=== PATIENT | male | born 1955 | race Caucasian/White ===

== ENCOUNTER 2017-08-19 08:25 | Outpatient (RCR) | payer BC, SELFPAY ==
[2017-08-19 10:29] LABS: Prothrombin Time (Protime)PT. 22.5 SECONDS (11.7-14.9)
== END 2017-08-19 09:00 | disposition home or self-care (01) ==
LOC: MTLAB 08:25
PROVIDERS: Family Provider Family Medicine; PCP Family Medicine; Visit Provider Internal Medicine Cardiovascular Disease
DX: Z79.01 Long term (current) use of 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s (principal)
CPT/HCPCS: 36415; 85610

== ENCOUNTER 2017-09-23 08:59 | Outpatient (RCR) | payer BC, SELFPAY ==
[2017-09-23 11:10] LABS: International Normalized Ratio 1.9; Prothrombin Time (Protime)PT. 21.9 SECONDS (11.7-14.9)
[2017-09-23 11:17] LABS: AST(SGOT) 21 U/L (15-37); Alanine Aminotransfer ALT/SGPT 21 U/L (16-61); Albumin, Serum 3.6 g/dL (3.2-5.0); Alkaline Phosphatase 126 U/L (45-117); Bilirubin, Direct 0.19 mg/dL (0.00-0.30); Cholesterol 100 mg/dL (200); Globulin 3.6 g/dL (2.2-4.2); High Density Lipoprotein 40 mg/dL; Protein, Total 7.2 g/dL (6.4-8.2); Triglycerides 68 mg/dL; Very Low Density Lipoprotein 14 mg/dL (5-40)
== END 2017-09-23 09:00 | disposition home or self-care (01) ==
LOC: MTLAB 08:59
PROVIDERS: Physician Assistant Medical; Family Provider Family Medicine; PCP Family Medicine; Visit Provider Internal Medicine Cardiovascular Disease
DX: Z79.01 Long term (current) use of 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s (principal); E78.5 Hyperlipidemia, unspecified; Z79.899 Other long term (current) drug therapy
CPT/HCPCS: 36415; 80061; 80076; 85610

== ENCOUNTER 2017-10-21 08:45 | Outpatient (RCR) | payer BC, SELFPAY ==
[2017-10-21 12:25] LABS: International Normalized Ratio 2.7; Prothrombin Time (Protime)PT. 28.9 SECONDS (11.7-14.9)
== END 2017-10-21 09:00 | disposition home or self-care (01) ==
LOC: MTLAB 08:45
PROVIDERS: Family Provider Family Medicine; PCP Family Medicine; Visit Provider Internal Medicine Cardiovascular Disease
DX: I51.3 Intracardiac thrombosis, not elsewhere classified (principal); I25.5 Ischemic cardiomyopathy; Z79.01 Long term (current) use of 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s
CPT/HCPCS: 36415; 85610

== ENCOUNTER 2017-11-25 09:24 | Outpatient (RCR) | payer BC, SELFPAY ==
--- NOTE | 2017-11-25 09:24 | DT_ITS ---
This patient was seen during an EMR downtime November 21, 2017 - November 28, 2017. This patient may have a combination of paper and electronic documentation or all paper documentation. All documentation is viewable within the e-chart portion of [email or web address] for each patient visit.
[2017-11-25 10:17] LABS: International Normalized Ratio 2.9; Prothrombin Time (Protime)PT. 30.1 SECONDS (11.7-14.9)
== END 2017-11-25 10:00 | disposition home or self-care (01) ==
LOC: MTLAB 09:24
PROVIDERS: Family Provider Family Medicine; PCP Family Medicine; Visit Provider Internal Medicine Cardiovascular Disease
DX: I51.3 Intracardiac thrombosis, not elsewhere classified (principal); I25.5 Ischemic cardiomyopathy; Z79.01 Long term (current) use of 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s
CPT/HCPCS: 36415; 85610

== ENCOUNTER 2017-12-30 09:10 | Outpatient (RCR) | payer BC, SELFPAY ==
[2017-12-30 10:52] LABS: International Normalized Ratio 2.3; Prothrombin Time (Protime)PT. 25.6 SECONDS (11.7-14.9)
== END 2017-12-30 11:00 ==
LOC: MTLAB 09:10
PROVIDERS: Family Provider Family Medicine; PCP Family Medicine; Visit Provider Internal Medicine Cardiovascular Disease
DX: I51.3 Intracardiac thrombosis, not elsewhere classified (principal); I25.5 Ischemic cardiomyopathy; Z79.01 Long term (current) use of 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s
CPT/HCPCS: 36415; 85610

== ENCOUNTER 2018-01-08 17:18 | Inpatient (IN) | payer BC, SELFPAY ==
[2018-01-08] VITALS (15 sets, daily range): BP systolic 110–167; BP diastolic 69–106; PULSE 48–87; RESP 14–19; TEMP 36.4–36.8; O2SAT 92–99; BMI 23.1; BMI 22.2; BMI 22.3
--- NOTE | 2018-01-08 17:36 | EKG12_ITS ---
Test Reason : Blood Pressure : / mmHG Vent. Rate : 073 BPM Atrial Rate : 073 BPM P-R Int : 166 ms QRS Dur : 094 ms QT Int : 384 ms P-R-T Axes : 066 015 117 degrees QTc Int : 423 ms Normal sinus rhythm Voltage criteria for left ventricular hypertrophy T wave abnormality, consider anterolateral ischemia Abnormal ECG Confirmed by KESHIA GRAY, ZENY ([id number]), desk editor ROCKY KIDD ([id number]) on 01/10/2018 1:13:35 PM Referred By: MANJEET Confirmed By:ZENY SCHMITT MD
--- NOTE | 2018-01-08 17:36 | RAD_ITS ---
STUDY: X-RAY CHEST REASON FOR EXAM: Male, 62 years old. Chest pain. History of coronary artery disease and prior bypass. TECHNIQUE: Single AP portable view of the chest. COMPARISON: Prior chest radiograph of March 02, 2013 FINDINGS: The lung floyd are well-expanded to mildly hyperexpanded. Prominent interstitial and linear opacities of the lung bases somewhat increased at the right lung base and more extensively increased at the left lung base. Negative for substantial pleural effusion. Stable cardiac size status post prior midline sternotomy with a right ventricular defibrillator remaining in good position. Normal mediastinum and fiona. Normal visualized pulmonary arteries. Normal visualized aortic arch and descending thoracic aorta. Normal visualized thoracic spine. Normal visualized ribs, clavicles, and shoulders. There is no demonstrated abnormality of the visualized soft tissue structures of the upper abdomen. RAD/Chest 1 View (Portable) IMPRESSION: Increased bibasilar interstitial and linear opacities, left greater than right without other major consolidation or pleural effusion. Stable cardiac size status post prior midline sternotomy with right ventricular pacemaker remaining in good position. Electronically Signed: Patria Nunez MD at 18:40 EDT , Service support ,
--- NOTE | 2018-01-08 17:37 | NURSING ---
NO LW OR POA
[2018-01-08 17:49] LABS: International Normalized Ratio 2.6; Prothrombin Time (Protime)PT. 28.1 SECONDS (11.7-14.9)
[2018-01-08 17:50] LABS: Absolute Lymphocyte Count 1.32 X10^3/ul (0.83-4.51); Absolute Neutrophil Count 4.4 X10^3/uL (2.0-7.7); Basophil# 0.01 X10^3/uL; Basophil% 0.2 % (0-1); Eosinophil# 0.17 X10^3/uL; Eosinophils% 2.6 % (0-5); Hematocrit 39.3 % (40-54); Hemoglobin 13.6 g/dl (13.0-16.5); Lymphocyte # 1.32 X10^3/ul (4.0); Lymphocyte % 20.2 % (19-41); Mean Corp Hgb Conc 34.6 g/gl (32-36); Mean Corpuscular Hgb 31.8 pg (27.0-32.0); Mean Corpuscular Volume 91.8 fL (80-94); Mean Platelet Vol. 9.8 fl (6.2-12.0); Monocyte# 0.64 X10^3/uL; Monocyte% 9.8 % (0-10); Neutrophil # 4.38 X10^3/uL (2.7-7.7); Platelet Count 155 K/mm3 (150-450); RBC Distribution Width CV 13.6 % (11.6-14.6); RBC Distribution Width SD 45.1 fl (35.1-43.9); Red Blood Count 4.28 M/mm3 (4.6-6.2); White Blood Count 6.5 K/mm3 (4.4-11.0)
[2018-01-08 17:53] LABS: POSITIVE COUNT NO; POSITIVE DIFFERENTIAL NO; POSITIVE MORPHOLOGY NO
[2018-01-08 17:57] LABS: Anion Gap 7 (5-15); BUN 13 mg/dL (7-18); BUN/Creat Ratio 9.8 RATIO (10-20); Calcium,Total 8.9 mg/dL (8.5-10.1); Chloride 108 mmol/L (98-107); Creatinine, Serum 1.32 mg/dL (0.70-1.30); EST Glomerular Filtration Rate 58 mL/min (>60); Est Glom Filt Rate - Afr Amer 70 mL/min (>60); Estimated Creatinine Clearance 60.76 ml/min; Glucose 92 mg/dL (74-106); Potassium 4.2 mmol/L (3.5-5.1); Sodium Level 144 mmol/L (136-145)
[2018-01-08] MEDS: Aspirin 81 MG TAB.CHEW 324 MG PO (17:58)
--- NOTE | 2018-01-08 17:59 | ED.VISSUMM ---
- ER Visit Summary Date of Service: 01/08/18 Chief Complaint: Near syncope History of Present Illness: The patient is a 62 M who presents with near syncope. He was outside cooking and it is about 80? out today. He was standing next to a hot grill. He states began to feel dizzy and lightheaded. He went to sit down at a picnic table. He states the next thing he knew several people were surrounding him. He denies having lost consciousness. He did not become unresponsive. EMS was called. He had a second episode of near syncope while in the ambulance. However currently he feels well and is without complaint. He denies any associated chest pain or shortness of breath with this. He denies recent illness such as fevers vomiting or diarrhea. Physical Examination: Afebrile vitals stable blood pressure 143/56 with a heart rate of 70 Moist mucous membranes Heart regular rate and rhythm Lungs are clear no rales rhonchi wheezes Abdomen soft 2+ radial pulses Extremities nontender without edema Test Results: EKG shows sinus rhythm at a rate of 71 with a single PVC. CBC BMP normal. Troponin negative. Orthostatic vital signs negative. Chest x-ray showed a 5 cm right upper lobe spiculated mass. CTA of the chest was obtained. No pulmonary embolism. There is a 5.1 cm malignant mass in the right upper right hilar lymphadenopathy concerning for bronchogenic carcinoma. Emergency Department Course and Treatment: I do believe the patient's near syncope was likely related to heat exhaustion. He states that this began while standing next to a very hot grill. He states currently he is completely asymptomatic. This orthostatic vital signs and labs were all normal. I explained to the patient the findings on CT chest that are most consistent with malignancy. I spoke to Dr. Jolly, pulmonology and patient will follow-up as an outpatient. He understands to return for new or worsening symptoms and was instructed on specific signs and symptoms to monitor for. Patient discharged home in good condition. Treatment Plan: [] Disposition: Discharge Impression: Near syncope Heat exhaustion Lung mass This note was generated with [employer] dictation software. It may contain incorrect words, spelling, and punctuation that were not noted in review of the chart prior to signing ED Disposition - Plan for ED Patient: Chief Complaint: Chest Pain Referrals: Ranjith Marks MD [Primary Care Provider] -
--- NOTE | 2018-01-08 18:02 | ED.DEP ---
ED Disposition - Plan for ED Patient: Chief Complaint: Chest Pain Instructions: ED Nodule Solitary Pulmonary, ED Exhaustion Heat, ED Near Syncope Unkn Referrals: Ranjith Marks MD [Primary Care Provider] - Artemio Jolly DO [STAFF PHYSICIAN] -
--- NOTE | 2018-01-08 18:55 | ED.VISSUMM ---
- ER Visit Summary Date of Service: 01/08/18 Chief Complaint: Chest pain History of Present Illness: The patient is a 62 M who presents for chest pain. It began about 1 hour prior to presentation. He had just walked up a flight of 13 steps. He developed substernal chest tightness. He denies any associated symptoms such as nausea vomiting diaphoresis or shortness of breath. No lightheadedness or dizziness. He did have some blurred vision although this has improved. He took nitroglycerin at home with improvement of symptoms. Currently he rates his pain a 7 out of 10. No recent illness. He denies fevers vomiting diarrhea. Physical Examination: Initial blood pressure 150/103 pulse ox 93% on room air vitals otherwise stable and within normal limits Moist mucous members Heart regular rate and rhythm Lungs clear Abdomen soft nontender Extremities nontender without edema 2+ radial pulses Alert Test Results: EKG shows normal sinus rhythm at a rate of 73. CBC BMP notable for creatinine 1.32. INR therapeutic at 2.6. Troponin is negative. Chest x-ray shows increased interstitial opacities left greater than right no consolidation or effusion. The patient did have a 6 run beat of nonsustained VT on telemetry here. Emergency Department Course and Treatment: Patient was given aspirin and sublingual nitroglycerin here. With a sublingual nitroglycerin series his pain improved from 7 out of 10 to 2 out of 10. Therefore IV nitroglycerin infusion has been ordered. Chest x-ray is suggestive of mild CHF. He was given IV Lasix. I spoke to Dr. Taylor who is on-call for cardiology. The patient is already on aspirin Plavix and full anticoagulation with warfarin. He recommended admission to the hospitalist service and they will see the patient tomorrow. Treatment Plan: [] Disposition: Admit Impression: Acute coronary syndrome Nonsustained ventricular tachycardia CHF This note was generated with [employer] dictation software. It may contain incorrect words, spelling, and punctuation that were not noted in review of the chart prior to signing ED Disposition - Plan for ED Patient: Chief Complaint: Chest Pain Instructions: ED Exhaustion Heat, ED Nodule Solitary Pulmonary, ED Near Syncope Unkn Referrals: Ranjith Marks MD [Primary Care Provider] - Artemio Jolly DO [STAFF PHYSICIAN] -
--- NOTE | 2018-01-08 18:58 | ED.DCSUM_ITS ---
- ER Visit Summary Date of Service: 01/08/18 Chief Complaint: Chest pain History of Present Illness: The patient is a 62 M who presents for chest pain. It began about 1 hour prior to presentation. He had just walked up a flight of 13 steps. He developed substernal chest tightness. He denies any associated symptoms such as nausea vomiting diaphoresis or shortness of breath. No lightheadedness or dizziness. He did have some blurred vision although this has improved. He took nitroglycerin at home with improvement of symptoms. Currently he rates his pain a 7 out of 10. No recent illness. He denies fevers vomiting diarrhea. Physical Examination: Initial blood pressure 150/103 pulse ox 93% on room air vitals otherwise stable and within normal limits Moist mucous members Heart regular rate and rhythm Lungs clear Abdomen soft nontender Extremities nontender without edema 2+ radial pulses Alert Test Results: EKG shows normal sinus rhythm at a rate of 73. CBC BMP notable for creatinine 1.32. INR therapeutic at 2.6. Troponin is negative. Chest x- ray shows increased interstitial opacities left greater than right no consolidation or effusion. The patient did have a 6 run beat of nonsustained VT on telemetry here. Emergency Department Course and Treatment: Patient was given aspirin and sublingual nitroglycerin here. With a sublingual nitroglycerin series his pain improved from 7 out of 10 to 2 out of 10. Therefore IV nitroglycerin infusion has been ordered. Chest x-ray is suggestive of mild CHF. He was given IV Lasix. I spoke to Dr. Taylor who is on-call for cardiology. The patient is already on aspirin Plavix and full anticoagulation with warfarin. He recommended admission to the hospitalist service and they will see the patient tomorrow. Treatment Plan: [] Disposition: Admit Impression: Acute coronary syndrome Nonsustained ventricular tachycardia CHF This note was generated with [employer] dictation software. It may contain incorrect words, spelling, and punctuation that were not noted in review of the chart prior to signing ED Disposition - Plan for ED Patient: Chief Complaint: Chest Pain Instructions: ED Exhaustion Heat, ED Nodule Solitary Pulmonary, ED Near Syncope Unkn Referrals: Ranjith Marks MD [Primary Care Provider] - Artemio Jolly DO [STAFF PHYSICIAN] -
[2018-01-08] MEDS: Furosemide 20 MG/2 ML VIAL IV (19:07)
[2018-01-08 20:18] LABS: BNP,B-Type NATRIURETIC PEPTIDE 502.8 pg/mL (0-100)
--- NOTE | 2018-01-08 20:21 | NURSING ---
Called Tyrone in ED, patient's 2nd trop due now, asked him to draw trop level, then ok to send to floor.
--- NOTE | 2018-01-08 21:22 | HP.PCM_ITS ---
Problem List (1) Chest pain Status: Acute (2) Hyperlipidemia Status: Chronic Qualifiers: Hyperlipidemia type: pure hypercholesterolemia Qualified Code(s): E78.00 - Pure hypercholesterolemia, unspecified; E78.0 - Pure hypercholesterolemia (3) Saphenous vein injury Status: Chronic (4) Presence of aortocoronary bypass graft Status: Chronic Comment: 08/12/03, CABG X 4, MENCHACA to LAD, SVG to DCA, SVG to CX , SVG to PDA (5) History of percutaneous transluminal coronary angioplasty Status: Chronic (6) Peripheral vascular disease, unspecified Status: Chronic (7) Atherosclerosis of coronary artery bypass graft without angina pectoris Status: Chronic Qualifiers: [place] vs. transplanted heart: [place] heart Qualified Code(s): I25.810 - Atherosclerosis of coronary artery bypass graft(s) without angina pectoris (8) Ventricular tachycardia Status: Chronic (9) Ischemic cardiomyopathy Status: Chronic (10) Presence of automatic implantable cardioverter-defibrillator Status: Chronic Comment: ICD 2005 [employer] (11) senior care current use of 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 Status: Chronic (12) Apical mural thrombus Status: Chronic History of Present Illness Date of Admission: 01/08/18 Chief Complaint: Chest pain The patient is a 62 year old male w/ h/o CAD s/p CABG and stent in 2008, LV thrombus, ICD placement and lipidemia admitted for chest pain. He developed sudden onset of chest pain while during up a flight of stairs. Chest pain was crushing and pressure-like. Pain was substernal. Nothing appeared to make it worse. Pain was constant and was alleviated with nitro taken at home and in the ED. He had blurry vision associated with the pain. Blurry vision improved over time. Past Medical History Past Medical History (Chronic Problems): Chronic Problems (Last Updated 08/26/17 @ 15:37 by MICHELLE Maddox) Hyperlipidemia (Chronic) Saphenous vein injury (Chronic) Presence of aortocoronary bypass graft (Chronic) 08/12/03, CABG X 4, MENCHACA to LAD, SVG to DCA, SVG to CX, SVG to PDA History of percutaneous transluminal coronary angioplasty (Chronic) Peripheral vascular disease, unspecified (Chronic) Atherosclerosis of coronary artery bypass graft without angina pectoris (Chronic ) Ventricular tachycardia (Chronic) Ischemic cardiomyopathy (Chronic) Presence of automatic implantable cardioverter-defibrillator (Chronic) ICD 2005 [employer] current use of 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 (Chronic) Apical mural thrombus (Chronic) Medical History: Medical History (Last Reviewed 01/09/18 @ 03:46 by Joel Lin MD) Hyperlipidemia (Chronic) E78.5 Saphenous vein injury (Chronic) S85.309A Peripheral vascular disease, unspecified (Chronic) I73.9 Atherosclerosis of coronary artery bypass graft without angina pectoris (Chronic ) I25.810 Ventricular tachycardia (Chronic) I47.2 Ischemic cardiomyopathy (Chronic) I25.5 senior care current use of 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 (Chronic) Z79.01 Apical mural thrombus (Chronic) I51.3 DVT (deep venous thrombosis) I82.409 Allergies Penicillins Adverse Reaction (Severe, Verified 01/08/18 17:22) Unknown Home Medications: Ambulatory Orders Medication Instructions Recorded aspirin 81 mg tablet,delayed 81 mg PO QDAY tab 08/24/17 release nitroglycerin 0.4 mg sublingual 0.4 mg SUBLINGUAL Q5-15M PRN #25 11/04/17 tablet tab clopidogrel 75 mg tablet 75 mg PO QDAY #90 tab 11/29/17 atorvastatin 10 mg tablet 10 mg PO QHS #90 tab 11/30/17 carvedilol 25 mg tablet 25 mg PO BID #180 tab 11/30/17 quinapril 10 mg tablet 10 mg PO QDAY #90 tab 11/30/17 niacin ER 1,000 mg tablet,extended 1,000 mg PO QDAY #90 tab 12/15/17 release Warfarin Sodium [Coumadin] 3 mg PO MOTUWETHFR 01/08/18 Warfarin Sodium [Coumadin] 4 mg PO SUSA 01/08/18 Surgical History: Surgical History (Last Reviewed 01/09/18 @ 03:46 by Joel iLn MD) Presence of aortocoronary bypass graft (Chronic) Z95.1 08/12/03, CABG X 4, MENCHACA to LAD, SVG to DCA, SVG to CX, SVG to PDA History of percutaneous transluminal coronary angioplasty (Chronic) Z98.61 Presence of automatic implantable cardioverter-defibrillator (Chronic) Z95.810 ICD 2005 [employer] Smoking Status: Never smoker Review of Systems Constitutional: Denies: Chills, Fever, Weight Change HEENT: Denies: Head Aches, Sinus Congestion, Sinus Drainage Cardiovascular: Reports: Chest Pain, Chest Tightness. Denies: Palpitations Respiratory: Denies: Cough, Shortness of breath at rest, Sputum production Gastrointestinal: Denies: Abdominal Pain, Nausea, Vomiting Genitourinary: Denies: Dysuria Musculoskeletal: Denies: Joint Pain, Joint Tenderness Skin: Denies: Rash, Wounds Neurological: Reports: Blurred vision. Denies: Focal weakness, Numbness, Tingling Psychiatric: Denies: Anxiety, Depression, Homicidal Ideations, Suicidal Ideations Hematologic/ Lymphatic: Denies: Easy Bruising, Easy Bleeding VTE Information - Inpt Only VTE Present on Admission: No VTE Mechan Device Prophylaxis: SCD's VTE Pharm Prophylaxis ordered?: Yes Patient Problems: Active and Suspected Problems (Last Updated 08/26/17 @ 15:37 by MICHELLE Maddox) Chest pain (Acute) - Physical Exam General: Alert, Oriented x3, Cooperative HEENT: Atraumatic, PERRLA, EOMI, Normocephalic Neck: Supple, No JVD, Negative Carotid Bruits Lungs: Clear to auscultation, Normal air movement Cardiovascular: Regular rate, No murmurs Abdomen: Bowel Sounds Present, Soft, Non Tender Extremities: No edema, Capillary Refill Less than 3 Seconds Skin: No rashes, No breakdown Musculoskeletal: No Tenderness to Palpation of Joints or Extremities Neurological: Cranial nerves II-XII grossly intact Psych/Mental Status: Normal Affect, Appropriate Vital Signs Temp Pulse Resp BP Pulse Ox 98.2 F 73 14 120/82 H 95 01/08/18 17:20 01/08/18 20:02 01/08/18 20:02 01/08/18 20:02 01/08/18 20:02 Assessment/Plan All Active Problems (Last Updated 08/26/17 @ 15:37 by MICHELLE Maddox) Chest pain (Acute) 62 year old male w/ h/o CAD s/p CABG and stent in 2008, LV thrombus, ICD placement and lipidemia admitted for chest pain. 1) Chest pain: Heart score 6 High suspicion for ACS. Nonsustained ventricular tachycardia in ED noted. Chest xray disclosed congestion. EKG disclosed normal sinus without any dynamic changes. Initial trop negative. C/w home meds. Serial trops. C/w nitro gtt. ECHO in AM. Cards consulted. 2) Hypervolemia: Will start lasix IV. ECHO in AM concerning for heart failure. Monitor. 3) LV thrombus: C/w coumadin. Monitor. 4) Prophylaxis: Coumadin.
[2018-01-08] MEDS: Atorvastatin Calcium 10 MG Tablet PO (22:46)
[2018-01-08] MEDS: Carvedilol 25 MG Tablet PO (22:46)
[2018-01-09] VITALS (20 sets, daily range): BP systolic 103–127; BP diastolic 72–79; PULSE 51–79; RESP 13–18; TEMP 36.4–37; O2SAT 93–98
[2018-01-09 05:55] LABS: Absolute Lymphocyte Count 0.96 X10^3/ul (0.83-4.51); Absolute Neutrophil Count 3.7 X10^3/uL (2.0-7.7); Basophil# 0.02 X10^3/uL; Basophil% 0.4 % (0-1); Eosinophil# 0.15 X10^3/uL; Eosinophils% 2.8 % (0-5); Hematocrit 36.5 % (40-54); Hemoglobin 12.8 g/dl (13.0-16.5); Lymphocyte # 0.96 X10^3/ul (4.0); Lymphocyte % 17.8 % (19-41); Mean Corp Hgb Conc 35.1 g/gl (32-36); Mean Corpuscular Hgb 32.1 pg (27.0-32.0); Mean Corpuscular Volume 91.5 fL (80-94); Mean Platelet Vol. 9.6 fl (6.2-12.0); Monocyte% 9.3 % (0-10); Neutrophil # 3.74 X10^3/uL (2.7-7.7); Neutrophil % 69.5 % (47-70); Platelet Count 129 K/mm3 (150-450); RBC Distribution Width CV 13.5 % (11.6-14.6); RBC Distribution Width SD 44.3 fl (35.1-43.9); Red Blood Count 3.99 M/mm3 (4.6-6.2); White Blood Count 5.4 K/mm3 (4.4-11.0)
--- NOTE | 2018-01-09 05:55 | ECHOCS_ITS ---
Reason For Study: Chest Pain Procedure This was a 2D Doppler, Color Flow transthoracic echocardiogram. Exam performed portable in patient room. Left Ventricle Moderately dilated left ventricle. The estimated ejection fraction is 20-25 %. Stage 1 diastolic dysfunction. Septal motion consistent with IVCD. No regional wall motion abnormalities noted. Right Ventricle Normal size and thickness. ICD or pacer leads identified within the right ventricle. Normal systolic function. Atria The left atrium is moderately enlarged. Normal right atrium. Normal atrial septum. Mitral Valve The mitral valve is structurally normal. No prolapse or stenosis seen. Mild (1+) mitral valve insufficiency. Tricuspid Valve Normal tricuspid valve. Trivial tricuspid valve insufficiency. Right ventricular systolic pressure estimated to be 33 mmHg. Aortic Valve Trisinus/trileaflet aortic valve. Mild diffuse aortic valve thickening. Pulmonic Valve Normal pulmonic valve. Great Vessels Normal aortic root. Normal arch. Normal inferior vena cava. Inferior vena cava collapse with sniff. Pericardium/Pleural No pericardial effusion. Medication Diluted definity 2.5ml given slow IV push to enhance endocardial definition. MMode/2D Measurements & Calculations Ao root diam: 3.3 cm LAV(MOD-bp): 63.9 ml LA A4 area: 22.8 cm2 LAV(MOD-bp) Indexed: 33.4 ml/m2 LAV(MOD-sp2): 51.1 ml LAV(MOD-sp4): 74.5 ml RA A4 area: 14.0 cm2 Time Measurements MV dec time: 0.27 sec Doppler Measurements & Calculations MV E max travis: 52.3 cm/sec Lat Peak E' Travis: 7.9 cm/sec Med Peak E' Travis: 8.5 cm/sec MV A max travis: 73.3 cm/sec E/E' lat: 6.6 E/E' med: 6.1 MV E/A: 0.71 MV V2 max: 92.9 cm/sec MV P1/2t max travis: 77.0 cm/sec Ao V2 max: 119.3 cm/sec MV max P.4 mmHg MV P1/2t: 76.3 msec Ao max P.7 mmHg MV V2 mean: 50.7 cm/sec MV dec slope: 295.7 cm/sec2 Ao V2 mean: 71.5 cm/sec MV mean P.2 mmHg MVA(P1/2t): 2.9 cm2 Ao mean P.5 mmHg MV V2 VTI: 26.3 cm Ao V2 VTI: 19.6 cm LV V1 max: 101.5 cm/sec PA V2 max: 117.5 cm/sec TR max travis: 267.6 cm/sec LV V1 max P.1 mmHg TR max P.6 mmHg LV V1 mean P.7 mmHg LV V1 mean: 58.0 cm/sec LV V1 VTI: 15.9 cm Interpretation Summary The estimated ejection fraction is 20-25 %. Stage 1 diastolic dysfunction. The left atrium is moderately enlarged. Mild (1+) mitral valve insufficiency. Trivial tricuspid valve insufficiency. Right ventricular systolic pressure estimated to be 33 mmHg. Moderately dilated left ventricle. Compared to echo report dated 03/04/2016, LV function appears slightly worse and RVSP has increased from 26 to 33 mm Hg. The study was technically difficult. Contrast injection was performed. Ordering Physician: Joel Lin Referring Physician: Heather Purvis Performed By: Sean Lainez RCS
[2018-01-09] MEDS: Aspirin E.C. 81 MG Tablet PO (06:14)
[2018-01-09] MEDS: Lisinopril 10 MG Tablet PO (06:14)
[2018-01-09] MEDS: Clopidogrel Bisulfate 75 MG Tablet PO (06:14)
[2018-01-09 06:25] LABS: Anion Gap 10 (5-15); BUN 14 mg/dL (7-18); BUN/Creat Ratio 11.6 RATIO (10-20); Calcium,Total 8.6 mg/dL (8.5-10.1); Chloride 106 mmol/L (98-107); Cholesterol 95 mg/dL (200); Creatinine, Serum 1.21 mg/dL (0.70-1.30); EST Glomerular Filtration Rate 64 mL/min (>60); Est Glom Filt Rate - Afr Amer 78 mL/min (>60); Estimated Creatinine Clearance 63.99 ml/min; Glucose 82 mg/dL (74-106); High Density Lipoprotein 35 mg/dL; Potassium 3.9 mmol/L (3.5-5.1); Sodium Level 143 mmol/L (136-145); Thyroid Stim Hormone (TSH) 7.46 uIU/mL (0.358-3.74); Triglycerides 104 mg/dL; Very Low Density Lipoprotein 21 mg/dL (5-40)
[2018-01-09 06:35] LABS: POSITIVE COUNT NO; POSITIVE DIFFERENTIAL NO; POSITIVE MORPHOLOGY NO
[2018-01-09 08:18] LABS: BNP,B-Type NATRIURETIC PEPTIDE 404.5 pg/mL (0-100)
[2018-01-09] MEDS: Carvedilol 25 MG Tablet PO ×2 (08:59→22:35)
[2018-01-09] MEDS: Niacin SA 500 MG Tablet 1000 MG PO (08:59)
[2018-01-09] MEDS: Furosemide 40 MG/4 ML Vial IV ×2 (09:00→17:25)
--- NOTE | 2018-01-09 11:15 | PCM.CONS.C ---
Problem List (1) Chest pain Status: Acute (2) Hyperlipidemia Status: Chronic Qualifiers: Hyperlipidemia type: pure hypercholesterolemia Qualified Code(s): E78.00 - Pure hypercholesterolemia, unspecified; E78.0 - Pure hypercholesterolemia (3) Presence of aortocoronary bypass graft Status: Chronic Comment: 08/12/03, CABG X 4, MENCHACA to LAD, SVG to DCA, SVG to CX, SVG to PDA (4) History of percutaneous transluminal coronary angioplasty Status: Chronic (5) Atherosclerosis of coronary artery bypass graft without angina pectoris Status: Chronic Qualifiers: [place] vs. transplanted heart: [place] heart Qualified Code(s): I25.810 - Atherosclerosis of coronary artery bypass graft(s) without angina pectoris (6) Ventricular tachycardia Status: Chronic (7) Ischemic cardiomyopathy Status: Chronic (8) Presence of automatic implantable cardioverter-defibrillator Status: Chronic Comment: ICD 2005 [employer] (9) Apical mural thrombus Status: Chronic Reason for Consult Date of Consultation: 01/09/18 Reason for Consultation: Chest pain, nonsustained V. tach, ischemic cardiomyopathy, hypertension, coronary artery disease, status post AICD History of Present Illness: The patient is a 62 year old M, patient of Dr. Anguiano with a history of hypertension, hypercholesterolemia, coronary artery disease status post coronary bypass surgery ?4 on 08/12/03. At that time he received a MENCHACA to the LAD, saphenous vein graft to the diagonal, saphenous vein graft to the left circumflex and saphenous vein graft to the PDA. In 2005 he underwent AICD placement. Patient presented [facility] on 01/21/09 with non-ST elevation myocardial infarction and underwent repeat coronary angiography. At that time he had a patent saphenous vein graft to the PDA, patent saphenous vein graft to the diagonal branch, patent saphenous vein graft to the ramus, and a small atretic MENCHACA to the LAD. At that time he was treated with medical therapy. His LAD was described as a large occluded vessel and filling retrograde from a patent saphenous vein graft to the diagonal. In addition the patient has ischemic cardiomyopathy with an EF around 35% by echocardiogram in 2016. His last pacemaker interrogation was 08/18/16 which showed 2 episodes of ventricular tachycardia which resolved on its own, another one with ATP correction. The patient was in normal health up until yesterday when he presented with substernal chest pain after walking of about 13 stairs. His EKG was unremarkable in the emergency room. While he was in the emergency room he had a 5 beat run of nonsustained ventricular tachycardia. In addition his chest pain was unresolved with 3 sublingual nitroglycerin and a nitroglycerin drip was started. His troponins have been negative thus far. In addition he has a history of left ventricular mural thrombus and is on chronic Coumadin therapy and is therapeutic on his Coumadin. His most recent stress test was in 01/19/2010 which demonstrated extensive anterior infarct with no evidence of ischemia. On telemetry the patient has been in normal sinus rhythm/sinus bradycardia. He did have a 5 beat run of nonsustained ventricular tachycardia. This was self terminating. The patient's anginal equivalent is bilateral throat pain, which he did not have any of last evening., Past Medical History Allergies/Adverse Reactions: Allergies Penicillins Adverse Reaction (Severe, Verified 01/08/18 17:22) Unknown Home Medications: Ambulatory Orders Medication Instructions Recorded aspirin 81 mg tablet,delayed 81 mg PO QDAY tab 08/24/17 release nitroglycerin 0.4 mg sublingual 0.4 mg SUBLINGUAL Q5-15M PRN #25 11/04/17 tablet tab clopidogrel 75 mg tablet 75 mg PO QDAY #90 tab 11/29/17 atorvastatin 10 mg tablet 10 mg PO QHS #90 tab 11/30/17 carvedilol 25 mg tablet 25 mg PO BID #180 tab 11/30/17 quinapril 10 mg tablet 10 mg PO QDAY #90 tab 11/30/17 niacin ER 1,000 mg tablet,extended 1,000 mg PO QDAY #90 tab 12/15/17 release Warfarin Sodium [Coumadin] 3 mg PO MOTUWETHFR 01/08/18 Warfarin Sodium [Coumadin] 4 mg PO SUSA 01/08/18 Past Medical History (Chronic Problems): Chronic Problems (Last Reviewed 01/09/18 @ 03:46 by Joel Lin MD) Hyperlipidemia (Chronic) Saphenous vein injury (Chronic) Presence of aortocoronary bypass graft (Chronic) 08/12/03, CABG X 4, MENCHACA to LAD, SVG to DCA, SVG to CX, SVG to PDA History of percutaneous transluminal coronary angioplasty (Chronic) Peripheral vascular disease, unspecified (Chronic) Atherosclerosis of coronary artery bypass graft without angina pectoris (Chronic) Ventricular tachycardia (Chronic) Ischemic cardiomyopathy (Chronic) Presence of automatic implantable cardioverter-defibrillator (Chronic) ICD 2005 [employer] alf current use of 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 (Chronic) Apical mural thrombus (Chronic) Smoking Status: Never smoker Review of Systems - Review of Systems General: Denies: Fever, Night Sweats, Fatigue Cardiovascular: Reports: Chest Discomfort, Chest Discomfort with Exertion. Denies: Shortness of Breath, Orthopnea, PND, Peripheral Edema, Palpitations, Lightheadedness, Dizziness, Near Syncope, Syncope Respiratory: Denies: Cough, Sputum Production, Hemoptysis Gastrointestinal: Denies: Hematemesis, Hematochezia, Melena Genitourinary: Denies: Dysuria, Hematuria Skin: Denies: Rash Subjectve: Patient laying in bed, no acute distress. Currently on nitro drip. Objective: Vital Signs Temp Pulse Resp BP Pulse Ox 98.3 F 67 14 115/79 97 01/09/18 09:00 01/09/18 09:00 01/09/18 09:00 01/09/18 09:00 01/09/18 09:00 Oxygen Flow Rate (L/min) 2 Oxygen Delivery Method Nasal Cannula Weight: 159 lb 9.835 oz Body Mass Index (BMI) 22.2 Intake and Output for Last 24 Hours 01/07/18 01/08/18 01/09/18 23:59 23:59 23:59 Intake Total 83 / 83 Balance 83 / 83 General: Awake, Alert, Oriented x 3 HEENT: PERRL, EOMI, Sclera Non Icteric Neck: Supple, Good ROM, No Lymph Node Enlargement Lungs: Rales - Mike Bases Cardiovascular: Regular Rhythm, Normal S1, Normal S2, No Murmurs, No Rubs, No Gallops Vascular: No Carotid Bruits, Normal Femoral Pulses, Normal Radial Pulses, Normal Dorsalis Pedal Pulse, Normal Posterior Tibial Pulses Abdomen: Bowel Sounds Present, Soft, Non Tender, No HSM, No Organomegaly Extremities: No Cyanosis, No Clubbing, No edema Neurological: No Focal Motor or Sensory Deficit 01/08/18 23:48: Troponin I < 0.015 01/09/18 05:25: WBC 5.4, RBC 3.99 L, Hgb 12.8 L, Hct 36.5 L, MCV 91.5, MCH 32.1 H, MCHC 35.1, RDW 13.5, RDW Differential 44.3 H, Plt Count 129 L, MPV 9.6, Immature Gran % (Auto) 0.200, Neut % (Auto) 69.5, Lymph % (Auto) 17.8 L, [place] % (Auto) 9.3, Eos % (Auto) 2.8, Baso % (Auto) 0.4, Absolute Neuts (auto) 3.7, Total Counted Not Reportable 01/09/18 05:25: Sodium 143, Potassium 3.9, Chloride 106, Carbon Dioxide 27.0, Anion Gap 10, BUN 14, Creatinine 1.21, Est GFR (MDRD) Af Amer 78, Est GFR (MDRD) Non-Af 64, BUN/Creatinine Ratio 11.6, Glucose 82, Calcium 8.6, Triglycerides 104, Cholesterol 95, LDL Cholesterol 39, VLDL Cholesterol 21, HDL Cholesterol 35 L 01/09/18 05:25: PT 25.5 H, INR 2.3 01/09/18 05:25: B-Natriuretic Peptide 404.5 H Rhythm: EKG: Sinus bradycardia with LVH with anterior T-wave inversion, no acute changes. ECHO: Stress Test: Pending Cardiac Cath: PCI: CT Surgery: Holter monitor: EPS: PPM: CXR: Chest CT Scan: Assessment/Plan 1. Coronary artery disease: Patient presents with exertional chest pain dissimilar from his previous angina which was bilateral throat pain. Nonetheless he has a history of ischemic cardiomyopathy, status post bypass surgery, with a distant history of a stress test. He had no dynamic EKG changes on his admitting EKG and his troponins have been negative ?2. I recommended discontinuation of his intracoronary nitro drip. If the patient's chest pain returns, we will consider repeat left heart catheterization and graft angiography once his INR is below 1.8. In the meantime I recommend he undergo a repeat treadmill echocardiogram after his IV nitro is been discontinued and presumably if he has no further chest pain. If his stress echocardiogram is negative for ischemia, we will treat him with medical therapy. If however he has evidence of ischemia or exertional angina again we will have a low threshold for repeat catheterization. In the meantime recommend continuing baby aspirin and Plavix for now. We will hold his Coumadin in anticipation of possible catheterization. 2. Ischemic cardiomyopathy: The patient has evidence on his chest x-ray and physical exam of congestive heart failure symptoms, and has received IV Lasix and is feeling much better. I see that he is on no p.o. Lasix at home despite his ischemic cardiomyopathy. Recommend starting Lasix 40 mg p.o. daily going forward. In the meantime he will continue his Coreg, quinapril, baby aspirin and Plavix. Recommend holding his Coreg for his stress test tomorrow. 3. LV mural thrombus: Given his LV dysfunction and history of mural thrombus he will require lifelong any coagulation therapy once his cardiac workup is been completed. 4. Ventricular tachycardia: The patient has had several episodes of ventricular tachycardia both detected by his AICD and on telemetry on this admission. This may be a result of congestive heart failure exacerbation. He has an AICD placed. He is required no AICD discharges and so would recommend holding amiodarone at this time. 5. Thank you very much for the opportunity to participate in the cardiac care of your patient. Consultation time took place between 1030 and 11 AM. Code Visit Inpatient E&M: 19531 Init Hosp L2
--- NOTE | 2018-01-09 11:26 | CON.PCM_ITS ---
Problem List (1) Chest pain Status: Acute (2) Hyperlipidemia Status: Chronic Qualifiers: Hyperlipidemia type: pure hypercholesterolemia Qualified Code(s): E78.00 - Pure hypercholesterolemia, unspecified; E78.0 - Pure hypercholesterolemia (3) Presence of aortocoronary bypass graft Status: Chronic Comment: 08/12/03, CABG X 4, MENCHACA to LAD, SVG to DCA, SVG to CX , SVG to PDA (4) History of percutaneous transluminal coronary angioplasty Status: Chronic (5) Atherosclerosis of coronary artery bypass graft without angina pectoris Status: Chronic Qualifiers: [place] vs. transplanted heart: [place] heart Qualified Code(s): I25.810 - Atherosclerosis of coronary artery bypass graft(s) without angina pectoris (6) Ventricular tachycardia Status: Chronic (7) Ischemic cardiomyopathy Status: Chronic (8) Presence of automatic implantable cardioverter-defibrillator Status: Chronic Comment: ICD 2005 [employer] (9) Apical mural thrombus Status: Chronic Reason for Consult Date of Consultation: 01/09/18 Reason for Consultation: Chest pain, nonsustained V. tach, ischemic cardiomyopathy, hypertension, coronary artery disease, status post AICD History of Present Illness: The patient is a 62 year old M, patient of Dr. Anguiano with a history of hypertension, hypercholesterolemia, coronary artery disease status post coronary bypass surgery ?4 on 08/12/03. At that time he received a MENCHACA to the LAD, saphenous vein graft to the diagonal, saphenous vein graft to the left circumflex and saphenous vein graft to the PDA. In 2005 he underwent AICD placement. Patient presented [facility] on 01/21/09 with non- ST elevation myocardial infarction and underwent repeat coronary angiography. At that time he had a patent saphenous vein graft to the PDA, patent saphenous vein graft to the diagonal branch, patent saphenous vein graft to the ramus, and a small atretic MENCHACA to the LAD. At that time he was treated with medical therapy. His LAD was described as a large occluded vessel and filling retrograde from a patent saphenous vein graft to the diagonal. In addition the patient has ischemic cardiomyopathy with an EF around 35% by echocardiogram in 2016. His last pacemaker interrogation was 08/18/16 which showed 2 episodes of ventricular tachycardia which resolved on its own, another one with ATP correction. The patient was in normal health up until yesterday when he presented with substernal chest pain after walking of about 13 stairs. His EKG was unremarkable in the emergency room. While he was in the emergency room he had a 5 beat run of nonsustained ventricular tachycardia. In addition his chest pain was unresolved with 3 sublingual nitroglycerin and a nitroglycerin drip was started. His troponins have been negative thus far. In addition he has a history of left ventricular mural thrombus and is on chronic Coumadin therapy and is therapeutic on his Coumadin. His most recent stress test was in 01/19/2010 which demonstrated extensive anterior infarct with no evidence of ischemia. On telemetry the patient has been in normal sinus rhythm/sinus bradycardia. He did have a 5 beat run of nonsustained ventricular tachycardia. This was self terminating. The patient's anginal equivalent is bilateral throat pain, which he did not have any of last evening., Past Medical History Allergies/Adverse Reactions: Allergies Penicillins Adverse Reaction (Severe, Verified 01/08/18 17:22) Unknown Home Medications: Ambulatory Orders Medication Instructions Recorded aspirin 81 mg tablet,delayed 81 mg PO QDAY tab 08/24/17 release nitroglycerin 0.4 mg sublingual 0.4 mg SUBLINGUAL Q5-15M PRN #25 11/04/17 tablet tab clopidogrel 75 mg tablet 75 mg PO QDAY #90 tab 11/29/17 atorvastatin 10 mg tablet 10 mg PO QHS #90 tab 11/30/17 carvedilol 25 mg tablet 25 mg PO BID #180 tab 11/30/17 quinapril 10 mg tablet 10 mg PO QDAY #90 tab 11/30/17 niacin ER 1,000 mg tablet,extended 1,000 mg PO QDAY #90 tab 12/15/17 release Warfarin Sodium [Coumadin] 3 mg PO MOTUWETHFR 01/08/18 Warfarin Sodium [Coumadin] 4 mg PO SUSA 01/08/18 Past Medical History (Chronic Problems): Chronic Problems (Last Reviewed 01/09/18 @ 03:46 by Joel Lin MD) Hyperlipidemia (Chronic) Saphenous vein injury (Chronic) Presence of aortocoronary bypass graft (Chronic) 08/12/03, CABG X 4, MENCHACA to LAD, SVG to DCA, SVG to CX, SVG to PDA History of percutaneous transluminal coronary angioplasty (Chronic) Peripheral vascular disease, unspecified (Chronic) Atherosclerosis of coronary artery bypass graft without angina pectoris (Chronic ) Ventricular tachycardia (Chronic) Ischemic cardiomyopathy (Chronic) Presence of automatic implantable cardioverter-defibrillator (Chronic) 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 Denies: Shortness of Breath, Orthopnea, PND, Peripheral Edema, Palpitations, Lightheadedness, Dizziness, Near Syncope, Syncope Respiratory: Denies: Cough, Sputum Production, Hemoptysis Gastrointestinal: Denies: Hematemesis, Hematochezia, Melena Genitourinary: Denies: Dysuria, Hematuria Skin: Denies: Rash Subjectve: Patient laying in bed, no acute distress. Currently on nitro drip. Objective: Vital Signs Temp Pulse Resp BP Pulse Ox 98.3 F 67 14 115/79 97 01/09/18 09:00 01/09/18 09:00 01/09/18 09:00 01/09/18 09:00 01/09/18 09:00 Oxygen Flow Rate (L/min) 2 Oxygen Delivery Method Nasal Cannula Weight: 159 lb 9.835 oz Body Mass Index (BMI) 22.2 Intake and Output for Last 24 Hours 01/07/18 01/08/18 01/09/18 23:59 23:59 23:59 Intake Total 83 / 83 Balance 83 / 83 General: Awake, Alert, Oriented x 3 HEENT: PERRL, EOMI, Sclera Non Icteric Neck: Supple, Good ROM, No Lymph Node Enlargement Lungs: Rales - Mike Bases Cardiovascular: Regular Rhythm, Normal S1, Normal S2, No Murmurs, No Rubs, No Gallops Vascular: No Carotid Bruits, Normal Femoral Pulses, Normal Radial Pulses, Normal Dorsalis Pedal Pulse, Normal Posterior Tibial Pulses Abdomen: Bowel Sounds Present, Soft, Non Tender, No HSM, No Organomegaly Extremities: No Cyanosis, No Clubbing, No edema Neurological: No Focal Motor or Sensory Deficit 01/08/18 23:48: Troponin I < 0.015 01/09/18 05:25: WBC 5.4, RBC 3.99 L, Hgb 12.8 L, Hct 36.5 L, MCV 91.5, MCH 32.1 H, MCHC 35.1, RDW 13.5, RDW Differential 44.3 H, Plt Count 129 L, MPV 9.6, Immature Gran % (Auto) 0.200, Neut % (Auto) 69.5, Lymph % (Auto) 17.8 L, [place] % (Auto) 9.3, Eos % (Auto) 2.8, Baso % (Auto) 0.4, Absolute Neuts (auto) 3.7, Total Counted Not Reportable 01/09/18 05:25: Sodium 143, Potassium 3.9, Chloride 106, Carbon Dioxide 27.0, Anion Gap 10, BUN 14, Creatinine 1.21, Est GFR (MDRD) Af Amer 78, Est GFR (MDRD ) Non-Af 64, BUN/Creatinine Ratio 11.6, Glucose 82, Calcium 8.6, Triglycerides 104, Cholesterol 95, LDL Cholesterol 39, VLDL Cholesterol 21, HDL Cholesterol 35 L 01/09/18 05:25: PT 25.5 H, INR 2.3 01/09/18 05:25: B-Natriuretic Peptide 404.5 H Rhythm: EKG: Sinus bradycardia with LVH with anterior T-wave inversion, no acute changes. ECHO: Stress Test: Pending Cardiac Cath: PCI: CT Surgery: Holter monitor: EPS: PPM: CXR: Chest CT Scan: Assessment/Plan 1. Coronary artery disease: Patient presents with exertional chest pain dissimilar from his previous angina which was bilateral throat pain. Nonetheless he has a history of ischemic cardiomyopathy, status post bypass surgery, with a distant history of a stress test. He had no dynamic EKG changes on his admitting EKG and his troponins have been negative ?2. I recommended discontinuation of his intracoronary nitro drip. If the patient' s chest pain returns, we will consider repeat left heart catheterization and graft angiography once his INR is below 1.8. In the meantime I recommend he undergo a repeat treadmill echocardiogram after his IV nitro is been discontinued and presumably if he has no further chest pain. If his stress echocardiogram is negative for ischemia, we will treat him with medical therapy. If however he has evidence of ischemia or exertional angina again we will have a low threshold for repeat catheterization. In the meantime recommend continuing baby aspirin and Plavix for now. We will hold his Coumadin in anticipation of possible catheterization. 2. Ischemic cardiomyopathy: The patient has evidence on his chest x-ray and physical exam of congestive heart failure symptoms, and has received IV Lasix and is feeling much better. I see that he is on no p.o. Lasix at home despite his ischemic cardiomyopathy. Recommend starting Lasix 40 mg p.o. daily going forward. In the meantime he will continue his Coreg, quinapril, baby aspirin and Plavix. Recommend holding his Coreg for his stress test tomorrow. 3. LV mural thrombus: Given his LV dysfunction and history of mural thrombus he will require lifelong any coagulation therapy once his cardiac workup is been completed. 4. Ventricular tachycardia: The patient has had several episodes of ventricular tachycardia both detected by his AICD and on telemetry on this admission. This may be a result of congestive heart failure exacerbation. He has an AICD placed. He is required no AICD discharges and so would recommend holding amiodarone at this time. 5. Thank you very much for the opportunity to participate in the cardiac care of your patient. Consultation time took place between 1030 and 11 AM. Code Visit Inpatient E&M: 33385 Init Hosp L2
--- NOTE | 2018-01-09 11:46 | PCM.PROGNOTE ---
<Sridevi Birch - Last Filed: 01/09/18 12:09> Patient Problems: Active and Suspected Problems (Last Reviewed 01/09/18 @ 03:46 by Joel Lin MD) Chest pain (Acute) Subjective: Patient seen and examined. Denies chest pain overnight. Denies shortness of breath. No other current complaints. - Physical Exam General: Alert, Oriented x3, Cooperative, No apparent distress HEENT: Atraumatic, PERRLA, EOMI, Normocephalic Neck: Supple, No JVD, Negative Carotid Bruits Lungs: Diminished, - - Crackles bilateral bases Cardiovascular: Regular rate, Regular Rhythm, Normal S1, Normal S2, No murmurs Abdomen: Bowel Sounds Present, Soft, Non Tender, Non-Distended Extremities: No clubbing, No cyanosis, No edema, Capillary Refill Less than 3 Seconds Skin: No rashes, No breakdown Musculoskeletal: No Tenderness to Palpation of Joints or Extremities Neurological: Cranial nerves II-XII grossly intact, Neuro grossly intact Psych/Mental Status: Normal Affect, Appropriate Vital Signs Temp Pulse Resp BP Pulse Ox 98.3 F 67 14 115/79 97 01/09/18 09:00 01/09/18 09:00 01/09/18 09:00 01/09/18 09:00 01/09/18 09:00 Oxygen Flow Rate (L/min) 2 Oxygen Delivery Method Nasal Cannula Weight: 159 lb 9.835 oz Body Mass Index (BMI) 22.2 Intake and Output for Last 24 Hours 01/07/18 01/08/18 01/09/18 23:59 23:59 23:59 Intake Total 83 / 83 Balance 83 / 83 Laboratory Tests Past 24 Hrs 01/08/18 01/09/18 01/09/18 23:48 05:25 05:25 WBC 5.4 RBC 3.99 L Hgb 12.8 L Hct 36.5 L MCV 91.5 MCH 32.1 H MCHC 35.1 RDW 13.5 RDW Differential 44.3 H Plt Count 129 L MPV 9.6 Immature Gran % (Auto) 0.200 Neut % (Auto) 69.5 Lymph % (Auto) 17.8 L Lares % (Auto) 9.3 Eos % (Auto) 2.8 Baso % (Auto) 0.4 Absolute Neuts (auto) 3.7 Absolute Lymphs (auto) 0.96 Total Counted Not Reportable PT INR Sodium 143 Potassium 3.9 Chloride 106 Carbon Dioxide 27.0 Anion Gap 10 BUN 14 Creatinine 1.21 Estim Creat Clear Calc 63.99 Est GFR (MDRD) Af Amer 78 Est GFR (MDRD) Non-Af 64 BUN/Creatinine Ratio 11.6 Glucose 82 Calcium 8.6 Troponin I < 0.015 B-Natriuretic Peptide Triglycerides 104 Cholesterol 95 LDL Cholesterol 39 VLDL Cholesterol 21 HDL Cholesterol 35 L TSH 7.46 H 01/09/18 01/09/18 05:25 05:25 WBC RBC Hgb Hct MCV MCH MCHC RDW RDW Differential Plt Count MPV Immature Gran % (Auto) Neut % (Auto) Lymph % (Auto) Lares % (Auto) Eos % (Auto) Baso % (Auto) Absolute Neuts (auto) Absolute Lymphs (auto) Total Counted PT 25.5 H INR 2.3 Sodium Potassium Chloride Carbon Dioxide Anion Gap BUN Creatinine Estim Creat Clear Calc Est GFR (MDRD) Af Amer Est GFR (MDRD) Non-Af BUN/Creatinine Ratio Glucose Calcium Troponin I B-Natriuretic Peptide 404.5 H Triglycerides Cholesterol LDL Cholesterol VLDL Cholesterol HDL Cholesterol TSH Medical Necessity - Tobacco Use Smoking Status: Never smoker Assessment/Plan All Active Problems (Last Reviewed 01/09/18 @ 03:46 by Joel Lin MD) Chest pain (Acute) 1. Chest pain-underlying history of CAD status post CABG/PCI-continue aspirin, statin, Plavix, beta-rossi. Cardiology consulted. Troponin negative. Initially on nitro drip on admission which has since been discontinued. The patient will undergo stress echo tomorrow. Possible repeat catheterization is stress echo was abnormal. Hold Coumadin. 2. Acute on chronic systolic CHF, history of ischemic cardiomyopathy with previous ejection fraction of 35% reported on echocardiogram in 2016-BNP 502 on admission. Chest x-ray on admission consistent with CHF. Continue Lasix 40 mg IV twice daily. Lasix 40 mg daily at discharge. Echocardiogram pending. Strict I&O. Daily weight. 3. Ventricular tachycardia status post AICD-monitor telemetry. Check mag. 4. LV thrombus, chronic-on chronic anticoagulation with Coumadin. 5. PVD-continue aspirin, statin, Plavix. 6. Hyperlipidemia-continue statin. 7. Hypertension-stable, continue home quinapril and carvedilol regimen. 8. Elevated TSH-check free T4. DVT prophylaxis-Coumadin on hold pending further plans for cardiac evaluation. This patient was seen by JOHN Gentile under the supervision of Dr. Medina. <Aliya Medina E - Last Filed: 01/09/18 13:03> - Physical Exam Vital Signs Temp Pulse Resp BP Pulse Ox 98.3 F 67 14 115/79 97 01/09/18 09:00 01/09/18 09:00 01/09/18 09:00 01/09/18 09:00 01/09/18 09:00 Oxygen Flow Rate (L/min) 2 Oxygen Delivery Method Nasal Cannula Weight: 159 lb 9.835 oz Body Mass Index (BMI) 22.2 Intake and Output for Last 24 Hours 01/07/18 01/08/18 01/09/18 23:59 23:59 23:59 Intake Total 83 / 83 Balance 83 / 83 Laboratory Tests Past 24 Hrs 01/08/18 01/09/18 01/09/18 23:48 05:25 05:25 WBC 5.4 RBC 3.99 L Hgb 12.8 L Hct 36.5 L MCV 91.5 MCH 32.1 H MCHC 35.1 RDW 13.5 RDW Differential 44.3 H Plt Count 129 L MPV 9.6 Immature Gran % (Auto) 0.200 Neut % (Auto) 69.5 Lymph % (Auto) 17.8 L Lares % (Auto) 9.3 Eos % (Auto) 2.8 Baso % (Auto) 0.4 Absolute Neuts (auto) 3.7 Absolute Lymphs (auto) 0.96 Total Counted Not Reportable PT INR Sodium 143 Potassium 3.9 Chloride 106 Carbon Dioxide 27.0 Anion Gap 10 BUN 14 Creatinine 1.21 Estim Creat Clear Calc 63.99 Est GFR (MDRD) Af Amer 78 Est GFR (MDRD) Non-Af 64 BUN/Creatinine Ratio 11.6 Glucose 82 Calcium 8.6 Magnesium Troponin I < 0.015 B-Natriuretic Peptide Triglycerides 104 Cholesterol 95 LDL Cholesterol 39 VLDL Cholesterol 21 HDL Cholesterol 35 L TSH 7.46 H Free T4 01/09/18 01/09/18 01/09/18 05:25 05:25 05:45 WBC RBC Hgb Hct MCV MCH MCHC RDW RDW Differential Plt Count MPV Immature Gran % (Auto) Neut % (Auto) Lymph % (Auto) Lares % (Auto) Eos % (Auto) Baso % (Auto) Absolute Neuts (auto) Absolute Lymphs (auto) Total Counted PT Cancelled INR Cancelled Sodium Potassium Chloride Carbon Dioxide Anion Gap BUN Creatinine Estim Creat Clear Calc Est GFR (MDRD) Af Amer Est GFR (MDRD) Non-Af BUN/Creatinine Ratio Glucose Calcium Magnesium 1.9 Troponin I B-Natriuretic Peptide 404.5 H Triglycerides Cholesterol LDL Cholesterol VLDL Cholesterol HDL Cholesterol TSH Free T4 0.94 Assessment/Plan Hospitalist note: I am seeing this patient in conjunction with Sridevi Birch. I independently seen and examined the patient. Progress note above, laboratory data and imaging studies reviewed. I concur with the above treatment plan. Patient was admitted for chest pain. This morning, he denies any more chest pain. He denies shortness of breath, dizziness, lightheadedness, palpitations, syncope or presyncope. His vital signs are stable. - Physical Exam General: Alert, Oriented x3, Cooperative, No apparent distress. HEENT: Atraumatic, PERRLA, EOMI. Neck: Supple, No JVD, Negative Carotid Bruits, Trachea Midline, Thyroid Normal. Lungs: Decreased breath sounds at the bases, faint bilateral basilar crackles, no rhonchi or wheezes.. Cardiovascular: Regular rate, Regular Rhythm, Normal S1, Normal S2, PMI Normal. Abdomen: Bowel Sounds Present, Soft, Non Tender, Non-Distended, No Hepato-splenomegaly. Extremities: No clubbing, No cyanosis, No edema Skin: No rashes, No breakdown Neurological: Neuro grossly intact Vital Signs are stable. Assessment and plan: #1 chest pain/CAD: His EKG revealed no acute ischemic changes. Troponin is negative ?2. Chest x-ray reviewed, showed probable bilateral pulmonary vascular congestion. IV nitroglycerin drip discontinued. Stress echocardiogram was ordered by cardiology. He is on aspirin, statins, Coreg, Plavix and lisinopril. #2 acute on chronic systolic CHF: In context of history of ischemic cardiomyopathy. His BNP is elevated. Chest x-ray reviewed. Patient was started on IV Lasix, felt better. He is on Coreg, lisinopril and statins. Plan to continue IV Lasix for diuresis, stress echocardiogram as above. #3 nonsustained V. tach: He has ICD in place. Serum potassium and magnesium were normal. #4 left mural thrombus: On Coumadin, INR is therapeutic. He will be on Coumadin for life. #5 other chronic medical problems: Stable, continue current medications as above. This note was generated with [employer] software. It may contain incorrect words, spelling, and punctuation that were not noted in checking the note before signing. Code Visit OBSV E&M: 44823 Subsequent observation care L2
[2018-01-09 12:31] LABS: Magnesium 1.9 mg/dL (1.6-2.6); T4 Free Direct 0.94 ng/dL (0.76-1.46)
[2018-01-09 13:48] LABS: Free T3 2.6 pg/mL (2.18-3.98); T4 Total, Thyroxin 7.8 ug/dL (4.5-12.1)
--- NOTE | 2018-01-09 14:49 | CASEMGMT ---
Face to Face with patient for initial transition planning/care coordination assessment. YARIEL GALLEGOS introduced self and role at [facility], pt voices understanding and consents to assessment at this time. Pt is sitting up in bed in no distress at this time. Pt is A/O x4 at this time and answers all questions appropriately at this time. Care providers, pharmacy, and demographics verified. See attached link. Pt voices no further concerns/needs at this time. Advised pt to ask for CM if any further questions/concerns/needs arise, voices understanding. PLAN: [place] YARIEL GALLEGOS
[2018-01-09] MEDS: 0.9% NaCl Peripheral Flush Adult/Peds IV (17:25)
[2018-01-09] MEDS: Atorvastatin Calcium 10 MG Tablet PO (22:35)
[2018-01-10 03:00] VITALS: BP 94/68; PULSE 78; PULSE 80; RESP 18; TEMP 36.8; O2SAT 94
[2018-01-10 05:43] LABS: Absolute Lymphocyte Count 1.27 X10^3/ul (0.83-4.51); Absolute Neutrophil Count 5.1 X10^3/uL (2.0-7.7); Basophil# 0.02 X10^3/uL; Basophil% 0.3 % (0-1); Eosinophil# 0.13 X10^3/uL; Eosinophils% 1.8 % (0-5); Hematocrit 41.5 % (40-54); Hemoglobin 14.7 g/dl (13.0-16.5); Lymphocyte # 1.27 X10^3/ul (4.0); Lymphocyte % 17.3 % (19-41); Mean Corp Hgb Conc 35.4 g/gl (32-36); Mean Corpuscular Hgb 31.8 pg (27.0-32.0); Mean Corpuscular Volume 89.8 fL (80-94); Mean Platelet Vol. 9.8 fl (6.2-12.0); Monocyte% 10.9 % (0-10); Neutrophil # 5.09 X10^3/uL (2.7-7.7); Neutrophil % 69.4 % (47-70); Platelet Count 150 K/mm3 (150-450); RBC Distribution Width CV 13.6 % (11.6-14.6); Red Blood Count 4.62 M/mm3 (4.6-6.2); White Blood Count 7.3 K/mm3 (4.4-11.0)
[2018-01-10 05:55] LABS: Anion Gap 11 (5-15); BUN 22 mg/dL (7-18); BUN/Creat Ratio 16.5 RATIO (10-20); Calcium,Total 8.9 mg/dL (8.5-10.1); Chloride 103 mmol/L (98-107); Creatinine, Serum 1.33 mg/dL (0.70-1.30); EST Glomerular Filtration Rate 58 mL/min (>60); Est Glom Filt Rate - Afr Amer 70 mL/min (>60); Estimated Creatinine Clearance 58.22 ml/min; Glucose 97 mg/dL (74-106); Potassium 3.5 mmol/L (3.5-5.1); Sodium Level 141 mmol/L (136-145)
--- NOTE | 2018-01-10 05:55 | STE_ITS ---
Reason For Study: Chest Pain Stress Results Protocol: Dallin Protocol Maximum Predicted HR: 157 bpm Target HR: 133 bpm% Max imum Predicted HR: 78 % Heart Stage Duration Rate BPCom ment (mm:ss) (bpm) Baseline 70 100/60 No Chest Pain Dallin Protocol Stage I 3:00 10 6 110/64No Chest Pain Dallin Protocol Stage II 3:00 11 8 140/62No Chest Pain; Mild Dyspnea Dallin Protocol Stage No Chest Pain; Moderate Dyspnea; Bilateral Knee III 0:31 12 2 / Pain Recovery 71 112/64 No Chest Pain Stress Duration: 6:31 mm:ss Maximum Stress HR: 122 bpmM ETS: 8 Baseline Echocardiogram Findings The estimated ejection fraction is 20 %. Moderately dilated left ventricle. Stress Echo Wall motion Data Resting WMIntermediate WMStress WM Resting Wall Motion Wall Motion Stress Anterio-Basal: Akinetic. Inferior and lateral tucker appear Mid-Anterior : Akinetic. to augment at peak exercise. Mid-anteroseptal : Akinetic. Anterior/septal tucker remained Anterior [place] : Akinetic. akinetic during exercise. EKG Data The baseline ECG demonstrates normal sinus rhythm with at rate of _ beats per minute. The patient exercised according to the regular Dallin protocol for a total duration of 6:31. The maximum heart rate attained was 122 beats per minute. This was 77% of maximum predicted heart rate. The patient exercised into stage 3 of the Dallin protocol. During stress, there were no ST or T wave changes noted to suggest ischemia. No clinical angina was noted. No arrhythmias noted. Interpretation Summary The estimated ejection fraction is 20 %. Normal, adequate, treadmill echocardiogram based upon rate pressure product. Negative for ischemia by EKG criteria. Patient had baseline anterior septal and apical akinesis, which remained the same during exercise. Patient had good augmentation of the inferior lateral tucker at peak exercise. Final LVEF of 30%. Appropriate blood pressure response to exercise. Average exercise capacity for age. No anginal symptoms noted. No complications. Ordering Physician: Stanton Taylor Referring Physician: Stanton Taylor Performed By: Sana Chandler RDCS
--- NOTE | 2018-01-10 05:55 | EKG12_ITS ---
Test Reason : CP Blood Pressure : / mmHG Vent. Rate : 049 BPM Atrial Rate : 049 BPM P-R Int : 170 ms QRS Dur : 092 ms QT Int : 450 ms P-R-T Axes : 052 005 120 degrees QTc Int : 406 ms Sinus bradycardia Voltage criteria for left ventricular hypertrophy T wave abnormality, consider anterolateral ischemia Abnormal ECG Confirmed by KESHIA GRAY, ZENY ([id number]), news videotape editor ROCKY KIDD ([id number]) on 01/10/2018 2:19:36 PM Referred By: BILLIE Confirmed By:ZENY SCHMITT MD
[2018-01-10 06:04] VITALS: BP 111/70; PULSE 69; RESP 18; TEMP 37.1; O2SAT 96
[2018-01-10] MEDS: Clopidogrel Bisulfate 75 MG Tablet PO (06:07)
[2018-01-10] MEDS: Lisinopril 10 MG Tablet PO (06:07)
[2018-01-10] MEDS: Aspirin E.C. 81 MG Tablet PO (06:07)
[2018-01-10 06:17] LABS: POSITIVE COUNT NO; POSITIVE DIFFERENTIAL NO; POSITIVE MORPHOLOGY NO
[2018-01-10 06:19] LABS: Prothrombin Time (Protime)PT. 22.3 SECONDS (11.7-14.9)
[2018-01-10 06:20] LABS: Partial Thromboplast Time 33.8 Seconds (24.1-36.2)
[2018-01-10 07:00] VITALS: O2SAT 95
[2018-01-10 07:09] VITALS: PULSE 66
[2018-01-10] MEDS: Furosemide 40 MG/4 ML Vial IV (10:56)
[2018-01-10] MEDS: Niacin SA 500 MG Tablet 1000 MG PO (10:56)
[2018-01-10] MEDS: Carvedilol 25 MG Tablet PO (10:56)
--- NOTE | 2018-01-10 11:21 | PCM.DC ---
- Discharge Diagnoses Current Active Problems: Current Active and Chronic Problems (Last Reviewed 01/09/18 @ 03:46 by Joel Lin MD) Chest pain (Acute) You will use the following diet at home:: Cardiac Discharge Activity: Return to Normal Activity Call your doctor if you observe: Shortness of breath, Dizziness, Fainting spells, Chest pain Instructions: ED Exhaustion Heat, ED Nodule Solitary Pulmonary, ED Near Syncope Unkn Allergies/Adverse Reactions: Allergies Penicillins Adverse Reaction (Severe, Verified 01/08/18 17:22) Unknown Medications to take at Discharge aspirin 81 mg tablet,delayed release 81 mg PO QDAY tab 08/24/17 nitroglycerin 0.4 mg sublingual tablet 0.4 mg SUBLINGUAL Q5-15M PRN #25 tab 11/04/17 clopidogrel 75 mg tablet 75 mg PO QDAY #90 tab 11/29/17 atorvastatin 10 mg tablet 10 mg PO QHS #90 tab 11/30/17 carvedilol 25 mg tablet 25 mg PO BID #180 tab 11/30/17 quinapril 10 mg tablet 10 mg PO QDAY #90 tab 11/30/17 niacin ER 1,000 mg tablet,extended release 1,000 mg PO QDAY #90 tab 12/15/17 Warfarin Sodium [Coumadin] 3 mg PO MOTUWETHFR 01/08/18 Warfarin Sodium [Coumadin] 4 mg PO SUSA 01/08/18 Furosemide [Lasix] 40 mg PO DAILY #30 tab 01/10/18 The following prescriptions were given: Furosemide [Lasix] 40 mg PO DAILY #30 tab Primary Care Physician: Ranjith Marks MD [Primary Care Provider] - Please follow up with your Primary Care Physician in: 1 Week Test Results: Test results from this visit will be discussed in further detail at your follow-up appointment, if applicable. Please Follow Up With: Jose Renae MD When: 1-2 Weeks Proposed Discharge Date: 01/10/18
[2018-01-10 11:23] VITALS: BP 134/88; PULSE 60; RESP 18; TEMP 37.1; O2SAT 96
--- NOTE | 2018-01-10 11:30 | DCINST_ITS ---
- Discharge Diagnoses Current Active Problems: Current Active and Chronic Problems (Last Reviewed 01/09/18 @ 03:46 by Joel Lin MD) Chest pain (Acute) You will use the following diet at home:: Cardiac Discharge Activity: Return to Normal Activity Call your doctor if you observe: Shortness of breath, Dizziness, Fainting spells , Chest pain Instructions: ED Exhaustion Heat, ED Nodule Solitary Pulmonary, ED Near Syncope Unkn Allergies/Adverse Reactions: Allergies Penicillins Adverse Reaction (Severe, Verified 01/08/18 17:22) Unknown Medications to take at Discharge aspirin 81 mg tablet,delayed release 81 mg PO QDAY tab 08/24/17 nitroglycerin 0.4 mg sublingual tablet 0.4 mg SUBLINGUAL Q5-15M PRN #25 tab clopidogrel 75 mg tablet 75 mg PO QDAY #90 tab 11/29/17 atorvastatin 10 mg tablet 10 mg PO QHS #90 tab 11/30/17 carvedilol 25 mg tablet 25 mg PO BID #180 tab 11/30/17 quinapril 10 mg tablet 10 mg PO QDAY #90 tab 11/30/17 niacin ER 1,000 mg tablet,extended release 1,000 mg PO QDAY #90 tab 12/15/17 Warfarin Sodium [Coumadin] 3 mg PO MOTUWETHFR 01/08/18 Warfarin Sodium [Coumadin] 4 mg PO SUSA 01/08/18 Furosemide [Lasix] 40 mg PO DAILY #30 tab 01/10/18 The following prescriptions were given: Furosemide [Lasix] 40 mg PO DAILY #30 tab Primary Care Physician: Ranjith Marks MD [Primary Care Provider] - Please follow up with your Primary Care Physician in: 1 Week Test Results: Test results from this visit will be discussed in further detail at your follow- up appointment, if applicable. Please Follow Up With: Jose Renae MD When: 1-2 Weeks Proposed Discharge Date: 01/10/18
--- NOTE | 2018-01-10 12:02 | PCM.DC.SUM ---
<Sridevi Birch - Last Filed: 01/10/18 12:17> Discharge Date and Diagnosis Date of Admission: 01/08/18 Date of Discharge: 01/10/18 - Primary Discharge Diagnosis 1. Chest pain-ACS ruled out. 2. Acute on chronic systolic CHF in the context of history of ischemic cardiomyopathy 3. Nonsustained ventricular tachycardia - Secondary Discharge Diagnosis Chronic Problems (Last Reviewed 01/09/18 @ 03:46 by Joel Lin MD) Hyperlipidemia (Chronic) Saphenous vein injury (Chronic) Presence of aortocoronary bypass graft (Chronic) 08/12/03, CABG X 4, [place] to LAD, SVG to DCA, SVG to CX, SVG to PDA History of percutaneous transluminal coronary angioplasty (Chronic) Peripheral vascular disease, unspecified (Chronic) Atherosclerosis of coronary artery bypass graft without angina pectoris (Chronic) Ventricular tachycardia (Chronic) Ischemic cardiomyopathy (Chronic) Presence of automatic implantable cardioverter-defibrillator (Chronic) ICD 2005 [place] halfway current use of 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 (Chronic) Apical mural thrombus (Chronic) Hospital Course and Treatment Imaging Results: Diagnostic Data Chest X-Ray 01/08/18 17:36 IMPRESSION: Increased bibasilar interstitial and linear opacities, left greater than right without other major consolidation or pleural effusion. Stable cardiac size status post prior midline sternotomy with right ventricular pacemaker remaining in good position. Electronically Signed: Patria Nunez MD at 18:40 EDT , Service support , Dr. Taylor- Cardiology Operations: None Procedures: 2-D Echocardiogram, - - Stress echo Summary of Care Provided: Patient is a 62-year-old male admitted 01/08/2018 due to chest pain. He has a past medical history of CAD status post CABG/PCI, LV thrombus, AICD, ischemic cardiomyopathy, PVD, hyperlipidemia, hypertension. 1. Chest pain-underlying history of CAD status post CABG/PCI-continue aspirin, statin, Plavix, beta-rossi. Cardiology consulted. Troponin negative. Initially on nitro drip on admission which was discontinued. EKG without evidence of ischemia. Patient underwent stress echo which was negative for ischemia. Patient will follow up with Dr. Renae in 1-2 weeks. Follow-up with primary care physician in 1 week. 2. Acute on chronic systolic CHF, history of ischemic cardiomyopathy with previous ejection fraction of 35% reported on echocardiogram in 2016-BNP 502 on admission. Chest x-ray on admission consistent with CHF. Lasix 40 mg daily at discharge. Repeat echocardiogram during admission with an estimated ejection fraction of 20-25%. Stage I diastolic dysfunction, mild mitral valve insufficiency, RVSP estimated to be 33 mmHg. Follow-up with cardiology as noted above. 3. Nonsustained ventricular tachycardia, AICD in place 4. LV thrombus, chronic-on chronic anticoagulation with Coumadin. INR 2.0 at discharge. Patient will continue routine INR monitoring. 5. PVD-continue aspirin, statin, Plavix. 6. Hyperlipidemia-continue statin. 7. Hypertension-stable, continue home quinapril and carvedilol regimen. 8. Elevated TSH-free T4, free T3 within normal limits. Continue outpatient monitoring. General: Alert, Oriented x3, Cooperative, No apparent distress HEENT: Atraumatic, PERRLA, EOMI, Normocephalic Neck: Supple, No JVD, Negative Carotid Bruits Lungs: Diminished, clear to auscultation Cardiovascular: Regular rate, Regular Rhythm, Normal S1, Normal S2, No murmurs Abdomen: Bowel Sounds Present, Soft, Non Tender, Non-Distended Extremities: No clubbing, No cyanosis, No edema, Capillary Refill Less than 3 Seconds Skin: No rashes, No breakdown Musculoskeletal: No Tenderness to Palpation of Joints or Extremities Neurological: Cranial nerves II-XII grossly intact, Neuro grossly intact Psych/Mental Status: Normal Affect, Appropriate Patient seen exam prior to discharge. Physical assessment as noted above. Patient stable for discharge home with follow-up recommendations as noted above. This patient was seen by JOHN Gentile under the supervision of Dr. Medina. Discharge Diet: Low fat/ Low Cholesterol Discharge Activity: Return to Normal Activity Call your doctor if you observe: Shortness of breath, Dizziness, Fainting spells, Chest pain Home Medications: Medications to take at Discharge aspirin 81 mg tablet,delayed release 81 mg PO QDAY tab 08/24/17 nitroglycerin 0.4 mg sublingual tablet 0.4 mg SUBLINGUAL Q5-15M PRN #25 tab 11/04/17 clopidogrel 75 mg tablet 75 mg PO QDAY #90 tab 11/29/17 atorvastatin 10 mg tablet 10 mg PO QHS #90 tab 11/30/17 carvedilol 25 mg tablet 25 mg PO BID #180 tab 11/30/17 quinapril 10 mg tablet 10 mg PO QDAY #90 tab 11/30/17 niacin ER 1,000 mg tablet,extended release 1,000 mg PO QDAY #90 tab 12/15/17 Warfarin Sodium [Coumadin] 3 mg PO MOTUWETHFR 01/08/18 Warfarin Sodium [Coumadin] 4 mg PO SUSA 01/08/18 Furosemide [Lasix] 40 mg PO DAILY #30 tab 01/10/18 Following Prescrptions Were Given to Patient: Furosemide [Lasix] 40 mg PO DAILY #30 tab Primary Care Physician: Ranjith Marks MD [Primary Care Provider] - Please follow up with your Primary Care Physician in: 1 Week Please Follow Up With: Jose Renae MD When: 1-2 Weeks Patient Instructions: ED Exhaustion Heat, ED Nodule Solitary Pulmonary, ED Near Syncope Unkn Disposition: Home Minutes spent on discharge:: 35 Patient Condition:: Stable Medical Necessity - Tobacco Use Smoking Status: Never smoker Meaningful Use Info Meaningful Use Diagnoses (Choose all that apply): CHF - CHF RANDI/ARB ordered at discharge?: Yes Documented LVEF (%): 20 <Aliya Medina E - Last Filed: 01/10/18 14:33> Discharge Date and Diagnosis - Secondary Discharge Diagnosis Chronic Problems (Last Reviewed 01/09/18 @ 03:46 by Joel Lin MD) Hyperlipidemia (Chronic) Saphenous vein injury (Chronic) Presence of aortocoronary bypass graft (Chronic) 08/12/03, CABG X 4, [place] to LAD, SVG to DCA, SVG to CX, SVG to PDA History of percutaneous transluminal coronary angioplasty (Chronic) Peripheral vascular disease, unspecified (Chronic) Atherosclerosis of coronary artery bypass graft without angina pectoris (Chronic) Ventricular tachycardia (Chronic) Ischemic cardiomyopathy (Chronic) Presence of automatic implantable cardioverter-defibrillator (Chronic) ICD 2005 [place] [address] current use of 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 (Chronic) Apical mural thrombus (Chronic) Hospital Course and Treatment Imaging Results: 01/10/18 05:55 Stress Test Echo w/o Contrast [ECHO] Routine Summary of Care Provided: Hospitalist note: Discharge summary above reviewed and I concur with the above treatment and discharge plan. Patient seen and examined on the day of discharge and appeared to be stable to be discharged home. He denies any more chest pain and has no more shortness of breath. His vital signs remained stable. He was admitted for chest pain and mild shortness of breath. He was found to have mild acute and chronic systolic CHF as well as nonsustained V. tach. He complains of chest pain and his cardiac workup was unremarkable. He had a stress echocardiogram done and revealed ejection fraction of 20%, normal adequate treadmill echocardiogram that was negative for ischemia by EKG criteria. Acute coronary syndrome ruled out. He was treated with IV Lasix for acute on chronic systolic CHF. He had an episode of nonsustained V. tach in the ER which went asymptomatic. There was no treatment given for him at this time for this nonsustained V. tach. Cardiology consulted and recommended stress echocardiogram that was done and was unremarkable. Patient discharged home in a stable medical condition, discharged on Lasix 40 mg p.o. daily, continued on his chronic home medication without any changes, recommended follow-up with PCP in 1 week and follow-up with cardiology in 1-2 weeks. - Physical Exam General: Alert, Oriented x3, Cooperative, No apparent distress. HEENT: Atraumatic, PERRLA, EOMI. Neck: Supple, No JVD, Negative Carotid Bruits, Trachea Midline, Thyroid Normal. Lungs: Diminished breath sounds at the bases, otherwise clear, No rhonchi, No wheeze, No rales. Cardiovascular: Regular rate, Regular Rhythm, Normal S1, Normal S2, PMI Normal. Abdomen: Bowel Sounds Present, Soft, Non Tender, Non-Distended, No Hepato-splenomegaly. Extremities: No clubbing, No cyanosis, No edema Skin: No rashes, No breakdown Neurological: Neuro grossly intact Vital Signs are stable. This note was generated with [facility] dictation software. It may contain incorrect words, spelling, and punctuation that were not noted in checking the note before signing. Minutes spent on discharge:: 32 Patient Condition:: Stable Meaningful Use Info Meaningful Use Diagnoses (Choose all that apply): CHF - CHF RANDI/ARB ordered at discharge?: Yes Documented LVEF (%): 20 Code Visit Inpatient E&M: 81492 Disch Hosp
--- NOTE | 2018-01-10 12:12 | DS.PCM_ITS ---
<Sridevi Birch - Last Filed: 01/10/18 12:17> Discharge Date and Diagnosis Date of Admission: 01/08/18 Date of Discharge: 01/10/18 - Primary Discharge Diagnosis 1. Chest pain-ACS ruled out. 2. Acute on chronic systolic CHF in the context of history of ischemic cardiomyopathy 3. 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 Stable cardiac size status post prior midline sternotomy with right ventricular pacemaker remaining in good position. Electronically Signed: Patria Nunez MD at 18:40 EDT , Service support , Dr. Taylor- Cardiology Operations: None Procedures: 2-D Echocardiogram, - - Stress echo Summary of Care Provided: Patient is a 62-year-old male admitted 01/08/2018 due to chest pain. He has a past medical history of CAD status post CABG/PCI, LV thrombus, AICD, ischemic cardiomyopathy, PVD, hyperlipidemia, hypertension. 1. Chest pain-underlying history of CAD status post CABG/PCI-continue aspirin, statin, Plavix, beta-rossi. Cardiology consulted. Troponin negative. Initially on nitro drip on admission which was discontinued. EKG without evidence of ischemia. Patient underwent stress echo which was negative for ischemia. Patient will follow up with Dr. Renae in 1-2 weeks. Follow-up with primary care physician in 1 week. 2. Acute on chronic systolic CHF, history of ischemic cardiomyopathy with previous ejection fraction of 35% reported on echocardiogram in 2016-BNP 502 on admission. Chest x-ray on admission consistent with CHF. Lasix 40 mg daily at discharge. Repeat echocardiogram during admission with an estimated ejection fraction of 20-25%. Stage I diastolic dysfunction, mild mitral valve insufficiency, RVSP estimated to be 33 mmHg. Follow-up with cardiology as noted above. 3. Nonsustained ventricular tachycardia, AICD in place 4. LV thrombus, chronic-on chronic anticoagulation with Coumadin. INR 2.0 at discharge. Patient will continue routine INR monitoring. 5. PVD-continue aspirin, statin, Plavix. 6. Hyperlipidemia-continue statin. 7. Hypertension-stable, continue home quinapril and carvedilol regimen. 8. Elevated TSH-free T4, free T3 within normal limits. Continue outpatient monitoring. General: Alert, Oriented x3, Cooperative, No apparent distress HEENT: Atraumatic, PERRLA, EOMI, Normocephalic Neck: Supple, No JVD, Negative Carotid Bruits Lungs: Diminished, clear to auscultation Cardiovascular: Regular rate, Regular Rhythm, Normal S1, Normal S2, No murmurs Abdomen: Bowel Sounds Present, Soft, Non Tender, Non-Distended Extremities: No clubbing, No cyanosis, No edema, Capillary Refill Less than 3 Seconds Skin: No rashes, No breakdown Musculoskeletal: No Tenderness to Palpation of Joints or Extremities Neurological: Cranial nerves II-XII grossly intact, Neuro grossly intact Psych/Mental Status: Normal Affect, Appropriate Patient seen exam prior to discharge. Physical assessment as noted above. Patient stable for discharge home with follow-up recommendations as noted above. This patient was seen by JOHN Gentile under the supervision of Dr. Medina. Discharge Diet: Low fat/ Low Cholesterol Discharge Activity: Return to Normal Activity Call your doctor if you observe: Shortness of breath, Dizziness, Fainting spells , Chest pain Home Medications: Medications to take at Discharge aspirin 81 mg tablet,delayed release 81 mg PO QDAY tab 08/24/17 nitroglycerin 0.4 mg sublingual tablet 0.4 mg SUBLINGUAL Q5-15M PRN #25 tab clopidogrel 75 mg tablet 75 mg PO QDAY #90 tab 11/29/17 atorvastatin 10 mg tablet 10 mg PO QHS #90 tab 11/30/17 carvedilol 25 mg tablet 25 mg PO BID #180 tab 11/30/17 quinapril 10 mg tablet 10 mg PO QDAY #90 tab 11/30/17 niacin ER 1,000 mg tablet,extended release 1,000 mg PO QDAY #90 tab 12/15/17 Warfarin Sodium [Coumadin] 3 mg PO MOTUWETHFR 01/08/18 Warfarin Sodium [Coumadin] 4 mg PO SUSA 01/08/18 Furosemide [Lasix] 40 mg PO DAILY #30 tab 01/10/18 Following Prescrptions Were Given to Patient: Furosemide [Lasix] 40 mg PO DAILY #30 tab Primary Care Physician: Ranjith Marks MD [Primary Care Provider] - Please follow up with your Primary Care Physician in: 1 Week Please Follow Up With: Jose Renae MD When: 1-2 Weeks Patient Instructions: ED Exhaustion Heat, ED Nodule Solitary Pulmonary, ED Near Syncope Unkn Disposition: Home Minutes spent on discharge:: 35 Patient Condition:: Stable Medical Necessity - Tobacco Use Smoking Status: Never smoker Meaningful Use Info Meaningful Use Diagnoses (Choose all that apply): CHF - CHF RANDI/ARB ordered at discharge?: Yes Documented LVEF (%): 20 <Aliya Medina E - Last Filed: 01/10/18 14:33> Discharge Date and Diagnosis - Secondary Discharge Diagnosis Chronic Problems (Last Reviewed 01/09/18 @ 03:46 by Joel Lin MD) Hyperlipidemia (Chronic) Saphenous vein injury (Chronic) Presence of aortocoronary bypass graft (Chronic) 08/12/03, CABG X 4, [place] to LAD, SVG to DCA, SVG to CX, SVG to PDA History of percutaneous transluminal coronary angioplasty (Chronic) Peripheral vascular disease, unspecified (Chronic) Atherosclerosis of coronary artery bypass graft without angina pectoris (Chronic ) Ventricular tachycardia (Chronic) Ischemic cardiomyopathy (Chronic) Presence of automatic implantable cardioverter-defibrillator (Chronic) ICD 2005 [place] intermediate current use of 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 (Chronic) Apical mural thrombus (Chronic) Hospital Course and Treatment Imaging Results: 01/10/18 05:55 Stress Test Echo w/o Contrast [ECHO] Routine Summary of Care Provided: Hospitalist note: Discharge summary above reviewed and I concur with the above treatment and discharge plan. Patient seen and examined on the day of discharge and appeared to be stable to be discharged home. He denies any more chest pain and has no more shortness of breath. His vital signs remained stable. He was admitted for chest pain and mild shortness of breath. He was found to have mild acute and chronic systolic CHF as well as nonsustained V. tach. He complains of chest pain and his cardiac workup was unremarkable. He had a stress echocardiogram done and revealed ejection fraction of 20%, normal adequate treadmill echocardiogram that was negative for ischemia by EKG criteria. Acute coronary syndrome ruled out. He was treated with IV Lasix for acute on chronic systolic CHF. He had an episode of nonsustained V. tach in the ER which went asymptomatic. There was no treatment given for him at this time for this nonsustained V. tach. Cardiology consulted and recommended stress echocardiogram that was done and was unremarkable. Patient discharged home in a stable medical condition, discharged on Lasix 40 mg p.o. daily, continued on his chronic home medication without any changes, recommended follow-up with PCP in 1 week and follow-up with cardiology in 1-2 weeks. - Physical Exam General: Alert, Oriented x3, Cooperative, No apparent distress. HEENT: Atraumatic, PERRLA, EOMI. Neck: Supple, No JVD, Negative Carotid Bruits, Trachea Midline, Thyroid Normal. Lungs: Diminished breath sounds at the bases, otherwise clear, No rhonchi, No wheeze, No rales. Cardiovascular: Regular rate, Regular Rhythm, Normal S1, Normal S2, PMI Normal. Abdomen: Bowel Sounds Present, Soft, Non Tender, Non-Distended, No Hepato- splenomegaly. Extremities: No clubbing, No cyanosis, No edema Skin: No rashes, No breakdown Neurological: Neuro grossly intact Vital Signs are stable. This note was generated with [employer] dictation software. It may contain incorrect words, spelling, and punctuation that were not noted in checking the note before signing. Minutes spent on discharge:: 32 Patient Condition:: Stable Meaningful Use Info Meaningful Use Diagnoses (Choose all that apply): CHF - CHF RANDI/ARB ordered at discharge?: Yes Documented LVEF (%): 20 Code Visit Inpatient E&M: 64283 Disch Hosp
--- NOTE | 2018-01-10 12:39 | PN.CARD_ITS ---
Subjectve: Patient feeling much better today. No 24 hour events. Telemetry showed normal sinus rhythm. Stress test this morning was negative for inducible ischemia. Patient has baseline severe anterior septal and anteroapical akinesis, but had no wall motion abnormalities in the viable tucker at peak exercise. He had no anginal symptoms at all. He is now euvolemic. Objective: Vital Signs Temp Pulse Resp BP Pulse Ox 98.7 F 60 18 134/88 H 96 01/10/18 11:23 01/10/18 11:23 01/10/18 11:23 01/10/18 11:23 01/10/18 11:23 Oxygen Flow Rate (L/min) 2 Oxygen Delivery Method Room Air Weight: 159 lb 9.835 oz Body Mass Index (BMI) 22.2 Intake and Output for Last 24 Hours 01/08/18 01/09/18 01/10/18 23:59 23:59 23:59 Intake Total 682 / 682 Output Total 1600 / 1600 375 / 375 Balance -918 / -918 -375 / -375 General: Awake, Alert, Oriented x 3 HEENT: PERRL, EOMI, Sclera Non Icteric Neck: Supple, Good ROM, No Lymph Node Enlargement Lungs: Clear to auscultation Cardiovascular: Regular Rhythm, Normal S1, Normal S2, No Murmurs, No Rubs, No Gallops Vascular: No Carotid Bruits, Normal Femoral Pulses, Normal Radial Pulses, Normal Dorsalis Pedal Pulse, Normal Posterior Tibial Pulses Abdomen: Bowel Sounds Present, Soft, Non Tender, No HSM, No Organomegaly Extremities: No Cyanosis, No Clubbing, No edema Neurological: No Focal Motor or Sensory Deficit 01/10/18 05:05: PT 22.3 H, INR 2.0, APTT 33.8 01/10/18 05:05: Sodium 141, Potassium 3.5, Chloride 103, Carbon Dioxide 27.0, Anion Gap 11, BUN 22 H, Creatinine 1.33 H, Est GFR (MDRD) Af Amer 70, Est GFR ( MDRD) Non-Af 58 L, BUN/Creatinine Ratio 16.5, Glucose 97, Calcium 8.9 01/10/18 05:05: WBC 7.3, RBC 4.62, Hgb 14.7, Hct 41.5, MCV 89.8, MCH 31.8, MCHC 35.4, RDW 13.6, RDW Differential 44.0 H, Plt Count 150, MPV 9.8, Immature Gran % (Auto) 0.300, Neut % (Auto) 69.4, Lymph % (Auto) 17.3 L, [place] % (Auto) 10.9 H , Eos % (Auto) 1.8, Baso % (Auto) 0.3, Absolute Neuts (auto) 5.1, Total Counted Not Reportable Rhythm: EKG: ECHO: Stress Test: Cardiac Cath: PCI: CT Surgery: Holter monitor: EPS: PPM: CXR: Chest CT Scan: Medical Necessity - Tobacco Use Smoking Status: Never smoker Assessment/Plan 1. Coronary artery disease: Patient presents with exertional chest pain dissimilar from his previous angina which was bilateral throat pain. Nonetheless he has a history of ischemic cardiomyopathy, status post bypass surgery, with a distant history of a stress test. He had no dynamic EKG changes on his admitting EKG and his troponins have been negative ?2. Since discontinuation of his nitro drip he has had no further chest pain or throat pain. This morning he underwent a treadmill echocardiogram which was negative for inducible ischemia if his stress echocardiogram is negative for ischemia, and had no anginal symptoms, or throat pain. Would recommend continuing medical therapy at this time. Would hold off on repeat catheterization and graft angiography unless and until the patient has recurrent symptoms. In the meantime recommend continuing baby aspirin and Plavix for now. Would recommend continuing Coumadin therapy given his severe LV dysfunction and ischemic cardiomyopathy as well as his pulmonary hypertension and congestive heart failure. His INR should be between 2.0 and 3.0. 2. Ischemic cardiomyopathy: Patient underwent aggressive IV diuresis and is feeling much better now. I believe the majority of his symptoms were heart failure in origin. Recommend starting him on Lasix 40 mg p.o. twice daily, continuing with quinapril and his Coreg. 3. LV mural thrombus: Given his LV dysfunction and history of mural thrombus he will require lifelong any coagulation therapy once his cardiac workup is been completed. 4. Ventricular tachycardia: The patient has had several episodes of ventricular tachycardia both detected by his AICD and on telemetry on this admission. This may be a result of congestive heart failure exacerbation. He has an AICD placed. He is required no AICD discharges and so would recommend holding amiodarone at this time. 5. Thank you very much for the opportunity to participate in the cardiac care of your patient. Patient be discharged home today and follow-up with Dr. Renae going forward. Code Visit Inpatient E&M: 21347 Subs Hosp L2
--- NOTE | 2018-01-11 15:56 | CASEMGMT ---
YARIEL GALLEGOS Discharge F/U Phone Call LACE: 10 Strata: 3 Discharge date: 01/10/18 Call date: 01/11/18 Call time: [id number] Duration: 2 minutes Admission dx: Chest pain Pt states has 'been doing pretty well' since discharge. Pt states no questions regarding discharge instructions or medications at this time. Pt states has f/u with Dr. Marks on tuesday and with Heather Purvis next week. Pt states no suggestions for [facility] at this time. Pt voices no further questions/concerns/needs at this time. [place] YARIEL GALLEGOS
== END 2018-01-10 11:23 | disposition home or self-care (01) | DRG 292 ==
LOC: ED 17:58 → PCU 21:12
PROVIDERS: Nurse Practitioner Family; Admitting Provider Internal Medicine; Emergency Provider Emergency Medicine; Family Provider Family Medicine; PCP Family Medicine; Visit Provider Hospitalist
DX: I11.0 Hypertensive heart disease with heart failure (principal); I47.2 Ventricular tachycardia; I50.23 Acute on chronic systolic (congestive) heart failure; R07.9 Chest pain, unspecified; I25.5 Ischemic cardiomyopathy; I25.10 Atherosclerotic heart disease of native coronary artery without angina pectoris; E78.5 Hyperlipidemia, unspecified; R94.6 Abnormal results of thyroid function studies; I25.2 Old myocardial infarction; Z95.810 Presence of automatic (implantable) cardiac defibrillator; I73.9 Peripheral vascular disease, unspecified; Z86.73 Personal history of transient ischemic attack (TIA), and cerebral infarction without residual deficits; Z86.718 Personal history of other venous thrombosis and embolism; Z79.01 Long term (current) use of 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s; Z95.1 Presence of aortocoronary bypass graft; Z79.82 Long term (current) use of aspirin; Z79.899 Other long term (current) drug therapy
CPT/HCPCS: 36415; 71045; 80048; 80061; 83735; 83880; 84436; 84439; 84443; 84481; 84484; 85025; 85610; 85730; 93005; 93017; 93306; 93350; 99284; Q9957; A4216; C8929; J1940

== ENCOUNTER → 2018-01-17 07:37 | Outpatient (CLI) | payer BC, SELFPAY ==
[2018-01-17 10:39] LABS: Anion Gap 7 (5-15); BUN 22 mg/dL (7-18); BUN/Creat Ratio 15.7 RATIO (10-20); Calcium,Total 8.7 mg/dL (8.5-10.1); Chloride 104 mmol/L (98-107); EST Glomerular Filtration Rate 54 mL/min (>60); Est Glom Filt Rate - Afr Amer 66 mL/min (>60); Glucose 120 mg/dL (74-106); Potassium 3.7 mmol/L (3.5-5.1); Sodium Level 137 mmol/L (136-145)
[2018-01-17 10:51] LABS: BNP,B-Type NATRIURETIC PEPTIDE 89.2 pg/mL (0-100)
== END ==
PROVIDERS: Family Provider Family Medicine; PCP Family Medicine; Visit Provider Family Medicine
DX: I25.10 Atherosclerotic heart disease of native coronary artery without angina pectoris (principal); I11.9 Hypertensive heart disease without heart failure
CPT/HCPCS: 36415; 80048; 83880

== ENCOUNTER 2018-02-17 08:57 | Outpatient (RCR) | payer BC, SELFPAY ==
[2018-02-17 10:12] LABS: International Normalized Ratio 2.9; Prothrombin Time (Protime)PT. 30.1 SECONDS (11.7-14.9)
[2018-02-17 10:17] LABS: Anion Gap 8 (5-15); BUN 16 mg/dL (7-18); BUN/Creat Ratio 11.9 RATIO (10-20); Calcium,Total 8.8 mg/dL (8.5-10.1); Chloride 105 mmol/L (98-107); Creatinine, Serum 1.35 mg/dL (0.70-1.30); EST Glomerular Filtration Rate 57 mL/min (>60); Est Glom Filt Rate - Afr Amer 69 mL/min (>60); Glucose 98 mg/dL (74-106); Potassium 3.6 mmol/L (3.5-5.1); Sodium Level 139 mmol/L (136-145)
== END 2018-02-17 10:00 | disposition home or self-care (01) ==
LOC: MTLAB 08:57
PROVIDERS: Family Provider Family Medicine; PCP Family Medicine; Visit Provider Internal Medicine Cardiovascular Disease
DX: I51.3 Intracardiac thrombosis, not elsewhere classified (principal); I25.5 Ischemic cardiomyopathy; Z79.01 Long term (current) use of 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s
CPT/HCPCS: 36415; 80048; 85610

== ENCOUNTER 2018-04-07 08:48 | Outpatient (RCR) | payer BC, SELFPAY ==
[2018-04-07 10:56] LABS: International Normalized Ratio 2.3; Prothrombin Time (Protime)PT. 25.1 SECONDS (11.7-14.9)
== END 2018-04-07 10:00 | disposition home or self-care (01) ==
LOC: MTLAB 08:48
PROVIDERS: Family Provider Family Medicine; PCP Family Medicine; Visit Provider Internal Medicine Cardiovascular Disease
DX: I51.3 Intracardiac thrombosis, not elsewhere classified (principal); I25.5 Ischemic cardiomyopathy; Z79.01 Long term (current) use of 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s
CPT/HCPCS: 36415; 85610

== ENCOUNTER 2018-06-01 10:22 | Outpatient (RCR) | payer BC, SELFPAY ==
[2018-05-31 10:59] LABS: International Normalized Ratio 2.5; Prothrombin Time (Protime)PT. 26.7 SECONDS (11.7-14.9)
[2018-06-01 12:06] LABS: International Normalized Ratio 2.2; Prothrombin Time (Protime)PT. 24.9 SECONDS (11.7-14.9)
--- OUTSIDE RECORDS SUMMARY | 2018-07-17 03:29 | XMS RPT_ITS ---
:1955 Author Organization OHIP Support Name Relationship Address Phone AMEE ROTHMAN S Unavailable [address] + [place] [address] DYE, SANGEETA Unavailable Unavailable + [place] [address] [facility] [address] + [place] [address] DYE, AMEE S Unavailable [address] + [place] [address] DYE SANGEETA Unavailable . + [place] [address] [facility] Unavailable [address] + [place] [address] DYE, AMEE S Unavailable [address] + [place] [address] DYE, SANGEETA Unavailable . + [place] [address] [facility] Unavailable [address] + [place] [address] DYE, AMEE S Unavailable [address] + [place] [address] DYE, SANGEETA Unavailable Unavailable + [place] [address] [facility] Unavailable [address] + [place] [address] DYE, AMEE S Unavailable [address] + [place] [address] DYE, SANGEETA Unavailable . + [place] [address] [facility] Unavailable [address] + [place] [address] DYE, AMEE S Unavailable [address] + [place] [address] DYE, SANGEETA Unavailable Unavailable + [place] [address] [facility] Unavailable [address] + [place] [address] DYE, AMEE S Unavailable [address] + [place] [address] DYE, SANGEETA Unavailable Unavailable + [place] [address] [facility] Unavailable [address] + [place] [address] LORNA, AMEE S Unavailable [address] + [place] [address] DYE, SANGEETA Unavailable . + [place] [address] [facility] Unavailable [address] + [place] [address] LORNA, AMEE S Unavailable [address] + [place] [address] DYE, SANGEETA Unavailable . + [place] [address] [facility] Unavailable [address] + [place] [address] LORNA, AMEE S Unavailable [address] + [place] [address] DYE, SANGEETA Unavailable Unavailable + [place] [address] [facility] Unavailable [address] + [place] [address] LORNA AMEE S Unavailable [address] + [place] [address] DYE, SANGEETA Unavailable Unavailable + [place] [address] [facility] Unavailable [address] + [place] [address] LORNA, AMEE S Unavailable [address] + [place] [address] DYE, SANGEETA Unavailable Unavailable + [place] [address] [facility] Unavailable [address] + [place] [address] LORNA AMEE S Unavailable [address] + [place] [address] DYE, SANGEETA Unavailable . + [place] [address] [facility] Unavailable [address] + [place] [address] DYE, AMEE S Unavailable [address] + [place] [address] DYE, SANGEETA Unavailable Unavailable + [place] [address] [facility] Unavailable [address] + [place] [address] DYE, AMEE S Unavailable [address] + [place] [address] DYE, SANGEETA Unavailable Unavailable + [place] [address] [facility] Unavailable [address] + [place] [address] DYE, AMEE S Unavailable [address] + [place] [address] DYE, SANGEETA Unavailable Unavailable + [place] [address] [facility] Unavailable [address] + [place] [address] DYE, AMEE S Unavailable [address] + [place] [address] DYE, SANGEETA Unavailable . + [place] [address] [facility] Unavailable [address] + [place] [address] LORNA, AMEE S Unavailable [address] + [place] [address] DYE, SANGEETA Unavailable Unavailable + [place] [address] [facility] Unavailable [address] + [place] [address] DYE, AMEE S Unavailable [address] + [place] [address] DYE, SANGEETA Unavailable . + [place] [address] [facility] Unavailable [address] + [place] [address] DYE, AMEE S Unavailable [address] [phone] [place] [address] SANGEETA ROTHMAN Unavailable . + [place] [address] [facility] Unavailable [address] + [place] [address] LORNA, AMEE S Unavailable [address] [phone] [place] [address] SANGEETA ROTHMAN Unavailable . + [place] [address] [facility] Unavailable [address] + [place] [address] LORNA, AMEE S Unavailable [address] [phone] [place] [address] LORNA SANGEETA Unavailable Unavailable + [facility] Unavailable [address] + [place] [address] LORNA AMEE S Unavailable [address] [phone] [place] [address] SANGEETA ROTHMAN Unavailable Unavailable + [facility] Unavailable [address] + [place] [address] LORNA, AMEE S Unavailable [address] [phone] [place] [address] SANGEETA ROTHMAN Unavailable NA + [place], [place] [facility] Unavailable Unavailable + [place] [address] LORNA AMEE S Unavailable [address] [phone] [place] [address] SANGEETA ROTHMAN Unavailable [place] + [place] [facility] Unavailable [address] + [place] [address] LORNA AMEE S Unavailable NA + [place], [place] S[place]ETA ROTHMAN Unavailable NA + [place], [place] [facility] Unavailable [address] + [place] [address] Care Team Providers Name Role Phone CHASITY GARDUNO, DR. MORENO Attending Unavailable KENDRICK GARDUNO, DR. FELICIANO Primary Care Unavailable Jose Schmitt Attending Unavailable Heather Purvis Referring Unavailable [facility] Unavailable MoodJose reeves Attending Unavailable [facility] Unavailable Valarie Moreno Attending [facility] Referring Unavailable [facility] Unavailable Heather Purvis Attending Unavailable [facility] Referring Unavailable [facility] Unavailable MoodJose reeves Attending Unavailable [facility] Unavailable Heather Purvis Referring Unavailable Jose Schmitt Attending Unavailable Heather Purvis Referring Unavailable [facility] Unavailable Valarie Moreno Attending Unavailable [facility] Referring Unavailable [facility] Unavailable Jose Schmitt Attending Unavailable Heather Purvis Referring Unavailable [facility] Unavailable Jose Schmitt Attending Unavailable Heather Purvis Referring Unavailable [facility] Unavailable [facility] Unavailable Billie, Joel Admitting Unavailable Ashelfah, Ghasem Attending Unavailable Stanton Taylor Consulting Unavailable Billie, Joel Admitting Unavailable [facility] Unavailable Billie, Joel Consulting Unavailable Ceci Salvador Attending Unavailable Billie, Joel Admitting Unavailable Stanton Taylor Attending Unavailable [facility] Unavailable Stanton Taylor Consulting Unavailable Billie, Joel Referring Unavailable Ashelfah, Ghasem Consulting Unavailable Billie, Joel Admitting Unavailable [facility] Unavailable Stanton Taylor Consulting Unavailable Ashelfah, Ghasem Attending Unavailable Ashelfah, Ghasem Consulting Unavailable Billie, Joel Admitting Unavailable Stanton Taylor Attending Unavailable [facility] Unavailable Stanton Taylor Consulting Unavailable Ashelfah, Ghasem Consulting Unavailable Ashelfah, Ghasem Attending Unavailable Billie, Joel Admitting Unavailable [facility] Unavailable Stanton Taylor Consulting Unavailable Ashelfah, Ghasem Consulting Unavailable VictorianocairnbrookKhanh Attending Unavailable [facility] [place], [place] Referring Unavailable Ranney, Christopher Primary Care Unavailable MoodJose reeves Attending Unavailable Heather Purvis Referring Unavailable Ranney, Christopher Primary Care Unavailable Valarie Moreno Attending Unavailable Kendrick, Khanh Referring Unavailable Moodlala, Jose Attending Unavailable Ranney, Christmagda Referring Unavailable Valarie Moreno Attending Unavailable Ranney, Christmagda Referring Unavailable Ranney, Christopher Primary Care Unavailable Hyun, Heather Faye Attending Unavailable Victorianoney, Christmagda Referring Unavailable Ranney, Christopher Primary Care Unavailable Stanton Taylor Attending Unavailable Moodispaw, oJse Attending Unavailable Joel Lin Referring Unavailable Moodisthuy, Jose Attending Unavailable Heather Purvis Referring Unavailable Ranney, Christopher Primary Care Unavailable Moodlala, Jose Attending Unavailable Heather Purvis Referring Unavailable Ranney, Christopher Primary Care Unavailable Valarie Moreno Attending Unavailable Kendrick, Christmagda Referring Unavailable PROBLEMS PROBLEMS DATE TYPE CONDITION / CODE ATTENDING STATUS SOURCE 06/19/2018 Unknown I51.3 - Intracardiac Jose Schmitt Active [facility] thrombosis, not Community elsewhere classified Hospital / I51.3(ICD-10) Repository 05/19/2018 Unknown I25.5 - Ischemic Valarie Moreno Active [facility] cardiomyopathy / Community I25.5(ICD-10) Hospital Repository 05/19/2018 Unknown Z95.810 - Presence of Valarie Moreno Active [facility] automatic Community (implantable) cardiac Hospital defibrillator / Repository Z95.810(ICD-10) 05/19/2018 Unknown I47.2 - Ventricular JoshValarie chavez Active [facility] tachycardia / Community I47.2(ICD-10) Hospital Repository 02/22/2018 Unknown I10 - Essential MoodisJose daley Active [place] (primary) Community hypertension / Hospital I10(ICD-10) Repository 02/22/2018 Unknown 401.9 - Unspecified Moodispaw, Jose Active [facility] essential Community hypertension / Hospital 401.9(ICD-9) Repository 02/02/2018 Unknown E78.5 - Purvis, Active [facility] Hyperlipidemia, Heather Faye Community unspecified / Hospital E78.5(ICD-10) Repository 02/02/2018 Unknown Z79.01 - care home Hyun Active [place] (current) use of Heather Faye [facility] 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s / Hospital Z79.01(ICD-10) Repository 02/03/2018 Unknown I25.810 - Valarie Moreno Active [facility] Atherosclerosis of Community coronary artery Hospital bypass graft(s) Repository without angina pectoris / I25.810(ICD-10) 02/21/2018 Unknown R07.9 - Chest pain, Moodispaw, Jose Active [place] unspecified / Community R07.9(ICD-10) Hospital Repository 02/21/2018 Unknown R00.1 - Bradycardia, Moodispaw, Jose Active [place] unspecified / Community R00.1(ICD-10) Hospital Repository 02/21/2018 Unknown I24.9 - Acute Moodispaw, Jose Active [facility] ischemic heart Community disease, unspecified Hospital / I24.9(ICD-10) Repository 02/21/2018 Unknown I11.0 - Hypertensive Moodispaw, Jose Active [place] heart disease with Community heart failure / Hospital I11.0(ICD-10) Repository PROCEDURES PROCEDURES No Procedure Records FoundRESULTS RESULTS PRO Collected: 06/02/2018 Status: F Source: [facility] 8:03 AM [facility] EMERGENCY DEPARTMENT REPOSITORY TYPE CODE TESTS RESULT OUT OF REFERENCE UNITS RANGE LAB PT(LOINC) 9.3-14.6 seconds Protime High 23.8 LAB INR(LOINC) 0.9-1.2 ratio PT High International 2.4 Ratio Result Comment: Standard Dose 2.0 - 3.0 High Dose 2.5 - 3.5 The recommended therapeutic range for oral 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 therapy is: LOW RISK: Prophylaxis of venous thrombosis INR: 2.0 - 3.0 Treatment of pulmonary embolism 2.0 - 3.0 Prevention of systemic embolism 2.0 - 3.0 HIGH RISK: Mechanical prosthetic valves 2.5 - 3.5 Performed By: #### PRO #### [facility] [address] [place], [place] [address] PROTHROMBIN TIME W/INR Collected: 06/01/2018 Status: F Source: [place] 10:36 AM [facility] REPOSITORY TYPE CODE TESTS RESULT OUT OF RANGE REFERENCE UNITS LAB L300.4150 11.7-14.9 SECONDS High PROTIME 24.9 LAB L300.4200 Normal INR 2.2 Performed By: #### L300.3900 #### [facility] [address] [place], [address] PROTHROMBIN TIME W/INR Collected: 05/31/2018 Status: F Source: [place] 8:24 AM [facility] REPOSITORY TYPE CODE TESTS RESULT OUT OF RANGE REFERENCE UNITS LAB L300.4150 11.7-14.9 SECONDS High PROTIME 26.7 LAB L300.4200 Normal INR 2.5 Performed By: #### L300.3900 #### [facility] [address] [place], [address] PACEMAKER CHECK Observed: 05/18/2018 Status: F Source: [place] 12:36 PM [facility] REPOSITORY [facility] [address] [place] [address] Pacemaker Check Date of Service: 05/18/18 0959 MR#: [id number] Acct: [id number] Name: FREDERICK ROTHMAN Rep #: [id number] : 1955 From: Valarie Moreno Age/Sex: 62/M [place] [facility] [place] Signed Billing Codes ICD Device Billing: ICD Dev Prog Eval, Single 05/18/18 1008 <Electronically signed by Valarie Moreno > Date Valarie Moreno 05/18/18 1236<Electronically signed by Jose Schmitt MD> Cosigner Signature: Date (if applicable) Jose Schmitt MD CC: PROTHROMBIN TIME W/INR Collected: 04/07/2018 Status: F Source: [place] 9:08 AM [facility] REPOSITORY TYPE CODE TESTS RESULT OUT OF RANGE REFERENCE UNITS LAB L300.4150 11.7-14.9 SECONDS High PROTIME 25.1 LAB L300.4200 Normal INR 2.3 Performed By: #### L300.3900 #### [facility] [address] [place], [address] BASIC METABOLIC Collected: 02/17/2018 Status: F Source: [place] PROFILE (BMP) 9:02 AM [facility] REPOSITORY Order Comment: Order Date: 01/20/18 Order Info: 0667-1 - BMP TYPE CODE TESTS RESULT OUT OF RANGE REFERENCE UNITS LAB L501.0100 74-106 mg/dL Normal GLU 98 Result Comment: Please note revised GLUCOSE reference range effective 2017. LAB L501.1000 7-18 mg/dL Normal BUN 16 LAB L501.1100 0.70-1.30 mg/dL High CREAT,SERUM 1.35 Result Comment: The validity of the calculated GFR AND GFRAA in patients over 70 years has not been determined. Clinical correlation is essential. LAB L501.1110 >60 mL/min Low EST GFR 57 Result Comment: Non- GFR Calc LAB L501.1115 >60 mL/min Normal EST GFR - AA 69 Result Comment: GFR Calc LAB L501.1300 10-20 RATIO Normal BUN/CRE 11.9 LAB L501.2200 8.5-10.1 mg/dL CA Normal 8.8 LAB L501.5300 136-145 mmol/L NA Normal 139 LAB L501.5600 3.5-5.1 mmol/L K Normal 3.6 LAB L501.5900 98-107 mmol/L CL Normal 105 LAB L501.6100 21.0-32.0 mmol/L Normal CO2 26.0 LAB L501.6200 5-15 Normal GAP 8 Performed By: #### L500.2500 #### [facility] [address] [place], [place], [address] PROTHROMBIN TIME W/INR Collected: 02/17/2018 Status: F Source: [place] 9:02 AM [facility] REPOSITORY TYPE CODE TESTS RESULT OUT OF RANGE REFERENCE UNITS LAB L300.4150 11.7-14.9 SECONDS High PROTIME 30.1 LAB L300.4200 Normal INR 2.9 Performed By: #### L300.3900 #### [facility] [address] [place], [address] CARDIOLOGY VISIT Observed: 02/05/2018 Status: F Source: [place] REPORT 9:09 AM [facility] REPOSITORY [facility] [address] [place] [address] OFFICE VISIT Date of Service: 02/02/18 MR#: [id number] Acct: [id number] Name: FREDERICK ROTHMAN Rep #: [id number] : 1955 Provider: Heather Purvis Age/Sex: 62/M Location: [facility] [place] Status: Signed HPI HPI Details: FREDERICK ROTHMAN, is a 62 M who presents to the office today for hospital follow-up. He does have a history of ischemic cardiomyopathy coronary artery disease with stenting in 2008, history of LV thrombus, ICD placement and hyperlipidemia. Patient was hospitalized in December 2017. He was hospitalized for chest discomfort, acute on chronic congestive heart failure. Stress test and echocardiogram were done. Troponins were negative. Stress was negative. Ejection fraction was slightly worsened when compared to previous it is now 20% at rest. Diuretics were added to his daily routine. Patient states that since being home from the hospital he is felt significantly better. He questions if he needs to remain on his Lasix. 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 He does not have any worsening shortness of breath. He is not orthopneic. He does not have any lightheadedness or dizziness. He does not have any near-syncope or syncope. He has not had any discharges from his device. He does not have any lower extremity. He does not have any chest discomfort. 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 Accompanied by: None Is patient in pain?: No Allergies Penicillins Adverse Reaction (Severe, Verified 02/02/18 10:31) Unknown Medications aspirin 81 mg tablet,delayed release 81 mg PO QDAY tab 08/24/17 [History Confirmed 02/02/18] nitroglycerin 0.4 mg sublingual tablet 0.4 mg SUBLINGUAL Q5- 15M PRN #25 tab 11/04/17 [Rx Confirmed 02/02/18] clopidogrel 75 mg tablet 75 mg PO QDAY #90 tab 11/29/17 [Rx Confirmed 02/02/18] atorvastatin 10 mg tablet 10 mg PO QHS #90 tab 11/30/17 [Rx Confirmed 02/02/18] carvedilol 25 mg tablet 25 mg PO BID #180 tab 11/30/17 [Rx Confirmed 02/02/18] quinapril 10 mg tablet 10 mg PO QDAY #90 tab 11/30/17 [Rx Confirmed 02/02/18] niacin ER 1,000 mg tablet,extended release 1,000 mg PO QDAY #90 tab 12/15/17 [Rx Confirmed 02/02/18] Warfarin Sodium [Coumadin] 3 mg PO MOTUWETHFR 01/08/18 [History Confirmed 02/02/18] Warfarin Sodium [Coumadin] 4 mg PO SUSA 01/08/18 [History Confirmed 02/02/18] furosemide 40 mg tablet 40 mg PO DAILY #90 tab 02/02/18 [Rx Confirmed 02/02/18] Ejection fraction %: 20 to 24 PFSH Medical History Hyperlipidemia (Chronic) Saphenous vein injury (Chronic) Peripheral vascular disease, unspecified (Chronic) Atherosclerosis of coronary artery bypass graft without angina pectoris (Chronic) Ventricular tachycardia (Chronic) Ischemic cardiomyopathy (Chronic) care home current use of 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 (Chronic) Apical mural thrombus (Chronic) DVT (deep venous thrombosis) (Acute) Surgical History Presence of aortocoronary bypass graft (Chronic) History of percutaneous transluminal coronary angioplasty (Chronic) Presence of automatic implantable cardioverter-defibrillator (Chronic) Family History Father CAD (coronary artery disease) Diabetes Mother Myocardial infarction CVA (cerebral vascular accident) Grandmother CVA (cerebral vascular accident) Other Family history of CVA Social History Smoking Status: Never smoker alcohol intake: never substance use type: does not use caffeine: No what type of physical activity do you participate in: none seatbelt use: always do you feel safe at home: Yes ROS Const Const: Negative for weakness, fatigue, fever(s) or headache(s) Eyes Eyes: Negative for blind spots, loss of peripheral vision or transient loss of vision ENT ENT: Negative for headache(s) Cardio Chest Pain: No Palpitations: No Edema: None Muscle aches with walking: None Resp Respiratory: Negative for SOB with activity, SOB at rest, SOB orthopnea\SOB lying down or Cough GI GI: Negative nausea, vomiting, heartburn or vomiting blood/hematemesis : Negative for hematuria Musc Musc: Negative for muscle aches/ myalgia Neuro Neuro: Negative for weakness or headache(s) [place] Hematologic/Lymphatic: Negative for easy bleeding Endo Endo: Negative for fatigue Cardiology Exam Const Appearance: cooperative, no acute distress and well developed Orientation: alert, awake and oriented x3 Head Head: normocephalic and atraumatic Mouth: moist mucous membranes Eyes General: appearance normal, both eyes and all related structures Conjunctivae: conjunctivae normal Pupils: PERRL EOM: EOM intact bilaterally Neck Neck: normal visual inspection, no lymphadenopathy and no JVD Carotids: Negative bruit Neck Mass: Negative Neck mass Chest Chest inspection: normal inspection of the chest, symmetric chest movement and Pacemaker/ICD Yes left pectoral incision Auscultation: Bilateral: Clear to Auscultation Cardio Palpation: normal PMI Rate: regular rate Rhythm: regular rhythm Heart sounds: S1 normal, S2 normal and murmur; negative rub or gallop Murmur: soft, Grade 2/6, mid systolic and LLSB GI GI: normal to inspection, soft, no hepatosplenomegaly and bowel sounds present; negative tender Neuro General: alert, awake, oriented x3, CN's II-XI intact bilaterally and moves all extremities Extremities Pulses: Normal: Right Posterior Tibial Pulse, Left Posterior Tibial Pulse, Right Radial Pulse, Left Radial Pulse Lower Extremity Edema: None: Bilateral Psych Psychological: normal affect Supplemental Info Stress echocardiogram done during hospital stay demonstrated normal adequate treadmill echocardiogram that was negative for ischemia by EKG criteria. Patient had baseline anterior septal and apical akinesis which remain the same during exercise. Patient had good augmentation of the inferior lateral tucker at peak exercise. Resting ejection fraction was 20%, final ejection fraction 30%. Echocardiogram done during hospital stay demonstrated an ejection fraction of 20-25%. Stage I diastolic dysfunction. Left atrium moderately enlarged. Mild mitral valve insufficiency. Trivial tricuspid valve insufficiency. RVSP 33 mmHg. Moderately dilated left ventricle. When compared to previous echocardiogram in 2016 left ventricular function slightly worse and RSV he increased from 26-33 mmHg. Assessment AND Plan 1. Atherosclerosis of coronary artery bypass graft of [place] heart without angina pectoris I25.810 Plan Patient underwent a stress test during hospital stay which was negative for ischemia. He does not have any symptoms of angina. Will not make any adjustments. 2. Cardiomyopathy, ischemic I25.5 Plan Patient does not have any symptoms of congestive heart failure. With his recent hospital stay and his decrease of ejection fraction ideally would like to keep him on his diuretics. His renal function is being monitored by his primary care doctor. We will continue to monitor by history, exam and echocardiograms as deemed appropriate 3. Presence of automatic implantable cardioverter-defibrillator Z95.810 ICD 2005 [employer] Plan ICD is functioning appropriately. We will continue to monitor with routine scheduled ICD interrogations. Patient has not had any discharges from their device. 4. Pure hypercholesterolemia E78.00 Plan Recent lipid profile demonstrates total cholesterol 95, HDL 35, LDL 39. Will not make any adjustments. He will continue with his current dose of statin. Plan Detail Other Orders Orders: Other Medications Refilled: Additional Comments Thank you for allowing us to participate in the patients plan of care, if you have any questions please do not hesitate to call. This note was generated using a voice recognition system and there may be incorrect words, spelling or punctuation that were not noted when reviewing the office note prior to saving. Follow Up 6 Months (MMM) 1 Year (PFM) Coding Level of Care Code Off vis,est,level 3 Diagnoses Atherosclerosis of coronary artery bypass graft of [place] heart without angina pectoris I25.810 [place] vs. transplanted heart: [place] heart Cardiomyopathy, ischemic I25.5 Presence of automatic implantable cardioverter-defibrillator Z95.810 Pure hypercholesterolemia E78.00 Hyperlipidemia type: pure hypercholesterolemia Coding Level of Care Code Off vis,est,level 3 Diagnoses Atherosclerosis of coronary artery bypass graft of [place] heart without angina pectoris I25.810 [place] vs. transplanted heart: [place] heart Cardiomyopathy, ischemic I25.5 Presence of automatic implantable cardioverter-defibrillator Z95.810 Pure hypercholesterolemia E78.00 Hyperlipidemia type: pure hypercholesterolemia 02/05/18 0909 <Electronically signed by Heather MARTINEZ> Date Heather Vang Signature: Date (if applicable) CC: Khanh Marks MD PACEMAKER CHECK Observed: 02/02/2018 Status: F Source: [place] 6:14 PM [facility] REPOSITORY [facility] [address] [place] [address] Pacemaker Check Date of Service: 02/02/18 1700 MR#: [id number] Acct: [id number] Name: FREDERICK ROTHMAN Rep #: [id number] : 1955 From: Valarie Moreno Age/Sex: 62/M [place] [facility] [place]: Signed Billing Codes ICD Device Billing: ICD Dev Prog Eval, Single 02/02/18 170 <Electronically signed by Valarie Moreno > Date Valarie Moreno 02/02/181813<Electronically signed by Jose Schmitt MD> [place]and[place] Signature: Date (if applicable) Jose Schmitt MD CC: BASIC METABOLIC Collected: 01/17/2018 Status: F Source: [place] PROFILE (BMP) 7:40 AM [facility] REPOSITORY Order Comment: Order Date: 01/14/18 Order Info: 0667-1 - BMP TYPE CODE TESTS RESULT OUT OF RANGE REFERENCE UNITS LAB L501.0100 74-106 mg/dL High GLU 120 Result Comment: Fasting Glucose result from 100 to 125 mg/dL suggests IMPAIRED HOMEOSTASIS per A.D.A. criteria. Please note revised GLUCOSE reference range effective 2017. LAB L501.1000 7-18 mg/dL High BUN 22 LAB L501.1100 0.70-1.30 mg/dL High CREAT,SERUM 1.40 Result Comment: The validity of the calculated GFR AND GFRAA in patients over 70 years has not been determined. Clinical correlation is essential. LAB L501.1110 >60 mL/min Low EST GFR 54 Result Comment: Non- GFR Calc LAB L501.1115 >60 mL/min Normal EST GFR - AA 66 Result Comment: GFR Calc LAB L501.1300 10-20 RATIO Normal BUN/CRE 15.7 LAB L501.2200 8.5-10.1 mg/dL CA Normal 8.7 LAB L501.5300 136-145 mmol/L NA Normal 137 LAB L501.5600 3.5-5.1 mmol/L K Normal 3.7 LAB L501.5900 98-107 mmol/L CL Normal 104 LAB L501.6100 21.0-32.0 mmol/L Normal CO2 26.0 LAB L501.6200 5-15 Normal GAP 7 Performed By: #### L500.2500 #### [facility] [address] [place], [address] BNP,B-TYPE NATRIURETIC Collected: 01/17/2018 Status: F Source: [place] 7:40 AM [facility] REPOSITORY TYPE CODE TESTS RESULT OUT OF RANGE REFERENCE UNITS LAB L503.6620 0-100 pg/mL Normal B-TYPE 89.2 KWESI PEP Performed By: #### L503.6620 #### [facility] [address] [place], [address] DISCHARGE SUMMARY Observed: 01/10/2018 Status: F Source: [place] 2:33 PM [facility] REPOSITORY [facility] Medical Records Department [address] [place] [address] Discharge Summary 01/10/18 1202 MR#: [id number] Acct: [id number] Name: FREDERICK ROTHMAN Rep #: [id number] : 1955 62 From: Sridevi Birch MANAGER TECHNOLOGY-C PCP: Khanh Marks MD Status: DIS IN Y Location: [facility] [id number] <Sridevi Birch - Last Filed: 01/10/18 12:17> Discharge Date and Diagnosis Date of Admission: 01/08/18 Date of Discharge: 01/10/18 - Primary Discharge Diagnosis 1. Chest pain-ACS ruled out. 2. Acute on chronic systolic CHF in the context of history of ischemic cardiomyopathy 3. 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 Stable cardiac size status post prior midline sternotomy with right ventricular pacemaker remaining in good position. Electronically Signed: aPtria Nunez MD at 18:40 EDT , Service support , Dr. Taylor- Cardiology Operations: None Procedures: 2-D Echocardiogram, - - Stress echo Summary of Care Provided: Patient is a 62-year-old male admitted 01/08/2018 due to chest pain. He has a past medical history of CAD status post CABG/PCI, LV thrombus, AICD, ischemic cardiomyopathy, PVD, hyperlipidemia, hypertension. 1. Chest pain-underlying history of CAD status post CABG/PCI- continue aspirin, statin, Plavix, beta-rossi. Cardiology consulted. Troponin negative. Initially on nitro drip on admission which was discontinued. EKG without evidence of ischemia. Patient underwent stress echo which was negative for ischemia. Patient will follow up with Dr. Schmitt in 1-2 weeks. Follow-up with primary care physician in 1 week. 2. Acute on chronic systolic CHF, history of ischemic cardiomyopathy with previous ejection fraction of 35% reported on echocardiogram in 2016-BNP 502 on admission. Chest x-ray on admission consistent with CHF. Lasix 40 mg daily at discharge. Repeat echocardiogram during admission with an estimated ejection fraction of 20-25%. Stage I diastolic dysfunction, mild mitral valve insufficiency, RVSP estimated to be 33 mmHg. Follow-up with cardiology as noted above. 3. Nonsustained ventricular tachycardia, AICD in place 4. LV thrombus, chronic-on chronic anticoagulation with Coumadin. INR 2.0 at discharge. Patient will continue routine INR monitoring. 5. PVD-continue aspirin, statin, Plavix. 6. Hyperlipidemia-continue statin. 7. Hypertension-stable, continue home quinapril and carvedilol regimen. 8. Elevated TSH-free T4, free T3 within normal limits. Continue outpatient monitoring. General: Alert, Oriented x3, Cooperative, No apparent distress HEENT: Atraumatic, PERRLA, EOMI, Normocephalic Neck: Supple, No JVD, Negative Carotid Bruits Lungs: Diminished, clear to auscultation Cardiovascular: Regular rate, Regular Rhythm, Normal S1, Normal S2, No murmurs Abdomen: Bowel Sounds Present, Soft, Non Tender, Non-Distended Extremities: No clubbing, No cyanosis, No edema, Capillary Refill Less than 3 Seconds Skin: No rashes, No breakdown Musculoskeletal: No Tenderness to Palpation of Joints or Extremities Neurological: Cranial nerves II-XII grossly intact, Neuro grossly intact Psych/Mental Status: Normal Affect, Appropriate Patient seen exam prior to discharge. Physical assessment as noted above. Patient stable for discharge home with follow-up recommendations as noted above. This patient was seen by JOHN Gentile under the supervision of Dr. Medina. Discharge Diet: Low fat/ Low Cholesterol Discharge Activity: Return to Normal Activity Call your doctor if you observe: Shortness of breath, Dizziness, Fainting spells, Chest pain Home Medications: Medications to take at Discharge aspirin 81 mg tablet,delayed release 81 mg PO QDAY tab 08/24/17 nitroglycerin 0.4 mg sublingual tablet 0.4 mg SUBLINGUAL Q5- 15M PRN #25 tab 11/04/17 clopidogrel 75 mg tablet 75 mg PO QDAY #90 tab 11/29/17 atorvastatin 10 mg tablet 10 mg PO QHS #90 tab 11/30/17 carvedilol 25 mg tablet 25 mg PO BID #180 tab 11/30/17 quinapril 10 mg tablet 10 mg PO QDAY #90 tab 11/30/17 niacin ER 1,000 mg tablet,extended release 1,000 mg PO QDAY #90 tab 12/15/17 Warfarin Sodium [Coumadin] 3 mg PO MOTUWETHFR 01/08/18 Warfarin Sodium [Coumadin] 4 mg PO SUSA 01/08/18 Furosemide [Lasix] 40 mg PO DAILY #30 tab 01/10/18 Following Prescrptions Were Given to Patient: Furosemide [Lasix] 40 mg PO DAILY #30 tab Primary Care Physician: Ranjith Marks MD [Primary Care Provider] - Please follow up with your Primary Care Physician in: 1 Week Please Follow Up With: Jose Schmitt MD When: 1-2 Weeks Patient Instructions: ED Exhaustion Heat, ED Nodule Solitary Pulmonary, ED Near Syncope Unkn Disposition: Home Minutes spent on discharge:: 35 Patient Condition:: Stable Medical Necessity - Tobacco Use Smoking Status: Never smoker Meaningful Use Info Meaningful Use Diagnoses (Choose all that apply): CHF - CHF RANDI/ARB ordered at discharge?: Yes Documented LVEF (%): 20 <Aliya Medina E - Last Filed: 01/10/18 14:33> Discharge Date and Diagnosis - Secondary Discharge Diagnosis Chronic Problems (Last Reviewed 01/09/18 @ 03:46 by Joel Lin MD) Hyperlipidemia (Chronic) Saphenous vein injury (Chronic) Presence of aortocoronary bypass graft (Chronic) 08/12/03, CABG X 4, MENCHACA to LAD, SVG to DCA, SVG to CX, SVG to PDA History of percutaneous transluminal coronary angioplasty (Chronic) Peripheral vascular disease, unspecified (Chronic) Atherosclerosis of coronary artery bypass graft without angina pectoris (Chronic) Ventricular tachycardia (Chronic) Ischemic cardiomyopathy (Chronic) Presence of automatic implantable cardioverter-defibrillator (Chronic) ICD 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 Patient seen and examined on the day of discharge and appeared to be stable to be discharged home. He denies any more chest pain and has no more shortness of breath. His vital signs remained stable. He was admitted for chest pain and mild shortness of breath. He was found to have mild acute and chronic systolic CHF as well as nonsustained V. tach. He complains of chest pain and his cardiac workup was unremarkable. He had a stress echocardiogram done and revealed ejection fraction of 20%, normal adequate treadmill echocardiogram that was negative for ischemia by EKG criteria. Acute coronary syndrome ruled out. He was treated with IV Lasix for acute on chronic systolic CHF. He had an episode of nonsustained V. tach in the ER which went asymptomatic. There was no treatment given for him at this time for this nonsustained V. tach. Cardiology consulted and recommended stress echocardiogram that was done and was unremarkable. Patient discharged home in a stable medical condition, discharged on Lasix 40 mg p.o. daily, continued on his chronic home medication without any changes, recommended follow-up with PCP in 1 week and follow-up with cardiology in 1-2 weeks. - Physical Exam General: Alert, Oriented x3, Cooperative, No apparent distress. HEENT: Atraumatic, PERRLA, EOMI. Neck: Supple, No JVD, Negative Carotid Bruits, Trachea Midline, Thyroid Normal. Lungs: Diminished breath sounds at the bases, otherwise clear, No rhonchi, No wheeze, No rales. Cardiovascular: Regular rate, Regular Rhythm, Normal S1, Normal S2, PMI Normal. Abdomen: Bowel Sounds Present, Soft, Non Tender, Non-Distended, No Hepato-splenomegaly. Extremities: No clubbing, No cyanosis, No edema Skin: No rashes, No breakdown Neurological: Neuro grossly intact Vital Signs are stable. This note was generated with APX dictation software. It may contain incorrect words, spelling, and punctuation that were not noted in checking the note before signing. Minutes spent on discharge:: 32 Patient Condition:: Stable Meaningful Use Info Meaningful Use Diagnoses (Choose all that apply): CHF - CHF RANDI/ARB ordered at discharge?: Yes Documented LVEF (%): 20 Code Visit Inpatient E AND M: 13407 Disch Hosp 01/10/18 1217 <Electronically signed by Sridevi LOPEZ> Date Sridevi ESCALANTEC 01/10/18 1433<Electronically signed by Aliya Medina MD> Cosigner Signature (if applicable): Date Aliya Medina MD CC: JOHN Birch; Khanh Marks MD; Aliya Medina; Jose Schmitt MD Signed 12 LEAD ELECTROCARDIOGRAM Observed: 01/10/2018 Status: F Source: [place] 2:20 PM [facility] REPOSITORY [facility] Cardiovascular Services [address] [place] [address] 12 Lead EKG 01/08/183 MR#: [id number] Acct: [id number] Name: FREDERICK ROTHMAN Rep #: [id number] : 1955 62 From: Jose Schmitt MD Attending Dr: Aliya Medina Status: DIS IN Ordering Dr: Aliya Medina MD Date: 01/10/18 Location: [facility] Sex: M C Admitted: 01/08/18 Test Reason : CP Blood Pressure : / mmHG Vent. Rate : 049 BPM Atrial Rate : 049 BPM P-R Int : 170 ms QRS Dur : 092 ms QT Int : 450 ms P-R-T Axes : 052 005 120 degrees QTc Int : 406 ms Sinus bradycardia Voltage criteria for left ventricular hypertrophy T wave abnormality, consider anterolateral ischemia Abnormal ECG Confirmed by KESHIA GRAY, JOSE ([id number]), assistant production editor ROCKY KIDD ([id number]) on 01/10/2018 2:19:36 PM Referred By: BLILIE Confirmed By:JOSE SCHMITT MD 01/10/18 5798 Date Jose Schmitt MD CC: Khanh Marks MD; Aliya Medina Signed 12 LEAD ELECTROCARDIOGRAM Observed: 01/10/2018 Status: F Source: [place] 1:14 PM [facility] REPOSITORY [facility] Cardiovascular Services [address] [place] [address] 12 Lead EKG 01/08/18 1723 MR#: [id number] Acct: [id number] Name: FREDERICK ROTHMAN Rep #: [id number] : 1955 62 From: Jose Schmitt MD Attending Dr: Aliya Medina Status: DIS IN Ordering Dr: Mustapha Torres MD Date: 01/08/18 Location: [facility] Sex: M C Admitted: 01/08/18 Test Reason : Blood Pressure : / mmHG Vent. Rate : 073 BPM Atrial Rate : 073 BPM P-R Int : 166 ms QRS Dur : 094 ms QT Int : 384 ms P-R-T Axes : 066 015 117 degrees QTc Int : 423 ms Normal sinus rhythm Voltage criteria for left ventricular hypertrophy T wave abnormality, consider anterolateral ischemia Abnormal ECG Confirmed by KESHIA GRAY, JOSE ([id number]), assistant production editor ROCKY KIDD ([id number]) on 01/10/2018 1:13:35 PM Referred By: MANJEET Confirmed By:JOSE SCHMITT MD 01/10/18 1313 Date Jose Schmitt MD CC: Khanh Marks MD; Aliya Medina; Mustapha Torres MD Signed DISCHARGE INSTRUCTION Observed: 01/10/2018 Status: F Source: [place] 11:30 AM [facility] REPOSITORY [facility] Medical Records Department [address] [place] [address] Instructions for Home/Discharge Instructions 01/10/18 1121 MR#: [id number] Acct: [id number] Name: FREDERICK ROTHMAN Rep #: [id number] : 1955 62 From: Sridevi Birch NP-C PCP: Khanh Marks MD Status: ADM IN - Discharge Diagnoses Current Active Problems: Current Active and Chronic Problems (Last Reviewed 01/09/18 @ 03:46 by Joel Lin MD) Chest pain (Acute) You will use the following diet at home:: Cardiac Discharge Activity: Return to Normal Activity Call your doctor if you observe: Shortness of breath, Dizziness, Fainting spells, Chest pain Instructions: ED Exhaustion Heat, ED Nodule Solitary Pulmonary, ED Near Syncope Unkn Allergies/Adverse Reactions: Allergies Penicillins Adverse Reaction (Severe, Verified 01/08/18 17:22) Unknown Medications to take at Discharge aspirin 81 mg tablet,delayed release 81 mg PO QDAY tab 08/24/17 nitroglycerin 0.4 mg sublingual tablet 0.4 mg SUBLINGUAL Q5- 15M PRN #25 tab 11/04/17 clopidogrel 75 mg tablet 75 mg PO QDAY #90 tab 11/29/17 atorvastatin 10 mg tablet 10 mg PO QHS #90 tab 11/30/17 carvedilol 25 mg tablet 25 mg PO BID #180 tab 11/30/17 quinapril 10 mg tablet 10 mg PO QDAY #90 tab 11/30/17 niacin ER 1,000 mg tablet,extended release 1,000 mg PO QDAY #90 tab 12/15/17 Warfarin Sodium [Coumadin] 3 mg PO MOTUWETHFR 01/08/18 Warfarin Sodium [Coumadin] 4 mg PO SUSA 01/08/18 Furosemide [Lasix] 40 mg PO DAILY #30 tab 01/10/18 The following prescriptions were given: Furosemide [Lasix] 40 mg PO DAILY #30 tab Primary Care Physician: Ranjith Marks MD [Primary Care Provider] - Please follow up with your Primary Care Physician in: 1 Week Test Results: Test results from this visit will be discussed in further detail at your follow-up appointment, if applicable. Please Follow Up With: Jose Schmitt MD When: 1-2 Weeks Proposed Discharge Date: 01/10/18 01/10/18 1130 <Electronically signed by Sridevi LOPEZ> Date Sridevi LOPEZ CC: Khanh Marks MD; Stanton Taylor MD STRESS TEST ECHO W/O Observed: 01/10/2018 Status: F Source: [place] CONTRAST 9:44 AM [facility] REPOSITORY [facility] Cardiovascular Services [place] [address] Stress Test Echo w/o Contrast MR#: [id number] Acct: [id number] Name: FREDERICK ROTHMAN Rep #: [id number] : 1955 62 From: Stanton Taylor MD Primary Care: Khanh Marks MD Status: ADM IN Ordering Dr: Stanton Taylor MD Sex: M C Reason For Study: Chest Pain Stress Results Protocol: Adllin Protocol Maximum Predicted HR: 157 bpm Target HR: 133 bpm% Max imum Predicted HR: 78 % Heart Stage Duration Rate BPCom ment (mm:ss) (bpm) Baseline 70 100/60 No Chest Pain Dallin Protocol Stage I 3:00 10 6 110/64No Chest Pain [place]in Protocol Stage II 3:00 11 8 140/62No Chest Pain; Mild Dyspnea Dallin Protocol Stage No Chest Pain; Moderate Dyspnea; Bilateral Knee III 0:31 12 2 / Pain Recovery 71 112/64 No Chest Pain Stress Duration: 6:31 mm:ss Maximum Stress HR: 122 bpmM ETS: 8 Baseline Echocardiogram Findings The estimated ejection fraction is 20 %. Moderately dilated left ventricle. Stress Echo Wall motion Data Resting WMIntermediate WMStress WM Resting Wall Motion Wall Motion Stress Anterio-Basal: Akinetic. Inferior and lateral tucker appear Mid-Anterior : Akinetic. to augment at peak exercise. Mid-anteroseptal : Akinetic. Anterior/septal tucker remained Anterior [place] : Akinetic. akinetic during exercise. EKG Data The baseline ECG demonstrates normal sinus rhythm with at rate of _ beats per minute. The patient exercised according to the regular Dallin protocol for a total duration of 6:31. The maximum heart rate attained was 122 beats per minute. This was 77% of maximum predicted heart rate. The patient exercised into stage 3 of the Dallin protocol. During stress, there were no ST or T wave changes noted to suggest ischemia. No clinical angina was noted. No arrhythmias noted. Interpretation Summary The estimated ejection fraction is 20 %. Normal, adequate, treadmill echocardiogram based upon rate pressure product. Negative for ischemia by EKG criteria. Patient had baseline anterior septal and apical akinesis, which remained the same during exercise. Patient had good augmentation of the inferior lateral tucker at peak exercise. Final LVEF of 30%. Appropriate blood pressure response to exercise. Average exercise capacity for age. No anginal symptoms noted. No complications. Ordering Physician: Stanton Taylor Referring Physician: Stanton Taylor Performed By: Sana Chandler RDCS 01/10/18942 Date Stanton Taylor MD CC: Khanh Marks MD; Stanton Taylor MD; Aliya Medina Date Dictated: 01/10/18812 Date Transcribed: 01/10/18942 Intensive Care Medicine Specialist: Signed BASIC METABOLIC Collected: 01/10/2018 Status: F Source: [place] PROFILE (BMP) 5:05 AM [facility] REPOSITORY TYPE CODE TESTS RESULT OUT OF RANGE REFERENCE UNITS LAB L501.0100 74-106 mg/dL Normal GLU 97 Result Comment: Please note revised GLUCOSE reference range effective 2017. LAB L501.1000 7-18 mg/dL High BUN 22 LAB L501.1100 0.70-1.30 mg/dL High CREAT,SERUM 1.33 Result Comment: The validity of the calculated GFR AND GFRAA in patients over 70 years has not been determined. Clinical correlation is essential. LAB L501.1110 >60 mL/min Low EST GFR 58 Result Comment: Non- GFR Calc LAB L501.1115 >60 mL/min Normal EST GFR - AA 70 Result Comment: GFR Calc LAB L501.1255 ml/min Normal Estimated CRCL 58.22 LAB L501.1300 10-20 RATIO Normal BUN/CRE 16.5 LAB L501.2200 8.5-10 mg/dL Normal .1 CA 8.9 LAB L501.5300 136-14 mmol/L Normal 5 NA 141 LAB L501.5600 3.5-5. mmol/L Normal 1 K 3.5 LAB L501.5900 98-107 mmol/L Normal CL 103 LAB L501.6100 21.0-3 mmol/L Normal 2.0 CO2 27.0 LAB L501.6200 5-15 Normal GAP 11 Performed By: #### L500.2500 #### [facility] [address] [place], [address] CBC W/DIFF, AUTOMATED Collected: 01/10/2018 Status: F Source: [place] 5:05 AM [facility] REPOSITORY TYPE CODE TESTS RESULT OUT OF RANGE REFERENCE UNITS LAB L100.1000 4.4-11.0 K/mm3 Normal WBC 7.3 LAB L100.1200 4.6-6.2 M/mm3 Normal RBC 4.62 LAB L100.1300 13.0-16.5 g/dl Normal HGB 14.7 LAB L100.1400 40-54 % Normal HCT 41.5 LAB L100.1500 80-94 fL Normal MCV 89.8 LAB L100.1600 27.0-32.0 pg Normal MCH 31.8 LAB L100.1700 32-36 g/gl Normal MCHC 35.4 LAB L100.1810 11.6-14.6 % Normal RDW CV 13.6 LAB L100.1820 35.1-43.9 fl High RDW SD 44.0 LAB L100.1900 150-450 K/mm3 Normal PLT 150 LAB L100.2000 6.2-12.0 fl Normal MPV 9.8 LAB L100.2100 47-70 % Normal NEUT% 69.4 LAB L100.2200 19-41 % Low LY% 17.3 LAB L100.2300 0-10 % High MONO% 10.9 LAB L100.2400 0-5 % Normal EO% 1.8 LAB L100.2500 0-1 % Normal BASO% 0.3 LAB L100.2550 0.0-0.9 % Normal IM GRAN % 0.300 Result Comment: IG% - Immature Granulocytes (promyelocytes, myelocytes and metamyelocytes) > 1% indicates that a LEFT SHIFT is Present. LAB L100.2620 2.0-7.7 X10 3/uL Normal Absolute Neut 5.1 LAB L100.2720 0.83-4.51 X10 3/ul Normal Absolute Lymph 1.27 Performed By: #### L100.0100 #### [facility] [address] [facility] [place], [address] PROTHROMBIN TIME W/INR Collected: 01/10/2018 Status: F Source: [place] 5:05 AM [facility] REPOSITORY TYPE CODE TESTS RESULT OUT OF RANGE REFERENCE UNITS LAB L300.4150 11.7-14.9 SECONDS High PROTIME 22.3 LAB L300.4200 Normal INR 2.0 Performed By: #### L300.3900, L300.4310 #### [facility] [address] [facility] [place], [address] PARTIAL THROMBOPLAST Collected: 01/10/2018 Status: F Source: [place] TIME 5:05 AM [facility] REPOSITORY TYPE CODE TESTS RESULT OUT OF RANGE REFERENCE UNITS LAB L300.4310 24.1-36.2 Seconds Normal PTT 33.8 Performed By: #### L300.3900, L300.4310 #### [facility] [address] [facility] [place], [address] ECHO, COMPLETE W/ Observed: 01/09/2018 Status: F Source: [place] CONTRAST 4:21 PM [facility] REPOSITORY [facility] Cardiovascular Services [address] [place] [address] Echo Complete W/ Contrast 01/09/18 1354 MR#: [id number] Acct: [id number] Name: FREDERICK ROTHMAN Rep #: [id number] : 1955 62 From: Stanton Taylor MD Attending Dr: Aliya Medina Status: ADM IN Ordering Dr: Joel Lin MD Date: 01/09/18 Location: [facility] Sex: M C Admitted: 01/08/18 Reason For Study: Chest Pain Procedure This was a 2D Doppler, Color Flow transthoracic echocardiogram. Exam performed portable in patient room. Left Ventricle Moderately dilated left ventricle. The estimated ejection fraction is 20-25 %. Stage 1 diastolic dysfunction. Septal motion consistent with IVCD. No regional wall motion abnormalities noted. Right Ventricle Normal size and thickness. ICD or pacer leads identified within the right ventricle. Normal systolic function. Atria The left atrium is moderately enlarged. Normal right atrium. Normal atrial septum. Mitral Valve The mitral valve is structurally normal. No prolapse or stenosis seen. Mild (1+) mitral valve insufficiency. Tricuspid Valve Normal tricuspid valve. Trivial tricuspid valve insufficiency. Right ventricular systolic pressure estimated to be 33 mmHg. Aortic Valve Trisinus/trileaflet aortic valve. Mild diffuse aortic valve thickening. Pulmonic Valve Normal pulmonic valve. Great Vessels Normal aortic root. Normal arch. Normal inferior vena cava. Inferior vena cava collapse with sniff. Pericardium/Pleural No pericardial effusion. Medication Diluted definity 2.5ml given slow IV push to enhance endocardial definition. MMode/2D Measurements AND Calculations Ao root diam: 3.3 cm LAV(MOD-bp): 63.9 ml LA A4 area: 22.8 cm2 LAV(MOD-bp) Indexed: 33.4 ml/m2 LAV(MOD-sp2): 51.1 ml LAV(MOD-sp4): 74.5 ml RA A4 area: 14.0 cm2 Time Measurements MV dec time: 0.27 sec Doppler Measurements AND Calculations MV E max travis: 52.3 cm/sec Lat Peak E' Travis: 7.9 cm/sec Med Peak E' Travis: 8.5 cm/sec MV A max travis: 73.3 cm/sec E/E' lat: 6.6 E/E' med: 6.1 MV E/A: 0.71 MV V2 max: 92.9 cm/sec MV P1/2t max travis: 77.0 cm/sec Ao V2 max: 119.3 cm/sec MV max P.4 mmHg MV P1/2t: 76.3 msec Ao max P.7 mmHg MV V2 mean: 50.7 cm/sec MV dec slope: 295.7 cm/sec2 Ao V2 mean: 71.5 cm/sec MV mean P.2 mmHg MVA(P1/2t): 2.9 cm2 Ao mean P.5 mmHg MV V2 VTI: 26.3 cm Ao V2 VTI: 19.6 cm LV V1 max: 101.5 cm/sec PA V2 max: 117.5 cm/sec TR max travis: 267.6 cm/sec LV V1 max P.1 mmHg TR max P.6 mmHg LV V1 mean P.7 mmHg LV V1 mean: 58.0 cm/sec LV V1 VTI: 15.9 cm Interpretation Summary The estimated ejection fraction is 20-25 %. Stage 1 diastolic dysfunction. The left atrium is moderately enlarged. Mild (1+) mitral valve insufficiency. Trivial tricuspid valve insufficiency. Right ventricular systolic pressure estimated to be 33 mmHg. Moderately dilated left ventricle. Compared to echo report dated 03/04/2016, LV function appears slightly worse and RVSP has increased from 26 to 33 mm Hg. The study was technically difficult. Contrast injection was performed. Ordering Physician: Joel Lin Referring Physician: Heather Purvis Performed By: Sean Lainez RCS 01/09/18 1621 Date Stanton Taylor MD CC: Khanh Marks MD; Aliya Medina; Joel Lin MD Date Dictated: 01/09/18 1354 Date Transcribed: 01/09/18 1621 Intensive Care Medicine Specialist: Signed CONSULTATION Observed: 01/09/2018 Status: F Source: [place] 11:27 AM [facility] REPOSITORY [facility] Medical Records Department [address] [place] [address] Consultation 01/09/18 1115 MR#: [id number] Acct: [id number] Name: FREDERICK ROTHMAN Rep #: [id number] : 1955 62 From: Stanton Taylor MD PCP: Khanh Marks MD Status: ADM IN Location: [place] [address] Problem List (1) Chest pain Status: Acute (2) Hyperlipidemia Status: Chronic Qualifiers: Hyperlipidemia type: pure hypercholesterolemia Qualified Code(s): E78.00 - Pure hypercholesterolemia, unspecified; E78.0 - Pure hypercholesterolemia (3) Presence of aortocoronary bypass graft Status: Chronic Comment: 08/12/03, CABG X 4, MENCHACA to LAD, SVG to DCA, SVG to CX, SVG to PDA (4) History of percutaneous transluminal coronary angioplasty Status: Chronic (5) Atherosclerosis of coronary artery bypass graft without angina pectoris Status: Chronic Qualifiers: [place] vs. transplanted heart: [place] heart Qualified Code(s): I25.810 - Atherosclerosis of coronary artery bypass graft(s) without angina pectoris (6) Ventricular tachycardia Status: Chronic (7) Ischemic cardiomyopathy Status: Chronic (8) Presence of automatic implantable cardioverter-defibrillator Status: Chronic Comment: ICD 2006 [employer] (9) Apical mural thrombus Status: Chronic Reason for Consult Date of Consultation: 01/09/18 Reason for Consultation: Chest pain, nonsustained V. tach, ischemic cardiomyopathy, hypertension, coronary artery disease, status post AICD History of Present Illness: The patient is a 62 year old M, patient of Dr. Anguiano with a history of hypertension, hypercholesterolemia, coronary artery disease status post coronary bypass surgery 4 on 08/12/03. At that time he received a MENCHACA to the LAD, saphenous vein graft to the diagonal, saphenous vein graft to the left circumflex and saphenous vein graft to the PDA. In 2005 he underwent AICD placement. Patient presented [facility] on 01/21/09 with non-ST elevation myocardial infarction and underwent repeat coronary angiography. At that time he had a patent saphenous vein graft to the PDA, patent saphenous vein graft to the diagonal branch, patent saphenous vein graft to the ramus, and a small atretic MENCHACA to the LAD. At that time he was treated with medical therapy. His LAD was described as a large occluded vessel and filling retrograde from a patent saphenous vein graft to the diagonal. In addition the patient has ischemic cardiomyopathy with an EF around 35% by echocardiogram in 2015. His last pacemaker interrogation was 08/18/16 which showed 2 episodes of ventricular tachycardia which resolved on its own, another one with ATP correction. The patient was in normal health up until yesterday when he presented with substernal chest pain after walking of about 13 stairs. His EKG was unremarkable in the emergency room. While he was in the emergency room he had a 5 beat run of nonsustained ventricular tachycardia. In addition his chest pain was unresolved with 3 sublingual nitroglycerin and a nitroglycerin drip was started. His troponins have been negative thus far. In addition he has a history of left ventricular mural thrombus and is on chronic Coumadin therapy and is therapeutic on his Coumadin. His most recent stress test was in 01/19/2010 which demonstrated extensive anterior infarct with no evidence of ischemia. On telemetry the patient has been in normal sinus rhythm/sinus bradycardia. He did have a 5 beat run of nonsustained ventricular tachycardia. This was self terminating. The patient's anginal equivalent is bilateral throat pain, which he did not have any of last evening., Past Medical History Allergies/Adverse Reactions: Allergies Penicillins Adverse Reaction (Severe, Verified 01/08/18 17:22) Unknown Home Medications: Ambulatory Orders Medication Instructions Recorded Past Medical History (Chronic Problems): Chronic Problems (Last Reviewed 01/09/18 @ 03:46 by Joel Lin MD) Hyperlipidemia (Chronic) Saphenous vein injury (Chronic) Presence of aortocoronary bypass graft (Chronic) 08/12/03, CABG X 4, MENCHACA to LAD, SVG to DCA, SVG to CX, SVG to PDA History of percutaneous transluminal coronary angioplasty (Chronic) Peripheral vascular disease, unspecified (Chronic) Atherosclerosis of coronary artery bypass graft without angina pectoris (Chronic) Ventricular tachycardia (Chronic) Ischemic cardiomyopathy (Chronic) Presence of automatic implantable cardioverter-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 Denies: Shortness of Breath, Orthopnea, PND, Peripheral Edema, Palpitations, Lightheadedness, Dizziness, Near Syncope, Syncope Respiratory: Denies: Cough, Sputum Production, Hemoptysis Gastrointestinal: Denies: Hematemesis, Hematochezia, Melena Genitourinary: Denies: Dysuria, Hematuria Skin: Denies: Rash Subjectve: Patient laying in bed, no acute distress. Currently on nitro drip. Objective: Vital Signs Temp Pulse Resp BP Pulse Ox 98.3 F 67 14 115/79 97 01/09/18 09:00 01/09/18 09:00 01/09/18 09:00 01/09/18 09:00 01/09/18 09:00 Oxygen Flow Rate (L/min) 2 Oxygen Delivery Method Nasal Cannula Weight: 159 lb 9.835 oz Body Mass Index (BMI) 22.2 Intake and Output for Last 24 Hours Intake Total 83 / Balance 83 / General: Awake, Alert, Oriented x 3 HEENT: PERRL, EOMI, Sclera Non Icteric Neck: Supple, Good ROM, No Lymph Node Enlargement Lungs: Rales - Mike Bases Cardiovascular: Regular Rhythm, Normal S1, Normal S2, No Murmurs, No Rubs, No Gallops Vascular: No Carotid Bruits, Normal Femoral Pulses, Normal Radial Pulses, Normal Dorsalis Pedal Pulse, Normal Posterior Tibial Pulses Abdomen: Bowel Sounds Present, Soft, Non Tender, No HSM, No Organomegaly Extremities: No Cyanosis, No Clubbing, No edema Neurological: No Focal Motor or Sensory Deficit 01/08/18 23:48: Troponin I < 0.015 01/09/18 05:25: WBC 5.4, RBC 3.99 L, Hgb 12.8 L, Hct 36.5 L, MCV 91.5, MCH 32.1 H, MCHC 35.1, RDW 13.5, RDW Differential 44.3 H, Plt Count 129 L, MPV 9.6, Immature Gran % (Auto) 0.200, Neut % (Auto) 69.5, Lymph % (Auto) 17.8 L, Cloud % (Auto) 9.3, Eos % (Auto) 2.8, Baso % (Auto) 0.4, Absolute Neuts (auto) 3.7, Total Counted Not Reportable 01/09/18 05:25: Sodium 143, Potassium 3.9, Chloride 106, Carbon Dioxide 27.0, Anion Gap 10, BUN 14, Creatinine 1.21, Est GFR (MDRD) Af Amer 78, Est GFR (MDRD) Non-Af 64, BUN/Creatinine Ratio 11.6, Glucose 82, Calcium 8.6, Triglycerides 104, Cholesterol 95, LDL Cholesterol 39, VLDL Cholesterol 21, HDL Cholesterol 35 L 01/09/18 05:25: PT 25.5 H, INR 2.3 01/09/18 05:25: B-Natriuretic Peptide 404.5 H Rhythm: EKG: Sinus bradycardia with LVH with anterior T-wave inversion, no acute changes. ECHO: Stress Test: Pending Cardiac Cath: PCI: CT Surgery: Holter monitor: EPS: PPM: CXR: Chest CT Scan: Assessment/Plan 1. Coronary artery disease: Patient presents with exertional chest pain dissimilar from his previous angina which was bilateral throat pain. Nonetheless he has a history of ischemic cardiomyopathy, status post bypass surgery, with a distant history of a stress test. He had no dynamic EKG changes on his admitting EKG and his troponins have been negative 2. I recommended discontinuation of his intracoronary nitro drip. If the patient's chest pain returns, we will consider repeat left heart catheterization and graft angiography once his INR is below 1.8. In the meantime I recommend he undergo a repeat treadmill echocardiogram after his IV nitro is been discontinued and presumably if he has no further chest pain. If his stress echocardiogram is negative for ischemia, we will treat him with medical therapy. If however he has evidence of ischemia or exertional angina again we will have a low threshold for repeat catheterization. In the meantime recommend continuing baby aspirin and Plavix for now. We will hold his Coumadin in anticipation of possible catheterization. 2. Ischemic cardiomyopathy: The patient has evidence on his chest x-ray and physical exam of congestive heart failure symptoms, and has received IV Lasix and is feeling much better. I see that he is on no p.o. Lasix at home despite his ischemic cardiomyopathy. Recommend starting Lasix 40 mg p.o. daily going forward. In the meantime he will continue his Coreg, quinapril, baby aspirin and Plavix. Recommend holding his Coreg for his stress test tomorrow. 3. LV mural thrombus: Given his LV dysfunction and history of mural thrombus he will require lifelong any coagulation therapy once his cardiac workup is been completed. 4. Ventricular tachycardia: The patient has had several episodes of ventricular tachycardia both detected by his AICD and on telemetry on this admission. This may be a result of congestive heart failure exacerbation. He has an AICD placed. He is required no AICD discharges and so would recommend holding amiodarone at this time. 5. Thank you very much for the opportunity to participate in the cardiac care of your patient. Consultation time took place between 1030 and 11 AM. Code Visit Inpatient E AND M: [id number] Init Hosp L2 01/09/18 1127 <Electronically signed by Stanton Taylor MD> Date Stanton Taylor MD Cosigner Signature (if applicable): Date CC: Khanh Marks MD; Stanton Taylor MD Signed MAGNESIUM Collected: 01/09/2018 Status: F Source: [place] 5:45 AM [facility] REPOSITORY Order Comment: ADD ON TO BLOOD IN LAB TYPE CODE TESTS RESULT OUT OF RANGE REFERENCE UNITS LAB L501.5200 1.6-2.6 mg/dL Normal MG 1.9 Performed By: #### L501.5200, L506.0400 #### [facility] [address] [place], [address] T4 FREE DIRECT Collected: 01/09/2018 Status: F Source: [place] 5:45 AM [facility] REPOSITORY Order Comment: ADD ON TO BLOOD IN LAB TYPE CODE TESTS RESULT OUT OF RANGE REFERENCE UNITS LAB L506.0400 0.76-1.46 ng/dL Normal T4 FREE 0.94 DIRECT Performed By: #### L501.5200, L506.0400 #### [facility] [address] [place], [address] FREE T3 Collected: 01/09/2018 Status: F Source: [place] 5:45 AM [facility] REPOSITORY Order Comment: Comments: from blood in lab. Comments: from blood in lab. TYPE CODE TESTS RESULT OUT OF RANGE REFERENCE UNITS LAB L501.25320 2.18-3.98 pg/mL Normal FREE T3 2.6 Performed By: #### L501.96465, L501.9310 #### [facility] [address] [place], [address] T4 TOTAL, THYROXIN Collected: 01/09/2018 Status: F Source: [place] 5:45 AM [facility] REPOSITORY Order Comment: Comments: from blood in lab. Comments: from blood in lab. TYPE CODE TESTS RESULT OUT OF RANGE REFERENCE UNITS LAB L501.9310 4.5-12.1 ug/dL T4 Normal THYROXIN 7.8 Performed By: #### L501.08490, L501.9310 #### [facility] [address] [place], [address] BASIC METABOLIC Collected: 01/09/2018 Status: F Source: [place] PROFILE (BMP) 5:25 AM [facility] REPOSITORY TYPE CODE TESTS RESULT OUT OF RANGE REFERENCE UNITS LAB L501.0100 74-106 mg/dL Normal GLU 82 Result Comment: Please note revised GLUCOSE reference range effective 2017. LAB L501.1000 7-18 mg/dL Normal BUN 14 LAB L501.1100 0.70-1.30 mg/dL Normal CREAT,SERUM 1.21 Result Comment: The validity of the calculated GFR AND GFRAA in patients over 70 years has not been determined. Clinical correlation is essential. LAB L501.1110 >60 mL/min Normal EST GFR 64 Result Comment: Non- GFR Calc LAB L501.1115 >60 mL/min Normal EST GFR - AA 78 Result Comment: GFR Calc LAB L501.1255 ml/min Normal Estimated CRCL 63.99 LAB L501.1300 10-20 RATIO Normal BUN/CRE 11.6 LAB L501.2200 8.5-10 mg/dL Normal .1 CA 8.6 LAB L501.5300 136-14 mmol/L Normal 5 NA 143 LAB L501.5600 3.5-5. mmol/L Normal 1 K 3.9 LAB L501.5900 98-107 mmol/L Normal CL 106 LAB L501.6100 21.0-3 mmol/L Normal 2.0 CO2 27.0 LAB L501.6200 5-15 Normal GAP 10 Performed By: #### L500.2500, L500.4100, L501.9520 #### [facility] [address] [place], [place], [address] LIPID PROFILE Collected: 01/09/2018 Status: F Source: [place] 5:25 AM [facility] REPOSITORY TYPE CODE TESTS RESULT OUT OF RANGE REFERENCE UNITS LAB L501.4900 200 mg/dL Normal CHOL 95 Result Comment: <200 mg/dL Desirable 200-240 mg/dL Borderline >240 mg/dL High Risk LAB L501.5000 mg/dL Normal TRIG 104 Result Comment: The drugs N-Acetylcysteine and Metamizole may falsely depress this assay. Serum Triglycerides Reference Interval Normal <150 mg/dL Borderline high 150 - 199 mg/dL High 200 - 499 mg/dL Very High > or = 500 mg/dL LAB L501.6400 mg/dL Low HDL 35 Result Comment: The drugs N-Acetylcysteine and Metamizole may falsely depress this assay. Reference Range HDL <40 mg/dL Low HDL Cholesterol HDL >or= 60 mg/dL High HDL Cholesterol LAB L501.6500 0-130 mg/dL Normal LDL 39 LAB L501.6600 5-40 mg/dL Normal VLDL 21 Performed By: #### L500.2500, L500.4100, L501.9520 #### [facility] [address] [place], [place], [address] THYROID STIM HORMONE Collected: 01/09/2018 Status: F Source: [place] (TSH) 5:25 AM [facility] REPOSITORY TYPE CODE TESTS RESULT OUT OF RANGE REFERENCE UNITS LAB L501.9520 0.358-3.74 uIU/mL High TSH 7.46 Performed By: #### L500.2500, L500.4100, L501.9520 #### [facility] [address] [place], [place], [address] CBC W/DIFF, AUTOMATED Collected: 01/09/2018 Status: F Source: [place] 5:25 AM [facility] REPOSITORY TYPE CODE TESTS RESULT OUT OF RANGE REFERENCE UNITS LAB L100.1000 4.4-11.0 K/mm3 Normal WBC 5.4 LAB L100.1200 4.6-6.2 M/mm3 Low RBC 3.99 LAB L100.1300 13.0-16.5 g/dl Low HGB 12.8 LAB L100.1400 40-54 % Low HCT 36.5 LAB L100.1500 80-94 fL Normal MCV 91.5 LAB L100.1600 27.0-32.0 pg High MCH 32.1 LAB L100.1700 32-36 g/gl Normal MCHC 35.1 LAB L100.1810 11.6-14.6 % Normal RDW CV 13.5 LAB L100.1820 35.1-43.9 fl High RDW SD 44.3 LAB L100.1900 150-450 K/mm3 Low PLT 129 LAB L100.2000 6.2-12.0 fl Normal MPV 9.6 LAB L100.2100 47-70 % Normal NEUT% 69.5 LAB L100.2200 19-41 % Low LY% 17.8 LAB L100.2300 0-10 % Normal MONO% 9.3 LAB L100.2400 0-5 % Normal EO% 2.8 LAB L100.2500 0-1 % Normal BASO% 0.4 LAB L100.2550 0.0-0.9 % Normal IM GRAN % 0.200 Result Comment: IG% - Immature Granulocytes (promyelocytes, myelocytes and metamyelocytes) > 1% indicates that a LEFT SHIFT is Present. LAB L100.2620 2.0-7.7 X10 3/uL Normal Absolute Neut 3.7 LAB L100.2720 0.83-4.51 X10 3/ul Normal Absolute Lymph 0.96 Performed By: #### L100.0100 #### [facility] [address] [place], [address] PROTHROMBIN TIME W/INR Collected: 01/09/2018 Status: F Source: [place] 5:25 AM [facility] REPOSITORY TYPE CODE TESTS RESULT OUT OF RANGE REFERENCE UNITS LAB L300.4150 11.7-14.9 SECONDS High PROTIME 25.5 LAB L300.4200 Normal INR 2.3 Performed By: #### L300.3900 #### [facility] [address] [place], [address] BNP,B-TYPE NATRIURETIC Collected: 01/09/2018 Status: F Source: [place] PEPTIDE 5:25 AM [facility] REPOSITORY TYPE CODE TESTS RESULT OUT OF RANGE REFERENCE UNITS LAB L503.6620 0-100 pg/mL High B-TYPE 404.5 KWESI PEP Performed By: #### L503.6620 #### [facility] [address] [place], [address] HISTORY AND PHYSICAL Observed: 01/09/2018 Status: F Source: [place] EXAM 3:53 AM [facility] REPOSITORY [facility] Medical Records Department [address] [place] [address] History and Physical 01/08/181 MR#: [id number] Acct: [id number] Name: FREDERICK ROTHMAN Rep #: [id number] : 1955 62 From: Joel Lin MD PCP: Khanh Marks MD Status: ADM IN Location: [place] [address] Problem List (1) Chest pain Status: Acute (2) Hyperlipidemia Status: Chronic Qualifiers: Hyperlipidemia type: pure hypercholesterolemia Qualified Code(s): E78.00 - Pure hypercholesterolemia, unspecified; E78.0 - Pure hypercholesterolemia (3) Saphenous vein injury Status: Chronic (4) Presence of aortocoronary bypass graft Status: Chronic Comment: 08/12/03, CABG X 4, MENCHACA to LAD, SVG to DCA, SVG to CX, SVG to PDA (5) History of percutaneous transluminal coronary angioplasty Status: Chronic (6) Peripheral vascular disease, unspecified Status: Chronic (7) Atherosclerosis of coronary artery bypass graft without angina pectoris Status: Chronic Qualifiers: [place] vs. 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 He developed sudden onset of chest pain while during up a flight of stairs. Chest pain was crushing and pressure-like. Pain was substernal. Nothing appeared to make it worse. Pain was constant and was alleviated with nitro taken at home and in the ED. He had blurry vision associated with the pain. Blurry vision improved over time. Past Medical History Past Medical History (Chronic Problems): Chronic Problems (Last Updated 08/26/17 @ 15:37 by MICHELLE Maddox) Hyperlipidemia (Chronic) Saphenous vein injury (Chronic) Presence of aortocoronary bypass graft (Chronic) 08/12/03, CABG X 4, MENCHACA to LAD, SVG to DCA, SVG to CX, SVG to PDA History of percutaneous transluminal coronary angioplasty (Chronic) Peripheral vascular disease, unspecified (Chronic) Atherosclerosis of coronary artery bypass graft without angina pectoris (Chronic) Ventricular tachycardia (Chronic) Ischemic cardiomyopathy (Chronic) Presence of automatic implantable cardioverter-defibrillator (Chronic) 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) Apical mural thrombus (Chronic) Medical History: Medical History (Last Reviewed 01/09/18 @ 03:46 by Joel Lin MD) Hyperlipidemia (Chronic) E78.5 Saphenous vein injury (Chronic) S85.309A Peripheral vascular disease, unspecified (Chronic) I73.9 Atherosclerosis of coronary artery bypass graft without angina pectoris (Chronic) I25.810 Ventricular tachycardia (Chronic) I47.2 Ischemic cardiomyopathy (Chronic) 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) Z79.01 Apical mural thrombus (Chronic) I51.3 DVT (deep venous thrombosis) I82.409 Allergies Penicillins Adverse Reaction (Severe, Verified 01/08/18 17:22) Unknown Home Medications: Ambulatory Orders Medication Instructions Recorded Surgical History: Surgical History (Last Reviewed 01/09/18 @ 03:46 by Joel Lin MD) Presence of aortocoronary bypass graft (Chronic) Z95.1 08/12/03, CABG X 4, MENCHACA to LAD, SVG to DCA, SVG to CX, SVG to PDA History of percutaneous transluminal coronary angioplasty (Chronic) Z98.61 Presence of automatic implantable cardioverter-defibrillator (Chronic) Z95.810 ICD 2006 [employer] Smoking Status: Never smoker Review of Systems Constitutional: Denies: Chills, Fever, Weight Change HEENT: Denies: Head Aches, Sinus Congestion, Sinus Drainage Cardiovascular: Reports: Chest Pain, Chest Tightness. Denies: Palpitations Respiratory: Denies: Cough, Shortness of breath at rest, Sputum production Gastrointestinal: Denies: Abdominal Pain, Nausea, Vomiting Genitourinary: Denies: Dysuria Musculoskeletal: Denies: Joint Pain, Joint Tenderness Skin: Denies: Rash, Wounds Neurological: Reports: Blurred vision. Denies: Focal weakness, Numbness, Tingling Psychiatric: Denies: Anxiety, Depression, Homicidal Ideations, Suicidal Ideations Hematologic/ Lymphatic: Denies: Easy Bruising, Easy Bleeding VTE Information - Inpt Only VTE Present on Admission: No VTE Mechan Device Prophylaxis: SCD's VTE Pharm Prophylaxis ordered?: Yes Patient Problems: Active and Suspected Problems (Last Updated 08/26/17 @ 15:37 by MICHELLE Maddox) Chest pain (Acute) - Physical Exam General: Alert, Oriented x3, Cooperative HEENT: Atraumatic, PERRLA, EOMI, Normocephalic Neck: Supple, No JVD, Negative Carotid Bruits Lungs: Clear to auscultation, Normal air movement Cardiovascular: Regular rate, No murmurs Abdomen: Bowel Sounds Present, Soft, Non Tender Extremities: No edema, Capillary Refill Less than 3 Seconds Skin: No rashes, No breakdown Musculoskeletal: No Tenderness to Palpation of Joints or Extremities Neurological: Cranial nerves II-XII grossly intact Psych/Mental Status: Normal Affect, Appropriate Vital Signs Temp Pulse Resp BP Pulse Ox 98.2 F 73 14 120/82 H 95 01/08/18 17:20 01/08/18 20:02 01/08/18 20:02 01/08/18 20:02 01/08/18 20:02 Assessment/Plan All Active Problems (Last Updated 08/26/17 @ 15:37 by MICHELLE Maddox) Chest pain (Acute) 62 year old male w/ h/o CAD s/p CABG and stent in 2008, LV thrombus, ICD placement and lipidemia admitted for chest pain. 1) Chest pain: Heart score 6 High suspicion for ACS. Nonsustained ventricular tachycardia in ED noted. Chest xray disclosed congestion. EKG disclosed normal sinus without any dynamic changes. Initial trop negative. C/w home meds. Serial trops. C/w nitro gtt. ECHO in AM. Cards consulted. 2) Hypervolemia: Will start lasix IV. ECHO in AM concerning for heart failure. Monitor. 3) LV thrombus: C/w coumadin. Monitor. 4) Prophylaxis: Coumadin. 01/09/18 0353 <Electronically signed by Joel Lin MD> Date Joel Lin MD Cosigner Signature: Date (if applicable) CC: Khanh Marks MD; Joel Lin MD Signed TROPONIN-I Collected: 01/08/2018 Status: F Source: [place] 11:48 PM [facility] REPOSITORY Order Comment: 'TROP' Serial specimen #1, #2 or #3: 3 TYPE CODE TESTS RESULT OUT OF RANGE REFERENCE UNITS LAB L501.4010 <0.045 ng/mL Normal < 0.015 TROPONIN-I Result Comment: TROPONIN-I EXPECTED VALUES <0.045 Negative 0.045 - 0.590 Consistent with Cardiac Damage > OR = 0.600 Critical Value Not every elevated troponin is indicative of NM. These values should be used with clinical judgement in examining the patient's clinical picture for diagnosis. To establish a diagnosis of NM versus myocardial injury, there must be a demonstrated rise and/or fall in the troponin values, in addition to ischemic symptoms, EKG changes, new regional wall motion abnormality, and/or angiographical evidence. PLEASE NOTE: REFERENCE RANGES EDITED 17 Performed By: #### L501.4010 #### [facility] [address] [place] [address]. [place], [place], [address] TROPONIN-I Collected: 01/08/2018 Status: F Source: [place] 8:30 PM [facility] REPOSITORY Order Comment: 'TROP' Serial specimen #1, #2 or #3: 2 TYPE CODE TESTS RESULT OUT OF RANGE REFERENCE UNITS LAB L501.4010 <0.045 ng/mL Normal < 0.015 TROPONIN-I Result Comment: TROPONIN-I EXPECTED VALUES <0.045 Negative 0.045 - 0.590 Consistent with Cardiac Damage > OR = 0.600 Critical Value Not every elevated troponin is indicative of NM. These values should be used with clinical judgement in examining the patient's clinical picture for diagnosis. To establish a diagnosis of NM versus myocardial injury, there must be a demonstrated rise and/or fall in the troponin values, in addition to ischemic symptoms, EKG changes, new regional wall motion abnormality, and/or angiographical evidence. PLEASE NOTE: REFERENCE RANGES EDITED 17 Performed By: #### L501.4010 #### [facility] [address] [place], [place], [address] BNP,B-TYPE NATRIURETIC Collected: 01/08/2018 Status: F Source: [place] 7:15 PM [facility] REPOSITORY TYPE CODE TESTS RESULT OUT OF RANGE REFERENCE UNITS LAB L503.6620 0-100 pg/mL High B-TYPE 502.8 KWESI PEP Performed By: #### L503.6620 #### [facility] [address] [place], [address] EMERGENCY DEPARTMENT Observed: 01/08/2018 Status: F Source: [place] SUMMARY 6:58 PM [facility] REPOSITORY [facility] Medical Records Department [address] [place] [address] Emergency Department Summary 01/08/18 1855 MR#: [id number] Acct: [id number] Name: FREDERICK ROTHMAN Rep #: [id number] : 1955 62 From: Mustapha Torres MD PCP: Khanh Marks MD Status: REG ER - ER Visit Summary Date of Service: 01/08/18 Chief Complaint: Chest pain History of Present Illness: The patient is a 62 M who presents for chest pain. It began about 1 hour prior to presentation. He had just walked up a flight of 13 steps. He developed substernal chest tightness. He denies any associated symptoms such as nausea vomiting diaphoresis or shortness of breath. No lightheadedness or dizziness. He did have some blurred vision although this has improved. He took nitroglycerin at home with improvement of symptoms. Currently he rates his pain a 7 out of 10. No recent illness. He denies fevers vomiting diarrhea. Physical Examination: Initial blood pressure 150/103 pulse ox 93% on room air vitals otherwise stable and within normal limits Moist mucous members Heart regular rate and rhythm Lungs clear Abdomen soft nontender Extremities nontender without edema 2+ radial pulses Alert Test Results: EKG shows normal sinus rhythm at a rate of 73. CBC BMP notable for creatinine 1.32. INR therapeutic at 2.6. Troponin is negative. Chest x-ray shows increased interstitial opacities left greater than right no consolidation or effusion. The patient did have a 6 run beat of nonsustained VT on telemetry here. Emergency Department Course and Treatment: Patient was given aspirin and sublingual nitroglycerin here. With a sublingual nitroglycerin series his pain improved from 7 out of 10 to 2 out of 10. Therefore IV nitroglycerin infusion has been ordered. Chest x-ray is suggestive of mild CHF. He was given IV Lasix. I spoke to Dr. Taylor who is on-call for cardiology. The patient is already on aspirin Plavix and full anticoagulation with warfarin. He recommended admission to the hospitalist service and they will see the patient tomorrow. Treatment Plan: [] Disposition: Admit Impression: Acute coronary syndrome Nonsustained ventricular tachycardia CHF This note was generated with [employer] dictation software. It may contain incorrect words, spelling, and punctuation that were not noted in review of the chart prior to signing ED Disposition - Plan for ED Patient: Chief Complaint: Chest Pain Instructions: ED Exhaustion Heat, ED Nodule Solitary Pulmonary, ED Near Syncope Unkn Referrals: Ranjith Marks MD [Primary Care Provider] - Artemio Jolly DO [STAFF PHYSICIAN] - What to do if you have Problems For any increased pain, shortness of breath, bleeding, nausea or vomiting, chest pain, or any unexpected problems, contact your Primary Care Provider. Call [facility] ([phone]) or report to the closest Emergency Room. Call 911 if necessary. 01/08/18 1858 <Electronically signed by Mustapha Torres MD> Date Mustapha Torres MD Cosigner Signature (If Indicated): Date CC: Khanh Marks MD EMERGENCY DEPARTMENT Observed: 01/08/2018 Status: F Source: [place] SUMMARY 6:04 PM [facility] REPOSITORY [facility] Medical Records Department [address] [place] [address] Emergency Department Summary 01/08/18 1759 MR#: [id number] Acct: [id number] Name: FREDERICK ROTHMAN Rep #: [id number] : 1955 62 From: Mustapha Torres MD PCP: Khanh Marks MD Status: REG ER ADDENDUM by Mustapha Torres MD on 01/08/18 at 1804 This note was entered in error please disregard. Date Mustapha Torres MD cc: Khanh Marks MD * Signed - ER Visit Summary Date of Service: 01/08/18 Chief Complaint: Near syncope History of Present Illness: The patient is a 62 M who presents with near syncope. He was outside cooking and it is about 80 out today. He was standing next to a hot grill. He states began to feel dizzy and lightheaded. He went to sit down at a picnic table. He states the next thing he knew several people were surrounding him. He denies having lost consciousness. He did not become unresponsive. EMS was called. He had a second episode of near syncope while in the ambulance. However currently he feels well and is without complaint. He denies any associated chest pain or shortness of breath with this. He denies recent illness such as fevers vomiting or diarrhea. Physical Examination: Afebrile vitals stable blood pressure 143/56 with a heart rate of 70 Moist mucous membranes Heart regular rate and rhythm Lungs are clear no rales rhonchi wheezes Abdomen soft 2+ radial pulses Extremities nontender without edema Test Results: EKG shows sinus rhythm at a rate of 71 with a single PVC. CBC BMP normal. Troponin negative. Orthostatic vital signs negative. Chest x-ray showed a 5 cm right upper lobe spiculated mass. CTA of the chest was obtained. No pulmonary embolism. There is a 5.1 cm malignant mass in the right upper right hilar lymphadenopathy concerning for bronchogenic carcinoma. Emergency Department Course and Treatment: I do believe the patient's near syncope was likely related to heat exhaustion. He states that this began while standing next to a very hot grill. He states currently he is completely asymptomatic. This orthostatic vital signs and labs were all normal. I explained to the patient the findings on CT chest that are most consistent with malignancy. I spoke to Dr. Jolly, pulmonology and patient will follow-up as an outpatient. He understands to return for new or worsening symptoms and was instructed on specific signs and symptoms to monitor for. Patient discharged home in good condition. Treatment Plan: [] Disposition: Discharge Impression: Near syncope Heat exhaustion Lung mass This note was generated with [employer] software. It may contain incorrect words, spelling, and punctuation that were not noted in review of the chart prior to signing ED Disposition - Plan for ED Patient: Chief Complaint: Chest Pain Referrals: Ranjith Marks MD [Primary Care Provider] - What to do if you have Problems For any increased pain, shortness of breath, bleeding, nausea or vomiting, chest pain, or any unexpected problems, contact your Primary Care Provider. Call [facility] ([phone]) or report to the closest Emergency Room. Call 911 if necessary. 01/08/181800 <Electronically signed by Mustapha Torres MD> Date Mustapha Torres MD Cosigner Signature (If Indicated): Date CC: Khanh Marks MD DISCHARGE INSTRUCTION Observed: 01/08/2018 Status: F Source: [place] 6:04 PM [facility] REPOSITORY [facility] Medical Records Department [address] [place] [address] Discharge Instruction 01/08/18 180 MR#: [id number] Acct: [id number] Name: LORNAFREDERICK W Rep #: [id number] : 1955 62 From: Mustapha Torres MD PCP: Khanh Marks MD Status: REG ER ADDENDUM by Mustapha Torres MD on 01/08/18 at 1804 This was entered in error. Please disregard. Date Mustapha Torres MD cc: Khanh Marks MD * Signed ED Disposition - Plan for ED Patient: Chief Complaint: Chest Pain Instructions: ED Nodule Solitary Pulmonary, ED Exhaustion Heat, ED Near Syncope Unkn Referrals: Ranjith Marks MD [Primary Care Provider] - Artemio Jolly DO [STAFF PHYSICIAN] - What to do if you have Problems For any increased pain, shortness of breath, bleeding, nausea or vomiting, chest pain, or any unexpected problems, contact your Primary Care Provider. Call [facility] ([phone]) or report to the closest Emergency Room. Call 911 if necessary. 01/08/18 1802 <Electronically signed by Mustapha Torres MD> Date Mustapha Torres MD Cosigner Signature (If Indicated): Date CC: Khanh Marks MD CHEST 1 VIEW Observed: 01/08/2018 Status: F Source: [place] (PORTABLE) 5:37 PM [facility] REPOSITORY [facility] Imaging Services [address] [place] [id number] Chest 1 View (Portable) MR#: [id number] Acct: [id number] Name: FREDERICK ROTHMAN Rep #: [id number] : 1955 M 62 From: Patria Nunez MD PCP: Khanh Marks MD Status: REG ER Study: Chest 1 View (Portable) Date of Exam: 01/08/18 Exam# [id number] Ordering Dr: Mustapha Torres MD STUDY: X-RAY CHEST REASON FOR EXAM: Male, 62 years old. Chest pain. History of coronary artery disease and prior bypass. TECHNIQUE: Single AP portable view of the chest. COMPARISON: Prior chest radiograph of March 02, 2013 FINDINGS: The lung floyd are well-expanded to mildly hyperexpanded. Prominent interstitial and linear opacities of the lung bases somewhat increased at the right lung base and more extensively increased at the left lung base. Negative for substantial pleural effusion. Stable cardiac size status post prior midline sternotomy with a right ventricular defibrillator remaining in good position. Normal mediastinum and fiona. Normal visualized pulmonary arteries. Normal visualized aortic arch and descending thoracic aorta. Normal visualized thoracic spine. Normal visualized ribs, clavicles, and shoulders. There is no demonstrated abnormality of the visualized soft tissue structures of the upper abdomen. RAD/Chest 1 View (Portable) IMPRESSION: Increased bibasilar interstitial and linear opacities, left greater than right without other major consolidation or pleural effusion. Stable cardiac size status post prior midline sternotomy with right ventricular pacemaker remaining in good position. Electronically Signed: Patria Nunez MD at 18:40 EDT , Service support , CC: Khanh Marks MD; Mustapha Torres MD Intensive Care Medicine Specialist: Signed PROTHROMBIN TIME W/INR Collected: 01/08/2018 Status: F Source: [place] 5:20 PM [facility] REPOSITORY TYPE CODE TESTS RESULT OUT OF RANGE REFERENCE UNITS LAB L300.4150 11.7-14.9 SECONDS High PROTIME 28.1 LAB L300.4200 Normal INR 2.6 Performed By: #### L300.3900 #### [facility] [address] [place], [place] [address]natanael. [place], [place], [address] CBC W/DIFF, AUTOMATED Collected: 01/08/2018 Status: F Source: [place] 5:20 PM [facility] REPOSITORY TYPE CODE TESTS RESULT OUT OF RANGE REFERENCE UNITS LAB L100.1000 4.4-11.0 K/mm3 Normal WBC 6.5 LAB L100.1200 4.6-6.2 M/mm3 Low RBC 4.28 LAB L100.1300 13.0-16.5 g/dl Normal HGB 13.6 LAB L100.1400 40-54 % Low HCT 39.3 LAB L100.1500 80-94 fL Normal MCV 91.8 LAB L100.1600 27.0-32.0 pg Normal MCH 31.8 LAB L100.1700 32-36 g/gl Normal MCHC 34.6 LAB L100.1810 11.6-14.6 % Normal RDW CV 13.6 LAB L100.1820 35.1-43.9 fl High RDW SD 45.1 LAB L100.1900 150-450 K/mm3 Normal PLT 155 LAB L100.2000 6.2-12.0 fl Normal MPV 9.8 LAB L100.2100 47-70 % Normal NEUT% 67.0 LAB L100.2200 19-41 % Normal LY% 20.2 LAB L100.2300 0-10 % Normal MONO% 9.8 LAB L100.2400 0-5 % Normal EO% 2.6 LAB L100.2500 0-1 % Normal BASO% 0.2 LAB L100.2550 0.0-0.9 % Normal IM GRAN % 0.200 Result Comment: IG% - Immature Granulocytes (promyelocytes, myelocytes and metamyelocytes) > 1% indicates that a LEFT SHIFT is Present. LAB L100.2620 2.0-7.7 X10 3/uL Normal Absolute Neut 4.4 LAB L100.2720 0.83-4.51 X10 3/ul Normal Absolute Lymph 1.32 Performed By: #### L100.0100, L500.2500, L501.4010 #### [facility] [address] [place], [place], [address] BASIC METABOLIC Collected: 01/08/2018 Status: F Source: [place] PROFILE ([facility]) 5:20 PM [facility] REPOSITORY TYPE CODE TESTS RESULT OUT OF RANGE REFERENCE UNITS LAB L501.0100 74-106 mg/dL Normal GLU 92 Result Comment: Please note revised GLUCOSE reference range effective 2017. LAB L501.1000 7-18 mg/dL Normal BUN 13 LAB L501.1100 0.70-1.30 mg/dL High CREAT,SERUM 1.32 Result Comment: The validity of the calculated GFR AND GFRAA in patients over 70 years has not been determined. Clinical correlation is essential. LAB L501.1110 >60 mL/min Low EST GFR 58 Result Comment: Non- GFR Calc LAB L501.1115 >60 mL/min Normal EST GFR - AA 70 Result Comment: GFR Calc LAB L501.1255 ml/min Normal Estimated CRCL 60.76 LAB L501.1300 10-20 RATIO Low BUN/CRE 9.8 LAB L501.2200 8.5-10 mg/dL Normal .1 CA 8.9 LAB L501.5300 136-14 mmol/L Normal 5 NA 144 LAB L501.5600 3.5-5. mmol/L Normal 1 K 4.2 LAB L501.5900 98-107 mmol/L High CL 108 LAB L501.6100 21.0-3 mmol/L Normal 2.0 CO2 29.0 LAB L501.6200 5-15 Normal GAP 7 Performed By: #### L100.0100, L500.2500, L501.4010 #### [facility] [address] [facility]. [place], [place], [address] TROPONIN-I Collected: 01/08/2018 Status: F Source: [place] 5:20 PM [facility] REPOSITORY TYPE CODE TESTS RESULT OUT OF RANGE REFERENCE UNITS LAB L501.4010 <0.045 ng/mL Normal < 0.015 TROPONIN-I Result Comment: TROPONIN-I EXPECTED VALUES <0.045 Negative 0.045 - 0.590 Consistent with Cardiac Damage > OR = 0.600 Critical Value Not every elevated troponin is indicative of NM. These values should be used with clinical judgement in examining the patient's clinical picture for diagnosis. To establish a diagnosis of NM versus myocardial injury, there must be a demonstrated rise and/or fall in the troponin values, in addition to ischemic symptoms, EKG changes, new regional wall motion abnormality, and/or angiographical evidence. PLEASE NOTE: REFERENCE RANGES EDITED 17 Performed By: #### L100.0100, L500.2500, L501.4010 #### [facility] [address] [facility]. [place], [place], [address] PROTHROMBIN TIME W/INR Collected: 12/30/2017 Status: F Source: [place] 9:15 AM [facility] REPOSITORY TYPE CODE TESTS RESULT OUT OF RANGE REFERENCE UNITS LAB L300.4150 11.7-14.9 SECONDS High PROTIME 25.6 LAB L300.4200 Normal INR 2.3 Performed By: #### L300.3900 #### [facility] [address] [place], [address] DOWNTIME REPORT Observed: 12/08/2017 Status: F Source: [place] 12:25 PM [facility] REPOSITORY [facility] Medical Records Department [address] [place] [address] Downtime Report MR#: [id number] Acct: [id number] Name: FREDERICK ROTHMAN W Rep #: [id number] : 1955 62 From: Brant Kidd PCP: Khanh Marks MD Status: REG RCR This patient was seen during an EMR downtime November 21, 2017 - November 28, 2017. This patient may have a combination of paper and electronic documentation or all paper documentation. All documentation is viewable within the e-chart portion of [employer] for each patient visit. PROTHROMBIN TIME W/INR Collected: 11/25/2017 Status: F Source: [place] 9:34 AM [facility] REPOSITORY TYPE CODE TESTS RESULT OUT OF RANGE REFERENCE UNITS LAB L300.4150 11.7-14.9 SECONDS High PROTIME 30.1 LAB L300.4200 Normal INR 2.9 Performed By: #### L300.3900 #### [facility] [place], [address] PACEMAKER CHECK Observed: 11/14/2017 Status: F Source: [place] 2:07 PM [facility] REPOSITORY [facility] [address] [place] [address] Pacemaker Check Date of Service: 10/27/17 1028 MR#: [id number] Acct: [id number] Name: FREDERICK ROTHMAN Rep #: [id number] : 1955 From: Valarie Moreno Age/Sex: 61/M [place] [facility] [place]: Signed Comments Summary Comments: Single Chamber ICD Evaluation: Interrogation shows 2 NSVT episodes since last check 07/19/17. Stored e-grams show on 09/19/17 VHR @ 184 bpm x 6 beats and on 07/26/17 VHR @ 200 bpm x x 14 beats. Single lead device. Pt unable to correlate sx's with episodes. Left pectoral pocket/incision w/o s/s of infection or erosion. Pt offers no cardiac complaints. 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 Battery longevity approx 10 yrs. Lead impedance, sensing and pace/sense threshold remain stable. No parameter changes made. Counters cleared. Next f/u appt scheduled for in 3 mos. Device Device Date Interviewed: 10/27/17 Follow-up Location: in office Interview Reason: routine follow up Pelt Dropper: [employer] Name: Nonin ICD Model: E141 Serial #: [id number] Implant Date: 01/19/06 Year(s): 11 Implant Physician: Dr. Portillo Riley/[facility] Patient Characteristics Atrial Indication: Sinus bradycardia Patient Substrate: Ischemic cardiomyopathy Ejection fraction %: 35 to 39 (03/04/2016) By: Echo Implant DFT: 18J Underlying rhythm: Sinus rhythm Pacemaker Dependent: No Device Characteristics Device: Single Chamber Type: Implantable defibrillator Remote Follow-Up: No Device Physical Exam Yes Incision well healed Leads Lead #1 Pelt Dropper Lead 1: Guidant Model Lead 1: 0184 Serial# Lead 1: [id number] Date Implanted Lead 1: 01/19/06 Position Lead 1: RV Diagnostics Pacing % RV Pacin Arrhythmias VF Episodes: 0 Fast VT Episodes: 0 Slow VT Episodes: 0 Non-Sust Episodes: 2 Measurements Battery Charge Time (Sec): 9.9 Battery Status: MARY Predicted Remaining Longevity (months or years): 10 years RV Measurements Signal Amplitude (mV): 23.6 Impedance (Ohms): 621 Threshold Voltage: 0.8 @ PW(ms): 0.5 Shock Impedance (Ohms): 61 Tachy Settings Ventricular Fibrillation Detect Rate: 210 bpm Faster VT Detect Rate: 180 bpm Tachyarrhythmia Therapies Ventricular Fibrillation Therapy: Shock therapy Initial shock: 29 Joules Final shock: 41 Joules. Fast Ventricular Tachycardia Therapies: Antitachycardia pacing and shock therapy Initial shock: 6 Joules Final shock: 41 Joules. Eliazar Settings Pacemaker Mode: VVI Base Rate: 40 bpm Bradycardia Output and Sensitivity Settings Right Ventricle: 0.4 msec, 2.0 volts, Nominal mV sensitivity. Billing Codes ICD Device Billing: ICD Dev Prog Eval, Single Assessment AND Plan Problems 1. Presence of automatic implantable cardioverter-defibrillator Z95.810 ICD 2006 [employer] 2. Ischemic cardiomyopathy I25.5 3. Ventricular tachycardia I47.2 4. Atherosclerosis of coronary artery bypass graft of [place] heart without angina pectoris I25.810 11/14/17 1224 <Electronically signed by Valarie Moreno > Date Valarie Moreno 11/14/17 1407<Electronically signed by Jose Schmitt MD> Cosigner Signature: Date (if applicable) Jose Schmitt MD CC: PROTHROMBIN TIME W/INR Collected: 10/21/2017 Status: F Source: [place] 11:09 AM [facility] REPOSITORY TYPE CODE TESTS RESULT OUT OF RANGE REFERENCE UNITS LAB L300.4150 11.7-14.9 SECONDS High PROTIME 28.9 LAB L300.4200 Normal INR 2.7 Performed By: #### L300.3900 #### [facility] [address] [facility]. [place], [place], [address] PROTHROMBIN TIME W/INR Collected: 09/23/2017 Status: F Source: [place] 9:08 AM [facility] REPOSITORY TYPE CODE TESTS RESULT OUT OF RANGE REFERENCE UNITS LAB L300.4150 11.7-14.9 SECONDS High PROTIME 21.9 LAB L300.4200 Normal INR 1.9 Performed By: #### L300.3900 #### [facility] [address] [place], [place], [address] LIVER PROFILE Collected: 09/23/2017 Status: F Source: [place] 9:07 AM [facility] REPOSITORY TYPE CODE TESTS RESULT OUT OF RANGE REFERENCE UNITS LAB L501.1500 6.4-8.2 g/dL Normal T PROT 7.2 LAB L501.1800 3.2-5.0 g/dL Normal ALB 3.6 LAB L501.1950 2.2-4.2 g/dL Normal GLOB 3.6 LAB L501.4100 15-37 U/L Normal AST 21 LAB L501.4305 45-117 U/L High ALK P 126 LAB L501.4405 16-61 U/L Normal ALT 21 Result Comment: Please note revised ALT reference range effective 2017. LAB L501.4600 0.20-1.00 mg/dL Normal T BILI 0.80 LAB L501.4700 0.00-0.30 mg/dL Normal D BILI 0.19 Performed By: #### L500.3400, L500.4100 #### [facility] [address] [place], [place], [address] LIPID PROFILE Collected: 09/23/2017 Status: F Source: [place] 9:07 AM [facility] REPOSITORY TYPE CODE TESTS RESULT OUT OF RANGE REFERENCE UNITS LAB L501.4900 200 mg/dL Normal CHOL 100 Result Comment: <200 mg/dL Desirable 200-240 mg/dL Borderline >240 mg/dL High Risk LAB L501.5000 mg/dL Normal TRIG 68 Result Comment: The drugs N-Acetylcysteine and Metamizole may falsely depress this assay. Serum Triglycerides Reference Interval Normal <150 mg/dL Borderline high 150 - 199 mg/dL High 200 - 499 mg/dL Very High > or = 500 mg/dL LAB L501.6400 mg/dL Normal HDL 40 Result Comment: The drugs N-Acetylcysteine and Metamizole may falsely depress this assay. Reference Range HDL <40 mg/dL Low HDL Cholesterol HDL >or= 60 mg/dL High HDL Cholesterol LAB L501.6500 0-130 mg/dL Normal LDL 46 LAB L501.6600 5-40 mg/dL Normal VLDL 14 Performed By: #### L500.3400, L500.4100 #### [facility] [address] [place], [place], [address] CARDIOLOGY VISIT Observed: 08/28/2017 Status: F Source: [place] REPORT 10:46 AM [facility] REPOSITORY [facility] [address] [place] [address] OFFICE VISIT Date of Service: 08/25/17 MR#: [id number] Acct: [id number] Name: FREDERICK ROTHMAN Rep #: [id number] : 1955 Provider: Heather Purvis Age/Sex: 61/M Location: [facility] [place] Status: Signed HPI HPI Details: FREDERICK ROTHMAN, is a 61 M who presents to the office today for a cardiovascular followup. He is a history of ischemic cardiomyopathy, coronary artery disease with stenting in 2008, history of LV thrombus, ICD placement and hyperlipidemia. He continues to work at [employer]. 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 From a cardiac standpoint, patient is doing well. He does not have any chest discomfort/heaviness/tightness. His exercise tolerance is stable for his age. He does not have any worsening symptoms of shortness of breath. He denies any PND. He does not have any orthopnea. He does not have any symptoms of congestive heart failure. He does not have any palpitations that he is aware of. He does not have any lightheadedness or dizziness. He does not have any near-syncope or syncope. He does not have any lower extremity edema. He does not have any symptoms of claudication. . 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: No Accompanied by: None Is patient in pain?: No Allergies Penicillins Adverse Reaction (Severe, Verified 08/25/17 10:54) Unknown Medications warfarin 2 mg tablet 2 mg PO .COMPLEX 07/08/17 [History Confirmed 08/25/17] aspirin 81 mg tablet,delayed release 81 mg PO QDAY tab 08/24/17 [History Confirmed 08/24/17] atorvastatin 10 mg tablet 10 mg PO QHS tab 08/24/17 [History Confirmed 08/24/17] carvedilol 25 mg tablet 25 mg PO BID 08/24/17 [History Confirmed 08/24/17] clindamycin HCl 300 mg capsule See Label Instructions PO .prior to procedure cap 08/24/17 [History Confirmed 08/24/17] clopidogrel 75 mg tablet 150 mg PO QDAY 03/07/18 [History Confirmed 08/24/17] niacin ER 1,000 mg tablet,extended release 1,000 mg PO QDAY tab 08/24/17 [History Confirmed 08/24/17] nitroglycerin 0.4 mg sublingual tablet 0.4 mg SUBLINGUAL Q5M PRN 08/24/17 [History Confirmed 08/24/17] quinapril 10 mg tablet 10 mg PO QDAY 08/24/17 [History Confirmed 08/24/17] Ejection fraction %: 35 to 39 PFSH Medical History Hyperlipidemia (Chronic) Saphenous vein injury (Chronic) Peripheral vascular disease, unspecified (Chronic) Atherosclerosis of coronary artery bypass graft without angina pectoris (Chronic) Ventricular tachycardia (Chronic) Ischemic cardiomyopathy (Chronic) care home current use of 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 (Chronic) Apical mural thrombus (Chronic) DVT (deep venous thrombosis) (Acute) Surgical History Presence of aortocoronary bypass graft (Chronic) History of percutaneous transluminal coronary angioplasty (Chronic) Presence of automatic implantable cardioverter-defibrillator (Chronic) Family History Father CAD (coronary artery disease) Diabetes Mother Myocardial infarction CVA (cerebral vascular accident) Grandmother CVA (cerebral vascular accident) Other Family history of CVA Social History Smoking Status: Never smoker alcohol intake: never substance use type: does not use caffeine: No what type of physical activity do you participate in: none seatbelt use: always do you feel safe at home: Yes ROS Const Const: Negative for weakness, fatigue, fever(s) or headache(s) Eyes Eyes: Negative for blind spots, loss of peripheral vision or transient loss of vision ENT ENT: Negative for headache(s), dizziness, tinnitus or Nosebleed/epistaxis Cardio Chest Pain: No Palpitations: No Edema: None Muscle aches with walking: None Resp Respiratory: Negative for SOB with activity, SOB at rest, SOB orthopnea\SOB lying down or Cough GI GI: Negative nausea, vomiting, heartburn or vomiting blood/hematemesis : Negative for hematuria Musc Musc: Negative for muscle aches/ myalgia Neuro Neuro: Negative for weakness, headache(s), dizziness, near syncope, syncope, lightheadedness or orthostatic symptoms Parish Hematologic/Lymphatic: Negative for easy bleeding Endo Endo: Negative for fatigue Cardiology Exam Const Appearance: cooperative, no acute distress and well developed Orientation: alert, awake and oriented x3 Head Head: normocephalic and atraumatic Mouth: moist mucous membranes Eyes General: appearance normal, both eyes and all related structures Conjunctivae: conjunctivae normal Pupils: PERRL EOM: EOM intact bilaterally Neck Neck: normal visual inspection, no lymphadenopathy and no JVD Carotids: Negative bruit Neck Mass: Negative Neck mass Chest Chest inspection: normal inspection of the chest, symmetric chest movement and Pacemaker/ICD Yes left pectoral incision Auscultation: Bilateral: Clear to Auscultation Cardio Palpation: normal PMI Rate: regular rate Rhythm: regular rhythm Heart sounds: S1 normal, S2 normal and murmur; negative rub or gallop Murmur: soft, Grade 2/6, mid systolic and LLSB GI GI: normal to inspection, soft, no hepatosplenomegaly and bowel sounds present; negative tender Neuro General: alert, awake, oriented x3, CN's II-XI intact bilaterally and moves all extremities Extremities Pulses: Normal: Right Posterior Tibial Pulse, Left Posterior Tibial Pulse, Right Radial Pulse, Left Radial Pulse Lower Extremity Edema: None: Bilateral Psych Psychological: normal affect Supplemental Info Echocardiogram done in 2016 demonstrates Mildly dilated left ventricle. Moderate segmental systolic dysfunction (see wall motion). The estimated ejection fraction is 35 %. The left atrium is mildly enlarged.Mild diffuse mitral valve thickening. Mild papillary muscle dysfunction of the mitral valve. Moderate (2+) eccentric mitral valve insufficiency. Moderate (2+) tricuspid valve insufficiency. Right ventricular systolic pressure estimated to be 24 mmHg. ICD or pacer leads identified within the right atrium ICD or pacer leads identified within the right ventricle. Comment: 2D echocardiographic and contrast enhanced images obtained appear c/w left ventricular apical trabeculations Assessment AND Plan 1. Atherosclerosis of coronary artery bypass graft of [place] heart without angina pectoris I25.810 Plan - MICHELLE Maddox Stable, from a cardiac standpoint patient does not have any symptoms of angina. We recommend that they continue with current aggressive medical management and risk factor modification. Orders Orders: 2. Cardiomyopathy, ischemic I25.5 Plan - MICHELLE Maddox Patient does not have any symptoms of congestive heart failure. We will continue to monitor by history, exam and echocardiograms as deemed appropriate. He will continue with current maximum medication. Orders Orders: 3. Pure hypercholesterolemia E78.00; E78.0 Plan - MICHELLE Maddox Patient is due to have his lipids checked in the near future. Will make adjustments if need be. 4. Presence of automatic implantable cardioverter-defibrillator Z95.810 ICD 2005 [employer] Plan - MICHELLE Maddox ICD is functioning appropriately. We will continue to monitor with routine scheduled ICD interrogations. Patient has not had any discharges from their device. Plan Detail Other Orders Orders: Additional Comments - MICHELLE Maddox The above patient was discussed with Dr. Parikh in Dr. Schmitt's absence, he agrees with plan of care. Thank you for allowing us to participate in patient's plan of care, if you have any questions please do not hesitate to call. This note was generated using a voice recognition system and there may be incorrect words, spelling or punctuation errors that were not noted when reviewing the office note prior to saving. Follow Up 9 Months (PFM) Coding Level of Care Code Off vis,est,level 3 Diagnoses Atherosclerosis of coronary artery bypass graft of [place] heart without angina pectoris I25.810 [place] vs. transplanted heart: [place] heart Cardiomyopathy, ischemic I25.5 Pure hypercholesterolemia E78.00; E78.0 Hyperlipidemia type: pure hypercholesterolemia Presence of automatic implantable cardioverter-defibrillator Z95.810 Coding Level of Care Code Off vis,est,level 3 Diagnoses Atherosclerosis of coronary artery bypass graft of [place] heart without angina pectoris I25.810 [place] vs. transplanted heart: [place] heart Cardiomyopathy, ischemic I25.5 Pure hypercholesterolemia E78.00; E78.0 Hyperlipidemia type: pure hypercholesterolemia Presence of automatic implantable cardioverter-defibrillator Z95.810 08/26/17 1541 <Electronically signed by Heather MARTINEZ> Date Heather MARTINEZ 08/28/17 1046<Electronically signed by Noel Parikh MD> Cosigner Signature: Date (if applicable) Noel Parikh MD CC: Khanh Marks MD PROTHROMBIN TIME W/INR Collected: 08/19/2017 Status: F Source: [place] 8:29 AM [facility] REPOSITORY TYPE CODE TESTS RESULT OUT OF RANGE REFERENCE UNITS LAB L300.4150 11.7-14.9 SECONDS High PROTIME 22.5 LAB L300.4200 Normal INR 2.0 Performed By: #### L300.3900 #### [facility] [address] [place], [address] OFFICE VISIT REPORT Observed: 07/25/2017 Status: F Source: [place] 12:38 PM [facility] REPOSITORY [facility] [address] [place] [address] OFFICE VISIT Date of Service: 07/19/17 MR#: [id number] Acct: [id number] Patient: FREDERICK ROTHMAN Rep #: [id number] : 1955 Provider: Valarie Moreno Age/Sex: 61/M Location: [facility] Status: Signed Comments Summary Comments: Single Chamber ICD Evaluation: Interrogation shows 3 NSVT episodes since last check 02/23/17. Left pectoral pocket/incision w/o s/s of infection or erosion. Pt offers no cardiac complaints. Presenting rhythm shows NSR @ 66 bpm. 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 Battery longevity approx 10 yrs. Lead impedance, sensing and pace/sense threshold remain stable. No parameter changes made. Counters cleared. Next f/u appt scheduled for in 3 mos. 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 Portillo Riley/[facility] Patient Characteristics Atrial Indication: Sinus bradycardia Patient Substrate: Ischemic cardiomyopathy Ejection fraction %: 35 to 39 (03/04/2016) By: Echo Implant DFT: 18J Underlying rhythm: Sinus rhythm Pacemaker Dependent: No Device Characteristics Device: Single Chamber Type: Implantable defibrillator Remote Follow-Up: No Device Physical Exam Yes Incision well healed Leads Lead #1 Pelt Dropper Lead 1: Guidant Model Lead 1: 0184 Serial# Lead 1: [id number] Date Implanted Lead 1: 01/19/06 Position Lead 1: RV Diagnostics Pacing % RV Pacin Arrhythmias VF Episodes: 0 Fast VT Episodes: 0 Slow VT Episodes: 0 Non-Sust Episodes: 3 Measurements Battery Charge Time (Sec): 9.9 Battery Status: MARY Predicted Remaining Longevity (months or years): 10 years RV Measurements Signal Amplitude (mV): 20.8 Impedance (Ohms): 610 Threshold Voltage: 0.7 @ PW(ms): 0.5 Shock Impedance (Ohms): 60 Tachy Settings Ventricular Fibrillation Detect Rate: 210 bpm Faster VT Detect Rate: 180 bpm Tachyarrhythmia Therapies Ventricular Fibrillation Therapy: Shock therapy Initial shock: 29 Joules Final shock: 41 Joules. Fast Ventricular Tachycardia Therapies: Antitachycardia pacing and shock therapy Initial shock: 6 Joules Final shock: 41 Joules. Eliazar Settings Pacemaker Mode: VVI Base Rate: 40 bpm Billing Codes ICD Device Billing: ICD Dev Prog Eval, Single Assessment AND Plan Problems 1. Ventricular tachycardia I47.2 2. Ischemic cardiomyopathy I25.5 3. Presence of automatic implantable cardioverter-defibrillator Z95.810 07/25/17 1207 <Electronically signed by Valarie Moreno > Date Valarie Moreno 07/25/17 1238<Electronically signed by Jose Schmitt MD> Cosigner Signature: Date (if applicable) Jose Schmitt MD CC: ALLERGIES ALLERGIES DATE TYPE / CODE NAME / CODE REACTION SEVERITY SOURCE 02/02/2018 Drug Penicillins/ Unknown [facility] Allergy/4160 [id number]([facility] 22755(SNOMED XNORM) Repository CT) ENCOUNTERS ENCOUNTERS ADMIT/DISCHARGE ACCOUNT NUMBER ADMITTING ENCOUNTER LOCATION SOURCE CLASS 06/20/2018 [id number] Ambulatory [facility] 06/14/2018 [id number] Ambulatory BMSBuilding: [facility] Repository 06/14/2018 [id number] Ambulatory BMSBuilding: [place] [facility]MS.[facility] Repository 06/02/2018/06/02/20 [id number] Ambulatory BBuilding:[place] Den[place] 18 [facility] Repository 06/01/2018/06/01/20 [id number] Ambulatory [place] [address] ding:[facility] Repository 05/18/2018/05/18/20 [id number] Ambulatory BMSBuilding: [place] 18 BMS.[facility] Repository 04/07/2018/04/07/20 [id number] Ambulatory [address] ding:[facility] Repository 02/17/2018/02/18/20 [id number] Ambulatory [address] ding:[facility] Repository 02/02/2018/02/03/20 [id number] Ambulatory BMSBuilding: [place] 18 [facility] Repository 02/02/2018/02/03/20 [id number] Ambulatory BMSBuilding: [place] 18 [facility]MS.[facility] Repository 01/17/2018 [id number] Ambulatory [facility] ding:[facility] Repository 01/08/2018/01/11/20 [id number] Joel Lin Inpatient [place] [facility] ding:[facility] Repository : YKR121Kkg: 1 01/08/2018 [id number] Joel Lin Ambulatory BMSBuilding: [place] [facility]MS.[facility] Repository 01/08/2018 [id number] Joel Lin Ambulatory BMSBuilding: [place] BMS.[facility] Repository 01/08/2018 [id number] Joel Lin Ambulatory BMSBuilding: [place] BMS.[facility] Repository 01/08/2018 [id number] Billie Joel Ambulatory BMSBuilding: [place] BMS.CF.[facility] Repository 01/08/2018 [id number] Billie Joel Ambulatory BMSBuilding: [place] BMS.[facility] Repository 01/08/2018/01/11/20 [id number] Ambulatory BMSBuilding: [place] [facility] Repository 01/08/2018/01/11/20 [id number] Ambulatory BMSBuilding: [place] 18 [facility] Repository 12/30/2017/12/31/19 [id number] Ambulatory [place] 18 [facility] ding:[facility] Repository 11/25/2017/11/26/19 [id number] Ambulatory [place] 18 [facility] ding:[facility] Repository 10/27/2017/10/28/19 [id number] Ambulatory BMSBuilding: [place] 18 BMS.[facility] Repository 10/21/2017/10/22/19 [id number] Ambulatory [place] 18 [facility] ding:[facility] Repository 09/23/2017/09/24/19 [id number] Ambulatory [place] 18 [facility] ding:[facility] Repository 08/25/2017/08/26/19 [id number] Ambulatory BMSBuilding: [place] 18 BMS.[facility] Repository 08/19/2017/08/20/19 [id number] Ambulatory [place] 18 [facility] ding:[facility] Repository 07/19/2017/07/19/19 [id number] Ambulatory BMSBuilding: [place] 18 BMS.[facility] Repository PAYERS PAYERS ENCOUNTER GUARANTOR PAYER SUBSCRIBER SOURCE 06/20/2018 FREDERICK Elena Primary FREDERICK W [place] [id number] Insurance:ANTHEMPolic DYEDOB: [facility] y Number: [id number] Medical [id number] Repository 04[address]Zin: [phone]) rh Date:2764-18-43CN [phone] () [address] [place] [address] 45[address]PI: 06/20/2018 Secondary NOT GIVENUNK [place] Insurance:SELF PAY [facility] Number: Effective Repository Date:2018-06-19 06/14/2018 FREDERICK W Primary FREDERICK W [place] [id number] Insurance:ANTHEMPolic DYEDOB: [facility] y Number: [id number] Medical [id number] Repository 636[address]Gky: (819) Date:4756-44-13CG [phone] () [place] [address]BO: 06/14/2018 Secondary NOT GIVENUNK [place] Insurance:SELF PAY [facility] Number: Effective Repository Date:2017-08-25 06/14/2018 FREDERICK W Primary FREDERICK W [place] [id number] Insurance:ANTHEMPolic DYEDOB: [facility] y Number: [id number] [place] [id number] Repository 822[address]Ctu: (232) Date:7570-08-31GK [phone] () [place], [place] [address]DO: 06/14/2018 Secondary NOT GIVENUNK [place] Insurance:SELF PAY [facility] Number: Effective Repository Date:2017-08-25 06/02/2018 FREDERICK W Primary FREDERICK Elena [facility] DYEDOB: Insurance:ANTHEM BLUE DYEDOB: [facility] [id number] CROSS INSCOPolicy [id number] [facility] Number: 0 [place], [place] [id number] [place], [place] [address]Pho: 330) ve Date:2018-05-18 49745Rfc: () [id number] [phone] Name:FRANK OREILLY ()Tel: [phone] Herzog [phone] () [address]WL: 06/01/2018 FREDERICK W Primary FREDERICK Elena [place] [id number] Insurance:ANTHEMPolic DYEDOB: [facility] y Number: [id number] [place] [id number] Repository 800[address]Mrg: (641) ve Date:8612-10-53LF [phone] () [address] [address]IN: 06/01/2018 Secondary NOT GIVENUNK [place] Insurance:SELF PAY [facility] Number: Effective Repository Date:2018-04-20 05/18/2018 FREDERICK Elena Primary FREDERICK Elena [place] [id number] Insurance:ANTHEMPolic DYEDOB: [facility] y Number: [id number] [place] [id number] Repository 288[address]Hrc: (330) ve Date:9098-46-69VN [phone] () [address] [place] [address] 24[address]QG: 05/18/2018 Secondary NOT GIVENUNK [place] Insurance:SELF PAY [facility] Number: Effective Repository Date:2018-05-18 04/07/2018 FREDERICK Elena Primary FREDERICK Elena [place] [id number] Insurance:ANTHEMPolic [facility]EDOB[facility] Number: [id number] [place] [id number] Repository 58[address]Ucr: (330) ve Date:7075-76-92UM [phone] () [address]WADDTJP, [place] [address]MZ: 04/07/2018 Secondary NOT GIVENUNK [place] Insurance:SELF PAY [facility] Number: Effective Repository Date:2018-02-22 02/17/2018 FREDERICK Elena Primary FREDERICK Elena [place] [id number] Insurance:ANTHEMPolic DYEDOB: [facility] y Number: [id number] [place] [id number] Repository 733[address]Kii: (330) ve Date:4103-04-97TC [phone] () [address]KPTWMVC, [place] [address]NE: 02/17/2018 Secondary NOT GIVENUNK [place] Insurance:SELF PAY [facility] Number: Effective Repository Date:2018-01-20 02/02/2018 FREDERICK Elena Primary FREDERICK Elena [place] [id number] Insurance:ANTHEMPolic DYEDOB: [facility] y Number: [id number] [place] [id number] Repository 011[address]Yqr: (330) ve Date:9570-00-45GE [phone] () [address]GGTNDTT, [place] [address]WL: 02/02/2018 Secondary NOT GIVENUNK [place] Insurance:SELF PAY [facility] Number: Effective Repository Date:2018-01-19 02/02/2018 FREDERICK W Primary FREDERICK W [place] [id number] Insurance:ANTHEMPolic DYEDOB: [facility] y Number: [id number] [place], [place] [id number] Repository 65[address]Xov: (330) ve Date:1049-04-95RF [phone] () [address]ERZMGUN, [place] [address]JV: 02/02/2018 Secondary NOT GIVENUNK [place] Insurance:SELF PAY [facility] Number: Effective Repository Date:2018-02-02 01/17/2018 FREDERICK W Primary FREDERICK W [place] [id number] Insurance:ANTHEMPolic DYEDOB: [facility] y Number: [id number] [place] [id number] Repository 97[address]Mnk: (330) ve Date:8031-29-85WB [phone] () [address]JHYSWUB, [place] [address]UV: 01/17/2018 Secondary NOT GIVENUNK [place] Insurance:SELF PAY [facility] Hospital Number: Effective Repository Date:2018-01-17 01/08/2018 FREDERICK W Primary FREDREICK W [place] [id number] Insurance:ANTHEMPolic DYEDOB: [facility] y Number: [id number] [place], [place] [id number] Repository 938[address]Hof: (330) ve Date:7620-71-33EB [phone] () [address]OVSZHWW, [place] [address]WF: 01/08/2018 Secondary NOT GIVENUNK [place] Insurance:SELF PAY [facility] Hospital Number: Effective Repository Date:2018-01-08 01/08/2018 FREDERICK W Primary FREDERICK W [place] [id number] Insurance:ANTHEMPolic DYEDOB: [facility] y Number: [id number] [place], [place] [id number] Repository 728[address]Ett: (330) ve Date:0550-30-86IP [phone] () [address]PZDZOBP, [place] [address]IX: 01/08/2018 Secondary NOT GIVENUNK [place] Insurance:SELF PAY [facility] Number: Effective Repository Date:2018-01-08 01/08/2018 FREDERICK W Primary FREDERICK W [place] [id number] Insurance:ANTHEMPolic DYEDOB: [facility] y Number: [id number] [place] [id number] Repository 658[address]Xwo: (330) ve Date:4354-65-77DB [phone] () [address]DPATZFQ, [place] [address]NO: 01/08/2018 Secondary NOT GIVENUNK [place] Insurance:SELF PAY [facility] Number: Effective Repository Date:2018-01-08 01/08/2018 FREDERICK W Primary FREDERICK W [place] [id number] Insurance:ANTHEMPolic [facility]YEDOB: [facility] Number: [id number] [place] [id number] Repository [address]25[address]Sgi: (330) ve Date:5766-48-67YM [phone] () [address]MFJXWXZ, [place] [address]WC: 01/08/2018 Secondary NOT GIVENUNK [place] Insurance:SELF PAY [facility] Number: Effective Repository Date:2018-01-08 01/08/2018 FREDERICK W Primary FREDERICK W [place] [id number] Insurance:ANTHEMPolic DYEDOB: [facility] Number: [id number] [place], [place] [id number] Repository [address]Wqc: (330) ve Date:1181-05-63SJ [phone] () [address]ITYFNRL, [place] [address]AN: 01/08/2018 Secondary NOT GIVENUNK [place] Insurance:SELF PAY [facility] Number: Effective Repository Date:2018-01-08 01/08/2018 FREDERICK Elena Primary FREDERICK Elena [place] [id number] Insurance:ANTHEMPolic DYEDOB: [facility] y Number: [id number] [place], [place] [id number] Repository 090[address]Xnc: (330) ve Date:0310-96-38ZL [phone] () [address] [place] [address]KX: 01/08/2018 Secondary NOT GIVENUNK [place] Insurance:SELF PAY [facility] Number: Effective Repository Date:2018-01-08 01/08/2018 FREDERICK Elena Primary FREDERICK Elena [place] [id number] Insurance:ANTHEMPolic DYEDOB: [facility] Number: [id number] [place] [id number] Repository [address]Rnc: (330) ve Date:1384-72-74AP [phone] () [address]ZL[address] [place] [address] 38[address]WS: 01/08/2018 Secondary NOT GIVENUNK [place] Insurance:SELF PAY [facility] Number: Effective Repository Date:2018-01-08 01/08/2018 FREDERICK Elena Primary FREDERICK Elena [place] [id number] Insurance:ANTHEMPolic DYEDOB: [facility] y Number: [id number] [place], [place] [id number] Repository [address]16[address]Gaq: (330) ve Date:2497-25-33KG [phone] () [address]QRJPJN[address] [place] [address] 37[address]AC: 01/08/2018 Secondary NOT GIVENUNK [place] Insurance:SELF PAY [facility] Number: Effective Repository Date:2018-01-08 12/30/2017 FREDERICK W Primary FREDERICK Elena [place] [id number] Insurance:ANTHEMPolic DYEDOB: [facility] y Number: [id number] [place], [place] [id number] Repository 64[address]Ghl: (330) ve Date:7156-32-79TV [phone] () [address]RXVSOMLDAVID HERZ[address] [address]KV: 12/30/2017 Secondary NOT GIVENUNK [place] Insurance:SELF PAY [facility]: Effective Repository Date:2017-12-16 11/25/2017 FREDERICK W Primary FREDERICK W [place] [id number] Insurance:ANTHEMPolic DYEDOB: [facility] y Number: [id number] [place], [place] [id number] Repository 669[address]Afq: ve Date:6730-38-16GD [phone] [address]MYQDLAMDAVID HERZOG3 () [address]AD: 11/25/2017 Secondary NOT GIVENUNK [place] Insurance:SELF PAY [facility] Number: Effective Repository Date:2017-11-17 10/27/2017 FREDERICK W Primary FREDERICK W [place] [id number] Insurance:ANTHEMPolic DYEDOB: [facility] y Number: [id number] [id number] Repository 314[address]Dgs: ve Date:6226-34-71JD [phone] [address]ZLUVQTB, [place] -3 () [address]OY: 10/27/2017 Secondary NOT GIVENUNK [place] Insurance:SELF PAY [facility] Number: Effective Repository Date:2017-10-27 10/21/2017 FREDERICK W Primary FREDERICK W [place] [id number] Insurance:ANTHEMPolic DYEDOB: [facility] y Number: [id number] [place], [place] [id number] Repository [address]Wms: ve Date:3145-99-90CQ [phone] [address]LBATVPZ, [place] -3 () [address]UE: 10/21/2017 Secondary NOT GIVENUNK [place] Insurance:SELF PAY [facility] Number: Effective Repository Date:2017-10-18 09/23/2017 FREDERICK Elena Primary FREDERICK Elena [place] [id number] Insurance:ANTHEMPolic DYEDOB: [facility] y Number: [id number] [place] [id number] Repository 354[address]Poh: ve Date:5471-28-69TZ [phone] [address]QGGYXJL, [place] 3 () [address]SN: 09/23/2017 Secondary NOT GIVENUNK [place] Insurance:SELF PAY [facility] Number: Effective Repository Date:2017-09-19 08/25/2017 FREDERICK W Primary FREDERICK Elena [place] [id number] Insurance:ANTHEMPolic DYEDOB: [facility] y Number: [id number] [place], [place] [id number] Repository 350[address]Xpe: Date:9897-75-58CU [phone] 610022XONNCPS, [place] 3 () [address]LQ: 08/25/2017 Secondary NOT GIVENUNK [place] Insurance:SELF PAY [facility] Number: Effective Repository Date:2017-05-26 08/19/2017 FREDERICK Elena Primary FREDERICK Elena [place] [id number] Insurance:ANTHEMPolic DYEDOB: [facility] y Number: [id number] [place] [id number] Repository 699[address]Bho: ve Date:5503-54-83LT [phone] [address]RALYPHV, [place] 3 () [address]DY: 08/19/2017 Secondary NOT GIVENUNK [place] Insurance:SELF PAY [facility] Number: Effective Repository Date:2017-06-20 07/19/2017 FREDERICK W Primary FREDERICK Elena [place] [id number] Insurance:ANTHEMPolic DYEDOB: [facility] y Number: [id number] [place], [place] [id number] Repository 91487Xgy: ve Date:9333-19-76QC [phone] [address]PEQWTQF, [place] -3 () 367[address]DL: 07/19/2017 Secondary NOT GIVENUNK [place] Insurance:SELF PAY [facility] Number: Effective Repository Date:2017-05-30
== END 2018-06-01 11:00 | disposition home or self-care (01) ==
LOC: MTLAB 10:22
PROVIDERS: Family Provider Family Medicine; PCP Family Medicine; Referring Provider Physician Assistant Medical; Visit Provider Internal Medicine Cardiovascular Disease
DX: I51.3 Intracardiac thrombosis, not elsewhere classified (principal); I25.5 Ischemic cardiomyopathy; Z79.01 Long term (current) use of 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s
CPT/HCPCS: 36415; 85610

== ENCOUNTER 2018-08-18 08:45 | Outpatient (RCR) | payer BC, SELFPAY ==
[2018-02-02 10:26] VITALS: BMI 22.4
[2018-08-04 11:59] LABS: International Normalized Ratio 2.3; Prothrombin Time (Protime)PT. 25.2 SECONDS (11.7-14.9)
[2018-08-04 12:03] LABS: AST(SGOT) 24 U/L (15-37); Alanine Aminotransfer ALT/SGPT 27 U/L (16-61); Albumin, Serum 3.6 g/dL (3.2-5.0); Alkaline Phosphatase 127 U/L (45-117); Bilirubin, Direct 0.29 mg/dL (0.00-0.30); Cholesterol 97 mg/dL (200); Globulin 3.5 g/dL (2.2-4.2); High Density Lipoprotein 36 mg/dL; Protein, Total 7.1 g/dL (6.4-8.2); Triglycerides 92 mg/dL; Very Low Density Lipoprotein 18 mg/dL (5-40)
[2018-08-18 10:26] LABS: Prothrombin Time (Protime)PT. 22.4 SECONDS (11.7-14.9)
== END 2018-08-18 09:00 | disposition home or self-care (01) ==
LOC: MTLAB 08:45
PROVIDERS: Family Provider Family Medicine; PCP Family Medicine; Referring Provider Physician Assistant Medical; Visit Provider Internal Medicine Cardiovascular Disease
DX: E78.5 Hyperlipidemia, unspecified (principal); Z79.01 Long term (current) use of 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s
CPT/HCPCS: 36415; 80061; 80076; 85610

== ENCOUNTER → 2018-09-13 09:47 | Outpatient (CLI) | payer BC, SELFPAY ==
[2018-08-11 08:56] VITALS: BMI 22.3
[2018-09-13 13:18] LABS: ALB/GLOB Ratio 1.3 RATIO (0.9-2.4); AST(SGOT) 36 U/L (15-37); Alanine Aminotransfer ALT/SGPT 41 U/L (16-61); Albumin, Serum 3.8 g/dL (3.2-5.0); Alkaline Phosphatase 119 U/L (45-117); BUN 13 mg/dL (7-18); BUN/Creat Ratio 11.2 RATIO (10-20); Calcium,Total 8.3 mg/dL (8.5-10.1); Chloride 106 mmol/L (98-107); Creatinine, Serum 1.16 mg/dL (0.70-1.30); EST Glomerular Filtration Rate 67 mL/min (>60); Est Glom Filt Rate - Afr Amer 82 mL/min (>60); Globulin 2.9 g/dL (2.2-4.2); Glucose 90 mg/dL (74-106); Potassium 4.1 mmol/L (3.5-5.1); Protein, Total 6.7 g/dL (6.4-8.2); Sodium Level 140 mmol/L (136-145)
[2018-09-13 13:19] LABS: Anion Gap 9 (5-15); Free T3 2.8 pg/mL (2.18-3.98); T4 Free Direct 0.94 ng/dL (0.76-1.46); Thyroid Stim Hormone (TSH) 5.39 uIU/mL (0.358-3.74)
== END ==
PROVIDERS: Family Provider Family Medicine; PCP Family Medicine; Referring Provider Family Medicine; Visit Provider Family Medicine
DX: I25.10 Atherosclerotic heart disease of native coronary artery without angina pectoris (principal); R79.89 Other specified abnormal findings of blood chemistry
CPT/HCPCS: 36415; 80053; 84439; 84443; 84481

== ENCOUNTER 2018-11-17 09:14 | Outpatient (RCR) | payer BC, SELFPAY ==
[2018-08-11 08:56] VITALS: BMI 22.3
[2018-10-27 10:52] LABS: International Normalized Ratio 1.9; Prothrombin Time (Protime)PT. 21.9 SECONDS (11.7-14.9)
[2018-11-17 10:25] LABS: International Normalized Ratio 1.8; Prothrombin Time (Protime)PT. 20.9 SECONDS (11.7-14.9)
== END 2018-11-17 11:00 | disposition home or self-care (01) ==
LOC: MTLAB 09:14
PROVIDERS: Family Provider Family Medicine; PCP Family Medicine; Referring Provider Physician Assistant Medical; Visit Provider Internal Medicine Cardiovascular Disease
DX: I51.3 Intracardiac thrombosis, not elsewhere classified (principal); I25.5 Ischemic cardiomyopathy; Z79.01 Long term (current) use of 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s
CPT/HCPCS: 36415; 85610

== ENCOUNTER 2018-12-08 08:12 | Outpatient (RCR) | payer BC, SELFPAY ==
[2018-08-11 08:56] VITALS: BMI 22.3
[2018-12-08 10:30] LABS: International Normalized Ratio 2.8; Prothrombin Time (Protime)PT. 29.8 SECONDS (11.7-14.9)
== END 2018-12-08 08:30 | disposition home or self-care (01) ==
LOC: MTLAB 08:12
PROVIDERS: Family Provider Family Medicine; PCP Family Medicine; Referring Provider Physician Assistant Medical; Visit Provider Internal Medicine Cardiovascular Disease
DX: I51.3 Intracardiac thrombosis, not elsewhere classified (principal); I25.5 Ischemic cardiomyopathy; Z79.01 Long term (current) use of 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s
CPT/HCPCS: 36415; 85610

== ENCOUNTER 2019-01-26 08:59 | Outpatient (RCR) | payer BC, SELFPAY ==
[2018-08-11 08:56] VITALS: BMI 22.3
[2019-01-26 10:23] LABS: Prothrombin Time (Protime)PT. 22.4 SECONDS (11.7-14.9)
== END 2019-01-26 09:59 | disposition home or self-care (01) ==
LOC: MTLAB 08:59
PROVIDERS: Family Provider Family Medicine; PCP Family Medicine; Referring Provider Physician Assistant Medical; Visit Provider Internal Medicine Cardiovascular Disease
DX: Z79.01 Long term (current) use of 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s (principal)
CPT/HCPCS: 36415; 85610

== ENCOUNTER → 2019-02-02 | Outpatient (CLI) | payer BC, SELFPAY ==
[2018-08-11 08:56] VITALS: BMI 22.3
[2019-02-02 11:17] LABS: AST(SGOT) 30 U/L (15-37); Alanine Aminotransfer ALT/SGPT 58 U/L (16-61); Albumin, Serum 3.4 g/dL (3.2-5.0); Alkaline Phosphatase 142 U/L (45-117); Bilirubin, Direct 0.19 mg/dL (0.00-0.30); Cholesterol 101 mg/dL (200); Globulin 3.6 g/dL (2.2-4.2); High Density Lipoprotein 36 mg/dL; Triglycerides 98 mg/dL; Very Low Density Lipoprotein 20 mg/dL (5-40)
[2019-02-02 11:41] LABS: PSA,Total - Annual Screen 0.84 ng/mL (0.00-4.00)
== END | disposition home or self-care (01) ==
PROVIDERS: Family Provider Family Medicine; PCP Family Medicine; Referring Provider Physician Assistant Medical; Visit Provider Physician Assistant Medical
DX: E78.5 Hyperlipidemia, unspecified (principal); Z12.5 Encounter for screening for malignant neoplasm of prostate
CPT/HCPCS: 36415; 80061; 80076; 84153; G0103

== ENCOUNTER 2019-03-16 08:16 | Outpatient (RCR) | payer BC, SELFPAY ==
[2019-02-08 10:30] VITALS: BMI 21.7
[2019-02-23 11:28] LABS: International Normalized Ratio 3.4; Prothrombin Time (Protime)PT. 34.3 SECONDS (11.7-14.9)
== END 2019-03-16 18:00 | disposition home or self-care (01) ==
LOC: MTLAB 08:16
PROVIDERS: Family Provider Family Medicine; PCP Family Medicine; Referring Provider Physician Assistant Medical; Visit Provider Internal Medicine Cardiovascular Disease
DX: Z79.01 Long term (current) use of 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s (principal)
CPT/HCPCS: 36415; 85610

== ENCOUNTER 2019-04-13 08:09 | Outpatient (RCR) | payer BC, SELFPAY ==
[2019-02-08 10:30] VITALS: BMI 21.7
[2019-04-13 10:12] LABS: International Normalized Ratio 3.3; Prothrombin Time (Protime)PT. 33.8 SECONDS (11.7-14.9)
[2019-04-13 10:26] LABS: Anion Gap 6 (5-15); BUN 12 mg/dL (7-18); BUN/Creat Ratio 9.4 RATIO (10-20); Calcium,Total 8.7 mg/dL (8.5-10.1); Chloride 107 mmol/L (98-107); Creatinine, Serum 1.27 mg/dL (0.70-1.30); EST Glomerular Filtration Rate 61 mL/min (>60); Est Glom Filt Rate - Afr Amer 73 mL/min (>60); Free T3 2.6 pg/mL (2.18-3.98); Glucose 96 mg/dL (74-106); Potassium 4.2 mmol/L (3.5-5.1); Sodium Level 139 mmol/L (136-145); T4 Free Direct 1.17 ng/dL (0.76-1.46); Thyroid Stim Hormone (TSH) 3.87 uIU/mL (0.358-3.74)
== END 2019-04-13 18:00 | disposition home or self-care (01) ==
LOC: MTLAB 08:09
PROVIDERS: Family Provider Family Medicine; PCP Family Medicine; Referring Provider Internal Medicine Cardiovascular Disease; Visit Provider Internal Medicine Cardiovascular Disease
DX: Z79.01 Long term (current) use of 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s (principal); R79.89 Other specified abnormal findings of blood chemistry; I10 Essential (primary) hypertension
CPT/HCPCS: 36415; 80048; 84439; 84443; 84481; 85610

== ENCOUNTER 2019-05-04 08:37 | Outpatient (RCR) | payer BC, SELFPAY ==
[2019-02-08 10:30] VITALS: BMI 21.7
[2019-05-04 10:19] LABS: International Normalized Ratio 2.6; Prothrombin Time (Protime)PT. 27.5 SECONDS (11.7-14.9)
== END 2019-05-04 18:00 | disposition home or self-care (01) ==
LOC: MTLAB 08:37
PROVIDERS: Family Provider Family Medicine; PCP Family Medicine; Referring Provider Internal Medicine Cardiovascular Disease; Visit Provider Internal Medicine Cardiovascular Disease
DX: Z79.01 Long term (current) use of 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s (principal)
CPT/HCPCS: 36415; 85610

== ENCOUNTER 2019-06-08 08:32 | Outpatient (RCR) | payer BC, SELFPAY ==
[2019-02-08 10:30] VITALS: BMI 21.7
[2019-06-08 10:09] LABS: International Normalized Ratio 2.9; Prothrombin Time (Protime)PT. 30.4 SECONDS (11.7-14.9)
== END 2019-06-08 18:00 | disposition home or self-care (01) ==
LOC: MTLAB 08:32
PROVIDERS: Family Provider Family Medicine; PCP Family Medicine; Referring Provider Internal Medicine Cardiovascular Disease; Visit Provider Internal Medicine Cardiovascular Disease
DX: Z79.01 Long term (current) use of 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s (principal)
CPT/HCPCS: 36415; 85610

== ENCOUNTER 2019-07-20 08:27 | Outpatient (RCR) | payer BC, SELFPAY ==
[2019-02-08 10:30] VITALS: BMI 21.7
[2019-07-20 10:22] LABS: International Normalized Ratio 1.6; Prothrombin Time (Protime)PT. 18.5 SECONDS (11.7-14.9)
== END 2019-07-20 18:00 | disposition home or self-care (01) ==
LOC: MTLAB 08:27
PROVIDERS: Family Provider Family Medicine; PCP Family Medicine; Referring Provider Internal Medicine Cardiovascular Disease; Visit Provider Internal Medicine Cardiovascular Disease
DX: Z79.01 Long term (current) use of 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s (principal)
CPT/HCPCS: 36415; 85610

== ENCOUNTER 2019-08-03 08:19 | Outpatient (RCR) | payer BC, SELFPAY ==
[2019-02-08 10:30] VITALS: BMI 21.7
[2019-08-03 10:21] LABS: Prothrombin Time (Protime)PT. 31.1 SECONDS (11.7-14.9)
== END 2019-08-03 18:00 | disposition home or self-care (01) ==
LOC: MTLAB 08:19
PROVIDERS: Family Provider Family Medicine; PCP Family Medicine; Referring Provider Internal Medicine Cardiovascular Disease; Visit Provider Internal Medicine Cardiovascular Disease
DX: Z79.01 Long term (current) use of 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s (principal)
CPT/HCPCS: 36415; 85610

== ENCOUNTER 2019-09-13 08:47 | Outpatient (RCR) | payer BC, SELFPAY ==
[2019-02-08 10:30] VITALS: BMI 21.7
[2019-08-24 11:11] LABS: International Normalized Ratio 3.4; Prothrombin Time (Protime)PT. 34.4 SECONDS (11.7-14.9)
[2019-09-13 10:10] LABS: International Normalized Ratio 2.6; Prothrombin Time (Protime)PT. 28.1 SECONDS (11.7-14.9)
== END 2019-09-13 18:00 | disposition home or self-care (01) ==
LOC: MTLAB 08:47
PROVIDERS: Family Provider Family Medicine; PCP Family Medicine; Referring Provider Internal Medicine Cardiovascular Disease; Visit Provider Internal Medicine Cardiovascular Disease
DX: Z79.01 Long term (current) use of 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s (principal)
CPT/HCPCS: 36415; 85610

== ENCOUNTER 2019-10-05 07:58 | Outpatient (RCR) | payer BC, SELFPAY ==
[2019-02-08 10:30] VITALS: BMI 21.7
[2019-10-05 10:01] LABS: International Normalized Ratio 2.9; Prothrombin Time (Protime)PT. 29.8 SECONDS (11.7-14.9)
== END 2019-10-18 18:00 | disposition home or self-care (01) ==
LOC: MTLAB 07:58
PROVIDERS: Family Provider Family Medicine; PCP Family Medicine; Referring Provider Internal Medicine Cardiovascular Disease; Visit Provider Internal Medicine Cardiovascular Disease
DX: Z79.01 Long term (current) use of 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s (principal)
CPT/HCPCS: 36415; 85610

== ENCOUNTER 2019-10-26 09:00 | Outpatient (RCR) | payer MEDICARE, SELFPAY ==
[2019-02-08 10:30] VITALS: BMI 21.7
[2019-10-26 10:06] LABS: International Normalized Ratio 2.8; Prothrombin Time (Protime)PT. 28.9 SECONDS (11.7-14.9)
[2019-10-26 10:24] LABS: AST(SGOT) 25 U/L (15-37); Alanine Aminotransfer ALT/SGPT 24 U/L (16-61); Albumin, Serum 3.5 g/dL (3.2-5.0); Alkaline Phosphatase 136 U/L (45-117); Anion Gap 3 (5-15); BUN 18 mg/dL (7-18); BUN/Creat Ratio 13.2 RATIO (10-20); Calcium,Total 8.7 mg/dL (8.5-10.1); Chloride 106 mmol/L (98-107); Cholesterol 119 mg/dL (200); Creatinine, Serum 1.36 mg/dL (0.70-1.30); EST Glomerular Filtration Rate 56 mL/min (>60); Est Glom Filt Rate - Afr Amer 68 mL/min (>60); Globulin 3.4 g/dL (2.2-4.2); Glucose 98 mg/dL (74-106); High Density Lipoprotein 42 mg/dL; Potassium 4.3 mmol/L (3.5-5.1); Protein, Total 6.9 g/dL (6.4-8.2); Sodium Level 137 mmol/L (136-145); T4 Free Direct 0.87 ng/dL (0.76-1.46); Triglycerides 94 mg/dL; Very Low Density Lipoprotein 19 mg/dL (5-40)
== END 2019-10-26 18:00 | disposition home or self-care (01) ==
LOC: MTLAB 09:00
PROVIDERS: Family Provider Family Medicine; PCP Family Medicine; Referring Provider Internal Medicine Cardiovascular Disease; Visit Provider Internal Medicine Cardiovascular Disease
DX: I25.10 Atherosclerotic heart disease of native coronary artery without angina pectoris (principal); Z79.01 Long term (current) use of 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s; R79.89 Other specified abnormal findings of blood chemistry; I10 Essential (primary) hypertension
CPT/HCPCS: 36415; 80053; 80061; 84439; 84443; 85610

== ENCOUNTER 2019-12-10 08:24 | Outpatient (RCR) | payer MEDICARE, SELFPAY ==
[2019-02-08 10:30] VITALS: BMI 21.7
[2019-11-30 10:37] LABS: Prothrombin Time (Protime)PT. 40.1 SECONDS (11.7-14.9)
[2019-11-30 10:49] LABS: International Normalized Ratio 4.2
[2019-12-10 09:52] LABS: International Normalized Ratio 2.2; Prothrombin Time (Protime)PT. 24.2 SECONDS (11.7-14.9)
== END 2019-12-10 18:00 | disposition home or self-care (01) ==
LOC: MTLAB 08:24
PROVIDERS: Family Provider Family Medicine; PCP Family Medicine; Referring Provider Internal Medicine Cardiovascular Disease; Visit Provider Internal Medicine Cardiovascular Disease
DX: Z79.01 Long term (current) use of 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s (principal)
CPT/HCPCS: 36415; 85610

== ENCOUNTER → 2020-01-18 | Outpatient (CLI) | payer MEDICARE, SELFPAY ==
[2019-12-17 13:31] VITALS: BMI 22.8
[2020-01-18 10:09] LABS: International Normalized Ratio 4.1; Prothrombin Time (Protime)PT. 39.8 SECONDS (11.7-14.9)
== END | disposition home or self-care (01) ==
LOC: MFPLAB 08:39
PROVIDERS: PCP Family Medicine; Referring Provider Family Medicine; Visit Provider Internal Medicine Cardiovascular Disease
DX: Z79.01 Long term (current) use of 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s (principal)
CPT/HCPCS: 36415; 85610

== ENCOUNTER 2020-02-08 08:40 | Outpatient (RCR) | payer MEDICARE, SELFPAY ==
[2019-12-17 13:31] VITALS: BMI 22.8
[2020-01-25 09:55] LABS: International Normalized Ratio 2.9; Prothrombin Time (Protime)PT. 29.6 SECONDS (11.7-14.9)
[2020-02-08 10:33] LABS: International Normalized Ratio 3.2; Prothrombin Time (Protime)PT. 32.2 SECONDS (11.7-14.9)
== END 2020-02-18 18:00 | disposition home or self-care (01) ==
LOC: MTLAB 08:40
PROVIDERS: Family Provider Family Medicine; PCP Family Medicine; Referring Provider Internal Medicine Cardiovascular Disease; Visit Provider Internal Medicine Cardiovascular Disease
DX: Z79.01 Long term (current) use of 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s (principal)
CPT/HCPCS: 36415; 85610

== ENCOUNTER 2020-03-10 08:15 | Outpatient (RCR) | payer MEDICARE, SELFPAY ==
[2019-12-17 13:31] VITALS: BMI 22.8
[2020-02-22 10:18] LABS: International Normalized Ratio 3.4; Prothrombin Time (Protime)PT. 34.4 SECONDS (11.7-14.9)
[2020-02-29 10:13] LABS: AST(SGOT) 22 U/L (15-37); Alanine Aminotransfer ALT/SGPT 20 U/L (16-61); Albumin, Serum 3.6 g/dL (3.2-5.0); Alkaline Phosphatase 133 U/L (45-117); Anion Gap 6 (5-15); BUN 13 mg/dL (7-18); BUN/Creat Ratio 9.6 RATIO (10-20); Chloride 104 mmol/L (98-107); Cholesterol 104 mg/dL (200); Creatinine, Serum 1.35 mg/dL (0.70-1.30); EST Glomerular Filtration Rate 56 mL/min (>60); Est Glom Filt Rate - Afr Amer 68 mL/min (>60); Globulin 3.7 g/dL (2.2-4.2); Glucose 94 mg/dL (74-106); High Density Lipoprotein 36 mg/dL; PSA,Total - Annual Screen 0.75 ng/mL (0.00-4.00); Potassium 3.9 mmol/L (3.5-5.1); Protein, Total 7.3 g/dL (6.4-8.2); Sodium Level 139 mmol/L (136-145); Triglycerides 81 mg/dL; Very Low Density Lipoprotein 16 mg/dL (5-40)
[2020-02-29 10:26] LABS: Prothrombin Time (Protime)PT. 48.2 SECONDS (11.7-14.9)
[2020-02-29 10:45] LABS: International Normalized Ratio 5.2
[2020-03-03 10:15] LABS: International Normalized Ratio 3.1; Prothrombin Time (Protime)PT. 31.3 SECONDS (11.7-14.9)
[2020-03-10 09:57] LABS: International Normalized Ratio 2.9; Prothrombin Time (Protime)PT. 30.2 SECONDS (11.7-14.9)
== END 2020-03-10 18:00 | disposition home or self-care (01) ==
LOC: MTLAB 08:15
PROVIDERS: Family Provider Family Medicine; PCP Family Medicine; Referring Provider Internal Medicine Cardiovascular Disease; Visit Provider Internal Medicine Cardiovascular Disease
DX: I51.3 Intracardiac thrombosis, not elsewhere classified (principal); Z79.01 Long term (current) use of 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s; Z12.5 Encounter for screening for malignant neoplasm of prostate; E78.00 Pure hypercholesterolemia, unspecified
CPT/HCPCS: 36415; 80053; 80061; 84153; 85610; G0103

== ENCOUNTER → 2020-03-13 | Outpatient (CLI) | payer MEDICARE, SELFPAY ==
[2019-12-17 13:31] VITALS: BMI 22.8
--- NOTE | 2020-03-13 07:54 | ECHOD_ITS ---
Reason For Study: CAD Procedure This was a 2D Doppler, Color Flow transthoracic echocardiogram. The exam was of adequate technical quality. Exam performed in department. Left Ventricle Moderately dilated left ventricle. Severe segmental systolic dysfunction (see wall motion). The estimated ejection fraction is 20 %. There is evidence of diastolic dysfunction. Anterio-Basal: Akinetic. Infero-Basal: Severely Hypokinetic. Basal inferoseptal: Severely Hypokinetic. Basal anteroseptal: Severely Hypokinetic. Mid-Anterior : Akinetic. Mid-Lateral : Akinetic. Mid-Inferior: Severely Hypokinetic. Mid-inferoseptal : Akinetic. Mid-anteroseptal : Akinetic. Henderson : Akinetic. Right Ventricle Normal RV size. ICD or pacer leads identified within the right ventricle. Normal systolic function. Atria Moderate to severe left atrial enlargement. Normal right atrium. ICD or pacer leads identified within the right atrium. No doppler evidence for ASD. Mitral Valve There is no mitral annular calcification. Mild diffuse mitral valve thickening. Mild papillary muscle dysfunction of the mitral valve. Moderately severe (3+) eccentric mitral valve insufficiency. Tricuspid Valve Normal tricuspid valve. Moderate (2+) tricuspid valve insufficiency. Right ventricular systolic pressure estimated to be 61 mmHg. Aortic Valve Trisinus/trileaflet aortic valve. Normal aortic valve. Pulmonic Valve The pulmonic valve is not well visualized. Trivial pulmonic valve insufficiency. Great Vessels Normal sized aortic root. Pericardium/Pleural No pericardial effusion. Medication Definity deferred due to RVSP. Patient is currently on coumadin. MMode/2D Measurements & Calculations LVIDd: 6.1 cm IVSd: 0.85 cm Ao root diam: 3.4 cm LVIDs: 5.1 cm LVPWd: 0.83 cm RVDd: 3.6 cm FS: 16.4 % LAV(MOD-bp): 95.5 ml LVAd ap4: 39.2 cm2 SV(MOD-sp4): 33.8 ml LAV(MOD-bp) Indexed: 49.2 ml/m2 EDV(MOD-sp4): 143.5 ml LAV(MOD-sp2): 78.9 ml EDV(sp4-el): 150.3 ml LAV(MOD-sp4): 106.4 ml LVAs ap4: 33.7 cm2 ESV(MOD-sp4): 109.7 ml ESV(sp4-el): 114.6 ml EF(MOD-sp4): 23.6 % EF(sp4-el): 23.7 % SV(sp4-el): 35.7 ml LA A4 area: 28.1 cm2 LA dimension(2D): 5.2 cm RA A4 area: 14.6 cm2 Doppler Measurements & Calculations MV E max travis: 128.3 cm/sec Lat Peak E' Travis: 9.0 cm/sec Med Peak E' Travis: 4.8 cm/sec MV A max travis: 30.7 cm/sec E/E' lat: 14.3 E/E' med: 26.5 MV E/A: 4.2 Ao V2 max: 105.0 cm/sec LV V1 max: 83.6 cm/sec PA V2 max: 74.6 cm/sec Ao max P.4 mmHg LV V1 max P.8 mmHg TR max travis: 381.4 cm/sec TR max P.2 mmHg Interpretation Summary Moderately dilated left ventricle. Severe segmental systolic dysfunction (see wall motion). The estimated ejection fraction is 20 %. Moderate to severe left atrial enlargement Mild diffuse mitral valve thickening. Mild papillary muscle dysfunction of the mitral valve. Moderately severe (3+) eccentric mitral valve insufficiency. Moderate (2+) tricuspid valve insufficiency. Trivial pulmonic valve insufficiency. Right ventricular systolic pressure estimated to be 61 mmHg. There is evidence of diastolic dysfunction. ICD or pacer leads identified within the right atrium ICD or pacer leads identified within the right ventricle. Comment: Echodensity near the left ventricular apex potentially compatible with a calcified left ventricular apical thrombus. Ordering Physician: Jose Renae Referring Physician: Khanh Marks MD Performed By: Ewa French RDCS
== END | disposition home or self-care (01) ==
LOC: CVS 07:54
PROVIDERS: PCP Family Medicine; Referring Provider Internal Medicine Cardiovascular Disease; Visit Provider Internal Medicine Cardiovascular Disease
DX: I25.810 Atherosclerosis of coronary artery bypass graft(s) without angina pectoris (principal); I25.5 Ischemic cardiomyopathy; I51.3 Intracardiac thrombosis, not elsewhere classified; Z79.01 Long term (current) use of 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s; Z95.1 Presence of aortocoronary bypass graft
CPT/HCPCS: 93306

== ENCOUNTER 2020-03-24 08:35 | Outpatient (RCR) | payer MEDICARE, SELFPAY ==
[2019-12-17 13:31] VITALS: BMI 22.8
[2020-03-24 09:55] LABS: International Normalized Ratio 2.7; Prothrombin Time (Protime)PT. 28.4 SECONDS (11.7-14.9)
[2020-03-24 10:17] LABS: Free T3 2.4 pg/mL (2.18-3.98); T4 Free Direct 1.14 ng/dL (0.76-1.46); Thyroid Stim Hormone (TSH) 7.39 uIU/mL (0.358-3.74)
[2020-03-26 09:42] LABS: Hepatitis C Antibody Non-Reactive (Nonreactive)
== END 2020-03-24 18:00 | disposition home or self-care (01) ==
LOC: MTLAB 08:35
PROVIDERS: Family Provider Family Medicine; PCP Family Medicine; Referring Provider Internal Medicine Cardiovascular Disease; Visit Provider Internal Medicine Cardiovascular Disease
DX: I25.10 Atherosclerotic heart disease of native coronary artery without angina pectoris (principal); R79.89 Other specified abnormal findings of blood chemistry; I51.3 Intracardiac thrombosis, not elsewhere classified; Z79.01 Long term (current) use of 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s; I10 Essential (primary) hypertension
CPT/HCPCS: 36415; 84439; 84443; 84481; 85610; 86803

== ENCOUNTER → 2020-04-03 | Outpatient (CLI) | payer MEDICARE, SELFPAY ==
[2019-12-17 13:31] VITALS: BMI 22.8
--- NOTE | 2020-04-03 07:53 | AAAS_ITS ---
Reason For Study: Screening Aorta Measurements Aorta Doppler Measurements Proximal aorta measures1.53 x 1.55cm. in cross- Peak systolic flow velocities within the proximal sectional axis. aorta measure 80.9 cm/sec. Proximal aorta measures1.65cm. in longitudinal Peak systolic flow velocities within the mid aorta axis. measure 63.3 cm/sec. Mid aorta measures1.65 x 1.67cm. in cross- Peak systolic flow velocities within the distal sectional axis. aorta measure 79.8 cm/sec. Mid aorta measures1.60cm. in longitudinal axis. Distal aorta measures1.42 x 1.47cm. in cross- sectional axis. Distal aorta measures1.49cm. in longitudinal axis. Left Iliac Artery Left iliac artery measures 1.00 x 0.96 cm. in the cross-sectional axis. Left iliac artery measures 0.95 cm. in the longitudinal axis. Peak systolic velocity in the left iliac artery measures 80.7 cm/sec. Right Iliac Artery Right iliac artery measures 0.92 x 0.92 cm. in the cross-sectional axis. Right iliac artery measures 0.89 cm. in the longitudinal axis. Peak systolic velocity in the right iliac artery measures 91.7 cm/sec. Procedure Aorta IVC Iliac vasculature or bypass grafts [id number]. Exam performed in department. Interpretation Summary The dimensions of the intra-abdominal aorta are normal, without evidence of aneurysmal dilatation. The iliac arteries are normal in size bilaterally. The intra-abdominal aorta and iliac arteries appear patent, demonstrating normal, pulsatile arterial flow and normal peak systolic velocities. Ordering Physician: Ranjith Marks Referring Physician: Ranjith Marks Performed By: Valorie Moreno RVT and Student
== END | disposition home or self-care (01) ==
LOC: CVS 07:51
PROVIDERS: PCP Family Medicine; Referring Provider Family Medicine; Visit Provider Family Medicine
DX: Z13.6 Encounter for screening for cardiovascular disorders (principal)
CPT/HCPCS: 76706

== ENCOUNTER 2020-04-21 08:07 | Outpatient (RCR) | payer MEDICARE, SELFPAY ==
[2019-12-17 13:31] VITALS: BMI 22.8
[2020-04-21 10:10] LABS: Prothrombin Time (Protime)PT. 30.5 SECONDS (11.7-14.9)
== END 2020-04-21 18:00 | disposition home or self-care (01) ==
LOC: MTLAB 08:07
PROVIDERS: Family Provider Family Medicine; PCP Family Medicine; Referring Provider Internal Medicine Cardiovascular Disease; Visit Provider Internal Medicine Cardiovascular Disease
DX: I51.3 Intracardiac thrombosis, not elsewhere classified (principal); Z79.01 Long term (current) use of 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s
CPT/HCPCS: 36415; 85610

== ENCOUNTER 2020-05-23 08:59 | Outpatient (RCR) | payer MEDICARE, SELFPAY ==
[2019-12-17 13:31] VITALS: BMI 22.8
[2020-05-23 10:35] LABS: International Normalized Ratio 2.5; Prothrombin Time (Protime)PT. 26.5 SECONDS (11.7-14.9)
[2020-05-23 10:51] LABS: T4 Free Direct 1.39 ng/dL (0.76-1.46); Thyroid Stim Hormone (TSH) 0.96 uIU/mL (0.358-3.74)
== END 2020-05-23 18:00 | disposition home or self-care (01) ==
LOC: MTLAB 08:59
PROVIDERS: Family Provider Family Medicine; PCP Family Medicine; Referring Provider Internal Medicine Cardiovascular Disease; Visit Provider Internal Medicine Cardiovascular Disease
DX: I51.3 Intracardiac thrombosis, not elsewhere classified (principal); Z79.01 Long term (current) use of 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s; E03.9 Hypothyroidism, unspecified
CPT/HCPCS: 36415; 84439; 84443; 85610

== ENCOUNTER → 2020-06-30 | Outpatient (CLI) | payer MEDICARE, SELFPAY ==
[2020-06-24 08:48] VITALS: BMI 22.0
== END | disposition home or self-care (01) ==
LOC: LABSPEC 10:58
PROVIDERS: PCP Family Medicine; Referring Provider Physician Assistant Medical; Visit Provider Physician Assistant Medical
DX: D64.9 Anemia, unspecified (principal)
CPT/HCPCS: 82274

== ENCOUNTER 2020-07-04 09:38 | Day surgery (SDC) | payer MEDICARE, SELFPAY ==
[2020-07-02 08:47] VITALS: BMI 22.1
[2020-07-04] VITALS (7 sets, daily range): BP systolic 102–122; BP diastolic 68–78; PULSE 70–81; RESP 16; TEMP 35.9–36.2; O2SAT 98–100; BMI 21.7
--- NOTE | 2020-07-04 10:00 | HP.PCM_ITS ---
Problem List (1) Positive occult stool blood test Status: Acute (2) Anemia Status: Acute Qualifiers: Anemia type: unspecified type History and Physical Date of Admission: 07/04/20 Intake Visit Reasons: Blood in stool Allergies Penicillins Adverse Reaction (Severe, Verified 07/02/20 08:48) Unknown Medications aspirin 81 mg tablet,delayed release 81 mg PO QDAY tab 08/24/17 [History Confirmed 07/02/20] nitroglycerin 0.4 mg sublingual tablet 0.4 mg SUBLINGUAL Q5-15M PRN #25 tab 08/31/19 [Rx Confirmed 07/02/20] atorvastatin 10 mg tablet 10 mg PO QHS #90 tab 11/06/19 [Rx Confirmed 07/02/20] carvedilol 25 mg tablet 25 mg PO BID #180 tab 11/21/19 [Rx Confirmed 07/02/20] clopidogrel 75 mg tablet 75 mg PO QDAY #90 tab 11/21/19 [Rx Confirmed 07/02/20] furosemide 40 mg tablet 40 mg PO DAILY #90 tab 11/21/19 [Rx Confirmed 07/02/20] niacin 1,000 mg tablet,extended release 1,000 mg PO QDAY #90 tab 11/21/19 [Rx Confirmed 07/02/20] quinapril 10 mg tablet 10 mg PO QDAY #90 tab 11/21/19 [Rx Confirmed 07/02/20] warfarin 2 mg tablet 2 mg PO DAILY #1 tab 03/03/20 [Rx Confirmed 07/02/20] levothyroxine 50 mcg tablet 50 mcg PO DAILY tab 06/24/20 [History Confirmed 07/02/20] [facility] Medical History Presence of stent in coronary artery (Chronic ~01/2009) Pure hypercholesterolemia (Chronic) Saphenous vein injury (Chronic) Peripheral vascular disease, unspecified (Chronic) Atherosclerosis of coronary artery bypass graft without angina pectoris (Chronic) Ventricular tachycardia (Chronic) Ischemic cardiomyopathy (Chronic) shelter current use of 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 (Chronic) Apical mural thrombus (Chronic) DVT (deep venous thrombosis) (Chronic) Surgical History History of coronary artery bypass surgery (Chronic ~08/12/03) Presence of automatic implantable cardioverter-defibrillator (Chronic) Presence of coronary angioplasty implant and graft (Chronic ~01/2009) Family History Father CAD (coronary artery disease) Diabetes Mother Myocardial infarction CVA (cerebral vascular accident) Grandmother CVA (cerebral vascular accident) Other Family history of CVA Social History (Updated 07/02/20 @ 08:[address] Binh Etienne MD) Smoking Status: Never smoker alcohol intake: never substance use type: does not use caffeine: No what type of physical activity do you participate in: none seatbelt use: always do you feel safe at home: Yes HPI HPI HPI: FREDERICK ROTHMAN, is a 64 M who presents to the office today for surgical consultation regarding anemia and blood in his stool. He has a history of underlying CAD, PCI, CABG, ischemic mediated cardiomyopathy, left ventricular thrombus, ventricular dysrhythmia/tachycardia, ICD placement, and hyperlipidemia. He is triply anticoagulated on aspirin and clopidogrel and warfarin therapy. When he had his recent laboratory obtained he immediately was instructed to hold his clopidogrel and warfarin therapy. Apparently there was an attempt by Dr. Jonathan Vail 2 years ago to do a colonoscopy. Apparently the patient was intolerant to the bowel prep. The bowel prep was inadequate. By report Dr. Vail attempted to colonoscopy anyway and then recommended rescheduling which the patient did not follow through with. It is of additional note that the patient's stool has been checked and is occult blood positive currently. He has not however noticed any bright red blood per rectum or melena. He denies any abdominal pain. He has not any previous abdominal surgery. He is able to climb a flight of stairs. He denies dyspnea on exertion. He denies shortness of breath at rest. He denies change of weight. He denies chest pain He has been referred by MICHELLE Reeves and a written copy my surgical consult recommendations will be returned to her Laboratory as of May 23, 2020 demonstrates an INR of 2.5 June 26, 2020 hemoglobin 9.6 with a hematocrit of 32.9 and a platelet count of 178,000 Only other laboratory I can detect is January 10, 2018 when his hemoglobin was 14.7 and hematocrit 41.5. I do not see any more recent values so it is unclear whether his current laboratory demonstrates an acute or chronic change. Echocardiogram 02/2020: Moderately dilated left ventricle. Severe segmental systolic dysfunction (see wall motion). The estimated ejection fraction is 20 %. Moderate to severe left atrial enlargement Mild diffuse mitral valve thickening. Mild papillary muscle dysfunction of the mitral valve. Moderately severe (3+) eccentric mitral valve insufficiency. Moderate (2+) tricuspid valve insufficiency. Trivial pulmonic valve insufficiency. Right ventricular systolic pressure estimated to be 61 mmHg. There is evidence of diastolic dysfunction. ICD or pacer leads identified within the right atrium ICD or pacer leads identified within the right ventricle. Comment: Echodensity near the left ventricular apex potentially compatible with a calcified left ventricular apical thrombus. HPI HPI HPI: FREDERICK ROTHMAN, is a 64 M who presents to the office today for Exam Const General: cooperative, comfortable, no acute distress Nutritional Appearance: average body habitus Orientation: alert, awake, oriented x3 HENMT Head: normal to inspection Eyes General: appearance normal, both eyes and all related structures Chest Chest palpation & inspection: normal inspection of the chest Resp Effort & Inspection: normal respiratory effort Auscultation: clear to auscultation bilaterally Cardio Rate: regular rate Rhythm: regular rhythm GI Palpation: soft, no hepatosplenomegaly Auscultation: normal bowel sounds Musc Cervical Spine: normal cervical lordosis Skin General: no rashes or lesions noted Neuro Cognition: normal cognition Extrem General: no calf tenderness Psych Affect: normal affect Assessment & Plan Problems 1. Anemia, unspecified type D64.9 2. 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 New identification of anemia of undetermined etiology. Long-term use of chronic 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 and triple anticoagulation. Occult blood positive. No focal GI symptoms to assist with location of potential loss. The patient has been instructed per cardiology to hold his clopidogrel and warfarin therapy. He claims that 2 years ago at his previous attempted colonoscopy he was bridged with Lovenox. At this point I believe my main effort will be to rapidly expedite his endoscopic evaluation. I propose for him a esophagogastroduodenoscopy with possible biopsy and colonoscopy possible biopsy or polypectomy as indicated. He is aware of the technique, benefit, risk, alternatives. I propose a 2-day bowel prep with complete MiraLAX preps on both days. I anticipate monitored anesthesia care for the procedure because of his diminished ejection fraction of 20%. He will remain on his low-dose aspirin therapy. As noted he has been already instructed to hold his clopidogrel and warfarin per cardiology. By expediting his endoscopic evaluation we will hopefully then be able to come to determination as to whether he can resume his full anticoagulation. He has had an opportunity to ask and have questions answered. I appreciate the opportunity of assisting with his surgical care. We currently we will schedule him for endoscopic evaluation on July 04, 2020. This will require immediate conversion to a clear liquid diet and initiate of bowel prepping today. Copy: MICHELLE Reeves and Dr. Khanh Etienne M.D., F.A.C.S. Orders Orders: Colonoscopy Today EGD Today Coding Level of Care Code 31065 Diagnoses Anemia, unspecified type D64.9 ??Anemia type: unspecified type Positive occult stool blood test R19.5 shelter current use of 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 Z79.01 I have re-examined the patient. There are no clinical changes since date of exam. Procedure Criteria Procedure Type: Elective COVID Risk Discussion: The surgeon/proceduralist and patient have discussed in detail the risk of exposure to and/or potential harm posed by the COVID-19 virus with having a surgery/procedure at this time versus the risk of delaying the surgery/procedure. It is not possible to know either the risk of delaying the surgery or procedure or chance of getting an infection with perfect accuracy, but a joint decision was made between the patient and the surgeon/proceduralist to proceed at this time with the scheduled surgery/procedure as indicated on the consent form.
[2020-07-04 10:10] LABS: Prothrombin Time Fingerstick 21.9 SEC (11.9-14.4)
[2020-07-04] MEDS: Lactated Ringers 1,000 ML 100 ML IV (10:20)
--- NOTE | 2020-07-04 10:45 | IMM_PTH ---
PATIENT: FREDERICK ROTHMAN LOC: EN U#:[id number] AGE/SX: 64/M ROOM: RE07/04/[address]: Dr. Binh Etienne MD : 1955 BED: DIS: 07/04/2020 SPEC #: [id number] RECD: 07/04/20 13:06 STATUS: RUSLAN REAltaf #: [id number] SILVIO: 07/04/20 10:[address]: Binh Etienne DEPT: IMMUNOHISTOCHEMISTRY RECD BY: Chica Warren ENTERED: 07/04/20 13:07 SP TYPE: IMMUNO OTHR DR: Dr. Khanh Marks MD Tissues: A - Stomach, NOS C - Esophageal mucous membrane Procedures: H Pylori (initial) P53 (initial) KI-67 (add) PHYSICIAN & INSTITUTION [place] [id number] SPECIMEN INFORMATION: Tissue Source: A - Antral biopsy, C - GE junction biopsy Clinical Info: Anemia, positive occult blood Specimen Number: [id number] A & C CPT code: 81628 x2, 44956 METHODOLOGY: Deparaffinized sections of prefer/formalin-fixed tissue or PAP/DQ stained slides are incubated with monoclonal/polyclonal antibodies/oligonucleotide probes. Localization is made via biotin free immunoperoxidase method. Appropriate controls are performed and reacted as expected. Results on target cell population are indicated in the following table: RESULTS: ANTIBODY / CLONE RESULT Block A H Pylori (polyclonal) negative Block C P53 (DO-7) negative Ki-67 (30-9) negative These tests were developed and their performance characteristics determined by [facility]. They may not have been cleared or approved by the U.S. Food and Drug Administration. The FDA has determined that such clearance or approval is not necessary. The above immunohistochemical/dualISH markers are ordered and reviewed by the pathologist. INTERPRETATION: A. Antral biopsy: Negative for Helicobacter pylori organisms. C. Gastroesophageal junction, biopsy: No evidence of dysplasia. AM:gerardo 07/08/2020
--- NOTE | 2020-07-04 10:45 | EGD_PTH ---
PATIENT: FREDERICK ROTHMAN LOC: EN U#:[id number] AGE/SX: 64/M ROOM: RE07/04/[address]: Dr. Binh Etienne MD : 1955 BED: DIS: 07/04/2020 SPEC #: [id number] RECD: 07/04/20 11:27 STATUS: RUSLAN ASHANTI #: [id number] SILVIO: 07/04/20 10:[address]: Binh Etienne DEPT: SURGICAL PATHOLOGY RECD BY: Charley Jacobsen ENTERED: 07/04/20 13:11 SP TYPE: EGD BIOPSY OT DR: Dr. Khanh Marks MD Tissues: A - Gastric mucous membrane B - Gastric mucous membrane C - Gastric mucous membrane D - Transverse colon E - Rectosigmoid junction Procedures: Special Stain Group II Surgery Specimen Level IV Alcian Blue/PAS (control) HEADER OPERATION: Colonoscopy, EGD ([facility] [place]) PRE-OP DIAGNOSIS: Positive occult blood TISSUE SUBMITTED: A - Antral biopsy for H. pylori and pathology, B - Greater curvature polyp biopsy, C - EG junction biopsy, D - Proximal transverse polyp, E - Rectosigmoid junction polyp biopsy MICROSCOPIC DIAGNOSIS A. Gastric antrum, biopsy: Mild chronic inflammation. See comment. B. Stomach, greater curvature polyp, biopsy: Consistent with fundic gland polyp. C. 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 No evidence of dysplasia. See comment. D. Proximal transverse colon polyp, biopsy: Tubular adenoma. E. Rectosigmoid junction polyp, biopsy: Fragments of tubular adenoma. AM:gerardo 07/07/2020 COMMENT A. The results of immunohistochemistry for Helicobacter pylori will be reported separately ([id number]). C. Alcian blue/PAS stain with matched control supports the above diagnosis. Immunohistochemistry ([id number]) supports the above diagnosis. MICROSCOPIC DESCRIPTION Slides are reviewed. GROSS DESCRIPTION A - Received in fixative is one container labeled with the patient's name and designated antral biopsy. The specimen consists of one irregular fragment of light mckinnon soft tissue that measures 0.3 x 0.3 x 0.1 cm. The specimen is totally submitted in one cassette. B - Received in fixative is one container labeled with the patient's name and designated greater curvature polyp. The specimen consists of one irregular fragment of light mckinnon soft tissue that measures 0.3 x 0.3 x 0.1 cm. The specimen is totally submitted in one cassette. C - Received in fixative is one container labeled with the patient's name and designated EG junction biopsy. The specimen consists of two irregular fragments of light mckinnon soft tissue that in aggregate measure 0.4 x 0.3 x 0.1 cm. The specimen is totally submitted in one cassette. D - Received in fixative is one container labeled with the patient's name and designated proximal transverse polyp biopsy. The specimen consists of one irregular fragment of light mckinnon soft tissue that measures 0.2 x 0.2 x 0.1 cm. The specimen is totally submitted in one cassette. E - Received in fixative is one container labeled with the patient's name and designated rectosigmoid junction polyp biopsy. The specimen consists of multiple irregular fragments of light mckinnon soft tissue that in aggregate measure 1.5 x 0.5 x 0.1 cm. The specimen is totally submitted in one cassette. / SJ:rg 07/04/20 TC:3 CPT: 14606 x5, 09372
--- NOTE | 2020-07-04 11:18 | OP.EGD_ITS ---
Patient Name: Chaka Molina Procedure Date: 07/04/2020 10:30 AM Date of : 1955 Age: 64 Procedure: Upper GI endoscopy Indications: Iron deficiency anemia, Hemocult positive stool Providers: Binh Etienne MD Referring MD: Ranjith Marks Medicines: See the Anesthesia note for documentation of the administered medications Complications: No immediate complications. Procedure: Pre-Anesthesia Assessment: - Prior to the procedure, a History and Physical was performed, and patient medications and allergies were reviewed. The patient's tolerance of previous anesthesia was also reviewed. The risks and benefits of the procedure and the sedation options and risks were discussed with the patient. All questions were answered, and informed consent was obtained. Prior Anticoagulants: The patient has taken Coumadin (warfarin), last dose was 4 days prior to procedure. ASA Grade Assessment: III - A patient with severe systemic disease. After reviewing the risks and benefits, the patient was deemed in satisfactory condition to undergo the procedure. After obtaining informed consent, the endoscope was passed under direct vision. Throughout the procedure, the patient's blood pressure, pulse, and oxygen saturations were monitored continuously. The Endoscope was introduced through the mouth, and advanced to the second part of duodenum. The upper GI endoscopy was accomplished without difficulty. The patient tolerated the procedure well. Scope In: 10:41:40 AM Scope Out: 10:47:17 AM Total Procedure Duration Time 0 hours 5 minutes 37 seconds Findings: Grade I varices were found in the middle third of the esophagus. LA Grade A (one or more mucosal breaks less than 5 mm, not extending between tops of 2 mucosal folds) esophagitis with no bleeding was found 38 cm from the incisors. Biopsies were taken with a cold forceps for histology. A large hiatal hernia was present. A few sessile polyps with no bleeding and no stigmata of recent bleeding were found on the greater curvature of the stomach. The polyp was removed with a cold biopsy forceps. Resection and retrieval were complete. The gastric antrum was normal. Biopsies were taken with a cold forceps for histology. The examined duodenum was normal. Impression: - Grade I esophageal varices. - LA Grade A reflux esophagitis. Biopsied. - Large hiatal hernia. - A few gastric polyps. Resected and retrieved. - Normal antrum. Biopsied. - Normal examined duodenum. Recommendation: - Discharge patient to home. - Resume previous diet. - Continue present medications. - Telephone my office for pathology results in 1 week. Procedure Code(s): --- Professional --- 94314, Esophagogastroduodenoscopy, flexible, transoral; with biopsy, single or multiple Diagnosis Code(s): --- Professional --- I85.00, Esophageal varices without bleeding K21.0, Gastro-esophageal reflux disease with esophagitis K44.9, Diaphragmatic hernia without obstruction or gangrene K31.7, Polyp of stomach and duodenum D50.9, Iron deficiency anemia, unspecified CPT copyright 2017 [employer]. All rights reserved. The codes documented in this report are preliminary and upon coder operator review may be revised to meet current compliance requirements. Binh Etienne MD 07/04/2020 11:17:51 AM This report has been signed electronically. Number of Addenda: 0 Note Initiated On: 07/04/2020 10:30 AM
--- NOTE | 2020-07-04 11:18 | OP.CCLET_ITS ---
07/04/2020 Ranjith Marks [address] [place] [address] Re : Upper GI endoscopy procedure for Chaka Dye Dear Dr. Marks This procedure was performed on Saturday, July 04, 2020. My impressions and recommendations are as follows: Impressions : - Grade I esophageal varices. - LA Grade A reflux esophagitis. Biopsied. - Large hiatal hernia. - A few gastric polyps. Resected and retrieved. - Normal antrum. Biopsied. - Normal examined duodenum. Recommendations : - Discharge patient to home. - Resume previous diet. - Continue present medications. - Telephone my office for pathology results in 1 week. My findings are described in the full procedure note, which is enclosed. If I can be of further assistance, please feel free to contact me at Doctor phone number(s): Work: . Sincerely, Binh Etienne MD 07/04/2020 11:17:51 AM This report has been signed electronically.
--- NOTE | 2020-07-04 11:24 | OP.COLON_ITS ---
Patient Name: Chaka Molina Procedure Date: 07/04/2020 10:47 AM Date of : 1955 Age: 64 Procedure: Colonoscopy Indications: Iron deficiency anemia, Hemocult positive stool Providers: Binh Etienne MD Referring MD: Ranjith Marks Medicines: See the Anesthesia note for documentation of the administered medications Patient Profile: Last Colonoscopy: within the past 3 years. Complications: No immediate complications. Procedure: Pre-Anesthesia Assessment: - Prior to the procedure, a History and Physical was performed, and patient medications and allergies were reviewed. The patient's tolerance of previous anesthesia was also reviewed. The risks and benefits of the procedure and the sedation options and risks were discussed with the patient. All questions were answered, and informed consent was obtained. Prior Anticoagulants: The patient has taken Coumadin (warfarin), last dose was 4 days prior to procedure. ASA Grade Assessment: III - A patient with severe systemic disease. After reviewing the risks and benefits, the patient was deemed in satisfactory condition to undergo the procedure. After I obtained informed consent, the scope was passed under direct vision. Throughout the procedure, the patient's blood pressure, pulse, and oxygen saturations were monitored continuously. The Colonoscope was introduced through the anus and advanced to the cecum, identified by appendiceal orifice and ileocecal valve. The colonoscopy was performed without difficulty. The patient tolerated the procedure well. The quality of the bowel preparation was good. The ileocecal valve and the appendiceal orifice were photographed. Scope In: 10:49:41 AM Scope Withdrawal Time 0 hours 13 minutes 53 seconds Scope Out: 11:07:34 AM Total Procedure Duration Time 0 hours 17 minutes 53 seconds Findings: The digital rectal exam findings include non-thrombosed internal hemorrhoids, internal hemorrhoids that prolapse with straining, but spontaneously regress to the resting position (Grade II) and enlarged prostate. A 11 mm polyp was found in the proximal transverse colon. The polyp was sessile. The polyp was removed with a cold snare. Resection and retrieval were complete. A 16 mm polyp was found in the recto-sigmoid colon. The polyp was sessile. The polyp was removed with a cold biopsy forceps. Resection and retrieval were complete. Multiple diverticula were found in the sigmoid colon and descending colon. Impression: - Non-thrombosed internal hemorrhoids, internal hemorrhoids that prolapse with straining, but spontaneously regress to the resting position (Grade II) and enlarged prostate found on digital rectal exam. - One 11 mm polyp in the proximal transverse colon, removed with a cold snare. Resected and retrieved. - One 16 mm polyp at the recto-sigmoid colon, removed with a cold biopsy forceps. Resected and retrieved. - Diverticulosis in the sigmoid colon and in the descending colon. Recommendation: - Discharge patient to home. - Resume previous diet. - Continue present medications. - Repeat colonoscopy in 5 years for surveillance based on pathology results. - Telephone my office for pathology results in 1 week. No active bleeding. Will check labs. Start iron supplementation. Repeat lab check next week. Procedure Code(s): --- Professional --- 06358, Colonoscopy, flexible; with removal of tumor(s), polyp(s), or other lesion(s) by snare technique 15844, 59, Colonoscopy, flexible; with biopsy, single or multiple Diagnosis Code(s): --- Professional --- D12.3, Benign neoplasm of transverse colon (hepatic flexure or splenic flexure) D12.7, Benign neoplasm of rectosigmoid junction K64.1, Second degree hemorrhoids D50.9, Iron deficiency anemia, unspecified N40.0, Benign prostatic hyperplasia without lower urinary tract symptoms K57.30, Diverticulosis of large intestine without perforation or abscess without bleeding CPT copyright 2017 [employer]. All rights reserved. The codes documented in this report are preliminary and upon med surg nurse review may be revised to meet current compliance requirements. Binh Etienne MD 07/04/2020 11:23:51 AM This report has been signed electronically. Number of Addenda: 0 Note Initiated On: 07/04/2020 10:47 AM
--- NOTE | 2020-07-04 11:24 | OP.CCLET_ITS ---
07/04/2020 Ranjith Marks [address] [place] [address] Re : Colonoscopy procedure for Chaka Dye Dear Dr. Marks This procedure was performed on Saturday, July 04, 2020. My impressions and recommendations are as follows: Impressions : - Non-thrombosed internal hemorrhoids, internal hemorrhoids that prolapse with straining, but spontaneously regress to the resting position (Grade II) and enlarged prostate found on digital rectal exam. - One 11 mm polyp in the proximal transverse colon, removed with a cold snare. Resected and retrieved. - One 16 mm polyp at the recto-sigmoid colon, removed with a cold biopsy forceps. Resected and retrieved. - Diverticulosis in the sigmoid colon and in the descending colon. Recommendations : - Discharge patient to home. - Resume previous diet. - Continue present medications. - Repeat colonoscopy in 5 years for surveillance based on pathology results. - Telephone my office for pathology results in 1 week. No active bleeding. Will check labs. Start iron supplementation. Repeat lab check next week. My findings are described in the full procedure note, which is enclosed. If I can be of further assistance, please feel free to contact me at Doctor phone number(s): Work: . Sincerely, Binh Etienne MD 07/04/2020 11:23:51 AM This report has been signed electronically.
[2020-07-04 12:16] LABS: Hematocrit 33.1 % (40-54); Hemoglobin 9.9 g/dL (13.0-16.5); Mean Corp Hgb Conc 29.9 g/dL (32-36); Mean Corpuscular Hgb 24.7 pg (27.0-32.0); Mean Corpuscular Volume 82.5 fL (80-94); Mean Platelet Vol. 9.5 fl (6.2-12.0); Platelet Count 168 K/mm3 (150-450); RBC Distribution Width CV 17.3 % (11.6-14.6); RBC Distribution Width SD 52.1 fl (35.1-43.9); RET-HE 32.4 pg (30-35); Red Blood Count 4.01 M/mm3 (4.6-6.2); Reticulocyte Count 1.26 % (0.5-1.5); White Blood Count 4.1 K/mm3 (4.4-11.0)
[2020-07-04 12:24] LABS: Anion Gap 4 (5-15); BUN 14 mg/dL (7-18); BUN/Creat Ratio 10.6 RATIO (10-20); Calcium,Total 8.8 mg/dL (8.5-10.1); Chloride 107 mmol/L (98-107); Creatinine, Serum 1.32 mg/dL (0.70-1.30); EST Glomerular Filtration Rate 58 mL/min (>60); Est Glom Filt Rate - Afr Amer 70 mL/min (>60); Estimated Creatinine Clearance 55.63 ml/min; Glucose 100 mg/dL (74-106); Iron 49 ug/dL (65-175); Iron Binding Capacity,Total 365 ug/dL (250-450); PERCENT IRON SATURATION 13.4 % (15.0-55.0); Potassium 4.5 mmol/L (3.5-5.1); Sodium Level 138 mmol/L (136-145)
[2020-07-04 12:29] LABS: International Normalized Ratio 1.8; Partial Thromboplast Time 29.2 Seconds (24.1-36.2); Prothrombin Time (Protime)PT. 19.9 SECONDS (11.7-14.9)
== END 2020-07-04 12:58 | disposition home or self-care (01) ==
LOC: EN 09:38 → AC 09:38
PROVIDERS: PCP Family Medicine; Referring Provider Family Medicine; Visit Provider Surgery
PROC: 0DJD8ZZ Inspection of Lower Intestinal Tract, Via Natural or Artificial Opening Endoscopic (ICD-10-PCS; CPT 45378; principal; 2020-07-04 10:40)
DX: K29.50 Unspecified chronic gastritis without bleeding (principal); K31.7 Polyp of stomach and duodenum; K22.70 Barrett's esophagus without dysplasia; D12.7 Benign neoplasm of rectosigmoid junction; D12.3 Benign neoplasm of transverse colon; K57.30 Diverticulosis of large intestine without perforation or abscess without bleeding; I85.00 Esophageal varices without bleeding; K44.9 Diaphragmatic hernia without obstruction or gangrene; K21.00 Gastro-esophageal reflux disease with esophagitis, without bleeding; K64.1 Second degree hemorrhoids; D50.9 Iron deficiency anemia, unspecified; R19.5 Other fecal abnormalities; E78.00 Pure hypercholesterolemia, unspecified; I73.9 Peripheral vascular disease, unspecified; I25.10 Atherosclerotic heart disease of native coronary artery without angina pectoris; E06.9 Thyroiditis, unspecified; I50.9 Heart failure, unspecified; Z95.0 Presence of cardiac pacemaker; Z95.1 Presence of aortocoronary bypass graft; Z95.5 Presence of coronary angioplasty implant and graft; Z86.718 Personal history of other venous thrombosis and embolism; Z79.01 Long term (current) use of 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s; Z79.899 Other long term (current) drug therapy
CPT/HCPCS: 43239; 45380; 36416; 80048; 83540; 83550; 85027; 85045; 85610; 85730; 87426; 88305; 88313; 88341; 88342; C9803; J7120; J2405

== ENCOUNTER → 2020-07-08 08:58 | Outpatient (CLI) | payer MEDICARE, SELFPAY ==
[2020-07-04 10:04] VITALS: BMI 21.7
[2020-07-08 09:45] LABS: Hematocrit 34.7 % (40-54); Hemoglobin 10.5 g/dL (13.0-16.5); Mean Corp Hgb Conc 30.3 g/dL (32-36); Mean Corpuscular Hgb 25.1 pg (27.0-32.0); Mean Platelet Vol. 9.3 fl (6.2-12.0); Platelet Count 167 K/mm3 (150-450); RBC Distribution Width CV 18.2 % (11.6-14.6); RBC Distribution Width SD 52.9 fl (35.1-43.9); Red Blood Count 4.18 M/mm3 (4.6-6.2); White Blood Count 4.6 K/mm3 (4.4-11.0)
== END ==
PROVIDERS: PCP Family Medicine; Referring Provider Surgery; Visit Provider Surgery
DX: D64.9 Anemia, unspecified (principal)
CPT/HCPCS: 36415; 85027

== ENCOUNTER 2020-07-18 09:10 | Outpatient (RCR) | payer MEDICARE, SELFPAY ==
[2019-12-17 13:31] VITALS: BMI 22.8
[2020-06-24 08:48] VITALS: BMI 22.0
[2020-06-26 12:23] LABS: Absolute Lymphocyte Count 0.85 X10^3/uL (0.83-4.51); Absolute Neutrophil Count 3.6 X10^3/uL (2.0-7.7); Basophil# 0.04 X10^3/uL; Basophil% 0.8 % (0-1); Eosinophil# 0.19 X10^3/uL; Eosinophils% 3.7 % (0-5); Hematocrit 32.9 % (40-54); Hemoglobin 9.6 g/dL (13.0-16.5); Lymphocyte # 0.85 X10^3/ul (4.0); Lymphocyte % 16.7 % (19-41); Mean Corp Hgb Conc 29.2 g/dL (32-36); Mean Corpuscular Hgb 24.3 pg (27.0-32.0); Mean Corpuscular Volume 83.3 fL (80-94); Mean Platelet Vol. 9.1 fl (6.2-12.0); Monocyte# 0.44 X10^3/uL; Monocyte% 8.6 % (0-10); NRBC Flagged by Analyzer 0 % (0-5); Neutrophil # 3.56 X10^3/uL (2.7-7.7); Neutrophil % 69.8 % (47-70); Platelet Count 178 K/mm3 (150-450); RBC Distribution Width CV 17.4 % (11.6-14.6); RBC Distribution Width SD 53.5 fl (35.1-43.9); Red Blood Count 3.95 M/mm3 (4.6-6.2); White Blood Count 5.1 K/mm3 (4.4-11.0)
[2020-06-26 12:56] LABS: International Normalized Ratio 2.6; Prothrombin Time (Protime)PT. 27.3 SECONDS (11.7-14.9)
[2020-07-18 12:25] LABS: International Normalized Ratio 2.3; Prothrombin Time (Protime)PT. 24.9 SECONDS (11.7-14.9)
== END 2020-07-18 18:00 | disposition home or self-care (01) ==
LOC: MTLAB 09:10
PROVIDERS: Physician Assistant Medical; Family Provider Family Medicine; PCP Family Medicine; Referring Provider Internal Medicine Cardiovascular Disease; Visit Provider Internal Medicine Cardiovascular Disease
DX: I51.3 Intracardiac thrombosis, not elsewhere classified (principal); E78.00 Pure hypercholesterolemia, unspecified; Z79.01 Long term (current) use of 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s
CPT/HCPCS: 36415; 85025; 85610

== ENCOUNTER 2020-08-06 08:10 | Outpatient (RCR) | payer MEDICARE, SELFPAY ==
[2020-07-04 10:04] VITALS: BMI 21.7
[2020-08-06 10:20] LABS: Absolute Lymphocyte Count 1.05 X10^3/uL (0.83-4.51); Absolute Neutrophil Count 4.2 X10^3/uL (2.0-7.7); Basophil# 0.03 X10^3/uL; Basophil% 0.5 % (0-1); Eosinophil# 0.21 X10^3/uL; Eosinophils% 3.4 % (0-5); Hematocrit 41.7 % (40-54); Lymphocyte # 1.05 X10^3/ul (4.0); Lymphocyte % 16.9 % (19-41); Mean Corp Hgb Conc 31.2 g/dL (32-36); Mean Corpuscular Hgb 28.4 pg (27.0-32.0); Mean Corpuscular Volume 91.2 fL (80-94); Mean Platelet Vol. 9.7 fl (6.2-12.0); Monocyte# 0.75 X10^3/uL; Monocyte% 12.1 % (0-10); NRBC Flagged by Analyzer 0 % (0-5); Neutrophil # 4.17 X10^3/uL (2.7-7.7); Neutrophil % 66.9 % (47-70); POSITIVE MORPHOLOGY YES; Platelet Count 181 K/mm3 (150-450); RBC Distribution Width CV 23.8 % (11.6-14.6); RBC Distribution Width SD 76.6 fl (35.1-43.9); RET-HE 37.7 pg (30-35); Red Blood Count 4.57 M/mm3 (4.6-6.2); Reticulocyte Count 2.66 % (0.5-1.5); White Blood Count 6.2 K/mm3 (4.4-11.0)
[2020-08-06 10:28] LABS: Differential Indicated SCAN CRITERIA MET
[2020-08-06 10:28] LABS: International Normalized Ratio 2.2; Prothrombin Time (Protime)PT. 24.2 SECONDS (11.7-14.9)
[2020-08-06 10:41] LABS: Anisocytosis 1+
[2020-08-06 10:45] LABS: Ferritin 122 ng/mL (26-388); Iron 166 ug/dL (65-175)
== END 2020-08-06 18:00 | disposition home or self-care (01) ==
LOC: MTLAB 08:10
PROVIDERS: Family Provider Family Medicine; PCP Family Medicine; Referring Provider Internal Medicine Cardiovascular Disease; Visit Provider Internal Medicine Cardiovascular Disease
DX: I51.3 Intracardiac thrombosis, not elsewhere classified (principal); E78.00 Pure hypercholesterolemia, unspecified; Z79.01 Long term (current) use of 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s; R19.5 Other fecal abnormalities; D64.9 Anemia, unspecified
CPT/HCPCS: 36415; 82728; 83540; 85025; 85045; 85610

== ENCOUNTER 2020-09-05 09:31 | Outpatient (RCR) | payer MEDICARE, SELFPAY ==
[2020-07-04 10:04] VITALS: BMI 21.7
[2020-09-05 12:36] LABS: International Normalized Ratio 2.3; Prothrombin Time (Protime)PT. 25.1 SECONDS (11.7-14.9)
[2020-09-05 12:59] LABS: AST(SGOT) 20 U/L (15-37); Alanine Aminotransfer ALT/SGPT 34 U/L (16-61); Albumin, Serum 3.5 g/dL (3.2-5.0); Alkaline Phosphatase 172 U/L (45-117); Bilirubin, Direct 0.35 mg/dL (0.00-0.30); Cholesterol 102 mg/dL (200); Globulin 3.6 g/dL (2.2-4.2); High Density Lipoprotein 38 mg/dL; Protein, Total 7.1 g/dL (6.4-8.2); Triglycerides 88 mg/dL; Very Low Density Lipoprotein 18 mg/dL (5-40)
== END 2020-09-05 18:00 | disposition home or self-care (01) ==
LOC: MTLAB 09:31
PROVIDERS: Physician Assistant Medical; Family Provider Family Medicine; PCP Family Medicine; Referring Provider Internal Medicine Cardiovascular Disease; Visit Provider Internal Medicine Cardiovascular Disease
DX: I51.3 Intracardiac thrombosis, not elsewhere classified (principal); E78.00 Pure hypercholesterolemia, unspecified; R19.5 Other fecal abnormalities; Z79.01 Long term (current) use of 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s
CPT/HCPCS: 36415; 80061; 80076; 85610

== ENCOUNTER → 2020-09-22 09:05 | Outpatient (CLI) | payer MEDICARE, SELFPAY ==
[2020-07-04 10:04] VITALS: BMI 21.7
[2020-09-22 10:11] LABS: ALB/GLOB Ratio 0.9 RATIO (0.9-2.4); AST(SGOT) 40 U/L (15-37); Alanine Aminotransfer ALT/SGPT 40 U/L (16-61); Albumin, Serum 3.5 g/dL (3.2-5.0); Alkaline Phosphatase 170 U/L (45-117); Anion Gap 6 (5-15); BUN 16 mg/dL (7-18); BUN/Creat Ratio 12.3 RATIO (10-20); Calcium,Total 8.8 mg/dL (8.5-10.1); Chloride 105 mmol/L (98-107); Cholesterol 105 mg/dL (200); EST Glomerular Filtration Rate 59 mL/min (>60); Est Glom Filt Rate - Afr Amer 71 mL/min (>60); Globulin 3.8 g/dL (2.2-4.2); Glucose 100 mg/dL (74-106); High Density Lipoprotein 41 mg/dL; Potassium 4.1 mmol/L (3.5-5.1); Protein, Total 7.3 g/dL (6.4-8.2); Sodium Level 139 mmol/L (136-145); T4 Free Direct 1.24 ng/dL (0.76-1.46); Thyroid Stim Hormone (TSH) 4.23 uIU/mL (0.358-3.74); Triglycerides 80 mg/dL; Very Low Density Lipoprotein 16 mg/dL (5-40)
== END ==
PROVIDERS: PCP Family Medicine; Visit Provider Family Medicine
DX: E03.9 Hypothyroidism, unspecified (principal); I11.9 Hypertensive heart disease without heart failure; I43 Cardiomyopathy in diseases classified elsewhere
CPT/HCPCS: 36415; 80053; 80061; 84439; 84443

== ENCOUNTER 2020-10-13 09:35 | Outpatient (RCR) | payer MEDICARE, SELFPAY ==
[2020-07-04 10:04] VITALS: BMI 21.7
[2020-10-13 12:30] LABS: International Normalized Ratio 2.6; Prothrombin Time (Protime)PT. 26.8 SECONDS (11.7-14.9)
== END 2020-10-13 18:00 | disposition home or self-care (01) ==
LOC: MTLAB 09:35
PROVIDERS: Family Provider Family Medicine; PCP Family Medicine; Referring Provider Internal Medicine Cardiovascular Disease; Visit Provider Internal Medicine Cardiovascular Disease
DX: I51.3 Intracardiac thrombosis, not elsewhere classified (principal); Z79.01 Long term (current) use of 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s
CPT/HCPCS: 36415; 85610

== ENCOUNTER 2020-11-07 08:14 | Outpatient (RCR) | payer MEDICARE, SELFPAY ==
[2020-07-04 10:04] VITALS: BMI 21.7
[2020-11-07 10:25] LABS: Prothrombin Time (Protime)PT. 22.3 SECONDS (11.7-14.9)
[2020-11-07 10:45] LABS: T4 Free Direct 1.44 ng/dL (0.76-1.46); Thyroid Stim Hormone (TSH) 3.62 uIU/mL (0.358-3.74)
== END 2020-11-07 18:00 | disposition home or self-care (01) ==
LOC: MTLAB 08:14
PROVIDERS: Family Provider Family Medicine; PCP Family Medicine; Referring Provider Internal Medicine Cardiovascular Disease; Visit Provider Internal Medicine Cardiovascular Disease
DX: I51.3 Intracardiac thrombosis, not elsewhere classified (principal); Z79.01 Long term (current) use of 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s; E78.00 Pure hypercholesterolemia, unspecified; E03.9 Hypothyroidism, unspecified
CPT/HCPCS: 36415; 84439; 84443; 85610

== ENCOUNTER 2020-12-23 09:37 | Outpatient (RCR) | payer MEDICARE, SELFPAY ==
[2020-07-04 10:04] VITALS: BMI 21.7
[2020-12-23 12:10] LABS: International Normalized Ratio 2.7; Prothrombin Time (Protime)PT. 28.2 SECONDS (11.7-14.9)
== END 2020-12-23 18:00 | disposition home or self-care (01) ==
LOC: MTLAB 09:37
PROVIDERS: Family Provider Family Medicine; PCP Family Medicine; Referring Provider Internal Medicine Cardiovascular Disease; Visit Provider Internal Medicine Cardiovascular Disease
DX: I51.3 Intracardiac thrombosis, not elsewhere classified (principal); Z79.01 Long term (current) use of 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s
CPT/HCPCS: 36415; 85610

== ENCOUNTER 2021-01-27 09:55 | Outpatient (RCR) | payer MEDICARE, SELFPAY ==
[2020-07-04 10:04] VITALS: BMI 21.7
[2021-01-27 11:38] LABS: International Normalized Ratio 2.5; Prothrombin Time (Protime)PT. 26.3 SECONDS (11.7-14.9)
== END 2021-01-27 18:00 | disposition home or self-care (01) ==
LOC: MTLAB 09:55
PROVIDERS: Family Provider Family Medicine; PCP Family Medicine; Referring Provider Internal Medicine Cardiovascular Disease; Visit Provider Internal Medicine Cardiovascular Disease
DX: I51.3 Intracardiac thrombosis, not elsewhere classified (principal); Z79.01 Long term (current) use of 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s
CPT/HCPCS: 36415; 85610

== ENCOUNTER 2021-03-02 09:35 | Outpatient (RCR) | payer MEDICARE, SELFPAY ==
[2021-02-18 01:26] VITALS: BMI 21.7
[2021-03-02 12:20] LABS: International Normalized Ratio 2.9; Prothrombin Time (Protime)PT. 29.8 SECONDS (11.7-14.9)
== END 2021-03-02 18:00 | disposition home or self-care (01) ==
LOC: MTLAB 09:35
PROVIDERS: Family Provider Family Medicine; PCP Family Medicine; Referring Provider Internal Medicine Cardiovascular Disease; Visit Provider Internal Medicine Cardiovascular Disease
DX: I51.3 Intracardiac thrombosis, not elsewhere classified (principal); Z79.01 Long term (current) use of 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s
CPT/HCPCS: 36415; 85610

== ENCOUNTER 2021-04-09 08:54 | Outpatient (RCR) | payer MEDICARE, SELFPAY ==
[2021-03-20 02:01] VITALS: BMI 21.7
[2021-04-09 10:23] LABS: Hematocrit 41.3 % (40-54); Mean Corp Hgb Conc 33.9 g/dL (32-36); Mean Corpuscular Volume 97.4 fL (80-94); Mean Platelet Vol. 9.5 fl (6.2-12.0); Platelet Count 157 K/mm3 (150-450); RBC Distribution Width CV 13.9 % (11.6-14.6); RBC Distribution Width SD 49.9 fl (35.1-43.9); Red Blood Count 4.24 M/mm3 (4.6-6.2); White Blood Count 5.6 K/mm3 (4.4-11.0)
[2021-04-09 10:30] LABS: International Normalized Ratio 2.6; Prothrombin Time (Protime)PT. 26.8 SECONDS (11.7-14.9)
[2021-04-09 10:43] LABS: AST(SGOT) 22 U/L (15-37); Alanine Aminotransfer ALT/SGPT 24 U/L (16-61); Albumin, Serum 3.3 g/dL (3.2-5.0); Alkaline Phosphatase 151 U/L (45-117); Bilirubin, Direct 0.28 mg/dL (0.00-0.30); Cholesterol 110 mg/dL (200); Globulin 4.1 g/dL (2.2-4.2); High Density Lipoprotein 42 mg/dL; Protein, Total 7.4 g/dL (6.4-8.2); Triglycerides 97 mg/dL; Very Low Density Lipoprotein 19 mg/dL (5-40)
[2021-04-09 10:51] LABS: ALB/GLOB Ratio 0.8 RATIO (0.9-2.4); AST(SGOT) 21 U/L (15-37); Alanine Aminotransfer ALT/SGPT 21 U/L (16-61); Albumin, Serum 3.3 g/dL (3.2-5.0); Alkaline Phosphatase 149 U/L (45-117); Anion Gap 6 (5-15); BUN 14 mg/dL (7-18); BUN/Creat Ratio 9.9 RATIO (10-20); Calcium,Total 8.9 mg/dL (8.5-10.1); Chloride 105 mmol/L (98-107); Cholesterol 110 mg/dL (200); Creatinine, Serum 1.42 mg/dL (0.70-1.30); EST Glomerular Filtration Rate 53 mL/min (>60); Est Glom Filt Rate - Afr Amer 64 mL/min (>60); Globulin 4.1 g/dL (2.2-4.2); Glucose 96 mg/dL (74-106); High Density Lipoprotein 42 mg/dL; PSA,Total - Annual Screen 0.82 ng/mL (0.00-4.00); Potassium 4.2 mmol/L (3.5-5.1); Protein, Total 7.4 g/dL (6.4-8.2); Sodium Level 138 mmol/L (136-145); T4 Free Direct 1.22 ng/dL (0.76-1.46); Thyroid Stim Hormone (TSH) 0.94 uIU/mL (0.358-3.74); Triglycerides 96 mg/dL; Very Low Density Lipoprotein 19 mg/dL (5-40)
== END 2021-04-19 18:00 | disposition home or self-care (01) ==
LOC: MTLAB 08:54
PROVIDERS: Family Provider Family Medicine; PCP Family Medicine; Referring Provider Internal Medicine Cardiovascular Disease; Visit Provider Internal Medicine Cardiovascular Disease
DX: Z00.00 Encounter for general adult medical examination without abnormal findings (principal); I51.3 Intracardiac thrombosis, not elsewhere classified; Z79.01 Long term (current) use of 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s; D64.9 Anemia, unspecified; E78.2 Mixed hyperlipidemia; E03.9 Hypothyroidism, unspecified; Z12.5 Encounter for screening for malignant neoplasm of prostate
CPT/HCPCS: 36415; 80053; 80061; 80076; 84153; 84439; 84443; 85027; 85610; G0103

== ENCOUNTER 2021-05-29 10:01 | Outpatient (RCR) | payer MEDICARE, SELFPAY ==
[2021-04-19 20:39] VITALS: BMI 21.7
[2021-05-29 12:38] LABS: International Normalized Ratio 2.6; Prothrombin Time (Protime)PT. 27.1 SECONDS (11.7-14.9)
== END 2021-06-20 18:00 | disposition home or self-care (01) ==
LOC: MTLAB 10:01
PROVIDERS: Family Provider Family Medicine; PCP Family Medicine; Referring Provider Internal Medicine Cardiovascular Disease; Visit Provider Internal Medicine Cardiovascular Disease
DX: I51.3 Intracardiac thrombosis, not elsewhere classified (principal); Z79.01 Long term (current) use of 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s
CPT/HCPCS: 36415; 85610

== ENCOUNTER 2021-06-29 09:38 | Outpatient (RCR) | payer MEDICARE, SELFPAY ==
[2021-06-21 18:29] VITALS: BMI 21.7
[2021-06-29 12:21] LABS: International Normalized Ratio 2.7; Prothrombin Time (Protime)PT. 27.9 SECONDS (11.7-14.9)
== END 2021-07-20 18:00 | disposition home or self-care (01) ==
LOC: MTLAB 09:38
PROVIDERS: Family Provider Family Medicine; PCP Family Medicine; Referring Provider Internal Medicine Cardiovascular Disease; Visit Provider Internal Medicine Cardiovascular Disease
DX: I51.3 Intracardiac thrombosis, not elsewhere classified (principal); Z79.01 Long term (current) use of 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s
CPT/HCPCS: 36415; 85610

== ENCOUNTER 2021-07-31 09:28 | Outpatient (RCR) | payer MEDICARE, SELFPAY ==
[2021-07-21 01:49] VITALS: BMI 21.7
[2021-07-31 10:12] LABS: International Normalized Ratio 2.3; Prothrombin Time (Protime)PT. 24.7 SECONDS (11.7-14.9)
== END 2021-07-31 23:59 | disposition home or self-care (01) ==
LOC: MTLAB 09:28
PROVIDERS: Family Provider Family Medicine; PCP Family Medicine; Referring Provider Internal Medicine Cardiovascular Disease; Visit Provider Internal Medicine Cardiovascular Disease
DX: I51.3 Intracardiac thrombosis, not elsewhere classified (principal); Z79.01 Long term (current) use of 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s
CPT/HCPCS: 36415; 85610

== ENCOUNTER 2021-09-04 09:03 | Outpatient (RCR) | payer MEDICARE, SELFPAY ==
[2021-08-18 10:22] VITALS: BMI 21.7
[2021-08-20 12:42] LABS: International Normalized Ratio 3.3; Prothrombin Time (Protime)PT. 32.7 SECONDS (11.7-14.9)
[2021-09-04 10:26] LABS: Prothrombin Time (Protime)PT. 27.5 SECONDS (11.7-14.9)
[2021-09-04 10:27] LABS: International Normalized Ratio 2.7
== END 2021-09-17 18:00 | disposition home or self-care (01) ==
LOC: MTLAB 09:03
PROVIDERS: Family Provider Family Medicine; PCP Family Medicine; Referring Provider Internal Medicine Cardiovascular Disease; Visit Provider Internal Medicine Cardiovascular Disease
DX: I51.3 Intracardiac thrombosis, not elsewhere classified (principal); Z79.01 Long term (current) use of 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s
CPT/HCPCS: 36415; 85610

== ENCOUNTER 2021-10-05 10:08 | Outpatient (RCR) | payer MEDICARE, SELFPAY ==
[2021-09-18 03:09] VITALS: BMI 21.7
[2021-10-05 12:39] LABS: International Normalized Ratio 1.9; Prothrombin Time (Protime)PT. 21.5 SECONDS (11.7-14.9)
[2021-10-05 13:10] LABS: AST(SGOT) 20 U/L (15-37); Alanine Aminotransfer ALT/SGPT 20 U/L (16-61); Albumin, Serum 3.5 g/dL (3.2-5.0); Alkaline Phosphatase 148 U/L (45-117); Anion Gap 7 (5-15); BUN 15 mg/dL (7-18); BUN/Creat Ratio 10.5 RATIO (10-20); Bilirubin, Direct 0.21 mg/dL (0.00-0.30); Calcium,Total 9.1 mg/dL (8.5-10.1); Chloride 105 mmol/L (98-107); Cholesterol 126 mg/dL (200); Creatinine, Serum 1.43 mg/dL (0.70-1.30); EST Glomerular Filtration Rate 52 mL/min (>60); Est Glom Filt Rate - Afr Amer 64 mL/min (>60); Globulin 4.2 g/dL (2.2-4.2); Glucose 99 mg/dL (74-106); High Density Lipoprotein 39 mg/dL; Protein, Total 7.7 g/dL (6.4-8.2); Sodium Level 136 mmol/L (136-145); Thyroid Stim Hormone (TSH) 3.85 uIU/mL (0.358-3.74); Triglycerides 120 mg/dL; Very Low Density Lipoprotein 24 mg/dL (5-40)
== END 2021-10-05 18:00 | disposition home or self-care (01) ==
LOC: MTLAB 10:08
PROVIDERS: Family Provider Family Medicine; PCP Family Medicine; Referring Provider Internal Medicine Cardiovascular Disease; Visit Provider Internal Medicine Cardiovascular Disease
DX: I51.3 Intracardiac thrombosis, not elsewhere classified (principal); Z79.01 Long term (current) use of 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s; I10 Essential (primary) hypertension; E03.9 Hypothyroidism, unspecified; E87.2 Acidosis
CPT/HCPCS: 36415; 80048; 80061; 80076; 84443; 85610

== ENCOUNTER 2021-11-11 08:52 | Outpatient (RCR) | payer MEDICARE, SELFPAY ==
[2021-10-18 05:31] VITALS: BMI 21.7
[2021-11-11 10:41] LABS: International Normalized Ratio 2.4; Prothrombin Time (Protime)PT. 25.4 SECONDS (11.7-14.9)
== END 2021-11-11 18:00 | disposition home or self-care (01) ==
LOC: MTLAB 08:52
PROVIDERS: Family Provider Family Medicine; PCP Family Medicine; Referring Provider Internal Medicine Cardiovascular Disease; Visit Provider Internal Medicine Cardiovascular Disease
DX: I51.3 Intracardiac thrombosis, not elsewhere classified (principal); Z79.01 Long term (current) use of 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s
CPT/HCPCS: 36415; 85610

== ENCOUNTER 2021-12-15 09:57 | Outpatient (RCR) | payer MEDICARE, SELFPAY ==
[2021-11-17 21:48] VITALS: BMI 21.7
[2021-12-15 12:50] LABS: International Normalized Ratio 2.2; Prothrombin Time (Protime)PT. 24.4 SECONDS (11.7-14.9)
== END 2021-12-17 16:00 | disposition home or self-care (01) ==
LOC: MTLAB 09:57
PROVIDERS: Family Provider Family Medicine; PCP Family Medicine; Referring Provider Internal Medicine Cardiovascular Disease; Visit Provider Internal Medicine Cardiovascular Disease
DX: I51.3 Intracardiac thrombosis, not elsewhere classified (principal); Z79.01 Long term (current) use of 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s
CPT/HCPCS: 36415; 85610

== ENCOUNTER 2022-01-15 10:01 | Outpatient (RCR) | payer MEDICARE, SELFPAY ==
[2021-12-18 08:18] VITALS: BMI 21.7
[2022-01-15 12:17] LABS: International Normalized Ratio 2.3; Prothrombin Time (Protime)PT. 24.6 SECONDS (11.7-14.9)
== END 2022-01-17 03:28 | disposition home or self-care (01) ==
LOC: MTLAB 10:01
PROVIDERS: Family Provider Family Medicine; PCP Family Medicine; Referring Provider Internal Medicine Cardiovascular Disease; Visit Provider Internal Medicine Cardiovascular Disease
DX: I51.3 Intracardiac thrombosis, not elsewhere classified (principal); Z79.01 Long term (current) use of 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s
CPT/HCPCS: 36415; 85610

== ENCOUNTER 2022-02-18 10:06 | Outpatient (RCR) | payer MEDICARE, SELFPAY ==
[2022-01-17 03:28] VITALS: BMI 21.7
[2022-02-18 12:14] LABS: International Normalized Ratio 1.8; Prothrombin Time (Protime)PT. 20.6 SECONDS (11.7-14.9)
== END 2022-02-18 18:00 | disposition home or self-care (01) ==
LOC: MTLAB 10:06
PROVIDERS: Family Provider Family Medicine; PCP Family Medicine; Referring Provider Internal Medicine Cardiovascular Disease; Visit Provider Internal Medicine Cardiovascular Disease
DX: I51.3 Intracardiac thrombosis, not elsewhere classified (principal); Z79.01 Long term (current) use of 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s
CPT/HCPCS: 36415; 85610

== ENCOUNTER → 2022-03-19 | Outpatient (CLI) | payer MEDICARE, SELFPAY ==
[2022-03-19 12:24] LABS: International Normalized Ratio 2.6; Prothrombin Time (Protime)PT. 27.4 SECONDS (11.7-14.9)
[2022-03-19 12:25] LABS: AST(SGOT) 38 U/L (15-37); Alanine Aminotransfer ALT/SGPT 41 U/L (16-61); Albumin, Serum 3.6 g/dL (3.2-5.0); Alkaline Phosphatase 178 U/L (45-117); Bilirubin, Direct 0.29 mg/dL (0.00-0.30); Cholesterol 106 mg/dL (200); Globulin 3.7 g/dL (2.2-4.2); High Density Lipoprotein 39 mg/dL; Protein, Total 7.3 g/dL (6.4-8.2); Thyroid Stim Hormone (TSH) 1.09 uIU/mL (0.358-3.74); Triglycerides 94 mg/dL; Very Low Density Lipoprotein 19 mg/dL (5-40)
== END | disposition home or self-care (01) ==
LOC: MFPLAB 09:48
PROVIDERS: PCP Family Medicine; Referring Provider Family Medicine; Visit Provider Internal Medicine Cardiovascular Disease
DX: I25.810 Atherosclerosis of coronary artery bypass graft(s) without angina pectoris (principal); E78.00 Pure hypercholesterolemia, unspecified; I51.3 Intracardiac thrombosis, not elsewhere classified; Z95.1 Presence of aortocoronary bypass graft; Z95.5 Presence of coronary angioplasty implant and graft; Z79.01 Long term (current) use of 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s; R79.89 Other specified abnormal findings of blood chemistry
CPT/HCPCS: 36415; 80061; 80076; 84443; 85610

== ENCOUNTER 2022-04-16 10:23 | Outpatient (RCR) | payer MEDICARE, SELFPAY ==
[2022-03-20 02:33] VITALS: BMI 21.7
[2022-04-16 13:34] LABS: International Normalized Ratio 2.8; Prothrombin Time (Protime)PT. 29.2 SECONDS (11.7-14.9)
== END 2022-04-16 18:00 | disposition home or self-care (01) ==
LOC: MTLAB 10:23
PROVIDERS: Family Provider Family Medicine; PCP Family Medicine; Referring Provider Internal Medicine Cardiovascular Disease; Visit Provider Internal Medicine Cardiovascular Disease
DX: I51.3 Intracardiac thrombosis, not elsewhere classified (principal); Z79.01 Long term (current) use of 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s
CPT/HCPCS: 36415; 85610

== ENCOUNTER → 2022-04-27 | Outpatient (CLI) | payer MEDICARE, SELFPAY ==
--- NOTE | 2022-04-27 09:30 | ECHOCS_ITS ---
Reason For Study: Emboli Procedure This was a 2D Doppler, Color Flow transthoracic echocardiogram. The study was technically difficult. Contrast injection was performed. Exam performed in department. Left Ventricle Moderately dilated left ventricle. Severe segmental systolic dysfunction (see wall motion). The estimated ejection fraction is 25 %. Stage 2 diastolic dysfunction. Anterio-Basal: Hypokinetic. Infero-Basal: Hypokinetic. Basal inferoseptal: Hypokinetic. Basal anteroseptal: Hypokinetic. Mid- Anterior : Akinetic. Mid-Lateral : Hypokinetic. Mid-Inferior: Hypokinetic. Mid-inferoseptal : Akinetic. Mid-anteroseptal : Akinetic. Anterior [place] : Akinetic. Inferior [place] : Akinetic. Lateral [place] : Akinetic. Septal [place] : Dyskinetic. Right Ventricle Normal RV size. ICD or pacer leads identified within the right ventricle. Normal systolic function. Atria The left atrium is moderately enlarged. Normal right atrium. ICD or pacer leads identified within the right atrium. No doppler evidence for ASD. Mitral Valve There is no mitral annular calcification. Mild diffuse mitral valve thickening. Mild papillary muscle dysfunction of the mitral valve. Moderately severe (3+) eccentric mitral valve insufficiency. Tricuspid Valve Normal tricuspid valve. Moderate (2+) tricuspid valve insufficiency. Right ventricular systolic pressure estimated to be 42 mmHg. Aortic Valve Trisinus/trileaflet aortic valve. Normal aortic valve. Pulmonic Valve The pulmonic valve is not well visualized. Great Vessels Normal sized aortic root. Pericardium/Pleural No pericardial effusion. Medication 20 gauge I.V. with prn adaptor inserted into right arm. Diluted definity 1.5ml given slow IV push to enhance endocardial definition. MMode/2D Measurements & Calculations LVIDd: 6.8 cm IVSd: 0.73 cm Ao root diam: 3.2 cm LVIDs: 6.0 cm LVPWd: 0.82 cm LA dimension: 5.1 cm RVDd: 3.6 cm FS: 10.9 % LAV(MOD-bp): 89.1 ml LA A4 area: 27.6 cm2 RA A4 area: 13.7 cm2 LAV(MOD-bp) Indexed: 45.1 ml/m2 LAV(MOD-sp2): 71.8 ml LAV(MOD-sp4): 98.8 ml Time Measurements MV dec time: 0.12 sec Doppler Measurements & Calculations MV E max travis: 87.2 cm/sec Lat Peak E' Travis: 8.8 cm/sec Med Peak E' Travis: 7.0 cm/sec MV A max travis: 57.0 cm/sec E/E' lat: 9.9 E/E' med: 12.4 MV E/A: 1.5 MV V2 max: 112.2 cm/sec MV P1/2t max travis: 112.7 cm/sec Ao V2 max: 102.5 cm/sec MV max P.0 mmHg MV P1/2t: 47.9 msec Ao max P.2 mmHg MV V2 mean: 51.2 cm/sec MV dec slope: 688.8 cm/sec2 Ao V2 mean: 73.8 cm/sec MV mean P.3 mmHg Ao mean P.5 mmHg MV V2 VTI: 25.4 cm MVA(P1/2t): 4.6 cm2 Ao V2 VTI: 22.2 cm LV V1 max: 88.9 cm/sec MR max travis: 479.2 cm/sec PA V2 max: 86.9 cm/sec LV V1 max P.2 mmHg MR max P.9 mmHg PA V2 mean: 62.3 cm/sec LV V1 mean P.9 mmHg MR mean travis: 357.3 cm/sec LV V1 mean: 64.8 cm/sec MR mean P.9 mmHg LV V1 VTI: 19.2 cm MR VTI: 174.9 cm TR max travis: 292.0 cm/sec TR max P.2 mmHg ECHO/Echo Complete W/ Contrast Interpretation Summary The study was technically difficult. Contrast injection was performed. Moderately dilated left ventricle. Severe segmental systolic dysfunction (see wall motion). The estimated ejection fraction is 25 %. The left atrium is moderately enlarged. Mild diffuse mitral valve thickening. Mild papillary muscle dysfunction of the mitral valve. Moderately severe (3+) eccentric mitral valve insufficiency. Moderate (2+) tricuspid valve insufficiency. Right ventricular systolic pressure estimated to be 42 mmHg. Stage 2 diastolic dysfunction. ICD or pacer leads identified within the right atrium ICD or pacer leads identified within the right ventricle. Comment: Echodensity near the left ventricular apex potentially compatible with a calcified left ventricular apical thrombus. Ordering Physician: Heather Purvis Referring Physician: Khanh Marks Performed By: Sean Lainez RCS
== END | disposition home or self-care (01) ==
LOC: CVS 09:29
PROVIDERS: PCP Family Medicine; Referring Provider Physician Assistant Medical; Visit Provider Physician Assistant Medical
DX: I25.810 Atherosclerosis of coronary artery bypass graft(s) without angina pectoris (principal)
CPT/HCPCS: 93306; Q9957; A4216; C8929

== ENCOUNTER 2022-06-04 08:38 | Outpatient (RCR) | payer MEDICARE, SELFPAY ==
[2022-04-20 10:28] VITALS: BMI 21.7
[2022-05-24 10:18] LABS: International Normalized Ratio 1.8; Prothrombin Time (Protime)PT. 20.5 SECONDS (11.7-14.9)
[2022-06-04 10:01] LABS: International Normalized Ratio 2.5; Prothrombin Time (Protime)PT. 26.7 SECONDS (11.7-14.9)
[2022-06-04 10:19] LABS: Anion Gap 5 (5-15); BUN 17 mg/dL (7-18); BUN/Creat Ratio 12.1 RATIO (10-20); Chloride 104 mmol/L (98-107); EST Glomerular Filtration Rate 54 mL/min (>60); Est Glom Filt Rate - Afr Amer 65 mL/min (>60); Glucose 96 mg/dL (74-106); Potassium 3.9 mmol/L (3.5-5.1); Sodium Level 138 mmol/L (136-145)
== END 2022-06-04 18:00 | disposition home or self-care (01) ==
LOC: MTLAB 08:38
PROVIDERS: Family Provider Family Medicine; PCP Family Medicine; Referring Provider Internal Medicine Cardiovascular Disease; Visit Provider Internal Medicine Cardiovascular Disease
DX: I51.3 Intracardiac thrombosis, not elsewhere classified (principal); I10 Essential (primary) hypertension; Z79.01 Long term (current) use of 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s
CPT/HCPCS: 36415; 80048; 85610

== ENCOUNTER 2022-07-08 09:15 | Outpatient (RCR) | payer MEDICARE, SELFPAY ==
[2022-06-20 06:29] VITALS: BMI 21.7
[2022-07-08 10:38] LABS: International Normalized Ratio 1.7; Prothrombin Time (Protime)PT. 19.7 SECONDS (11.7-14.9)
== END 2022-07-08 11:15 | disposition home or self-care (01) ==
LOC: MTLAB 09:15
PROVIDERS: Family Provider Family Medicine; PCP Family Medicine; Referring Provider Internal Medicine Cardiovascular Disease; Visit Provider Internal Medicine Cardiovascular Disease
DX: I51.3 Intracardiac thrombosis, not elsewhere classified (principal); Z79.01 Long term (current) use of 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s
CPT/HCPCS: 36415; 85610

== ENCOUNTER 2022-07-23 08:35 | Outpatient (RCR) | payer MEDICARE, SELFPAY ==
[2022-07-21 07:38] VITALS: BMI 21.7
[2022-07-23 10:04] LABS: International Normalized Ratio 2.4; Prothrombin Time (Protime)PT. 25.9 SECONDS (11.7-14.9)
== END 2022-07-23 18:00 | disposition home or self-care (01) ==
LOC: MTLAB 08:35
PROVIDERS: Family Provider Family Medicine; PCP Family Medicine; Referring Provider Internal Medicine Cardiovascular Disease; Visit Provider Internal Medicine Cardiovascular Disease
DX: I51.3 Intracardiac thrombosis, not elsewhere classified (principal); Z79.01 Long term (current) use of 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s
CPT/HCPCS: 36415; 85610

== ENCOUNTER 2022-08-20 08:53 | Outpatient (RCR) | payer MEDICARE, SELFPAY ==
[2022-08-17 23:18] VITALS: BMI 21.7
[2022-08-20 10:34] LABS: International Normalized Ratio 2.7; Prothrombin Time (Protime)PT. 28.5 SECONDS (11.7-14.9)
[2022-08-20 11:01] LABS: Uric Acid 7.4 mg/dL (3.5-7.2)
== END 2022-09-17 20:55 | disposition home or self-care (01) ==
LOC: MTLAB 08:53
PROVIDERS: Family Provider Family Medicine; PCP Family Medicine; Referring Provider Internal Medicine Cardiovascular Disease; Visit Provider Internal Medicine Cardiovascular Disease
DX: I51.3 Intracardiac thrombosis, not elsewhere classified (principal); Z79.01 Long term (current) use of 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s; M79.671 Pain in right foot
CPT/HCPCS: 36415; 84550; 85610

== ENCOUNTER 2022-09-23 10:53 | Outpatient (RCR) | payer MEDICARE, SELFPAY ==
[2022-09-17 20:55] VITALS: BMI 21.7
[2022-09-23 12:37] LABS: International Normalized Ratio 2.1; Prothrombin Time (Protime)PT. 22.8 SECONDS (11.7-14.9)
== END 2022-10-17 05:22 | disposition home or self-care (01) ==
LOC: MTLAB 10:53
PROVIDERS: Internal Medicine Cardiovascular Disease; Family Provider Family Medicine; PCP Family Medicine; Referring Provider Nurse Practitioner Family; Visit Provider Nurse Practitioner Family
DX: I51.3 Intracardiac thrombosis, not elsewhere classified (principal); Z79.01 Long term (current) use of 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s
CPT/HCPCS: 36415; 85610

== ENCOUNTER 2022-11-12 09:38 | Outpatient (RCR) | payer MEDICARE, SELFPAY ==
[2022-10-17 05:22] VITALS: BMI 21.7
[2022-11-12 12:26] LABS: International Normalized Ratio 2.1; Prothrombin Time (Protime)PT. 23.5 SECONDS (11.7-14.9)
== END 2022-11-12 10:38 | disposition home or self-care (01) ==
LOC: MTLAB 09:38
PROVIDERS: Family Provider Family Medicine; PCP Family Medicine; Referring Provider Nurse Practitioner Family; Visit Provider Nurse Practitioner Family
DX: I51.3 Intracardiac thrombosis, not elsewhere classified (principal); Z79.01 Long term (current) use of 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s
CPT/HCPCS: 36415; 85610

== ENCOUNTER 2022-12-17 08:59 | Outpatient (RCR) | payer MEDICARE, SELFPAY ==
[2022-11-18 08:09] VITALS: BMI 21.7
[2022-12-03 10:38] LABS: Hematocrit 40.5 % (40-54); Hemoglobin 14.1 g/dL (13.0-16.5); Mean Corp Hgb Conc 34.8 g/dL (32-36); Mean Corpuscular Hgb 33.2 pg (27.0-32.0); Mean Corpuscular Volume 95.3 fL (80-94); Mean Platelet Vol. 9.6 fl (6.2-12.0); Platelet Count 138 K/mm3 (150-450); RBC Distribution Width CV 13.2 % (11.6-14.6); RBC Distribution Width SD 45.7 fl (35.1-43.9); Red Blood Count 4.25 M/mm3 (4.6-6.2); White Blood Count 4.6 K/mm3 (4.4-11.0)
[2022-12-03 10:42] LABS: International Normalized Ratio 1.8
[2022-12-03 10:50] LABS: AST(SGOT) 17 U/L (15-37); Alanine Aminotransfer ALT/SGPT 18 U/L (16-61); Albumin, Serum 3.5 g/dL (3.2-5.0); Alkaline Phosphatase 138 U/L (45-117); Anion Gap 5 (5-15); BUN 13 mg/dL (7-18); BUN/Creat Ratio 9.2 RATIO (10-20); Calcium,Total 9.3 mg/dL (8.5-10.1); Chloride 105 mmol/L (98-107); Cholesterol 123 mg/dL (200); Creatinine, Serum 1.41 mg/dL (0.70-1.30); EST Glomerular Filtration Rate 53 mL/min (>60); Est Glom Filt Rate - Afr Amer 64 mL/min (>60); Globulin 3.6 g/dL (2.2-4.2); Glucose 92 mg/dL (74-106); High Density Lipoprotein 38 mg/dL; PSA,Total - Annual Screen 0.67 ng/mL (0.00-4.00); Protein, Total 7.1 g/dL (6.4-8.2); Sodium Level 138 mmol/L (136-145); Thyroid Stim Hormone (TSH) 1.57 uIU/mL (0.358-3.74); Triglycerides 166 mg/dL; Very Low Density Lipoprotein 33 mg/dL (5-40)
[2022-12-03 13:25] LABS: AST(SGOT) 19 U/L (15-37); Alanine Aminotransfer ALT/SGPT 17 U/L (16-61); Albumin, Serum 3.5 g/dL (3.2-5.0); Alkaline Phosphatase 139 U/L (45-117); Globulin 3.5 g/dL (2.2-4.2)
[2022-12-17 10:45] LABS: International Normalized Ratio 2.7; Prothrombin Time (Protime)PT. 28.6 SECONDS (11.7-14.9)
== END 2022-12-17 18:00 | disposition home or self-care (01) ==
LOC: MTLAB 08:59
PROVIDERS: Internal Medicine Cardiovascular Disease; Family Provider Family Medicine; PCP Family Medicine; Referring Provider Nurse Practitioner Family; Visit Provider Nurse Practitioner Family
DX: I51.3 Intracardiac thrombosis, not elsewhere classified (principal); Z79.01 Long term (current) use of 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s; I11.0 Hypertensive heart disease with heart failure; E03.9 Hypothyroidism, unspecified; Z12.5 Encounter for screening for malignant neoplasm of prostate; E78.00 Pure hypercholesterolemia, unspecified
CPT/HCPCS: 36415; 80053; 80061; 80076; 84153; 84443; 85027; 85610; G0103

== ENCOUNTER → 2022-12-29 | Outpatient (CLI) | payer MEDICARE, SELFPAY ==
--- NOTE | 2022-12-29 11:12 | STRESSREP ---
Stress Test Report Pharmacologic myocardial perfusion stress test. 67-year-old man with a history of coronary artery disease cardiomyopathy ICD implantation ejection fraction 25% Resting EKG demonstrates sinus rhythm with a rate of 66 bpm. Resting blood pressure is 116/84 mmHg. 0.4 mg of regadenoson was infused per usual protocol followed by rapid intravenous saline flush injection. Continuous EKG monitoring was performed. The maximum heart rate was 114 bpm which was 75% of max impacted heart rate the maximum workload was 1 metabolic equivalent. At rest there were no ST or T wave changes noted to suggest ischemia and at peak infusion nonspecific ST changes were noted which did not meet the criteria for ischemia. No clinical angina is noted. The final blood pressure was 110/60 mmHg. Myocardial perfusion protocol. 10.9 mCi of technetium 99m sestamibi was injected at rest. 0.4 mg of regadenoson was infused per usual protocol. At peak infusion 33.8 mCi of technetium 99m sestamibi was injected stress images were obtained stress and rest images were reconstructed and compared in the short axis vertical long and horizontal long axis. Gated images were also obtained. Perfusion SPECT analysis: Review of the stress images demonstrate normal uptake of tracer noted in all areas of the myocardium with the anterior wall exhibiting a large perfusion defect extending to the apex and anteroseptal wall. The resting images similar demonstrated uptake of tracer. The above is suggestive of a previous extensive anterior septal and apical infarct with no reversibility to suggest ischemia. Gated SPECT analysis: The gated ejection fraction is 27%. Conclusion: Abnormal pharmacologic myocardial perfusion stress test. Extensive anterior apical and anteroseptal perfusion defect consistent with prior infarct Reduced ejection fraction. Cardiomyopathy present.
== END | disposition home or self-care (01) ==
LOC: CVS 06:22
PROVIDERS: PCP Family Medicine; Referring Provider Nurse Practitioner Family; Visit Provider Nurse Practitioner Family
DX: I47.29 Other ventricular tachycardia (principal); Z95.1 Presence of aortocoronary bypass graft; Z95.5 Presence of coronary angioplasty implant and graft; Z95.810 Presence of automatic (implantable) cardiac defibrillator
CPT/HCPCS: 78452; 93017; A9500; A4216; J2785

== ENCOUNTER 2023-01-21 08:42 | Outpatient (RCR) | payer MEDICARE, SELFPAY ==
[2022-12-18 02:42] VITALS: BMI 21.7
[2023-01-21 10:08] LABS: International Normalized Ratio 2.8; Prothrombin Time (Protime)PT. 29.4 SECONDS (11.7-14.9)
== END 2023-01-21 18:00 | disposition home or self-care (01) ==
LOC: MTLAB 08:42
PROVIDERS: Family Provider Family Medicine; PCP Family Medicine; Referring Provider Nurse Practitioner Family; Visit Provider Nurse Practitioner Family
DX: I51.3 Intracardiac thrombosis, not elsewhere classified (principal); Z79.01 Long term (current) use of 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s
CPT/HCPCS: 36415; 85610

== ENCOUNTER 2023-03-18 09:01 | Outpatient (RCR) | payer MEDICARE, SELFPAY ==
[2023-02-18 02:03] VITALS: BMI 21.7
[2023-03-03 11:06] LABS: International Normalized Ratio 1.8; Prothrombin Time (Protime)PT. 21.4 SECONDS (11.7-14.9)
[2023-03-18 10:22] LABS: International Normalized Ratio 3.3; Prothrombin Time (Protime)PT. 33.6 SECONDS (11.7-14.9)
== END 2023-03-18 18:00 | disposition home or self-care (01) ==
LOC: MTLAB 09:01
PROVIDERS: Family Provider Family Medicine; PCP Family Medicine; Referring Provider Nurse Practitioner Family; Visit Provider Nurse Practitioner Family
DX: I51.3 Intracardiac thrombosis, not elsewhere classified (principal); Z79.01 Long term (current) use of 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s
CPT/HCPCS: 36415; 85610

== ENCOUNTER 2023-04-11 09:23 | Outpatient (RCR) | payer MEDICARE, SELFPAY ==
[2023-03-20 05:02] VITALS: BMI 21.7
[2023-04-11 10:42] LABS: International Normalized Ratio 2.6; Prothrombin Time (Protime)PT. 27.9 SECONDS (11.7-14.9)
== END 2023-04-11 18:00 | disposition home or self-care (01) ==
LOC: MTLAB 09:23
PROVIDERS: Family Provider Family Medicine; PCP Family Medicine; Referring Provider Nurse Practitioner Family; Visit Provider Nurse Practitioner Family
DX: I51.3 Intracardiac thrombosis, not elsewhere classified (principal); Z79.01 Long term (current) use of 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s; I25.5 Ischemic cardiomyopathy
CPT/HCPCS: 36415; 85610

== ENCOUNTER 2023-05-18 10:00 | Outpatient (RCR) | payer MEDICARE, SELFPAY ==
[2023-04-19 23:10] VITALS: BMI 21.7
[2023-05-18 12:57] LABS: International Normalized Ratio 2.5; Prothrombin Time (Protime)PT. 27.5 SECONDS (11.7-14.9)
== END 2023-05-19 18:00 | disposition home or self-care (01) ==
LOC: MTLAB 10:00
PROVIDERS: Internal Medicine Cardiovascular Disease; Family Provider Family Medicine; PCP Family Medicine; Referring Provider Nurse Practitioner Family; Visit Provider Nurse Practitioner Family
DX: I51.3 Intracardiac thrombosis, not elsewhere classified (principal); Z79.01 Long term (current) use of 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s; I25.5 Ischemic cardiomyopathy
CPT/HCPCS: 36415; 85610

== ENCOUNTER 2023-06-22 08:47 | Outpatient (RCR) | payer MEDICARE, SELFPAY ==
[2023-05-20 05:41] VITALS: BMI 21.7
[2023-06-22 11:05] LABS: Prothrombin Time (Protime)PT. 22.7 SECONDS (11.7-14.9)
== END 2023-06-22 18:00 | disposition home or self-care (01) ==
LOC: MTLAB 08:47
PROVIDERS: Family Provider Family Medicine; PCP Family Medicine; Referring Provider Nurse Practitioner Family; Visit Provider Nurse Practitioner Family
DX: I51.3 Intracardiac thrombosis, not elsewhere classified (principal); Z79.01 Long term (current) use of 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s
CPT/HCPCS: 36415; 85610

== ENCOUNTER 2023-08-12 06:53 | Day surgery (SDC) | payer MEDICARE, SELFPAY ==
[2023-06-24 10:55] LABS: Absolute Lymphocyte Count 0.87 X10^3/uL (0.83-4.51); Absolute Neutrophil Count 4.6 X10^3/uL (2.0-7.7); Basophil# 0.04 X10^3/uL; Basophil% 0.6 % (0-1); Eosinophil# 0.23 X10^3/uL; Eosinophils% 3.6 % (0-5); Hematocrit 44.3 % (40-54); Hemoglobin 15.4 g/dL (13.0-16.5); Lymphocyte # 0.87 X10^3/ul (0.83-4.51); Lymphocyte % 13.6 % (19-41); Mean Corp Hgb Conc 34.8 g/dL (32-36); Mean Corpuscular Volume 97.8 fL (80-94); Mean Platelet Vol. 9.3 fl (6.2-12.0); Monocyte% 10.9 % (0-10); NRBC Flagged by Analyzer 0 % (0-5); Neutrophil # 4.56 X10^3/uL (2.7-7.7); Platelet Count 156 K/mm3 (150-450); RBC Distribution Width CV 13.1 % (11.6-14.6); RBC Distribution Width SD 46.4 fl (35.1-43.9); Red Blood Count 4.53 M/mm3 (4.6-6.2); White Blood Count 6.4 K/mm3 (4.4-11.0)
[2023-08-12] VITALS (7 sets, daily range): BP systolic 79–103; BP diastolic 59–77; PULSE 65–82; RESP 16–18; TEMP 36.1–36.5; O2SAT 97–100; BMI 23.3
--- OUTSIDE RECORDS SUMMARY | 2023-08-12 07:10 | XMS RPT_ITS | CCD ---
Author Name Unknown Address [address] [place] [address] Organization [facility] Care Team Providers Care Protein Scientist Name Role Phone Roof MOUNTER SOUSAPHONES, Angel Granados Unavailable Julio Ford Unavailable Unavailable Julio Ford Unavailable Unavailable Morgan Edward Unavailable Unavailable Pedro, RN, Ana Faye Unavailable Unavailrhonda Duncan RN, Debbie A Unavailable Unavailable Perla SALDIVAR, Debbie A Unavailable Unavailable Perla SALDIVAR, Debbie A Unavailable Unavailable Perla SALDIVAR, Debbie A Unavailable Unavailable Perla SALDIVAR, Debbie A Unavailable Unavailable YARIEL Moreno, Camilla Faye Unavailable Unavailable Perla RN, Debbie A Unavailable Unavailable Perla RN, Debbie A Unavailable Unavailable Perla RN, Debbie A Unavailable Unavailable Perla RN, Debbie A Unavailable Unavailable JOSH GASPAR Unavailable Unavailable JODIE DAVENPORT Unavailable Unavailable Perla RN, Debbie A Unavailable Unavailable Perla RN, Debbie A Unavailable Unavailable Perla SALDIVAR, Debbie A Unavailable Unavailable YARIEL Vasquez, Ana Faye Unavailable Unavailrhonda Renae MD, Jose Calvo Unavailable Allergies Allergy Classification Reported Allergen(s) Allergy Type Date of Onset Reaction(s) Facility (20 sources) penicillin drug allergy 09-15-2010 [facility] Work Phone: Medications Completed/Discontinued Medications Medication Drug Class(es) Dates Sig (Normalized) Sig (Original) aspirin 81 mg oral tablet (20 sources) Nonsteroidal Anti-inflammatory Drug Start: 09-15-2010 take 1 tablet by mouth once daily ASPIRIN 81 MG TABS One tablet by mouth daily ASPIRIN [id number] Carolin Palma Problems Active Problems Problem Classification Problem Date Documented Date Episodic/Chronic Acute cerebrovascular disease (20 sources) Cerebral infarction due to embolism of cerebral arteries; Translations: [Cerebral infarction due to embolism of unspecified cerebral artery] Onset: 09-15-2010 09-15-2010 Chronic Cardiac dysrhythmias (20 sources) Ventricular tachycardia; Translations: [Ventricular tachycardia] Onset: 02-16-2016 02-16-2016 Chronic Complication of device; implant or graft (20 sources) Atherosclerosis of coronary artery bypass graft(s) without angina pectoris; Translations: [Atherosclerosis of coronary artery bypass graft(s) without angina pectoris] Onset: 02-12-2016 02-12-2016 Chronic Coronary atherosclerosis and other heart disease (20 sources) Coronary arteriosclerosis; Translations: [Myocardial ischemia] Onset: 09-15-2010 09-15-2010 Chronic Disorders of lipid metabolism (20 sources) Hyperlipidemia; Translations: [Hyperlipidemia, unspecified] Onset: 09-15-2010 09-15-2010 Chronic Other and ill-defined heart disease (20 sources) Mural thrombus of heart; Translations: [ST elevation (STEMI) myocardial infarction involving other coronary artery of anterior wall] Onset: 06-04-2011 06-04-2011 Chronic Peripheral and visceral atherosclerosis (20 sources) Peripheral vascular disease; Translations: [Peripheral vascular disease, unspecified] Onset: 12-06-2011 12-06-2011 Chronic Unclassified (14 sources) Implantation of automatic cardiac defibrillator ; Translations: [Presence of automatic (implantable) cardiac defibrillator] Onset: 09-15-2010 09-15-2010 Unclassified (7 sources) Warfarin therapy started; Translations: [penitentiary (current) use of 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s] Onset: 08-31-2016 08-31-2016 Unclassified (7 sources) Long-term drug therapy; Translations: [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] Onset: 09-15-2010 09-15-2010 Past or Other Problems Problem Classification Problem Date Documented Da te Episodic/Chronic Coronary atherosclerosis and other heart disease (20 sources) Coronary angioplasty status; Translations: [Presence of aortocoronary bypass graft] Onset: 09-15-2010 09-15-2010 Episodic Crushing injury or internal injury (20 sources) Injury of saphenous vein; Translations: [Unspecified injury of other blood vessels at lower leg level, unspecified leg] Onset: 09-15-2010 09-15-2010 Episodic Other aftercare (20 sources) long term care phlebotomist (current) use of 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s; Translations: [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] Onset: 09-15-2010 08-31-2016 Episodic Phlebitis; thrombophlebitis and thromboembolism (20 sources) Deep venous thrombosis; Translations: [Acute embolism and thrombosis of unspecified vein] Onset: 11-29-2011 11-29-2011 Episodic Unclassified (20 sources) Family history of stroke; Translations: [Family history of stroke] 07-15-2014 Episodic Results Test Name Value Interpretation Reference Range Facil ity Vital Signs Date Time Vital Sign Value Performing Clinician Gallito nelson 02-23-2017 14:05-0400 BMI (Body Mass Index) 23.01 kg/m2 Julio [facility] Work Phone: 02-23-2017 14:05-0400 BP Diastolic 72 mm[Hg] [facility] Work Phone: 02-23-2017 14:05-0400 BP Systolic 120 mm[Hg] [facility] Work Phone: 02-23-2017 14:05-0400 Height 180.34 cm [facility]io [facility] Work Phone: 02-23-2017 14:05-0400 Pulse (Heart Rate) 64 /min [facility]io [facility] Work Phone: 02-23-2017 14:05-0400 Respiratory Rate 18 /min Julio [facility] Work Phone: 02-23-2017 14:05-0400 Weight 74.84 kg Julio [facility] Work Phone: 08-18-2016 13:57-0500 BMI (Body Mass Index) 22.48 kg/m2 Debbie [facility] Work Phone: 08-18-2016 13:57-0500 BP Diastolic 72 mm[Hg] Debbie [facility] Work Phone: 08-18-2016 13:57-0500 BP Systolic 120 mm[Hg] [facility] Work Phone: 08-18-2016 13:57-0500 Height 180.34 cm Debbie Duncan RN [facility] Work Phone: 08-18-2016 13:57-0500 Pulse (Heart Rate) 74 /min Debbie Duncan RN [facility] Work Phone: 08-18-2016 13:57-0500 Respiratory Rate 16 /min Debbie Duncan RN [facility] Work Phone: 08-18-2016 13:57-0500 Weight 73.12 kg Debbie Duncan RN [facility] Work Phone: 02-16-2016 13:35-0400 BSA (Body Surface Area) 1.92 m2 Debbie Duncan RN [facility] Work Phone: 07-15-2014 10:23-0500 Heart rate 62 /min Debbie Duncan RN [facility] Work Phone: 02-23-2013 11:22-0400 Heart rate 412 ms Debbie Duncan RN [facility] Work Phone: Encounters Encounter Date Encounter Type Care Provider Facility Start: 06-02-2018 End: 06-02-2018 Patient encounter procedure JOSH GASPAR Facility:B Procedures Date Procedure Procedure Detail Performing Clinician Start: 02-23-2017 End: 02-23-2017 Device Interrogation Jose Renae MD Start: 02-23-2017 End: 02-23-2017 Follow Up Appt 6 months Jose Renae MD Start: 02-23-2017 End: 02-23-2017 MMM Joes Renae MD Start: 02-23-2017 End: 02-24-2017 Prgrmng dev eval implantable in persn 1 ld dfb Jose Renae MD Start: 02-23-2017 End: 02-23-2017 Device Interrogation Jose Renae MD Start: 02-23-2017 End: 02-23-2017 Follow Up Appt 6 months Jose Renae MD Start: 02-23-2017 End: 02-24-2017 Icd device prog eval, 1 sngl Jose Renae MD Start: 02-23-2017 End: 02-23-2017 MMM Jose Renae MD Start: 02-01-2017 End: 02-04-2017 *Hepatic Function Panel Jose Renae MD Start: 02-01-2017 End: 02-04-2017 Lipid 1996 panel - Serum or Plasma Jose Renae MD Start: 02-01-2017 End: 02-04-2017 *Hepatic Function Panel Jose Renae MD Start: 02-01-2017 End: 02-04-2017 Lipid panel [AGGREGATE] Jose Renae MD Start: 12-03-2016 End: 12-03-2016 Prgrmng dev eval implantable in persn 1 ld dfb Jose Renae MD Start: 12-03-2016 End: 12-03-2016 Icd device prog eval, 1 sngl Jose Renae MD Start: 08-31-2016 End: 09-24-2016 INR in Platelet poor plasma by Coagulation assay Jose Renae MD Start: 08-31-2016 End: 09-24-2016 Coagulation factor induced.INR assay in platelet poor plasma Jose Renae MD Start: 08-18-2016 End: 08-27-2016 *BMP Heather Purvis PA-C Work Phone: Start: 08-18-2016 End: 08-27-2016 CBC W Auto Differential panel - Blood Heather Purvis PA-C Work Phone: Start: 08-18-2016 End: 08-18-2016 Follow Up Appt 6 months Heather Purvis PA-C Work Phone: Start: 08-18-2016 End: 08-27-2016 Magnesium [Mass/volume] in Serum or Plasma Heather Purvis PA-C Work Phone: Start: 08-18-2016 End: 08-18-2016 PFM Heather Purvis PA-C Work Phone: Start: 08-18-2016 End: 08-18-2016 Prgrmng dev eval implantable in persn 1 ld dfb Jose Renae MD Start: 08-18-2016 End: 08-27-2016 *BMP Heather Purvis PA-C Work Phone: Start: 08-18-2016 End: 08-27-2016 CBC W Auto Differential panel - Blood Heather Purvis PA-C Work Phone: Start: 08-18-2016 End: 08-18-2016 Follow Up Appt 6 months Heather Purvis PA-C Work Phone: Start: 08-18-2016 End: 08-18-2016 Icd device prog eval, 1 sngl Jose Renae MD Start: 08-18-2016 End: 08-27-2016 Magnesium Heather Purvis PA-C Work Phone: Start: 08-18-2016 End: 08-18-2016 PFM Heather Purvis PA-C Work Phone: Start: 05-18-2016 End: 08-12-2016 Follow Up Appt 3 months Heather Purvis PA-C Work Phone: Start: 05-18-2016 End: 08-12-2016 Pacer Clinic Heather Purvis PA-C Work Phone: Start: 05-18-2016 End: 05-18-2016 Prgrmng dev eval implantable in persn 1 ld dfb Heather Purvis PA-C Work Phone: Start: 05-18-2016 End: 08-12-2016 Follow Up Appt 3 months Heather Purvis PA-C Work Phone: Start: 05-18-2016 End: 05-18-2016 Icd device prog eval, 1 sngl Heather Purvis PA-C Work Phone: Start: 05-18-2016 End: 08-12-2016 Pacer Clinic Heather Purvis PA-C Work Phone: Start: 02-16-2016 End: 04-23-2016 *Hepatic Function Panel Jose Renae MD Start: 02-16-2016 End: 02-16-2016 Device Interrogation Jose Renae MD Start: 02-16-2016 End: 04-23-2016 Echocardiography Jose Renae MD Start: 02-16-2016 End: 08-12-2016 Follow Up Appt 3 months Jose Renae MD Start: 02-16-2016 End: 04-23-2016 Follow Up Appt 6 months Jose Renae MD Start: 02-16-2016 End: 04-23-2016 Lipid 1996 panel - Serum or Plasma Jose Renae MD Start: 02-16-2016 End: 04-23-2016 MMM Jose Renae MD Start: 02-16-2016 End: 04-23-2016 Pacer Clinic Jose Renae MD Start: 02-16-2016 End: 02-16-2016 Prgrmng dev eval implantable in persn 1 ld dfb Jose Renae MD Start: 02-16-2016 End: 04-23-2016 *Hepatic Function Panel Jose Renae MD Start: 02-16-2016 End: 02-16-2016 Device Interrogation Jose Renae MD Start: 02-16-2016 End: 04-23-2016 Echocardiography Jose Renae MD Start: 02-16-2016 End: 08-12-2016 Follow Up Appt 3 months Jose Renae MD Start: 02-16-2016 End: 04-23-2016 Follow Up Appt 6 months Jose Renae MD Start: 02-16-2016 End: 02-16-2016 Icd device prog eval, 1 sngl Jose Renae MD Start: 02-16-2016 End: 04-23-2016 Lipid panel [AGGREGATE] Jose Renae MD Start: 02-16-2016 End: 04-23-2016 MMM Jose Renae MD Start: 02-16-2016 End: 04-23-2016 Pacer Clinic Jose Renae MD Start: 01-30-2016 End: 02-16-2016 *Hepatic Function Panel Neyda Espinosa Start: 01-30-2016 End: 02-16-2016 Lipid 1996 panel - Serum or Plasma Noel Parikh MD Start: 01-30-2016 End: 02-16-2016 *Hepatic Function Panel Neyda Espinosa Start: 01-30-2016 End: 02-16-2016 Lipid panel [AGGREGATE] Neyda Espinosa Start: 10-31-2015 End: 04-23-2016 Follow Up Appt 3 months Jose Renae MD Start: 10-31-2015 End: 04-23-2016 Pacer Clinic Jose Renae MD Start: 10-31-2015 End: 10-31-2015 Prgrmng dev eval implantable in persn 1 ld dfb Jose Renae MD Start: 10-31-2015 End: 04-23-2016 Follow Up Appt 3 months Jose Renae MD Start: 10-31-2015 End: 10-31-2015 Icd device prog eval, 1 sngl Jose Renae MD Start: 10-31-2015 End: 04-23-2016 Pacer Clinic Jose Renae MD Start: 08-01-2015 End: 08-01-2015 *Hepatic Function Panel Jose Renae MD Start: 08-01-2015 End: 08-01-2015 Lipid 1996 panel - Serum or Plasma Jose Renae MD Start: 08-01-2015 End: 08-01-2015 *Hepatic Function Panel Jose Renae MD Start: 08-01-2015 End: 08-01-2015 Lipid panel [AGGREGATE] Jose Renae MD Start: 07-21-2015 End: 04-23-2016 Follow Up Appt 3 months Neyda Espinosa Start: 07-21-2015 End: 07-21-2015 Follow Up Appt 6 months Heather Purvis PA-C Work Phone: Start: 07-21-2015 End: 04-23-2016 Pacer Clinic Noel Parikh MD Start: 07-21-2015 End: 07-21-2015 PFM Heather Purvis PA-C Work Phone: Start: 07-21-2015 End: 07-21-2015 Prgrmng dev eval implantable in persn 1 ld dfb Noel Parikh MD Start: 07-21-2015 End: 04-23-2016 Follow Up Appt 3 months Neyda Espinosa Start: 07-21-2015 End: 07-21-2015 Follow Up Appt 6 months Heather Purvis PA-C Work Phone: Start: 07-21-2015 End: 07-21-2015 Icd device prog eval, 1 sngl Noel Parikh MD Start: 07-21-2015 End: 04-23-2016 Pacer Clinic Noel Parikh MD Start: 07-21-2015 End: 07-21-2015 PFM Heather Purvis PA-C Work Phone: Start: 04-17-2015 End: 07-21-2015 Follow Up Appt 3 months Jose Renae MD Start: 04-17-2015 End: 07-21-2015 Pacer Clinic Jose Renae MD Start: 04-17-2015 End: 04-18-2015 Prgrmng dev eval implantable in persn 1 ld dfb Jose Renae MD Start: 04-17-2015 End: 07-21-2015 Follow Up Appt 3 months Jose Renae MD Start: 04-17-2015 End: 04-18-2015 Icd device prog eval, 1 sngl Jose Renae MD Start: 04-17-2015 End: 07-21-2015 Pacer Clinic Jose Renae MD Start: 02-13-2015 End: 02-14-2015 *Hepatic Function Panel Jose Renae MD Start: 02-13-2015 End: 02-14-2015 Lipid 1996 panel - Serum or Plasma Jose Renae MD Start: 02-13-2015 End: 02-14-2015 *Hepatic Function Panel Jose Renae MD Start: 02-13-2015 End: 02-14-2015 Lipid panel [AGGREGATE] Jose Renae MD Start: 01-15-2015 End: 07-21-2015 Device Interrogation Jose Renae MD Start: 01-15-2015 End: 01-16-2015 Documentation of current medications Jose Renae MD Start: 01-15-2015 End: 07-21-2015 Follow Up Appt 3 months Jose Renae MD Start: 01-15-2015 End: 07-21-2015 Follow Up Appt 6 months Jose Renae MD Start: 01-15-2015 End: 07-21-2015 MMM Jose Renae MD Start: 01-15-2015 End: 07-21-2015 Pacer Clinic Joes Renae MD Start: 01-15-2015 End: 01-16-2015 Prgrmng dev eval implantable in persn 1 ld dfb Jose Renae MD Start: 01-15-2015 End: 07-21-2015 Device Interrogation Jose Renae MD Start: 01-15-2015 End: 01-16-2015 Documentation of current medications Jose Renae MD Start: 01-15-2015 End: 07-21-2015 Follow Up Appt 3 months Jose Renae MD Start: 01-15-2015 End: 07-21-2015 Follow Up Appt 6 months Jose Renae MD Start: 01-15-2015 End: 01-16-2015 Icd device prog eval, 1 sngl oJse Renae MD Start: 01-15-2015 End: 07-21-2015 MMM Jose Renae MD Start: 01-15-2015 End: 07-21-2015 Pacer Clinic Jose Renae MD Start: 07-21-2014 End: 08-19-2014 *Hepatic Function Panel Jose Renae MD Start: 07-21-2014 End: 08-19-2014 INR in Platelet poor plasma by Coagulation assay Jose Renae MD Start: 07-21-2014 End: 08-19-2014 Lipid 1996 panel - Serum or Plasma Jose Renae MD Start: 07-21-2014 End: 08-19-2014 *Hepatic Function Panel Jose Renae MD Start: 07-21-2014 End: 08-19-2014 Coagulation factor induced.INR assay in platelet poor plasma Jose Renae MD Start: 07-21-2014 End: 08-19-2014 Lipid panel [AGGREGATE] Jose Renae MD Start: 07-15-2014 End: 08-16-2014 *BMP Heather Purvis PA-C Work Phone: Start: 07-15-2014 End: 08-16-2014 *CBC with Differential Heather Purvis PA-C Work Phone: Start: 07-15-2014 End: 07-16-2014 Documentation of current medications Heather Purvis PA-C Work Phone: Start: 07-15-2014 End: 07-15-2014 Ecg routine ecg w/least 12 lds w/i&r Heather Purvis PA-C Work Phone: Start: 07-15-2014 End: 07-21-2015 Follow Up Appt 3 months Jose Renae MD Start: 07-15-2014 End: 07-15-2014 Follow Up Appt 6 months Heather Purvis PA-C Work Phone: Start: 07-15-2014 End: 08-16-2014 Magnesium [Mass/volume] in Serum or Plasma Heather Purvis PA-C Work Phone: Start: 07-15-2014 End: 07-21-2015 Pacer Clinic Jose Renae MD Start: 07-15-2014 End: 07-15-2014 PFM Heather Purvis PA-C Work Phone: Start: 07-15-2014 End: 07-15-2014 Prgrmng dev eval implantable in persn 1 ld dfb Jose Renae MD Start: 07-15-2014 End: 08-16-2014 Thyrotropin [Units/volume] in Serum or Plasma Heather Purvis PA-C Work Phone: Start: 07-15-2014 End: 08-16-2014 *BMP Heather Purvis PA-C Work Phone: Start: 07-15-2014 End: 08-16-2014 *CBC with Differential Heather Purvis PA-C Work Phone: Start: 07-15-2014 End: 07-16-2014 Documentation of current medications Heather Purvis PA-C Work Phone: Start: 07-15-2014 End: 07-15-2014 Electrocardiogram, complete Heather Purvis PA-C Work Phone: Start: 07-15-2014 End: 07-21-2015 Follow Up Appt 3 months Jose Renae MD Start: 07-15-2014 End: 07-15-2014 Follow Up Appt 6 months Heather Purvis PA-C Work Phone: Start: 07-15-2014 End: 07-15-2014 Icd device prog eval, 1 sngl Jose Renae MD Start: 07-15-2014 End: 08-16-2014 Magnesium Heather Purvis PA-C Work Phone: Start: 07-15-2014 End: 07-21-2015 Pacer Clinic Jose Renae MD Start: 07-15-2014 End: 07-15-2014 PFM Heather Purvis PA-C Work Phone: Start: 07-15-2014 End: 08-16-2014 Thyroid stimulating hormone (TSH) Heather Purvis PA-C Work Phone: Start: 04-11-2014 End: 06-27-2014 Follow Up Appt 3 months Jose Renae MD Start: 04-11-2014 End: 06-27-2014 Pacer Clinic Jose eRnae MD Start: 04-11-2014 End: 04-11-2014 Prgrmng dev eval implantable in persn 1 ld dfb Jose Renae MD Start: 04-11-2014 End: 06-27-2014 Follow Up Appt 3 months Jose Renae MD Start: 04-11-2014 End: 04-11-2014 Icd device prog eval, 1 sngl Jose Renae MD Start: 04-11-2014 End: 06-27-2014 Pacer Clinic oJse Renae MD Start: 02-18-2014 End: 02-22-2014 *Hepatic Function Panel Jose Renae MD Start: 02-18-2014 End: 02-22-2014 Lipid 1996 panel - Serum or Plasma Jose Renae MD Start: 02-18-2014 End: 02-22-2014 *Hepatic Function Panel Jose Renae MD Start: 02-18-2014 End: 02-22-2014 Lipid panel [AGGREGATE] Jose Renae MD Start: 01-07-2014 End: 01-07-2014 Device Interrogation Jose Renae MD Start: 01-07-2014 End: 01-07-2014 Follow Up Appt 3 months Jose Renae MD Start: 01-07-2014 End: 01-07-2014 Follow Up Appt 6 months Jose Renae MD Start: 01-07-2014 End: 01-07-2014 LILYM Jose Renae MD Start: 01-07-2014 End: 01-07-2014 Pacer Clinic Jose Renae MD Start: 01-07-2014 End: 01-07-2014 Prgrmng dev eval implantable in persn 1 ld dfb Jose Renae MD Start: 01-07-2014 End: 01-07-2014 Device Interrogation Jose Renae MD Start: 01-07-2014 End: 01-07-2014 Follow Up Appt 3 months Jose Renae MD Start: 01-07-2014 End: 01-07-2014 Follow Up Appt 6 months Jose Renae MD Start: 01-07-2014 End: 01-07-2014 Icd device prog eval, 1 sngl Jose Renae MD Start: 01-07-2014 End: 01-07-2014 YOSEF Renae MD Start: 01-07-2014 End: 01-07-2014 Pacer Clinic Jose Renae MD Start: 09-19-2013 End: 01-07-2014 Follow Up Appt 3 months Jose Renae MD Start: 09-19-2013 End: 01-07-2014 Pacer Clinic Jose Renae MD Start: 09-19-2013 End: 09-19-2013 Prgrmng dev eval implantable in persn 1 ld dfb Jose Renae MD Start: 09-19-2013 End: 01-07-2014 Follow Up Appt 3 months Jose Renae MD Start: 09-19-2013 End: 09-19-2013 Icd device prog eval, 1 sngl Jose Renae MD Start: 09-19-2013 End: 01-07-2014 Pacer Clinic Jose Renae MD Start: 08-24-2013 End: 08-24-2013 *Hepatic Function Panel Jose Renae MD Start: 08-24-2013 End: 08-24-2013 Follow Up Appt 6 months Heather Purvis PA-C Work Phone: Start: 08-24-2013 End: 08-24-2013 INR in Platelet poor plasma by Coagulation assay Heather Purvis PA-C Work Phone: Start: 08-24-2013 End: 08-24-2013 Lipid 1996 panel - Serum or Plasma Jose Renae MD Start: 08-24-2013 End: 08-24-2013 PFM Heather Purvis PA-C Work Phone: Start: 08-24-2013 End: 08-24-2013 *Hepatic Function Panel Jose Renae MD Start: 08-24-2013 End: 08-24-2013 Coagulation factor induced.INR assay in platelet poor plasma Heather Purvis PA-C Work Phone: Start: 08-24-2013 End: 08-24-2013 Follow Up Appt 6 months Heather Purvis PA-C Work Phone: Start: 08-24-2013 End: 08-24-2013 Lipid panel [AGGREGATE] Jose Renae MD Start: 08-24-2013 End: 08-24-2013 PFM Heather Purvis PA-C Work Phone: Start: 08-18-2013 End: 08-20-2013 *Hepatic Function Panel Jose Renae MD Start: 08-18-2013 End: 08-20-2013 Lipid 1996 panel - Serum or Plasma Jose Renae MD Start: 08-18-2013 End: 08-20-2013 *Hepatic Function Panel Jose Renae MD Start: 08-18-2013 End: 08-20-2013 Lipid panel [AGGREGATE] Jose Renae MD Start: 06-18-2013 End: 08-07-2013 Follow Up Appt 3 months Neyda Espinosa Start: 06-18-2013 End: 08-07-2013 Pacer Clinic Noel Parikh MD Start: 06-18-2013 End: 06-18-2013 Prgrmng dev eval implantable in persn 1 ld dfb Noel Parikh MD Start: 06-18-2013 End: 08-07-2013 Follow Up Appt 3 months Neyda Espinosa Start: 06-18-2013 End: 06-18-2013 Icd device prog eval, 1 sngl Noel Parikh MD Start: 06-18-2013 End: 08-07-2013 Pacer Clinic Noel Parikh MD Start: 03-20-2013 End: 08-07-2013 *Hepatic Function Panel Jose Renae MD Start: 03-20-2013 End: 08-07-2013 Lipid 1996 panel - Serum or Plasma Jose Renae MD Start: 03-20-2013 End: 08-07-2013 *Hepatic Function Panel Jose Renae MD Start: 03-20-2013 End: 08-07-2013 Lipid panel [AGGREGATE] Jose Renae MD Start: 03-19-2013 End: 08-07-2013 Follow Up Appt 3 months Jose Renae MD Start: 03-19-2013 End: 03-19-2013 Nurse, Teaching, Wound Check (no charge) Jose Renae MD Start: 03-19-2013 End: 08-07-2013 Pacer Clinic Jose Renae MD Start: 03-19-2013 End: 08-07-2013 Follow Up Appt 3 months Jose Renae MD Start: 03-19-2013 End: 03-19-2013 Nurse, Teaching, Wound Check (no charge) Jose Renae MD Start: 03-19-2013 End: 08-07-2013 Pacer Clinic Jose Renae MD Start: 03-12-2013 End: 08-07-2013 Follow Up Appt 1 month Jose Renae MD Start: 03-12-2013 End: 03-12-2013 Nurse, Teaching, Wound Check (no charge) Jose Renae MD Start: 03-12-2013 End: 08-07-2013 Pacer Clinic Jose Renae MD Start: 03-12-2013 End: 08-07-2013 Follow Up Appt 1 month Jose Renae MD Start: 03-12-2013 End: 03-12-2013 Nurse, Teaching, Wound Check (no charge) Jose Renae MD Start: 03-12-2013 End: 08-07-2013 Pacer Clinic Jose Renae MD Start: 02-23-2013 End: 08-07-2013 Ecg routine ecg w/least 12 lds w/i&r Jose Renae MD Start: 02-23-2013 End: 02-23-2013 Follow Up Appt 6 months Jose Renae MD Start: 02-23-2013 End: 02-23-2013 MMM Jose Renae MD Start: 02-23-2013 End: 02-23-2013 Nurse, Teaching, Wound Check (no charge) Jose Renae MD Start: 02-23-2013 End: 08-07-2013 Pacemaker Generator Change Jose daley MD Start: 02-23-2013 End: 08-07-2013 Electrocardiogram, complete Jose silva MD Start: 02-23-2013 End: 02-23-2013 Follow Up Appt 6 months Jose Renae MD Start: 02-23-2013 End: 02-23-2013 MMM Jose Renae MD Start: 02-23-2013 End: 02-23-2013 Nurse, Teaching, Wound Check (no charge) Jose Renae MD Start: 02-23-2013 End: 08-07-2013 Pacemaker Generator Change Jose daley MD Start: 01-25-2013 End: 08-07-2013 *BMP Jose Renae MD Start: 01-25-2013 End: 03-02-2013 *UA - Urinalysis w/o Micro Jose daley MD Start: 01-25-2013 End: 08-07-2013 CBC W Auto Differential panel - Blood Jose Renae MD Start: 01-25-2013 End: 08-07-2013 Chest x-ray Jose Renae MD Start: 01-25-2013 End: 08-07-2013 Ecg routine ecg w/least 12 lds w/i&r Jose Renae MD Start: 01-25-2013 End: 03-02-2013 INR in Platelet poor plasma by Coagulation assay Jose Renae MD Start: 01-25-2013 End: 08-07-2013 Pacemaker Generator Change Jose daley MD Start: 01-25-2013 End: 08-07-2013 *BMP Jose Renae MD Start: 01-25-2013 End: 03-02-2013 *UA - Urinalysis w/o Micro Jose daley MD Start: 01-25-2013 End: 08-07-2013 CBC W Auto Differential panel - Blood Jose Renae MD Start: 01-25-2013 End: 08-07-2013 Chest x-ray Jose Renae MD Start: 01-25-2013 End: 03-02-2013 Coagulation factor induced.INR assay in platelet poor plasma Jose Renae MD Start: 01-25-2013 End: 08-07-2013 Electrocardiogram, complete Jose silva MD Start: 01-25-2013 End: 08-07-2013 Pacemaker Generator Change Jose daley MD Start: 01-24-2013 End: 08-07-2013 Follow Up Appt 1 month Jose Renae MD Start: 01-24-2013 End: 08-07-2013 Pacer Clinic Jose Renae MD Start: 01-24-2013 End: 01-24-2013 Prgrmng dev eval implantable in persn 1 ld dfb Jose Renae MD Start: 01-24-2013 End: 08-07-2013 Follow Up Appt 1 month Jose Renae MD Start: 01-24-2013 End: 01-24-2013 Icd device prog eval, 1 sngl Jose Renae MD Start: 01-24-2013 End: 08-07-2013 Pacer Clinic Jose Renae MD Start: 01-02-2013 End: 08-07-2013 Follow Up Appt 3 months Neyda Espinosa Start: 01-02-2013 End: 08-07-2013 Pacer Clinic Noel Parikh MD Start: 01-02-2013 End: 01-02-2013 Prgrmng dev eval implantable in persn 1 ld dfb Noel Parikh MD Start: 01-02-2013 End: 08-07-2013 Follow Up Appt 3 months Neyda Espinosa Start: 01-02-2013 End: 01-02-2013 Icd device prog eval, 1 sngl Noel Parikh MD Start: 01-02-2013 End: 08-07-2013 Pacer Clinic Noel Parikh MD Start: 12-14-2012 End: 02-12-2013 Echocardiography Jose Renae MD Start: 12-14-2012 End: 12-14-2012 Follow Up Appt 6 months Jose Renae MD Start: 12-14-2012 End: 12-14-2012 MMM Jose Renae MD Start: 12-14-2012 End: 02-12-2013 Zuhair Renae MD Start: 12-14-2012 End: 12-14-2012 Follow Up Appt 6 months Jose Renae MD Start: 12-14-2012 End: 12-14-2012 MMM Jose Renae MD Start: 08-31-2012 End: 08-07-2013 Follow Up Appt 3 months Jose Renae MD Start: 08-31-2012 End: 08-07-2013 Pacer Clinic Jose Renae MD Start: 08-31-2012 End: 08-31-2012 Prgrmng dev eval implantable in persn 1 ld dfb Jose Renae MD Start: 08-31-2012 End: 08-07-2013 Follow Up Appt 3 months Jose Renae MD Start: 08-31-2012 End: 08-31-2012 Icd device prog eval, 1 sngl Jose Renae MD Start: 08-31-2012 End: 08-07-2013 Pacer Clinic Jose Renae MD Start: 06-02-2012 End: 10-12-2012 *Hepatic Function Panel Jose Renae MD Start: 06-02-2012 End: 06-02-2012 Device Interrogation Jose Renae MD Start: 06-02-2012 End: 06-02-2012 Follow Up Appt 6 months Jose Renae MD Start: 06-02-2012 End: 10-12-2012 Lipid 1996 panel - Serum or Plasma Jose Renae MD Start: 06-02-2012 End: 10-12-2012 *Hepatic Function Panel Jose Renae MD Start: 06-02-2012 End: 06-02-2012 Device Interrogation Jose Renae MD Start: 06-02-2012 End: 06-02-2012 Follow Up Appt 6 months Jose Renae MD Start: 06-02-2012 End: 10-12-2012 Lipid panel [AGGREGATE] Jose Renae MD Start: 02-24-2012 End: 08-07-2013 *Hepatic Function Panel Jose Renae MD Start: 02-24-2012 End: 08-07-2013 Lipid 1996 panel - Serum or Plasma Jose Renae MD Start: 02-24-2012 End: 08-07-2013 *Hepatic Function Panel Jose Renae MD Start: 02-24-2012 End: 08-07-2013 Lipid panel [AGGREGATE] Jose Renae MD Start: 11-29-2011 End: 08-07-2013 Arterial exam Jose Renae MD Start: 11-29-2011 End: 11-29-2011 Device Interrogation Jose Renae MD Start: 11-29-2011 End: 11-29-2011 Follow Up Appt 6 months Jose Renae MD Start: 11-29-2011 End: 08-07-2013 Venous doppler Jose Renae MD Start: 11-29-2011 End: 08-07-2013 Arterial exam Jose Renae MD Start: 11-29-2011 End: 11-29-2011 Device Interrogation Jose Renae MD Start: 11-29-2011 End: 11-29-2011 Follow Up Appt 6 months Jose Renae MD Start: 11-29-2011 End: 08-07-2013 Venous doppler Jose Renae MD Start: 07-07-2011 End: 07-07-2011 INR in Platelet poor plasma by Coagulation assay Jose Renae MD Start: 07-07-2011 End: 07-07-2011 Coagulation factor induced.INR assay in platelet poor plasma Jose Renae MD Start: 06-09-2011 End: 07-07-2011 INR in Platelet poor plasma by Coagulation assay Jose Renae MD Start: 06-09-2011 End: 07-07-2011 Coagulation factor induced.INR assay in platelet poor plasma Jose Renae MD Start: 06-08-2011 End: 11-17-2011 Echocardiography Jose Renae MD Start: 06-08-2011 End: 11-17-2011 Echocardiography Jose Renae MD Start: 05-27-2011 End: 06-09-2011 Echocardiography Jose Renae MD Start: 05-27-2011 End: 05-27-2011 Follow Up Appt 6 months Jose Renae MD Start: 05-27-2011 End: 06-09-2011 Echocardiography Jose Renae MD Start: 05-27-2011 End: 05-27-2011 Follow Up Appt 6 months Jose Renae MD Start: 09-15-2010 Implantation of automatic cardiac defibrillator IMPLANTATION OF DEFIBRILLATOR, HX OF Debbie Duncan RN Start: 09-15-2010 Implantation of automatic cardiac defibrillator IMPLANTATION OF DEFIBRILLATOR, HX Greg Duncan RN Plan of Treatment Date Care Activity Detail Author Start: 08-25-2017 End: 08-25-2017 Appointment Appointment [facility] Work Phone: Start: 08-08-2017 End: 02-11-2017 *Hepatic Function Panel *Hepatic Function Panel [facility] Work Phone: Start: 08-08-2017 End: 02-11-2017 Lipid panel [AGGREGATE] *Lipid Profile CC PCP [facility] Work Phone: Start: 08-08-2017 End: 02-11-2017 *Hepatic Function Panel *Hepatic Function Panel [facility] Work Phone: Start: 08-08-2017 End: 02-11-2017 Lipid panel [AGGREGATE] *Lipid Profile CC PCP [facility] Work Phone: Start: 05-27-2017 End: 05-27-2017 Appointment Appointment [facility] Work Phone: Start: 02-23-2017 End: 02-23-2017 *Hepatic Function Panel *Hepatic Function Panel [facility] Work Phone: Start: 02-23-2017 End: 02-23-2017 Device Interrogation Device Interrogation [facility] Work Phone: Start: 02-23-2017 End: 02-24-2017 Follow Up Appt 3 months Follow Up Appt 3 months [facility] Work Phone: Start: 02-23-2017 End: 02-23-2017 Follow Up Appt 6 months Follow Up Appt 6 months [facility] Work Phone: Start: 02-23-2017 End: 02-23-2017 Lipid panel [AGGREGATE] *Lipid Profile CC PCP [facility] Work Phone: Start: 02-23-2017 End: 02-23-2017 MMM MMM [facility] Work Phone: Start: 02-23-2017 End: 02-24-2017 Pacer Clinic Pacer Clinic [facility] Work Phone: Start: 02-23-2017 End: 02-23-2017 Appointment Appointment [facility] Work Phone: Start: 02-23-2017 End: 02-23-2017 Appointment Appointment [facility] Work Phone: Start: 02-23-2017 End: 02-23-2017 *Hepatic Function Panel *Hepatic Function Panel [facility] Work Phone: Start: 02-23-2017 End: 02-23-2017 Device Interrogation Device Interrogation [facility] Work Phone: Start: 02-23-2017 End: 02-24-2017 Follow Up Appt 3 months Follow Up Appt 3 months [facility] Work Phone: Start: 02-23-2017 End: 02-23-2017 Follow Up Appt 6 months Follow Up Appt 6 months [facility] Work Phone: Start: 02-23-2017 End: 02-23-2017 Lipid panel [AGGREGATE] *Lipid Profile CC PCP [facility] Work Phone: Start: 02-23-2017 End: 02-23-2017 MMM MMM [facility] Work Phone: Start: 02-23-2017 End: 02-24-2017 Pacer Clinic Pacer Clinic [facility] Work Phone: Start: 02-01-2017 End: 02-04-2017 *Hepatic Function Panel *Hepatic Function Panel [facility] Work Phone: Start: 02-01-2017 End: 02-04-2017 Lipid panel [AGGREGATE] *Lipid Profile CC PCP [facility] Work Phone: Start: 02-01-2017 End: 02-04-2017 *Hepatic Function Panel *Hepatic Function Panel [facility] Work Phone: Start: 02-01-2017 End: 02-04-2017 Lipid panel [AGGREGATE] *Lipid Profile CC PCP [facility] Work Phone: Start: 12-03-2016 End: 12-03-2016 Follow Up Appt 3 months Follow Up Appt 3 months [facility] Work Phone: Start: 12-03-2016 End: 12-03-2016 Pacer Clinic Pacer Clinic [facility] Work Phone: Start: 12-03-2016 End: 12-03-2016 Appointment Appointment [facility] Work Phone: Start: 12-03-2016 End: 12-03-2016 Appointment Appointment [facility] Work Phone: Start: 12-03-2016 End: 12-03-2016 Follow Up Appt 3 months Follow Up Appt 3 months [facility] Work Phone: Start: 12-03-2016 End: 12-03-2016 Pacer Clinic Pacer Clinic [facility] Work Phone: Start: 08-31-2016 End: 09-24-2016 INR Coag RelTime (PPP) *PT/INR - Standing Order [facility] Work Phone: Start: 08-31-2016 End: 09-24-2016 Coagulation factor induced.INR assay in platelet poor plasma *PT/INR - Standing Order [facility] Work Phone: Start: 08-18-2016 End: 08-27-2016 *BMP *BMP [facility] Work Phone: Start: 08-18-2016 End: 08-27-2016 CBC W Auto Differential panel - Blood *CBC without Diff [facility] Work Phone: Start: 08-18-2016 End: 08-18-2016 Follow Up Appt 3 months Follow Up Appt 3 months [facility] Work Phone: Start: 08-18-2016 End: 08-18-2016 Follow Up Appt 6 months Follow Up Appt 6 months [facility] Work Phone: Start: 08-18-2016 End: 08-27-2016 Magnesium *Magnesium [facility] Work Phone: Start: 08-18-2016 End: 08-18-2016 Pacer Clinic [facility] Work Phone: Start: 08-18-2016 End: 08-18-2016 PFM PFM [facility] Work Phone: Start: 08-18-2016 End: 08-27-2016 *BMP *BMP [facility] Work Phone: Start: 08-18-2016 End: 08-27-2016 CBC W Auto Differential panel - Blood *CBC without Diff [facility] Work Phone: Start: 08-18-2016 End: 08-18-2016 Follow Up Appt 3 months Follow Up Appt 3 months [facility] Work Phone: Start: 08-18-2016 End: 08-18-2016 Follow Up Appt 6 months Follow Up Appt 6 months [facility] Work Phone: Start: 08-18-2016 End: 08-27-2016 Magnesium *Magnesium [facility] Work Phone: Start: 08-18-2016 End: 08-18-2016 Pacer Clinic Pacer Clinic [facility] Work Phone: Start: 08-18-2016 End: 08-18-2016 PFM PFM [facility] Work Phone: Start: 05-18-2016 End: 08-12-2016 Follow Up Appt 3 months Follow Up Appt 3 months [facility] Work Phone: Start: 05-18-2016 End: 08-12-2016 Pacer Clinic Pacer Clinic [facility] Work Phone: Start: 05-18-2016 End: 08-12-2016 Follow Up Appt 3 months Follow Up Appt 3 months [facility] Work Phone: Start: 05-18-2016 End: 08-12-2016 Pacer Clinic Pacer Clinic [facility] Work Phone: Start: 02-16-2016 End: 04-23-2016 *Hepatic Function Panel *Hepatic Function Panel [facility] Work Phone: Start: 02-16-2016 End: 02-16-2016 Device Interrogation Device Interrogation [facility] Work Phone: Start: 02-16-2016 End: 02-16-2016 Echocardiography Echocardiogram (complete) [facility] Work Phone: Start: 02-16-2016 End: 08-12-2016 Follow Up Appt 3 months Follow Up Appt 3 months [facility] Work Phone: Start: 02-16-2016 End: 04-23-2016 Follow Up Appt 6 months Follow Up Appt 6 months [facility] Work Phone: Start: 02-16-2016 End: 04-23-2016 Lipid panel [AGGREGATE] *Lipid Profile CC PCP [facility] Work Phone: Start: 02-16-2016 End: 04-23-2016 MMM MMM [facility] Work Phone: Start: 02-16-2016 End: 04-23-2016 Pacer Clinic Pacer Clinic [facility] Work Phone: Start: 02-16-2016 End: 04-23-2016 *Hepatic Function Panel *Hepatic Function Panel [facility] Work Phone: Start: 02-16-2016 End: 02-16-2016 Device Interrogation Device Interrogation [facility] Work Phone: Start: 02-16-2016 End: 02-16-2016 Echocardiography Echocardiogram (complete) [facility] Work Phone: Start: 02-16-2016 End: 08-12-2016 Follow Up Appt 3 months Follow Up Appt 3 months [facility] Work Phone: Start: 02-16-2016 End: 04-23-2016 Follow Up Appt 6 months Follow Up Appt 6 months [facility] Work Phone: Start: 02-16-2016 End: 04-23-2016 Lipid panel [AGGREGATE] *Lipid Profile CC PCP [facility] Work Phone: Start: 02-16-2016 End: 04-23-2016 MMM MMM [facility] Work Phone: Start: 02-16-2016 End: 04-23-2016 Pacer Clinic Pacer [facility] Work Phone: Start: 01-30-2016 End: 02-16-2016 *Hepatic Function Panel *Hepatic Function Panel [facility] Work Phone: Start: 01-30-2016 End: 02-16-2016 Lipid panel [AGGREGATE] *Lipid Profile CC PCP [facility] Work Phone: Start: 01-30-2016 End: 02-16-2016 *Hepatic Function Panel *Hepatic Function Panel [facility] Work Phone: Start: 01-30-2016 End: 02-16-2016 Lipid panel [AGGREGATE] *Lipid Profile CC PCP [facility] Work Phone: Start: 10-31-2015 End: 04-23-2016 Follow Up Appt 3 months Follow Up Appt 3 months [facility] Work Phone: Start: 10-31-2015 End: 04-23-2016 [facility] Pacer [facility] Work Phone: Start: 10-31-2015 End: 04-23-2016 Follow Up Appt 3 months Follow Up Appt 3 months [facility] Work Phone: Start: 10-31-2015 End: 04-23-2016 [facility] Work Phone: Start: 08-01-2015 End: 08-01-2015 *Hepatic Function Panel *Hepatic Function Panel [facility] Work Phone: Start: 08-01-2015 End: 08-01-2015 Lipid panel [AGGREGATE] *Lipid Profile CC PCP [facility] Work Phone: Start: 08-01-2015 End: 08-01-2015 *Hepatic Function Panel *Hepatic Function Panel [facility] Work Phone: Start: 08-01-2015 End: 08-01-2015 Lipid panel [AGGREGATE] *Lipid Profile CC PCP [facility] Work Phone: Start: 07-21-2015 End: 04-23-2016 Follow Up Appt 3 months Follow Up Appt 3 months [facility] Work Phone: Start: 07-21-2015 End: 07-21-2015 Follow Up Appt 6 months Follow Up Appt 6 months [facility] Work Phone: Start: 07-21-2015 End: 04-23-2016 Pacer Clinic Pacer Clinic [facility] Work Phone: Start: 07-21-2015 End: 07-21-2015 PFM PFM [facility] Work Phone: Start: 07-21-2015 End: 04-23-2016 Follow Up Appt 3 months Follow Up Appt 3 months [facility] Work Phone: Start: 07-21-2015 End: 07-21-2015 Follow Up Appt 6 months Follow Up Appt 6 months [facility] Work Phone: Start: 07-21-2015 End: 04-23-2016 Pacer Clinic Pacer Clinic [facility] Work Phone: Start: 07-21-2015 End: 07-21-2015 PFM PF [facility] Work Phone: Start: 04-17-2015 End: 07-21-2015 Follow Up Appt 3 months Follow Up Appt 3 months [facility] Work Phone: Start: 04-17-2015 End: 07-21-2015 Pacer Clinic Pacer Clinic [facility] Work Phone: Start: 04-17-2015 End: 07-21-2015 Follow Up Appt 3 months Follow Up Appt 3 months [facility] Work Phone: Start: 04-17-2015 End: 07-21-2015 Pacer Clinic Pacer Clinic [facility] Work Phone: Start: 02-13-2015 End: 02-14-2015 *Hepatic Function Panel *Hepatic Function Panel [facility] Work Phone: Start: 02-13-2015 End: 02-14-2015 Lipid panel [AGGREGATE] *Lipid Profile CC PCP [facility] Work Phone: Start: 02-13-2015 End: 02-14-2015 *Hepatic Function Panel *Hepatic Function Panel [facility] Work Phone: Start: 02-13-2015 End: 02-14-2015 Lipid panel [AGGREGATE] *Lipid Profile CC PCP [facility] Work Phone: Start: 01-15-2015 End: 07-21-2015 Device Interrogation Device Interrogation [facility] Work Phone: Start: 01-15-2015 End: 07-21-2015 Follow Up Appt 3 months Follow Up Appt 3 months [facility] Work Phone: Start: 01-15-2015 End: 07-21-2015 Follow Up Appt 6 months Follow Up Appt 6 months [facility] Work Phone: Start: 01-15-2015 End: 07-21-2015 MMM MMM [facility] Work Phone: Start: 01-15-2015 End: 07-21-2015 Pacer Clinic Pacer Clinic [facility] Work Phone: Start: 01-15-2015 End: 07-21-2015 Device Interrogation Device Interrogation [facility] Work Phone: Start: 01-15-2015 End: 07-21-2015 Follow Up Appt 3 months Follow Up Appt 3 months [facility] Work Phone: Start: 01-15-2015 End: 07-21-2015 Follow Up Appt 6 months Follow Up Appt 6 months [facility] Work Phone: Start: 01-15-2015 End: 07-21-2015 MMM MMM [facility] Work Phone: Start: 01-15-2015 End: 07-21-2015 Pacer Clinic Pacer Clinic [facility] Work Phone: Start: 07-21-2014 End: 08-19-2014 *Hepatic Function Panel *Hepatic Function Panel [facility] Work Phone: Start: 07-21-2014 End: 08-19-2014 INR Coag RelTime (PPP) *PT/INR - Standing Order [facility] Work Phone: Start: 07-21-2014 End: 08-19-2014 Lipid panel [AGGREGATE] *Lipid Profile CC PCP [facility] Work Phone: Start: 07-21-2014 End: 08-19-2014 *Hepatic Function Panel *Hepatic Function Panel [facility] Work Phone: Start: 07-21-2014 End: 08-19-2014 Coagulation factor induced.INR assay in platelet poor plasma *PT/INR - Standing Order [facility] Work Phone: Start: 07-21-2014 End: 08-19-2014 Lipid panel [AGGREGATE] *Lipid Profile CC PCP [facility] Work Phone: Start: 07-15-2014 End: 08-16-2014 *BMP *BMP [facility] Work Phone: Start: 07-15-2014 End: 08-16-2014 *CBC with Differential *CBC with Differential [facility] Work Phone: Start: 07-15-2014 End: 07-15-2014 Ecg routine ecg w/least 12 lds w/i&r EKG (In office) [facility] Work Phone: Start: 07-15-2014 End: 07-21-2015 Follow Up Appt 3 months Follow Up Appt 3 months [facility] Work Phone: Start: 07-15-2014 End: 07-15-2014 Follow Up Appt 6 months Follow Up Appt 6 months [facility] Work Phone: Start: 07-15-2014 End: 08-16-2014 Magnesium *Magnesium [facility] Work Phone: Start: 07-15-2014 End: 07-21-2015 Pacer Clinic Pacer Clinic [facility] Work Phone: Start: 07-15-2014 End: 07-15-2014 PFM PFM [facility] Work Phone: Start: 07-15-2014 End: 08-16-2014 Thyroid stimulating hormone (TSH) *TSH [facility] Work Phone: Start: 07-15-2014 End: 08-16-2014 *BMP *BMP [facility] Work Phone: Start: 07-15-2014 End: 08-16-2014 *CBC with Differential *CBC with Differential [facility] Work Phone: Start: 07-15-2014 End: 07-15-2014 Electrocardiogram, complete EKG (In office) [facility] Work Phone: Start: 07-15-2014 End: 07-21-2015 Follow Up Appt 3 months Follow Up Appt 3 months [facility] Work Phone: Start: 07-15-2014 End: 07-15-2014 Follow Up Appt 6 months Follow Up Appt 6 months [facility] Work Phone: Start: 07-15-2014 End: 08-16-2014 Magnesium *Magnesium [facility] Work Phone: Start: 07-15-2014 End: 07-21-2015 Pacer Clinic Pacer Clinic [facility] Work Phone: Start: 07-15-2014 End: 07-15-2014 PFM PFM [facility] Work Phone: Start: 07-15-2014 End: 08-16-2014 Thyroid stimulating hormone (TSH) *TSH [facility] Work Phone: Start: 04-11-2014 End: 06-27-2014 Follow Up Appt 3 months Follow Up Appt 3 months [facility] Work Phone: Start: 04-11-2014 End: 06-27-2014 Pacer Clinic Pacer Clinic [facility] Work Phone: Start: 04-11-2014 End: 06-27-2014 Follow Up Appt 3 months Follow Up Appt 3 months [facility] Work Phone: Start: 04-11-2014 End: 06-27-2014 Pacer Clinic Pacer Clinic [facility] Work Phone: Start: 02-18-2014 End: 02-22-2014 *Hepatic Function Panel *Hepatic Function Panel [facility] Work Phone: Start: 02-18-2014 End: 02-22-2014 Lipid panel [AGGREGATE] *Lipid Profile CC PCP [facility] Work Phone: Start: 02-18-2014 End: 02-22-2014 *Hepatic Function Panel *Hepatic Function Panel [facility] Work Phone: Start: 02-18-2014 End: 02-22-2014 Lipid panel [AGGREGATE] *Lipid Profile CC PCP [facility] Work Phone: Start: 01-07-2014 End: 01-07-2014 Device Interrogation Device Interrogation [facility] Work Phone: Start: 01-07-2014 End: 01-07-2014 Follow Up Appt 3 months Follow Up Appt 3 months [facility] Work Phone: Start: 01-07-2014 End: 01-07-2014 Follow Up Appt 6 months Follow Up Appt 6 months [facility] Work Phone: Start: 01-07-2014 End: 01-07-2014 MMM MMM [facility] Work Phone: Start: 01-07-2014 End: 01-07-2014 Pacer Clinic Pacer Clinic [facility] Work Phone: Start: 01-07-2014 End: 01-07-2014 Device Interrogation Device Interrogation [facility] Work Phone: Start: 01-07-2014 End: 01-07-2014 Follow Up Appt 3 months Follow Up Appt 3 months [facility] Work Phone: Start: 01-07-2014 End: 01-07-2014 Follow Up Appt 6 months Follow Up Appt 6 months [facility] Work Phone: Start: 01-07-2014 End: 01-07-2014 MMM MMM [facility] Work Phone: Start: 01-07-2014 End: 01-07-2014 Pacer Clinic Pacer Clinic [facility] Work Phone: Start: 09-19-2013 End: 01-07-2014 Follow Up Appt 3 months Follow Up Appt 3 months [facility] Work Phone: Start: 09-19-2013 End: 01-07-2014 Pacer Clinic Pacer Clinic [facility] Work Phone: Start: 09-19-2013 End: 01-07-2014 Follow Up Appt 3 months Follow Up Appt 3 months [facility] Work Phone: Start: 09-19-2013 End: 01-07-2014 Pacer Clinic Pacer Clinic [facility] Work Phone: Start: 08-24-2013 End: 08-24-2013 Follow Up Appt 6 months Follow Up Appt 6 months [facility] Work Phone: Start: 08-24-2013 End: 08-24-2013 INR Coag RelTime (PPP) *PT/INR - Standing Order [facility] Work Phone: Start: 08-24-2013 End: 08-24-2013 PFM PFM [facility] Work Phone: Start: 08-24-2013 End: 08-24-2013 Coagulation factor induced.INR assay in platelet poor plasma *PT/INR - Standing Order [facility] Work Phone: Start: 08-24-2013 End: 08-24-2013 Follow Up Appt 6 months Follow Up Appt 6 months [facility] Work Phone: Start: 08-24-2013 End: 08-24-2013 PFM PFM [facility] Work Phone: Start: 08-18-2013 End: 08-20-2013 *Hepatic Function Panel *Hepatic Function Panel [facility] Work Phone: Start: 08-18-2013 End: 08-20-2013 Lipid panel [AGGREGATE] *Lipid Profile CC PCP [facility] Work Phone: Start: 08-18-2013 End: 08-20-2013 *Hepatic Function Panel *Hepatic Function Panel [facility] Work Phone: Start: 08-18-2013 End: 08-20-2013 Lipid panel [AGGREGATE] *Lipid Profile CC PCP [facility] Work Phone: Start: 06-18-2013 End: 08-07-2013 Follow Up Appt 3 months Follow Up Appt 3 months [facility] Work Phone: Start: 06-18-2013 End: 08-07-2013 Pacer Clinic Pacer Clinic [facility] Work Phone: Start: 06-18-2013 End: 08-07-2013 Follow Up Appt 3 months Follow Up Appt 3 months [facility] Work Phone: Start: 06-18-2013 End: 08-07-2013 Pacer Clinic Pacer Clinic [facility] Work Phone: Start: 03-20-2013 End: 08-07-2013 *Hepatic Function Panel *Hepatic Function Panel [facility] Work Phone: Start: 03-20-2013 End: 08-07-2013 Lipid panel [AGGREGATE] *Lipid Profile [facility] Work Phone: Start: 03-20-2013 End: 08-07-2013 *Hepatic Function Panel *Hepatic Function Panel [facility] Work Phone: Start: 03-20-2013 End: 08-07-2013 Lipid panel [AGGREGATE] *Lipid Profile [facility] Work Phone: Start: 03-19-2013 End: 08-07-2013 Follow Up Appt 3 months Follow Up Appt 3 months [facility] Work Phone: Start: 03-19-2013 End: 08-07-2013 Pacer Clinic Pacer Clinic [facility] Work Phone: Start: 03-19-2013 End: 08-07-2013 Follow Up Appt 3 months Follow Up Appt 3 months [facility] Work Phone: Start: 03-19-2013 End: 08-07-2013 Pacer Clinic Pacer Clinic [facility] Work Phone: Start: 03-12-2013 End: 08-07-2013 Follow Up Appt 1 month Follow Up Appt 1 month [facility] Work Phone: Start: 03-12-2013 End: 08-07-2013 Pacer Clinic Pacer Clinic [facility] Work Phone: Start: 03-12-2013 End: 08-07-2013 Follow Up Appt 1 month Follow Up Appt 1 month [facility] Work Phone: Start: 03-12-2013 End: 08-07-2013 Pacer Clinic Pacer Clinic [facility] Work Phone: Start: 02-23-2013 End: 08-07-2013 Ecg routine ecg w/least 12 lds w/i&r EKG (In office) [facility] Work Phone: Start: 02-23-2013 End: 02-23-2013 Follow Up Appt 6 months Follow Up Appt 6 months [facility] Work Phone: Start: 02-23-2013 End: 02-23-2013 MMM MMM [facility] Work Phone: Start: 02-23-2013 End: 08-07-2013 Pacemaker Generator Change Pacemaker Generator Change [facility] Work Phone: Start: 02-23-2013 End: 08-07-2013 Electrocardiogram, complete EKG (In office) [facility] Work Phone: Start: 02-23-2013 End: 02-23-2013 Follow Up Appt 6 months Follow Up Appt 6 months [facility] Work Phone: Start: 02-23-2013 End: 02-23-2013 MMM MMM [facility] Work Phone: Start: 02-23-2013 End: 08-07-2013 Pacemaker Generator Change Pacemaker Generator Change [facility] Work Phone: Start: 01-25-2013 End: 08-07-2013 *BMP *BMP [facility] Work Phone: Start: 01-25-2013 End: 03-02-2013 *UA - Urinalysis w/o Micro *UA - Urinalysis w/o Micro [facility] Work Phone: Start: 01-25-2013 End: 08-07-2013 CBC W Auto Differential panel - Blood *CBC without Diff [facility] Work Phone: Start: 01-25-2013 End: 08-07-2013 Chest x-ray X-Ray, Chest, PA & Lateral [facility] Work Phone: Start: 01-25-2013 End: 08-07-2013 Ecg routine ecg w/least 12 lds w/i&r EKG (In office) [facility] Work Phone: Start: 01-25-2013 End: 03-02-2013 INR Coag RelTime (PPP) *PT/INR [facility] Work Phone: Start: 01-25-2013 End: 08-07-2013 Pacemaker Generator Change Pacemaker Generator Change [facility] Work Phone: Start: 01-25-2013 End: 08-07-2013 *BMP *BMP [facility] Work Phone: Start: 01-25-2013 End: 03-02-2013 *UA - Urinalysis w/o Micro *UA - Urinalysis w/o Micro [facility] Work Phone: Start: 01-25-2013 End: 08-07-2013 CBC W Auto Differential panel - Blood *CBC without Diff [facility] Work Phone: Start: 01-25-2013 End: 08-07-2013 Chest x-ray X-Ray, Chest, PA & Lateral [facility] Work Phone: Start: 01-25-2013 End: 03-02-2013 Coagulation factor induced.INR assay in platelet poor plasma *PT/INR [facility] Work Phone: Start: 01-25-2013 End: 08-07-2013 Electrocardiogram, complete EKG (In office) [facility] Work Phone: Start: 01-25-2013 End: 08-07-2013 Pacemaker Generator Change Pacemaker Generator Change [email or web address] Work Phone: Start: 01-24-2013 End: 08-07-2013 Follow Up Appt 1 month Follow Up Appt 1 month [facility] Work Phone: Start: 01-24-2013 End: 08-07-2013 Pacer Clinic Pacer Clinic [facility] Work Phone: Start: 01-24-2013 End: 08-07-2013 Follow Up Appt 1 month Follow Up Appt 1 month [email or web address] Work Phone: Start: 01-24-2013 End: 08-07-2013 Pacer Clinic Pacer Clinic [facility] Work Phone: Start: 01-02-2013 End: 08-07-2013 Follow Up Appt 3 months Follow Up Appt 3 months [facility] Work Phone: Start: 01-02-2013 End: 08-07-2013 Pacer Clinic Pacer Clinic [facility] Work Phone: Start: 01-02-2013 End: 08-07-2013 Follow Up Appt 3 months Follow Up Appt 3 months [facility] Work Phone: Start: 01-02-2013 End: 08-07-2013 Pacer Clinic Pacer Clinic [facility] Work Phone: Start: 12-14-2012 End: 12-14-2012 Echocardiography Echocardiogram (complete) [facility] Work Phone: Start: 12-14-2012 End: 12-14-2012 Follow Up Appt 6 months Follow Up Appt 6 months [facility] Work Phone: Start: 12-14-2012 End: 12-14-2012 MMM MMM [facility] Work Phone: Start: 12-14-2012 End: 12-14-2012 Echocardiography Echocardiogram (complete) [facility] Work Phone: Start: 12-14-2012 End: 12-14-2012 Follow Up Appt 6 months Follow Up Appt 6 months [facility] Work Phone: Start: 12-14-2012 End: 12-14-2012 MMM MMM [facility] Work Phone: Start: 08-31-2012 End: 08-07-2013 Follow Up Appt 3 months Follow Up Appt 3 months [facility] Work Phone: Start: 08-31-2012 End: 08-07-2013 Pacer Clinic Pacer Clinic [facility] Work Phone: Start: 08-31-2012 End: 08-07-2013 Follow Up Appt 3 months Follow Up Appt 3 months [facility] Work Phone: Start: 08-31-2012 End: 08-07-2013 Pacer Clinic Pacer Clinic [facility] Work Phone: Start: 06-02-2012 End: 10-12-2012 *Hepatic Function Panel *Hepatic Function Panel [facility] Work Phone: Start: 06-02-2012 End: 06-02-2012 Device Interrogation Device Interrogation [facility] Work Phone: Start: 06-02-2012 End: 06-02-2012 Follow Up Appt 6 months Follow Up Appt 6 months [facility] Work Phone: Start: 06-02-2012 End: 10-12-2012 Lipid panel [AGGREGATE] *Lipid Profile [facility] Work Phone: Start: 06-02-2012 End: 10-12-2012 *Hepatic Function Panel *Hepatic Function Panel [facility] Work Phone: Start: 06-02-2012 End: 06-02-2012 Device Interrogation Device Interrogation [facility] Work Phone: Start: 06-02-2012 End: 06-02-2012 Follow Up Appt 6 months Follow Up Appt 6 months [facility] Work Phone: Start: 06-02-2012 End: 10-12-2012 Lipid panel [AGGREGATE] *Lipid Profile [facility] Work Phone: Start: 02-24-2012 End: 08-07-2013 *Hepatic Function Panel *Hepatic Function Panel [facility] Work Phone: Start: 02-24-2012 End: 08-07-2013 Lipid panel [AGGREGATE] *Lipid Profile [facility] Work Phone: Start: 02-24-2012 End: 08-07-2013 *Hepatic Function Panel *Hepatic Function Panel [facility] Work Phone: Start: 02-24-2012 End: 08-07-2013 Lipid panel [AGGREGATE] *Lipid Profile [facility] Work Phone: Start: 11-29-2011 End: 11-29-2011 Arterial exam Arterial exam [facility] Work Phone: Start: 11-29-2011 End: 11-29-2011 Device Interrogation Device Interrogation [facility] Work Phone: Start: 11-29-2011 End: 11-29-2011 Follow Up Appt 6 months Follow Up Appt 6 months [facility] Work Phone: Start: 11-29-2011 End: 11-29-2011 Venous doppler Venous doppler [facility] Work Phone: Start: 11-29-2011 End: 11-29-2011 Arterial exam Arterial exam [facility] Work Phone: Start: 11-29-2011 End: 11-29-2011 Device Interrogation Device Interrogation [facility] Work Phone: Start: 11-29-2011 End: 11-29-2011 Follow Up Appt 6 months Follow Up Appt 6 months [facility] Work Phone: Start: 11-29-2011 End: 11-29-2011 Venous doppler Venous doppler [facility] Work Phone: Start: 07-07-2011 End: 07-07-2011 INR Coag RelTime (PPP) *PT/INR [facility] Work Phone: Start: 07-07-2011 End: 07-07-2011 Coagulation factor induced.INR assay in platelet poor plasma *PT/INR [facility] Work Phone: Start: 06-09-2011 End: 07-07-2011 INR Coag RelTime (PPP) *PT/INR [facility] Work Phone: Start: 06-09-2011 End: 07-07-2011 Coagulation factor induced.INR assay in platelet poor plasma *PT/INR [facility] Work Phone: Start: 06-08-2011 End: 06-09-2011 Echocardiography Echocardiogram (limited) [facility] Work Phone: Start: 06-08-2011 End: 06-09-2011 Echocardiography Echocardiogram (limited) [facility] Work Phone: Start: 05-27-2011 End: 05-27-2011 Echocardiography Echocardiogram (complete) [facility] Work Phone: Start: 05-27-2011 End: 05-27-2011 Follow Up Appt 6 months Follow Up Appt 6 months [facility] Work Phone: Start: 05-27-2011 End: 05-27-2011 Echocardiography Echocardiogram (complete) [facility] Work Phone: Start: 05-27-2011 End: 05-27-2011 Follow Up Appt 6 months Follow Up Appt 6 months [facility] Work Phone: Patient Education [facility] Work Phone: Payers Date Payer Category Payer Unknown [id number] 1955 Unknown [id number] Summary Purpose Family History No Family History Records Found Advance Directives No Advanced Directives Records Found Additional Source Comments (unrecognized sect ion and content) No Status Records Found INFORMATION SOURCE (unrecogn ized section and content) FOR RECORDS PERTAINING TO PATIENTS WHO ARE OR HAVE BEEN ENROLLED IN A CHEMICAL DEPENDENCY/SUBSTANCEABUSE PROGRAM, SOME INFORMATION MAY BE OMITTED. This clinical summary was aggregated from multiple sources. Caution should be exercised in using it in the provision of clinical care. This summary normalizes information from multiple sources, and as a consequence, information in this document may materially change the coding, format and clinical context of patient data. In addition, data may be omitted in some cases. CLINICAL DECISIONS SHOULD BE BASED ON THE PRIMARY CLINICAL RECORDS. [facility] provides no warranty or guarantee of the accuracy or completeness of information in this document.
[2023-08-12] MEDS: Lactated Ringers 1,000 ML 15 ML IV (07:16)
[2023-08-12 07:25] LABS: INR Fingerstick 1.8; Prothrombin Time Fingerstick 19.1 SEC (11.7-14.9)
--- NOTE | 2023-08-12 07:35 | HP.PCM_ITS ---
History and Physical Date of Admission: 08/12/23 Visit Reasons: 3 YR RECALL LETTER- EGD & COLONOSCOPY Chief Complaint: 3 year recall, egd/colonoscopy Is patient in pain?: No Allergies Penicillins Adverse Reaction (Severe, Verified 12/14/22 08:41) Unknown Medications aspirin 81 mg tablet,delayed release (Adult Low Dose Aspirin) 81 mg PO QDAY blood thinner 08/24/17 [History Confirmed 06/24/23] levothyroxine 75 mcg tablet 75 mcg PO DAILY 04/17/21 [History Confirmed 4] nitroglycerin 0.4 mg sublingual tablet 0.4 mg sublingual Q5-15M PRN chest pain #25 tabs 08/27/21 [Rx Confirmed 12/14/22] famotidine 20 mg tablet 20 mg PO BID 10/19/21 [History Confirmed 06/24/23] atorvastatin 10 mg tablet 10 mg PO QHS #90 tabs 12/30/22 [Rx Confirmed 06/24/23] carvedilol 25 mg tablet 25 mg PO BID #180 tabs 12/30/22 [Rx Confirmed 06/24/23] furosemide 40 mg tablet 40 mg PO DAILY #90 tabs 12/30/22 [Rx Confirmed 06/24/23] lisinopril 10 mg tablet 10 mg PO DAILY #90 tabs 12/30/22 [Rx Confirmed 06/24/23] warfarin 2 mg tablet 2 mg PO DAILY #90 tabs 12/30/22 [Rx Confirmed 06/24/23] niacin 1,000 mg tablet,extended release 24 hr 1,000 mg PO QHS 06/24/23 [History Confirmed 06/24/23] [facility] Medical History Anemia Apical mural thrombus Atherosclerosis of coronary artery bypass graft without angina pectoris DVT (deep venous thrombosis) Ischemic cardiomyopathy 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 use of 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 Mitral insufficiency Peripheral vascular disease, unspecified Positive occult stool blood test Presence of stent in coronary artery (~01/2009) Pure hypercholesterolemia Saphenous vein injury Tricuspid insufficiency Ventricular tachycardia Surgical History History of coronary artery bypass surgery (~08/12/03) Presence of automatic implantable cardioverter-defibrillator Presence of coronary angioplasty implant and graft (~01/2009) Family History Father CAD (coronary artery disease) DiabetesMother Myocardial infarction CVA (cerebral vascular accident)Grandmother CVA (cerebral vascular accident)Other Family history of CVA Social History Smoking Status: Never smoker alcohol intake: never substance use type: does not use caffeine: No what type of physical activity do you participate in: none seatbelt use: always do you feel safe at home: Yes HPI HPI HPI: 67-year-old gentleman. I have most recently assisted him July 04, 2020 with a combined upper and lower endoscopy. Colonoscopy demonstrated 11 mm polyp in the proximal transverse colon and a 16 mm polyp in the rectosigmoid colon. The upper endoscopy demonstrated a large hiatal hernia with reflux esophagitis. He was anemic with a hemoglobin 10.5 at that time. He had mild gastritis. Dean's esophagus without dysplasia. Tubular adenoma x 2 of the colon. He returns now to consider repeat esophagogastroduodenoscopy and colonoscopy in follow-up of his Dean's as well as follow-up of the 2 sizable polyps. He is on warfarin therapy and as of June 22, 2023 PTT is 22.7 with an INR of 2. He has an implantable automatic cardioverter defibrillator. History of apical mural thrombus. History of ischemic cardiomyopathy and ventricular tachycardia with atherosclerotic cardiovascular disease. The patient states that he routinely has his INR checked. He cannot remember when he had a hemoglobin hematocrit checked. He denies any bright red blood per rectum or melena. No abdominal pain. He is able to climb a flight of stairs. He does not have any recollection of his pacer defibrillator ever actuating for him. He otherwise feels that his current health is steady. ROS General General: No weight change, appetite, fatigue, colon cancer, breast cancer or weakness HEENT HEENT: No difficulty swallowing, eye injury, eye surgery, swollen glands or hoarseness Endo Endocrine: No thyroid disease, diabetes mellitus, thyroid cancer, Hair loss, heat intolerance or cold intolerance Skin Skin: No rash or changing moles Musc Musculoskeletal: Yes gout; No back problems, arthritis, rheumatoid arthritis or joint pain Cardio Cardiovascular: Yes pacemaker, heart disease, heart attack and heart stent; No murmur, atrial fibrillation, high blood pressure, palpitations, shortness of breat with exertion or chest pain Psych Psychiatric: No depression, anxiety or hearing voices Resp Respiratory: No shortness of breath, No sleep apnea, No cough, No COPD, No asthma, No emphysema and No wheezing Gastro Gastrointestinal: No abdominal pain, No nausea or vomiting, No diarrhea, No constipation, No blood in stool, No acid reflux, No hemorrhoids, No ulcers, No gallbladder problem and No black,tarry stools [place] Hematologic: Yes blood thinners, No blood disorders, No bleeding, No anemia and No blood clots Neuro Neurologic: No system reviewed and no additional complaints, except as documented, No as per HPI, No abnormal gait, No abnormal hearing, No abnormal movements, No abnormal speech, No behavioral changes, No burning sensations, No confusion, No convulsions, No disequilibrium, No dizziness, No localized weakness, No frequent falls, No headache(s), No lack of coordination, No loss of vision, No memory loss, No numbness, No other visual disturbances, No radicular pain, No restless legs, No sensory deficit, No syncope, No tingling, No tremor(s), No weakness and No other Exam Const General: cooperative, comfortable and no acute distress Nutritional Appearance: average body habitus [facility] Head: normal to inspection Eyes General: appearance normal, both eyes and all related structures Neck Neck: normal visual inspection Chest Chest palpation & inspection: normal inspection of the chest Other: Pacer defibrillator left chest Resp Effort & Inspection: normal respiratory effort Auscultation: clear to auscultation bilaterally Cardio Rate: regular rate Rhythm: regular rhythm GI Inspection: normal to inspection Palpation: soft and no hepatosplenomegaly Skin General: no rashes or lesions noted Neuro General: patient alert, patient awake and patient oriented x3 Extrem General: no calf tenderness Psych Appearance: grossly normal Assessment and Plan Assessment and Plan (1) Anemia: Status: Acute Qualifiers: Anemia type: iron deficiency Iron deficiency anemia type: chronic blood loss Qualified Code(s): D50.0 - Iron deficiency anemia secondary to blood loss (chronic) (2) Personal history of colonic polyps: Status: Acute (3) Dean's esophagus determined by biopsy: Status: Acute Plan: I recommend to the patient that we obtain a CBC today to help evaluate his previous history of chronic iron deficiency anemia. In surveillance of his Dean's esophagus and sizable colon polyps I recommend to him a combined esophagogastroduodenoscopy with possible biopsy or polypectomy and colonoscopy with possible biopsy or polypectomy. He does have a pacemaker defibrillator in place and anesthesia will be notified. I anticipate monitored anesthesia care. With his chronic anticoagulation we will have him hold his Coumadin 2 days preprocedure. He has had an opportunity to ask and have questions answered. I appreciate the ongoing opportunity of assisting with the surgical care. Copy: Dr. Khanh Etienne M.D., F.A.C.S. I have examined the patient and the H&P has been reviewed. There are no clinical changes since date of exam. Binh Etienne M.D., F.A.C.S.
--- NOTE | 2023-08-12 08:00 | COLBX_PTH ---
PATHOLOGY RESULTS PATIENT: FREDERICK ROTHMAN LOC: EN U#:[id number] AGE/SX: 67/M ROOM: RE08/12/[address]: Dr. Binh Etienne MD : 1955 BED: DIS: 08/12/2023 SPEC #: [id number] RECD: 08/12/23 12:42 STATUS: RUSLAN BURRELL #: [id number] SILVIO: 08/12/23 08:[address]: Binh Etienne DEPT: SURGICAL PATHOLOGY RECD BY: Alysa Cheney ENTERED: 08/12/23 12:45 SP TYPE: COLON BX OTHR DR: Dr. Khanh Marks MD Tissues: Duodenum, NOS Gastric mucous membrane Gastric mucous membrane Gastric mucous membrane Esophageal mucous membrane Ascending colon Rectum, NOS Procedures: Special Stain Group II Surgery Specimen Level IV Alcian Blue/PAS (control) HEADER OPERATION: Colonoscopy with saline injection and biopsy, EGD with biopsy PRE-OP DIAGNOSIS: Anemia, personal history of colonic polyps, Dean's esophagus TISSUE SUBMITTED: A - Duodenal biopsy, B - Antrum biopsy for H. pylori and pathology, C - Greater curvature polyp biopsy, D - Hiatal hernia biopsy, E - Distal esophagus biopsy, F - Mid ascending polyp biopsy, G - Rectal polyp biopsy MICROSCOPIC DIAGNOSIS A. Duodenum, biopsy: No pathologic change. B. Gastric antrum, biopsy: Chronic gastritis. See comment. C. Gastric greater curvature polyp, biopsy: Polypoid fragment of benign gastric mucosa with mild chronic inflammation. D. Hiatal hernia, biopsy: Benign gastric mucosa with mild chronic inflammation. E. Distal esophagus, biopsy: Gastroesophageal junctional mucosa with mild chronic inflammation. No evidence of goblet cell metaplasia. See comment. F. Mid ascending colon polyp, biopsy: Tubular adenoma. G. Rectal polyp, biopsy: Fragments of tubular adenoma. AM:gerardo 08/15/2023 COMMENT B. The results of immunohistochemistry for Helicobacter pylori will be reported separately ([id number]). E. Alcian blue/PAS stain with matched control supports the above diagnosis. MICROSCOPIC DESCRIPTION Slides are reviewed. GROSS DESCRIPTION A - Received in fixative is one container labeled with the patient's name and designated duodenal biopsy. The specimen consists of one irregular fragment of light mckinnon soft tissue that measures 0.3 x 0.3 x 0.1 cm. The specimen is totally submitted in one cassette. B - Received in fixative is one container labeled with the patient's name and designated antrum biopsy. The specimen consists of one irregular fragment of light mckinnon soft tissue that measures 0.4 x 0.3 x 0.1 cm. The specimen is totally submitted in one cassette. C - Received in fixative is one container labeled with the patient's name and designated greater curvature polyp biopsy. The specimen consists of one irregular fragment of light mckinnon soft tissue that measures 0.3 x 0.3 x 0.1 cm. The specimen is totally submitted in one cassette. D - Received in fixative is one container labeled with the patient's name and designated hiatal hernia biopsy. The specimen consists of one irregular fragment of light mckinnon soft tissue that measures 0.3 x 0.2 x 0.1 cm. The specimen is totally submitted in one cassette. E - Received in fixative is one container labeled with the patient's name and designated distal esophagus biopsy. The specimen consists of one irregular fragment of light mckinnon soft tissue that measures 0.5 x 0.2 x 0.1 cm. The specimen is totally submitted in one cassette. F - Received in fixative is one container labeled with the patient's name and designated mid ascending polyp biopsy. The specimen consists of one irregular fragment of light mckinnon soft tissue that measures 0.4 x 0.3 x 0.1 cm. The specimen is totally submitted in one cassette. G - Received in fixative is one container labeled with the patient's name and designated rectal polyp biopsy. The specimen consists of multiple irregular fragments of light mckinnon soft tissue that in aggregate measure 0.8 x 0.5 x 0.1 cm. The specimen is totally submitted in one cassette. / SJ:gerardo 08/12/2023 TC:3 CPT: 42511 x7, 80527
--- NOTE | 2023-08-12 08:00 | IMM_PTH ---
PATHOLOGY RESULTS PATIENT: FREDERICK ROTHMAN LOC: EN U#:[id number] AGE/SX: 67/M ROOM: RE08/12/[address]: Dr. Binh Etienne MD : 1955 BED: DIS: 08/12/2023 SPEC #: [id number] RECD: 08/12/23 13:30 STATUS: RUSLAN REAltaf #: [id number] SILVIO: 08/12/23 08:[address]: Binh Etienne DEPT: IMMUNOHISTOCHEMISTRY RECD BY: Chica Warren ENTERED: 08/12/23 13:31 SP TYPE: IMMUNO OTHR DR: Dr. Khanh Marks MD Tissues: Stomach, NOS Procedures: H Pylori (initial) [facility]YSIC[facility] INSTIT[facility] [address] [address] SPECIMEN INFORMATION: Tissue Source: B - Antrum Clinical Info: Anemia, personal history of colonic polyps, Dean's esophagus Specimen Number: [id number] CPT code: 83076 METHODOLOGY: Deparaffinized sections of prefer/formalin-fixed tissue or PAP/DQ stained slides are incubated with monoclonal/polyclonal antibodies/oligonucleotide probes. Localization is made via biotin free immunoperoxidase method. Appropriate controls are performed and reacted as expected. Results on target cell population are indicated in the following table: RESULTS: ANTIBODY / CLONE RESULT Block B H Pylori (polyclonal) negative These tests were developed and their performance characteristics determined by [facility]. They may not have been cleared or approved by the U.S. Food and Drug Administration. The FDA has determined that such clearance or approval is not necessary. The above immunohistochemical/dualISH markers are ordered and reviewed by the Pathologist. INTERPRETATION: B. Antrum, biopsy: Negative for Helicobacter pylori organisms. AM:gerardo 08/15/2023
[2023-08-12] MEDS: 0.9% Saline Lock 10 ML Syringe IV ×2 (08:40→08:49)
--- NOTE | 2023-08-12 08:54 | OP.EGD_ITS ---
Patient Name: Chaka Molina Procedure Date: 08/12/2023 8:06 AM Date of : 1955 Age: 67 Procedure: Upper GI endoscopy Indications: Iron deficiency anemia Providers: Binh Etienne MD Referring MD: Binh Etienne MD Medicines: See the Anesthesia note for documentation of the administered medications Complications: No immediate complications. Procedure: Pre-Anesthesia Assessment: - Prior to the procedure, a History and Physical was performed, and patient medications and allergies were reviewed. The patient's tolerance of previous anesthesia was also reviewed. The risks and benefits of the procedure and the sedation options and risks were discussed with the patient. All questions were answered, and informed consent was obtained. Prior Anticoagulants: The patient has taken no 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 or antiplatelet agents. ASA Grade Assessment: III - A patient with severe systemic disease. After reviewing the risks and benefits, the patient was deemed in satisfactory condition to undergo the procedure. After obtaining informed consent, the endoscope was passed under direct vision. Throughout the procedure, the patient's blood pressure, pulse, and oxygen saturations were monitored continuously. The pediatric colonoscope was introduced through the mouth, and advanced to the second part of duodenum. The upper GI endoscopy was accomplished without difficulty. The patient tolerated the procedure well. Scope In: 8:14:36 AM Scope Out: 8:22:31 AM Total Procedure Duration Time 0 hours 7 minutes 55 seconds Findings: Esophagitis with no bleeding was found 36 cm from the incisors. Biopsies were taken with a cold forceps for histology. A 6 cm hiatal hernia was present. Biopsies were taken with a cold forceps for histology. Multiple sessile polyps with no bleeding and no stigmata of recent bleeding were found on the greater curvature of the stomach. The polyp was removed with a cold biopsy forceps. Resection and retrieval were complete. Diffuse mildly erythematous mucosa without bleeding was found in the gastric antrum. Biopsies were taken with a cold forceps for histology. The examined duodenum was normal. Biopsies were taken with a cold forceps for histology. Impression: - Reflux esophagitis with no bleeding. Biopsied. - 6 cm hiatal hernia. Biopsied. - Multiple gastric polyps. Resected and retrieved. - Erythematous mucosa in the antrum. Biopsied. - Normal examined duodenum. Biopsied. Recommendation: - Discharge patient to home. - Resume previous diet. - Continue present medications. - Telephone my office for pathology results in 1 week. No active bleeding at this time. Procedure Code(s): --- Professional --- 51238, Esophagogastroduodenoscopy, flexible, transoral; with biopsy, single or multiple Diagnosis Code(s): --- Professional --- K21.00, Gastro-esophageal reflux disease with esophagitis, without bleeding K44.9, Diaphragmatic hernia without obstruction or gangrene K31.7, Polyp of stomach and duodenum K31.89, Other diseases of stomach and duodenum D50.9, Iron deficiency anemia, unspecified CPT copyright 2021 [employer]. All rights reserved. The codes documented in this report are preliminary and upon enamel sprayer review may be revised to meet current compliance requirements. Binh Etienne MD 08/12/2023 8:53:43 AM This report has been signed electronically. Number of Addenda: 0 Note Initiated On: 08/12/2023 8:06 AM
--- NOTE | 2023-08-12 08:54 | OP.CCLET_ITS ---
08/12/2023 Ranjith Marks [address] [place] [address] Re : Upper GI endoscopy procedure for Chaka Dye Dear Dr. Marks This procedure was performed on Saturday, August 12, 2023. My impressions and recommendations are as follows: Impressions : - Reflux esophagitis with no bleeding. Biopsied. - 6 cm hiatal hernia. Biopsied. - Multiple gastric polyps. Resected and retrieved. - Erythematous mucosa in the antrum. Biopsied. - Normal examined duodenum. Biopsied. Recommendations : - Discharge patient to home. - Resume previous diet. - Continue present medications. - Telephone my office for pathology results in 1 week. No active bleeding at this time. My findings are described in the full procedure note, which is enclosed. If I can be of further assistance, please feel free to contact me at Doctor phone number(s): Work: . Sincerely, Binh Etienne MD 08/12/2023 8:53:43 AM This report has been signed electronically.
--- NOTE | 2023-08-12 08:58 | OP.CCLET_ITS ---
08/12/2023 Ranjith Marks [address] [place] [address] Re : Colonoscopy procedure for Chaka Dye Dear Dr. Marks This procedure was performed on Saturday, August 12, 2023. My impressions and recommendations are as follows: Impressions : - Non-thrombosed external hemorrhoids, non-thrombosed internal hemorrhoids, internal hemorrhoids that prolapse with straining, but spontaneously regress to the resting position (Grade II) and enlarged prostate found on digital rectal exam. - One 4 mm polyp in the mid ascending colon, removed with a cold biopsy forceps. Resected and retrieved. - One 25 mm polyp in the proximal rectum, incompletely removed using injection-lift and a cold snare. Incomplete resection. Resected tissue retrieved. Approximately 12 cm from the anal verge - Diverticulosis in the sigmoid colon and in the descending colon. Recommendations : - Discharge patient to home. - Resume previous diet. - Continue present medications. - Repeat colonoscopy in 1 year for surveillance. - Refer to a colo-rectal surgeon in 3 weeks. My findings are described in the full procedure note, which is enclosed. If I can be of further assistance, please feel free to contact me at Doctor phone number(s): Work: . Sincerely, Binh Etienne MD 08/12/2023 8:58:11 AM This report has been signed electronically.
--- NOTE | 2023-08-12 08:58 | OP.COLON_ITS ---
Patient Name: Chaka Molina Procedure Date: 08/12/2023 8:22 AM Date of : 1955 Age: 67 Procedure: Colonoscopy Indications: Iron deficiency anemia Providers: Binh Etienne MD Referring MD: Binh Etienne MD Medicines: See the Anesthesia note for documentation of the administered medications Patient Profile: Last Colonoscopy: June 2020. Complications: No immediate complications. Procedure: Pre-Anesthesia Assessment: - Prior to the procedure, a History and Physical was performed, and patient medications and allergies were reviewed. The patient's tolerance of previous anesthesia was also reviewed. The risks and benefits of the procedure and the sedation options and risks were discussed with the patient. All questions were answered, and informed consent was obtained. Prior Anticoagulants: The patient has taken no 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 or antiplatelet agents. ASA Grade Assessment: III - A patient with severe systemic disease. After reviewing the risks and benefits, the patient was deemed in satisfactory condition to undergo the procedure. After I obtained informed consent, the scope was passed under direct vision. Throughout the procedure, the patient's blood pressure, pulse, and oxygen saturations were monitored continuously. The pediatric colonoscope was introduced through the anus and advanced to the cecum, identified by appendiceal orifice and ileocecal valve. The colonoscopy was performed without difficulty. The patient tolerated the procedure well. The quality of the bowel preparation was good. The ileocecal valve and the appendiceal orifice were photographed. Scope In: 8:23:59 AM Scope Withdrawal Time 0 hours 19 minutes 36 seconds Scope Out: 8:46:58 AM Total Procedure Duration Time 0 hours 22 minutes 59 seconds Findings: The digital rectal exam findings include non-thrombosed external hemorrhoids, non-thrombosed internal hemorrhoids, internal hemorrhoids that prolapse with straining, but spontaneously regress to the resting position (Grade II) and enlarged prostate. A 4 mm polyp was found in the mid ascending colon. The polyp was sessile. The polyp was removed with a cold biopsy forceps. Resection and retrieval were complete. A 25 mm polyp was found in the proximal rectum. The polyp was sessile. Polypectomy was attempted, initially using a cold snare. Polyp resection was incomplete with this device. This intervention then required a different device and polypectomy technique. The polyp was removed with a saline injection-lift technique using a cold snare. Polyp resection was incomplete. The resected tissue was retrieved. Multiple diverticula were found in the sigmoid colon and descending colon. Impression: - Non-thrombosed external hemorrhoids, non-thrombosed internal hemorrhoids, internal hemorrhoids that prolapse with straining, but spontaneously regress to the resting position (Grade II) and enlarged prostate found on digital rectal exam. - One 4 mm polyp in the mid ascending colon, removed with a cold biopsy forceps. Resected and retrieved. - One 25 mm polyp in the proximal rectum, incompletely removed using injection-lift and a cold snare. Incomplete resection. Resected tissue retrieved. Approximately 12 cm from the anal verge - Diverticulosis in the sigmoid colon and in the descending colon. Recommendation: - Discharge patient to home. - Resume previous diet. - Continue present medications. - Repeat colonoscopy in 1 year for surveillance. - Refer to a colo-rectal surgeon in 3 weeks. Procedure Code(s): --- Professional --- 87383, Colonoscopy, flexible; with removal of tumor(s), polyp(s), or other lesion(s) by snare technique 07632, 59, Colonoscopy, flexible; with biopsy, single or multiple 72068, Colonoscopy, flexible; with directed submucosal injection(s), any substance Diagnosis Code(s): --- Professional --- D12.2, Benign neoplasm of ascending colon D12.8, Benign neoplasm of rectum K64.1, Second degree hemorrhoids K64.4, Residual hemorrhoidal skin tags D50.9, Iron deficiency anemia, unspecified N40.0, Benign prostatic hyperplasia without lower urinary tract symptoms K57.30, Diverticulosis of large intestine without perforation or abscess without bleeding CPT copyright 2021 [employer]. All rights reserved. The codes documented in this report are preliminary and upon pin or clip fastener review may be revised to meet current compliance requirements. Binh Etienne MD 08/12/2023 8:58:11 AM This report has been signed electronically. Number of Addenda: 0 Note Initiated On: 08/12/2023 8:22 AM
== END 2023-08-12 10:01 | disposition home or self-care (01) ==
LOC: EN 06:53 → AC 06:54
PROVIDERS: PCP Family Medicine; Referring Provider Surgery; Visit Provider Surgery
PROC: 0DJD8ZZ Inspection of Lower Intestinal Tract, Via Natural or Artificial Opening Endoscopic (ICD-10-PCS; CPT 45378; principal; 2023-08-12 07:55)
DX: K29.50 Unspecified chronic gastritis without bleeding (principal); K44.9 Diaphragmatic hernia without obstruction or gangrene; K22.70 Barrett's esophagus without dysplasia; K64.4 Residual hemorrhoidal skin tags; E78.00 Pure hypercholesterolemia, unspecified; K31.7 Polyp of stomach and duodenum; N40.0 Benign prostatic hyperplasia without lower urinary tract symptoms; D50.0 Iron deficiency anemia secondary to blood loss (chronic); I25.10 Atherosclerotic heart disease of native coronary artery without angina pectoris; K57.30 Diverticulosis of large intestine without perforation or abscess without bleeding; K21.00 Gastro-esophageal reflux disease with esophagitis, without bleeding; Z86.010 Personal history of colon polyps; Z79.82 Long term (current) use of aspirin; Z79.899 Other long term (current) drug therapy; Z79.01 Long term (current) use of 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s; Z79.890 Hormone replacement therapy; Z95.0 Presence of cardiac pacemaker; K64.1 Second degree hemorrhoids; D12.2 Benign neoplasm of ascending colon; D12.8 Benign neoplasm of rectum; Z95.5 Presence of coronary angioplasty implant and graft; E03.9 Hypothyroidism, unspecified
CPT/HCPCS: 45385; 45380; 43239; 45381; 36415; 36416; 85025; 85610; 88302; 88305; 88313; 88342; J7120; A4216; J2405

== ENCOUNTER → 2023-08-15 | Outpatient (CLI) | payer MEDICARE, SELFPAY ==
--- NOTE | 2023-08-15 07:49 | ECHOCS_ITS ---
Reason For Study: ASHD Procedure This was a 2D Doppler, Color Flow transthoracic echocardiogram. Exam performed in department. Left Ventricle Severely dilated left ventricle. Severe segmental systolic dysfunction (see wall motion). The left ventricular ejection fraction is 25 %. Stage 1 diastolic dysfunction. [place] : Akinetic. Mid- Anterior : Akinetic. Mid-anteroseptal : Akinetic. Mid-Lateral : Hypokinetic. Infero-Basal: Normal. Posterior-Basal: Normal. Mid-Posterior: Normal. Right Ventricle Normal RV size. ICD or pacer leads identified within the right ventricle. Normal systolic function. Atria The left atrium is moderately enlarged. Normal right atrium. Mitral Valve Bileaflet diffuse mitral valve thickening. Mild (1+) mitral valve insufficiency. Tricuspid Valve Normal tricuspid valve. Mild (1+) tricuspid valve insufficiency. Pulmonary artery systolic pressure is 26 mmHg. Aortic Valve Trisinus/trileaflet aortic valve. Pulmonic Valve The pulmonic valve is not well visualized. Great Vessels Normal aortic root. The pulmonary artery is normal size. Normal inferior vena cava. Pericardium/Pleural No pericardial effusion. Medication 22 gauge I.V. with prn adaptor inserted into right arm. Diluted definity 3.0ml given slow IV push to enhance endocardial definition. MMode/2D Measurements & Calculations LVIDd: 6.1 cm IVSd: 0.79 cm Ao root diam: 3.0 cm LVIDs: 5.1 cm LVPWd: 0.99 cm RVDd: 2.8 cm FS: 16.5 % LAV(MOD-bp): 72.2 ml LVAd ap4: 36.9 cm2 LVAd ap2: 42.0 cm2 LAV(MOD-bp) Indexed: 36.2 ml/m2 LVLd ap4: 8.5 cm LVLd ap2: 9.0 cm LAV(MOD-sp2): 60.7 ml EDV(MOD-sp4): 134.7 ml EDV(MOD-sp2): 163.2 ml LAV(MOD-sp4): 85.6 ml EDV(sp4-el): 136.3 ml EDV(sp2-el): 165.8 ml LVAs ap4: 28.7 cm2 LVAs ap2: 32.5 cm2 LVLs ap4: 7.7 cm LVLs ap2: 8.7 cm ESV(MOD-sp4): 86.5 ml ESV(MOD-sp2): 106.3 ml ESV(sp4-el): 90.6 ml ESV(sp2-el): 103.1 ml EF(MOD-sp4): 35.8 % EF(MOD-sp2): 34.9 % EF(sp4-el): 33.5 % SV(MOD-sp4): 48.2 ml SV(MOD-sp2): 56.9 ml SV(sp4-el): 45.7 ml LA A4 area: 25.4 cm2 LA dimension(2D): 4.1 cm RA A4 area: 16.5 cm2 TAPSE: 1.3 cm Time Measurements MV dec time: 0.25 sec Doppler Measurements & Calculations MV E max travis: 49.0 cm/sec Lat Peak E' Travis: 8.5 cm/sec Med Peak E' Travis: 8.7 cm/sec MV A max travis: 64.3 cm/sec E/E' lat: 5.8 E/E' med: 5.6 MV E/A: 0.76 MV V2 max: 76.0 cm/sec MV P1/2t max travis: 65.8 cm/sec Ao V2 max: 118.3 cm/sec MV max P.3 mmHg MV P1/2t: 91.4 msec Ao max P.6 mmHg MV V2 mean: 47.0 cm/sec Ao V2 mean: 86.2 cm/sec MV mean P.97 mmHg MV dec slope: 210.8 cm/sec2 Ao mean P.4 mmHg MV V2 VTI: 25.4 cm MVA(P1/2t): 2.4 cm2 Ao V2 VTI: 26.7 cm AV (velocity ratio): 0.76 LV V1 max: 98.1 cm/sec MR max travis: 488.9 cm/sec PA V2 max: 98.0 cm/sec LV V1 max P.9 mmHg MR max P.6 mmHg PA V2 mean: 63.3 cm/sec LV V1 mean P.1 mmHg MR mean travis: 375.7 cm/sec LV V1 mean: 68.5 cm/sec MR mean P.4 mmHg LV V1 VTI: 20.3 cm MR VTI: 174.6 cm TR max travis: 240.5 cm/sec TR max P.1 mmHg ECHO/Echo Complete W/ Contrast Interpretation Summary Severely dilated left ventricle. Severe segmental systolic dysfunction (see wall motion). The left ventricular ejection fraction is 25 %. Stage 1 diastolic dysfunction. Contrast injection was performed. Ordering Physician: Angel Chou Referring Physician: Khanh Jordan Performed By: Joy Ulrich RDCS, RVT
--- OUTSIDE RECORDS SUMMARY | 2023-08-15 08:10 | XMS RPT_ITS | CCD ---
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, Angel Granados Unavailable Julio Ford Unavailable Unavailable [...] Unavailable Unavailrhonda Renae MD, Jose Calvo Unavailable [phone] Allergies Allergy Classification Reported Allergen(s) Allergy Type Date of Onset Reaction(s) Facility (20 sources) penicillin drug allergy 09-15-2010 [facility] Work Phone: Medications Completed/Discontinued Medications Medication Drug Class(es) Dates Sig (Normalized) Sig (Original) aspirin 81 mg oral tablet (20 sources) Nonsteroidal Anti-inflammatory Drug Start: 09-15-2010 take 1 tablet by mouth once daily ASPIRIN 81 MG TABS One tablet by mouth daily ASPIRIN [id number] Carolin Palma Problems Active Problems Problem Classification [...] Unclassified (7 sources) Warfarin therapy started; Translations: [detention (current) use of 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s] Onset: 08-31-2016 08-31-2016 Unclassified (7 sources) Long-term drug therapy; 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] Onset: 09-15-2010 09-15-2010 Past [...] 09-15-2010 09-15-2010 Episodic Other aftercare (20 sources) 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; 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] Onset: 09-15-2010 08-31-2016 Episodic [...] (Body Mass Index) 23.01 kg/m2 Julio Obrien [facility] Work Phone: 02-23-2017 14:05-0400 BP Diastolic [...] (Body Mass Index) 22.48 kg/m2 Debbie Obrien [facility] Work Phone: 08-18-2016 13:57-0500 BP Diastolic 72 mm[Hg] Debbie Pereraoster [facility] Work Phone: 08-18-2016 13:57-0500 BP Systolic [...] End: 02-23-2017 MMM Jose Renae MD Start: 02-23-2017 End: 02-24-2017 Prgrmng [...] Lipid 1996 panel - Serum or Plasma Jsoe Renae MD Start: 02-13-2015 End: 02-14-2015 *Hepatic [...] 07-21-2015 Pacer Clinic Jose Renae MD Start: 01-15-2015 End: 01-16-2015 Prgrmng [...] 01-16-2015 Icd device prog eval, 1 sngl Jose Renae MD Start: 01-15-2015 End: 07-21-2015 [...] Start: 04-11-2014 End: 06-27-2014 Pacer Clinic Jose Renae MD Start: 04-11-2014 End: 04-11-2014 Prgrmng dev eval implantable in persn 1 ld dfb Jose Renae MD Start: 04-11-2014 End: 06-27-2014 Follow Up Appt 3 months Jose Renae MD Start: 04-11-2014 End: 04-11-2014 Icd device prog eval, 1 sngl Jose Renae MD Start: 04-11-2014 End: 06-27-2014 Pacer Clinic Jose Renae MD Start: 02-18-2014 End: 02-22-2014 [...] 01-07-2014 Follow Up Appt 6 months Jose Reane MD Start: 01-07-2014 End: 01-07-2014 Icd device [...] Author Start: 08-25-2017 End: 08-25-2017 Appointment Appointment [facility] Work Phone: Start: 08-08-2017 End: [...] Phone: Start: 05-27-2017 End: 05-27-2017 Appointment Appointment [facility] Work Phone: Start: 02-23-2017 End: 02-23-2017 *Hepatic Function Panel *Hepatic Function Panel [facility] Work Phone: Start: 02-23-2017 End: 02-23-2017 Device Interrogation Device Interrogation [facility] Work Phone: Start: 02-23-2017 End: 02-24-2017 Follow Up Appt 3 months Follow Up Appt 3 months [facility] Work Phone: Start: 02-23-2017 End: 02-23-2017 Follow Up Appt 6 months Follow Up Appt 6 months [facility] Work Phone: Start: 02-23-2017 End: 02-23-2017 Lipid panel [AGGREGATE] *Lipid Profile CC PCP [facility] Work Phone: Start: 02-23-2017 End: 02-23-2017 MMM MMM [facility] Work Phone: Start: 02-23-2017 End: 02-24-2017 Pacer Clinic [facility] Work Phone: Start: 02-23-2017 End: 02-23-2017 Appointment Appointment [facility] Work Phone: Start: 02-23-2017 End: 02-23-2017 Appointment Appointment [facility] Work Phone: Start: 02-23-2017 End: 02-23-2017 *Hepatic Function Panel *Hepatic Function Panel [facility] Work Phone: Start: 02-23-2017 End: 02-23-2017 Device Interrogation Device Interrogation [facility] Work Phone: Start: 02-23-2017 End: 02-24-2017 Follow Up Appt 3 months Follow Up Appt 3 months [facility] Work Phone: Start: 02-23-2017 End: 02-23-2017 Follow Up Appt 6 months Follow Up Appt 6 months [facility] Work Phone: Start: 02-23-2017 End: 02-23-2017 Lipid panel [AGGREGATE] *Lipid Profile CC PCP [facility] Work Phone: Start: 02-23-2017 End: 02-23-2017 MMM MMM [facility] Work Phone: Start: 02-23-2017 End: 02-24-2017 Pacer Clinic Pacer Clinic [facility] Work Phone: Start: 02-01-2017 End: 02-04-2017 *Hepatic Function Panel *Hepatic Function Panel [facility] Work Phone: Start: 02-01-2017 End: 02-04-2017 Lipid panel [AGGREGATE] *Lipid Profile CC PCP [facility] Work Phone: Start: 02-01-2017 End: 02-04-2017 *Hepatic Function Panel *Hepatic Function Panel [facility] Work Phone: Start: 02-01-2017 End: 02-04-2017 Lipid panel [AGGREGATE] *Lipid Profile CC PCP [facility] Work Phone: Start: 12-03-2016 End: 12-03-2016 Follow Up Appt 3 months Follow Up Appt 3 months [facility] Work Phone: Start: 12-03-2016 End: 12-03-2016 Pacer Clinic [facility] Work Phone: Start: 12-03-2016 End: 12-03-2016 Appointment Appointment [facility] Work Phone: Start: 12-03-2016 End: 12-03-2016 Appointment Appointment [facility] Work Phone: Start: 12-03-2016 End: 12-03-2016 Follow Up Appt 3 months Follow Up Appt 3 months [facility] Work Phone: Start: 12-03-2016 End: 12-03-2016 Pacer Clinic [facility] Work Phone: Start: 08-31-2016 End: 09-24-2016 INR Coag RelTime (PPP) *PT/INR - Standing Order [facility] Work Phone: Start: 08-31-2016 End: 09-24-2016 Coagulation factor induced.INR assay in platelet poor plasma *PT/INR - Standing Order [facility] Work Phone: Start: 08-18-2016 End: 08-27-2016 *BMP *BMP [facility] Work Phone: Start: 08-18-2016 End: 08-27-2016 CBC W Auto Differential panel - Blood *CBC without Diff [facility] Work Phone: Start: 08-18-2016 End: 08-18-2016 Follow Up Appt 3 months Follow Up Appt 3 months [facility] Work Phone: Start: 08-18-2016 End: 08-18-2016 Follow Up Appt 6 months Follow Up Appt 6 months [facility] Work Phone: Start: 08-18-2016 End: 08-27-2016 Magnesium *Magnesium [facility] Work Phone: Start: 08-18-2016 End: 08-18-2016 Pacer Clinic [facility] Work Phone: Start: 08-18-2016 End: 08-18-2016 PFM PFM [facility] Work Phone: Start: 08-18-2016 End: 08-27-2016 *BMP *BMP [facility] Work Phone: Start: 08-18-2016 End: 08-27-2016 CBC W Auto Differential panel - Blood *CBC without Diff [facility] Work Phone: Start: 08-18-2016 End: 08-18-2016 Follow Up Appt 3 months Follow Up Appt 3 months [facility] Work Phone: Start: 08-18-2016 End: 08-18-2016 Follow Up Appt 6 months Follow Up Appt 6 months [facility] Work Phone: Start: 08-18-2016 End: 08-27-2016 Magnesium *Magnesium [facility] Work Phone: Start: 08-18-2016 End: 08-18-2016 Pacer Clinic Pacer Clinic [facility] Work Phone: Start: 08-18-2016 End: 08-18-2016 PFM PFM [facility] Work Phone: Start: 05-18-2016 End: 08-12-2016 Follow Up Appt 3 months Follow Up Appt 3 months [facility] Work Phone: Start: 05-18-2016 [...] Start: 02-16-2016 End: 02-16-2016 Echocardiography Echocardiogram (complete) [facility] Work Phone: Start: 02-16-2016 End: 08-12-2016 Follow Up Appt 3 months Follow Up Appt 3 months [facility] Work Phone: Start: 02-16-2016 End: 04-23-2016 Follow Up Appt 6 months Follow Up Appt 6 months [facility] Work Phone: Start: 02-16-2016 End: 04-23-2016 Lipid panel [AGGREGATE] *Lipid Profile CC PCP [facility] Work Phone: Start: 02-16-2016 End: 04-23-2016 MMM MMM [facility] Work Phone: Start: 02-16-2016 End: 04-23-2016 Pacer Clinic Pacer Clinic [facility] Work Phone: Start: 02-16-2016 End: 04-23-2016 *Hepatic Function Panel *Hepatic Function Panel [facility] Work Phone: Start: 02-16-2016 End: 02-16-2016 Device Interrogation Device Interrogation [facility] Work Phone: Start: 02-16-2016 End: 02-16-2016 Echocardiography Echocardiogram (complete) [facility] Work Phone: Start: 02-16-2016 End: 08-12-2016 Follow Up Appt 3 months Follow Up Appt 3 months [facility] Work Phone: Start: 02-16-2016 End: 04-23-2016 Follow Up Appt 6 months Follow Up Appt 6 months [facility] Work Phone: Start: 02-16-2016 End: 04-23-2016 Lipid panel [AGGREGATE] *Lipid Profile CC PCP [facility] Work Phone: Start: 02-16-2016 End: 04-23-2016 MMM MMM [facility] Work Phone: Start: 02-16-2016 End: 04-23-2016 Pacer Clinic Pacer [facility] Work Phone: Start: 01-30-2016 End: 02-16-2016 *Hepatic Function Panel *Hepatic Function Panel [facility] Work Phone: Start: 01-30-2016 End: 02-16-2016 Lipid panel [AGGREGATE] *Lipid Profile CC PCP [facility] Work Phone: Start: 01-30-2016 End: 02-16-2016 *Hepatic Function Panel *Hepatic Function Panel [facility] Work Phone: Start: 01-30-2016 End: 02-16-2016 Lipid panel [AGGREGATE] *Lipid Profile CC PCP [facility] Work Phone: Start: 10-31-2015 End: 04-23-2016 Follow Up Appt 3 months Follow Up Appt 3 months [facility] Work Phone: Start: 10-31-2015 End: 04-23-2016 [facility] Work Phone: Start: 10-31-2015 End: 04-23-2016 Follow Up Appt 3 months Follow Up Appt 3 months [facility] Work Phone: Start: 10-31-2015 End: 04-23-2016 [facility] Work Phone: Start: 08-01-2015 End: 08-01-2015 *Hepatic Function Panel *Hepatic Function Panel [facility] Work Phone: Start: 08-01-2015 End: 08-01-2015 Lipid panel [AGGREGATE] *Lipid Profile CC PCP [facility] Work Phone: Start: 08-01-2015 End: 08-01-2015 *Hepatic Function Panel *Hepatic Function Panel [facility] Work Phone: Start: 08-01-2015 End: 08-01-2015 Lipid panel [AGGREGATE] *Lipid Profile CC PCP [facility] Work Phone: Start: 07-21-2015 End: 04-23-2016 Follow Up Appt 3 months Follow Up Appt 3 months [facility] Work Phone: Start: 07-21-2015 End: 07-21-2015 Follow Up Appt 6 months Follow Up Appt 6 months [facility] Work Phone: Start: 07-21-2015 End: 04-23-2016 Pacer Clinic Pacer Clinic [facility] Work Phone: Start: 07-21-2015 End: 07-21-2015 PFM PFM [facility] Work Phone: Start: 07-21-2015 End: 04-23-2016 Follow Up Appt 3 months Follow Up Appt 3 months [facility] Work Phone: Start: 07-21-2015 End: 07-21-2015 Follow Up Appt 6 months Follow Up Appt 6 months [facility] Work Phone: Start: 07-21-2015 End: 04-23-2016 Pacer Clinic Pacer Clinic [facility] Work Phone: Start: 07-21-2015 End: 07-21-2015 PFM PF [facility] Work Phone: Start: 04-17-2015 End: 07-21-2015 Follow Up Appt 3 months Follow Up Appt 3 months [facility] Work Phone: Start: 04-17-2015 End: 07-21-2015 Pacer Clinic Pacer Clinic [facility] Work Phone: Start: 04-17-2015 End: 07-21-2015 Follow Up Appt 3 months Follow Up Appt 3 months [facility] Work Phone: Start: 04-17-2015 End: 07-21-2015 Pacer Clinic Pacer Clinic [facility] Work Phone: Start: 02-13-2015 End: 02-14-2015 *Hepatic Function Panel *Hepatic Function Panel [facility] Work Phone: Start: 02-13-2015 End: 02-14-2015 Lipid panel [AGGREGATE] *Lipid Profile CC PCP [facility] Work Phone: Start: 02-13-2015 End: 02-14-2015 *Hepatic Function Panel *Hepatic Function Panel [facility] Work Phone: Start: 02-13-2015 End: 02-14-2015 Lipid panel [AGGREGATE] *Lipid Profile CC PCP [facility] Work Phone: Start: 01-15-2015 End: 07-21-2015 Device Interrogation Device Interrogation [facility] Work Phone: Start: 01-15-2015 End: 07-21-2015 Follow Up Appt 3 months Follow Up Appt 3 months [facility] Work Phone: Start: 01-15-2015 End: 07-21-2015 Follow Up Appt 6 months Follow Up Appt 6 months [facility] Work Phone: Start: 01-15-2015 End: 07-21-2015 MMM MMM [facility] Work Phone: Start: 01-15-2015 End: 07-21-2015 Pacer Clinic Pacer Clinic [facility] Work Phone: Start: 01-15-2015 End: 07-21-2015 Device Interrogation Device Interrogation [facility] Work Phone: Start: 01-15-2015 End: 07-21-2015 Follow Up Appt 3 months Follow Up Appt 3 months [facility] Work Phone: Start: 01-15-2015 End: 07-21-2015 Follow Up Appt 6 months Follow Up Appt 6 months [facility] Work Phone: Start: 01-15-2015 End: 07-21-2015 MMM MMM [facility] Work Phone: Start: 01-15-2015 End: 07-21-2015 Pacer Clinic Pacer Clinic [facility] Work Phone: Start: 07-21-2014 End: 08-19-2014 *Hepatic Function Panel *Hepatic Function Panel [facility] Work Phone: Start: 07-21-2014 End: 08-19-2014 INR Coag RelTime (PPP) *PT/INR - Standing Order [facility] Work Phone: Start: 07-21-2014 End: 08-19-2014 Lipid panel [AGGREGATE] *Lipid Profile CC PCP [facility] Work Phone: Start: 07-21-2014 End: 08-19-2014 *Hepatic Function Panel *Hepatic Function Panel [facility] Work Phone: Start: 07-21-2014 End: 08-19-2014 Coagulation factor induced.INR assay in platelet poor plasma *PT/INR - Standing Order [facility] Work Phone: Start: 07-21-2014 End: 08-19-2014 Lipid panel [AGGREGATE] *Lipid Profile CC PCP [facility] Work Phone: Start: 07-15-2014 End: 08-16-2014 *BMP *BMP [facility] Work Phone: Start: 07-15-2014 End: 08-16-2014 *CBC with Differential *CBC with Differential [facility] Work Phone: Start: 07-15-2014 End: 07-15-2014 Ecg [...] Phone: Start: 07-15-2014 End: 08-16-2014 Magnesium *Magnesium [facility] Work Phone: Start: 07-15-2014 End: 07-21-2015 Pacer Clinic Pacer Clinic [facility] Work Phone: Start: 07-15-2014 End: 07-15-2014 PFM PFM [facility] Work Phone: Start: 07-15-2014 End: 08-16-2014 Thyroid stimulating hormone (TSH) *TSH [facility] Work Phone: Start: 07-15-2014 End: 08-16-2014 *BMP *BMP [facility] Work Phone: Start: 07-15-2014 End: 08-16-2014 *CBC with Differential *CBC with Differential [facility] Work Phone: Start: 07-15-2014 End: 07-15-2014 Electrocardiogram, complete EKG (In office) [facility] Work Phone: Start: 07-15-2014 End: 07-21-2015 Follow Up Appt 3 months Follow Up Appt 3 months [facility] Work Phone: Start: 07-15-2014 End: 07-15-2014 Follow Up Appt 6 months Follow Up Appt 6 months [facility] Work Phone: Start: 07-15-2014 End: 08-16-2014 Magnesium *Magnesium [facility] Work Phone: Start: 07-15-2014 End: 07-21-2015 Pacer Clinic Pacer Clinic [facility] Work Phone: Start: 07-15-2014 End: 07-15-2014 PFM PFM [facility] Work Phone: Start: 07-15-2014 End: 08-16-2014 Thyroid stimulating hormone (TSH) *TSH [facility] Work Phone: Start: 04-11-2014 End: 06-27-2014 Follow Up Appt 3 months Follow Up Appt 3 months [facility] Work Phone: Start: 04-11-2014 End: 06-27-2014 Pacer Clinic Pacer Clinic [facility] Work Phone: Start: 04-11-2014 End: 06-27-2014 Follow Up Appt 3 months Follow Up Appt 3 months [facility] Work Phone: Start: 04-11-2014 End: 06-27-2014 Pacer Clinic Pacer Clinic [facility] Work Phone: Start: 02-18-2014 End: 02-22-2014 *Hepatic Function Panel *Hepatic Function Panel [facility] Work Phone: Start: 02-18-2014 End: 02-22-2014 Lipid panel [AGGREGATE] *Lipid Profile CC PCP [facility] Work Phone: Start: 02-18-2014 End: 02-22-2014 *Hepatic Function Panel *Hepatic Function Panel [facility] Work Phone: Start: 02-18-2014 End: 02-22-2014 Lipid panel [AGGREGATE] *Lipid Profile CC PCP [facility] Work Phone: Start: 01-07-2014 End: 01-07-2014 Device Interrogation Device Interrogation [facility] Work Phone: Start: 01-07-2014 End: 01-07-2014 Follow Up Appt 3 months Follow Up Appt 3 months [facility] Work Phone: Start: 01-07-2014 End: 01-07-2014 Follow Up Appt 6 months Follow Up Appt 6 months [facility] Work Phone: Start: 01-07-2014 End: 01-07-2014 MMM MMM [facility] Work Phone: Start: 01-07-2014 End: 01-07-2014 Pacer Clinic Pacer Clinic [facility] Work Phone: Start: 01-07-2014 End: 01-07-2014 Device Interrogation Device Interrogation [facility] Work Phone: Start: 01-07-2014 End: 01-07-2014 Follow Up Appt 3 months Follow Up Appt 3 months [facility] Work Phone: Start: 01-07-2014 End: 01-07-2014 Follow Up Appt 6 months Follow Up Appt 6 months [facility] Work Phone: Start: 01-07-2014 End: 01-07-2014 MMM MMM [facility] Work Phone: Start: 01-07-2014 End: 01-07-2014 Pacer Clinic Pacer Clinic [facility] Work Phone: Start: 09-19-2013 End: 01-07-2014 Follow Up Appt 3 months Follow Up Appt 3 months [facility] Work Phone: Start: 09-19-2013 End: 01-07-2014 Pacer Clinic Pacer Clinic [facility] Work Phone: Start: 09-19-2013 End: 01-07-2014 Follow Up Appt 3 months Follow Up Appt 3 months [facility] Work Phone: Start: 09-19-2013 End: 01-07-2014 Pacer Clinic Pacer Clinic [facility] Work Phone: Start: 08-24-2013 End: 08-24-2013 Follow Up Appt 6 months Follow Up Appt 6 months [facility] Work Phone: Start: 08-24-2013 End: 08-24-2013 INR Coag RelTime (PPP) *PT/INR - Standing Order [facility] Work Phone: Start: 08-24-2013 End: 08-24-2013 PFM PFM [facility] Work Phone: Start: 08-24-2013 End: 08-24-2013 Coagulation factor induced.INR assay in platelet poor plasma *PT/INR - Standing Order [facility] Work Phone: Start: 08-24-2013 End: 08-24-2013 Follow Up Appt 6 months Follow Up Appt 6 months [facility] Work Phone: Start: 08-24-2013 End: 08-24-2013 PFM PFM [facility] Work Phone: Start: 08-18-2013 End: 08-20-2013 *Hepatic Function Panel *Hepatic Function Panel [facility] Work Phone: Start: 08-18-2013 End: 08-20-2013 Lipid panel [AGGREGATE] *Lipid Profile CC PCP [facility] Work Phone: Start: 08-18-2013 End: 08-20-2013 *Hepatic Function Panel *Hepatic Function Panel [facility] Work Phone: Start: 08-18-2013 End: 08-20-2013 Lipid panel [AGGREGATE] *Lipid Profile CC PCP [facility] Work Phone: Start: 06-18-2013 End: 08-07-2013 Follow Up Appt 3 months Follow Up Appt 3 months [facility] Work Phone: Start: 06-18-2013 End: 08-07-2013 Pacer Clinic Pacer Clinic [facility] Work Phone: Start: 06-18-2013 End: 08-07-2013 Follow Up Appt 3 months Follow Up Appt 3 months [facility] Work Phone: Start: 06-18-2013 End: 08-07-2013 Pacer Clinic Pacer Clinic [facility] Work Phone: Start: 03-20-2013 End: 08-07-2013 *Hepatic Function Panel *Hepatic Function Panel [facility] Work Phone: Start: 03-20-2013 [...] 3 months Follow Up Appt 3 months [facility] Work Phone: Start: 03-19-2013 End: 08-07-2013 Pacer Clinic Pacer Clinic [facility] Work Phone: Start: 03-12-2013 End: 08-07-2013 Follow Up Appt 1 month Follow Up Appt 1 month [facility] Work Phone: Start: 03-12-2013 End: 08-07-2013 Pacer Clinic Pacer Clinic [facility] Work Phone: Start: 03-12-2013 End: 08-07-2013 Follow Up Appt 1 month Follow Up Appt 1 month [facility] Work Phone: Start: 03-12-2013 End: 08-07-2013 Pacer Clinic Pacer Clinic [facility] Work Phone: Start: 02-23-2013 End: 08-07-2013 Ecg routine ecg w/least 12 lds w/i&r EKG (In office) [facility] Work Phone: Start: 02-23-2013 End: 02-23-2013 Follow Up Appt 6 months Follow Up Appt 6 months [facility] Work Phone: Start: 02-23-2013 End: 02-23-2013 MMM MMM [facility] Work Phone: Start: 02-23-2013 End: 08-07-2013 Pacemaker Generator Change Pacemaker Generator Change [facility] Work Phone: Start: 02-23-2013 End: 08-07-2013 Electrocardiogram, complete EKG (In office) [facility] Work Phone: Start: 02-23-2013 End: 02-23-2013 Follow Up Appt 6 months Follow Up Appt 6 months [facility] Work Phone: Start: 02-23-2013 End: 02-23-2013 MMM MMM [facility] Work Phone: Start: 02-23-2013 End: 08-07-2013 Pacemaker Generator Change Pacemaker Generator Change [facility] Work Phone: Start: 01-25-2013 End: 08-07-2013 *BMP *BMP [facility] Work Phone: Start: 01-25-2013 End: 03-02-2013 *UA - Urinalysis w/o Micro *UA - Urinalysis w/o Micro [facility] Work Phone: Start: 01-25-2013 End: 08-07-2013 CBC W Auto Differential panel - Blood *CBC without Diff [facility] Work Phone: Start: 01-25-2013 End: 08-07-2013 Chest x-ray X-Ray, Chest, PA & Lateral [facility] Work Phone: Start: 01-25-2013 End: 08-07-2013 Ecg routine ecg w/least 12 lds w/i&r EKG (In office) [facility] Work Phone: Start: 01-25-2013 End: 03-02-2013 INR Coag RelTime (PPP) *PT/INR [facility] Work Phone: Start: 01-25-2013 End: 08-07-2013 Pacemaker Generator Change Pacemaker Generator Change [facility] Work Phone: Start: 01-25-2013 End: 08-07-2013 *BMP *BMP [facility] Work Phone: Start: 01-25-2013 End: 03-02-2013 *UA - Urinalysis w/o Micro *UA - Urinalysis w/o Micro [facility] Work Phone: Start: 01-25-2013 End: 08-07-2013 CBC W Auto Differential panel - Blood *CBC without Diff [facility] Work Phone: Start: 01-25-2013 End: 08-07-2013 Chest x-ray X-Ray, Chest, PA & Lateral [facility] Work Phone: Start: 01-25-2013 End: 03-02-2013 Coagulation factor induced.INR assay in platelet poor plasma *PT/INR [facility] Work Phone: Start: 01-25-2013 End: 08-07-2013 Electrocardiogram, complete EKG (In office) [facility] Work Phone: Start: 01-25-2013 End: 08-07-2013 Pacemaker Generator Change Pacemaker Generator Change [employer] [facility] [employer] Work Phone: Start: 01-24-2013 End: 08-07-2013 Follow Up Appt 1 month Follow Up Appt 1 month [facility] Work Phone: Start: 01-24-2013 End: 08-07-2013 Pacer Clinic Pacer Clinic [facility] Work Phone: Start: 01-24-2013 End: 08-07-2013 Follow Up Appt 1 month Follow Up Appt 1 month [employer] Work Phone: Start: 01-24-2013 End: 08-07-2013 Pacer Clinic Pacer Clinic [facility] Work Phone: Start: 01-02-2013 End: 08-07-2013 Follow Up Appt 3 months Follow Up Appt 3 months [facility] Work Phone: Start: 01-02-2013 End: 08-07-2013 Pacer Clinic [facility] Work Phone: Start: 01-02-2013 End: 08-07-2013 Follow Up Appt 3 months Follow Up Appt 3 months [facility] Work Phone: Start: 01-02-2013 End: 08-07-2013 Pacer Clinic Pacer Clinic [facility] Work Phone: Start: 12-14-2012 End: 12-14-2012 Echocardiography Echocardiogram (complete) [facility] Work Phone: Start: 12-14-2012 End: 12-14-2012 Follow Up Appt 6 months Follow Up Appt 6 months [facility] Work Phone: Start: 12-14-2012 End: 12-14-2012 MMM MMM [facility] Work Phone: Start: 12-14-2012 End: 12-14-2012 Echocardiography Echocardiogram (complete) [facility] Work Phone: Start: 12-14-2012 End: 12-14-2012 Follow Up Appt 6 months Follow Up Appt 6 months [facility] Work Phone: Start: 12-14-2012 End: 12-14-2012 MMM MMM [facility] Work Phone: Start: 08-31-2012 End: 08-07-2013 Follow Up Appt 3 months Follow Up Appt 3 months [facility] Work Phone: Start: 08-31-2012 End: 08-07-2013 Pacer Clinic Pacer Clinic [facility] Work Phone: Start: 08-31-2012 End: 08-07-2013 Follow Up Appt 3 months Follow Up Appt 3 months [facility] Work Phone: Start: 08-31-2012 End: 08-07-2013 Pacer Clinic Pacer Clinic [facility] Work Phone: Start: 06-02-2012 End: 10-12-2012 *Hepatic Function Panel *Hepatic Function Panel [facility] Work Phone: Start: 06-02-2012 End: 06-02-2012 Device Interrogation Device Interrogation [facility] Work Phone: Start: 06-02-2012 End: 06-02-2012 Follow Up Appt 6 months Follow Up Appt 6 months [facility] Work Phone: Start: 06-02-2012 End: 10-12-2012 Lipid panel [AGGREGATE] *Lipid Profile [facility] Work Phone: Start: 06-02-2012 End: 10-12-2012 *Hepatic Function Panel *Hepatic Function Panel [facility] Work Phone: Start: 06-02-2012 End: 06-02-2012 Device Interrogation Device Interrogation [facility] Work Phone: Start: 06-02-2012 End: 06-02-2012 Follow Up Appt 6 months Follow Up Appt 6 months [facility] Work Phone: Start: 06-02-2012 End: 10-12-2012 Lipid panel [AGGREGATE] *Lipid Profile [facility] Work Phone: Start: 02-24-2012 End: 08-07-2013 *Hepatic Function Panel *Hepatic Function Panel [facility] Work Phone: Start: 02-24-2012 End: 08-07-2013 Lipid panel [AGGREGATE] *Lipid Profile [facility] Work Phone: Start: 02-24-2012 End: 08-07-2013 *Hepatic Function Panel *Hepatic Function Panel [facility] Work Phone: Start: 02-24-2012 End: 08-07-2013 Lipid panel [AGGREGATE] *Lipid Profile [facility] Work Phone: Start: 11-29-2011 End: 11-29-2011 Arterial exam Arterial exam [facility] Work Phone: Start: 11-29-2011 End: 11-29-2011 Device Interrogation Device Interrogation [facility] Work Phone: Start: 11-29-2011 End: 11-29-2011 Follow Up Appt 6 months Follow Up Appt 6 months [facility] Work Phone: Start: 11-29-2011 End: 11-29-2011 Venous doppler Venous doppler [facility] Work Phone: Start: 11-29-2011 End: 11-29-2011 Arterial exam Arterial exam [facility] Work Phone: Start: 11-29-2011 End: 11-29-2011 Device Interrogation Device Interrogation [facility] Work Phone: Start: 11-29-2011 End: 11-29-2011 Follow Up Appt 6 months Follow Up Appt 6 months [facility] Work Phone: Start: 11-29-2011 End: 11-29-2011 Venous doppler Venous doppler [facility] Work Phone: Start: 07-07-2011 End: 07-07-2011 INR Coag RelTime (PPP) *PT/INR [facility] Work Phone: Start: 07-07-2011 End: 07-07-2011 Coagulation factor induced.INR assay in platelet poor plasma *PT/INR [facility] Work Phone: Start: 06-09-2011 End: 07-07-2011 INR Coag RelTime (PPP) *PT/INR [facility] Work Phone: Start: 06-09-2011 End: 07-07-2011 Coagulation factor induced.INR assay in platelet poor plasma *PT/INR [facility] Work Phone: Start: 06-08-2011 End: 06-09-2011 Echocardiography Echocardiogram (limited) [facility] Work Phone: Start: 06-08-2011 End: 06-09-2011 Echocardiography Echocardiogram (limited) [facility] Work Phone: Start: 05-27-2011 End: 05-27-2011 Echocardiography Echocardiogram (complete) [facility] Work Phone: Start: 05-27-2011 End: 05-27-2011 Follow Up Appt 6 months Follow Up Appt 6 months [facility] Work Phone: Start: 05-27-2011 End: 05-27-2011 Echocardiography Echocardiogram (complete) [facility] Work Phone: Start: 05-27-2011 End: 05-27-2011 Follow Up Appt 6 months Follow Up Appt 6 months [facility] Work Phone: Patient Education [facility] Work Phone: Payers Date Payer Category Payer Unknown [id number] 1955 Unknown [id number] Summary Purpose Family History No Family History [...] BE BASED ON THE PRIMARY CLINICAL RECORDS. [facility] provides no warranty or guarantee of the accuracy or completeness of information in this document.
== END | disposition home or self-care (01) ==
LOC: CVS 07:48
PROVIDERS: PCP Family Medicine; Referring Provider Nurse Practitioner Family; Visit Provider Nurse Practitioner Family
DX: I25.810 Atherosclerosis of coronary artery bypass graft(s) without angina pectoris (principal); I51.3 Intracardiac thrombosis, not elsewhere classified
CPT/HCPCS: 93306; Q9957; A4216; C8929

== ENCOUNTER 2023-08-17 09:39 | Outpatient (RCR) | payer MEDICARE, SELFPAY ==
[2023-07-20 23:43] VITALS: BMI 21.7
[2023-07-27 12:23] LABS: International Normalized Ratio 2.2; Prothrombin Time (Protime)PT. 24.7 SECONDS (11.7-14.9)
[2023-08-17 10:25] LABS: International Normalized Ratio 1.6; Prothrombin Time (Protime)PT. 19.3 SECONDS (11.7-14.9)
== END 2023-08-18 18:00 | disposition home or self-care (01) ==
LOC: MTLAB 09:39
PROVIDERS: Family Provider Family Medicine; PCP Family Medicine; Referring Provider Nurse Practitioner Family; Visit Provider Nurse Practitioner Family
DX: I51.3 Intracardiac thrombosis, not elsewhere classified (principal); Z79.01 Long term (current) use of 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s; I25.5 Ischemic cardiomyopathy
CPT/HCPCS: 36415; 85610

== ENCOUNTER 2023-09-05 08:45 | Outpatient (RCR) | payer MEDICARE, SELFPAY ==
[2023-08-19 02:20] VITALS: BMI 21.7
[2023-09-05 11:02] LABS: Prothrombin Time (Protime)PT. 22.4 SECONDS (11.7-14.9)
== END 2023-09-18 02:06 | disposition home or self-care (01) ==
LOC: MTLAB 08:45
PROVIDERS: Family Provider Family Medicine; PCP Family Medicine; Referring Provider Nurse Practitioner Family; Visit Provider Nurse Practitioner Family
DX: I51.3 Intracardiac thrombosis, not elsewhere classified (principal); I25.5 Ischemic cardiomyopathy; Z79.01 Long term (current) use of 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s
CPT/HCPCS: 36415; 85610

== ENCOUNTER → 2023-09-28 | Outpatient (CLI) | payer MEDICARE, SELFPAY ==
[2023-09-28 12:47] LABS: Uric Acid 8.5 mg/dL (3.5-7.2)
== END | disposition home or self-care (01) ==
PROVIDERS: PCP Family Medicine; Visit Provider Family Medicine
DX: M10.9 Gout, unspecified (principal)
CPT/HCPCS: 36415; 84550

== ENCOUNTER 2023-10-04 08:57 | Outpatient (RCR) | payer MEDICARE, SELFPAY ==
[2023-09-18 02:07] VITALS: BMI 21.7
[2023-10-04 12:09] LABS: International Normalized Ratio 2.2; Prothrombin Time (Protime)PT. 24.2 SECONDS (11.7-14.9)
== END 2023-10-18 22:04 | disposition home or self-care (01) ==
LOC: MTLAB 08:57
PROVIDERS: Family Provider Family Medicine; PCP Family Medicine; Referring Provider Nurse Practitioner Family; Visit Provider Nurse Practitioner Family
DX: I51.3 Intracardiac thrombosis, not elsewhere classified (principal); I25.5 Ischemic cardiomyopathy; Z79.01 Long term (current) use of 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s
CPT/HCPCS: 36415; 85610

== ENCOUNTER 2023-10-28 09:43 | Outpatient (RCR) | payer MEDICARE, SELFPAY ==
[2023-10-18 22:04] VITALS: BMI 21.7
[2023-10-21 10:10] LABS: International Normalized Ratio 3.2; Prothrombin Time (Protime)PT. 32.5 SECONDS (11.7-14.9)
[2023-10-28 13:07] LABS: International Normalized Ratio 2.3; Prothrombin Time (Protime)PT. 25.2 SECONDS (11.7-14.9)
== END 2023-11-18 18:00 | disposition home or self-care (01) ==
LOC: MTLAB 09:43
PROVIDERS: Family Provider Family Medicine; PCP Family Medicine; Referring Provider Nurse Practitioner Family; Visit Provider Nurse Practitioner Family
DX: I51.3 Intracardiac thrombosis, not elsewhere classified (principal); I25.5 Ischemic cardiomyopathy; Z79.01 Long term (current) use of 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s
CPT/HCPCS: 36415; 85610

== ENCOUNTER 2023-11-29 09:17 | Outpatient (RCR) | payer MEDICARE, SELFPAY ==
[2023-11-21 08:34] VITALS: BMI 21.7
[2023-11-29 10:24] LABS: International Normalized Ratio 2.9; Prothrombin Time (Protime)PT. 30.4 SECONDS (11.7-14.9)
== END 2023-11-29 18:00 | disposition home or self-care (01) ==
LOC: MTLAB 09:17
PROVIDERS: Family Provider Family Medicine; PCP Family Medicine; Referring Provider Nurse Practitioner Family; Visit Provider Nurse Practitioner Family
DX: I51.3 Intracardiac thrombosis, not elsewhere classified (principal); I25.5 Ischemic cardiomyopathy; Z79.01 Long term (current) use of 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s
CPT/HCPCS: 36415; 85610

== ENCOUNTER 2024-01-16 09:35 | Outpatient (RCR) | payer MEDICARE, SELFPAY ==
[2023-12-19 04:27] VITALS: BMI 21.7
[2024-01-16 12:29] LABS: International Normalized Ratio 1.7; Prothrombin Time (Protime)PT. 19.5 SECONDS (11.7-14.9)
== END 2024-01-18 18:00 | disposition home or self-care (01) ==
LOC: MTLAB 09:35
PROVIDERS: Family Provider Family Medicine; PCP Family Medicine; Referring Provider Nurse Practitioner Family; Visit Provider Nurse Practitioner Family
DX: I51.3 Intracardiac thrombosis, not elsewhere classified (principal); Z79.01 Long term (current) use of 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s
CPT/HCPCS: 36415; 85610

== ENCOUNTER 2024-01-30 08:31 | Outpatient (RCR) | payer MEDICARE, SELFPAY ==
[2024-01-18 23:25] VITALS: BMI 21.7
[2024-01-30 10:23] LABS: International Normalized Ratio 3.1; Prothrombin Time (Protime)PT. 31.9 SECONDS (11.7-14.9)
== END 2024-01-30 18:00 | disposition home or self-care (01) ==
LOC: MTLAB 08:31
PROVIDERS: Family Provider Family Medicine; PCP Family Medicine; Referring Provider Nurse Practitioner Family; Visit Provider Nurse Practitioner Family
DX: Z79.01 Long term (current) use of 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s
CPT/HCPCS: 36415; 85610

== ENCOUNTER 2024-02-22 09:27 | Outpatient (RCR) | payer MEDICARE, SELFPAY ==
[2024-02-18 21:19] VITALS: BMI 21.7
[2024-02-22 12:31] LABS: International Normalized Ratio 3.2; Prothrombin Time (Protime)PT. 32.1 SECONDS (11.7-14.9)
== END 2024-02-22 18:00 | disposition home or self-care (01) ==
LOC: MTLAB 09:27
PROVIDERS: Family Provider Family Medicine; PCP Family Medicine; Referring Provider Nurse Practitioner Family; Visit Provider Nurse Practitioner Family
DX: Z79.01 Long term (current) use of 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s (principal); I25.5 Ischemic cardiomyopathy
CPT/HCPCS: 36415; 85610

== ENCOUNTER 2024-03-23 09:35 | Outpatient (RCR) | payer MEDICARE, SELFPAY ==
[2024-03-20 04:51] VITALS: BMI 21.7
[2024-03-23 10:37] LABS: International Normalized Ratio 2.4; Prothrombin Time (Protime)PT. 25.8 SECONDS (11.7-14.9)
== END 2024-03-23 18:00 | disposition home or self-care (01) ==
LOC: MTLAB 09:35
PROVIDERS: Family Provider Family Medicine; PCP Family Medicine; Referring Provider Nurse Practitioner Family; Visit Provider Nurse Practitioner Family
DX: Z79.01 Long term (current) use of 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s (principal); I51.3 Intracardiac thrombosis, not elsewhere classified; I25.5 Ischemic cardiomyopathy
CPT/HCPCS: 36415; 85610

== ENCOUNTER 2024-04-23 10:10 | Outpatient (RCR) | payer MEDICARE, SELFPAY ==
[2024-04-19 21:10] VITALS: BMI 21.7
[2024-04-23 12:31] LABS: International Normalized Ratio 2.3; Prothrombin Time (Protime)PT. 24.7 SECONDS (11.7-14.9)
[2024-04-23 12:35] LABS: Hematocrit 42.4 % (40-54); Hemoglobin 14.8 g/dL (13.0-16.5); Mean Corp Hgb Conc 34.9 g/dL (32-36); Mean Corpuscular Hgb 33.3 pg (27.0-32.0); Mean Corpuscular Volume 95.3 fL (80-94); Mean Platelet Vol. 9.5 fl (6.2-12.0); Platelet Count 160 K/mm3 (150-450); RBC Distribution Width CV 12.9 % (11.6-14.6); RBC Distribution Width SD 45.5 fl (35.1-43.9); Red Blood Count 4.45 M/mm3 (4.6-6.2)
[2024-04-23 13:24] LABS: ALB/GLOB Ratio 0.9 RATIO (0.9-2.4); AST(SGOT) 23 U/L (15-37); Alanine Aminotransfer ALT/SGPT 23 U/L (16-61); Albumin, Serum 3.6 g/dL (3.2-5.0); Alkaline Phosphatase 154 U/L (45-117); Anion Gap 6 (5-15); BUN 12 mg/dL (7-18); BUN/Creat Ratio 8.3 RATIO (10-20); Calcium,Total 8.9 mg/dL (8.5-10.1); Chloride 104 mmol/L (98-107); Cholesterol 153 mg/dL (200); Creatinine, Serum 1.44 mg/dL (0.70-1.30); EST Glomerular Filtration Rate 52 mL/min (>60); Est Glom Filt Rate - Afr Amer 63 mL/min (>60); Globulin 3.8 g/dL (2.2-4.2); Glucose 99 mg/dL (74-106); High Density Lipoprotein 39 mg/dL; PSA,Total - Annual Screen 0.58 ng/mL (0.00-4.00); Potassium 4.2 mmol/L (3.5-5.1); Protein, Total 7.4 g/dL (6.4-8.2); Sodium Level 137 mmol/L (136-145); Triglycerides 201 mg/dL; Very Low Density Lipoprotein 40 mg/dL (5-40)
== END 2024-05-19 18:00 | disposition home or self-care (01) ==
LOC: MTLAB 10:10
PROVIDERS: Family Provider Family Medicine; PCP Family Medicine; Referring Provider Nurse Practitioner Family; Visit Provider Nurse Practitioner Family
DX: Z79.01 Long term (current) use of 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s (principal)
CPT/HCPCS: 36415; 80053; 80061; 84153; 85027; 85610; G0103

== ENCOUNTER 2024-05-25 10:25 | Outpatient (RCR) | payer MEDICARE, SELFPAY ==
[2024-05-20 02:18] VITALS: BMI 21.7
[2024-05-25 12:20] LABS: International Normalized Ratio 2.3; Prothrombin Time (Protime)PT. 24.9 SECONDS (11.7-14.9)
== END 2024-05-25 18:00 | disposition home or self-care (01) ==
LOC: MTLAB 10:25
PROVIDERS: Internal Medicine Cardiovascular Disease; Family Provider Family Medicine; PCP Family Medicine; Referring Provider Nurse Practitioner Family; Visit Provider Nurse Practitioner Family
DX: Z79.01 Long term (current) use of 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s (principal)
CPT/HCPCS: 36415; 85610

== ENCOUNTER 2024-06-29 09:44 | Outpatient (RCR) | payer MEDICARE, SELFPAY ==
[2024-06-20 05:12] VITALS: BMI 21.7
[2024-06-29 12:10] LABS: International Normalized Ratio 1.9; Prothrombin Time (Protime)PT. 21.9 SECONDS (11.7-14.9)
[2024-06-29 12:22] LABS: Uric Acid 8.6 mg/dL (3.5-7.2)
== END 2024-06-29 18:00 | disposition home or self-care (01) ==
LOC: MTLAB 09:44
PROVIDERS: Family Provider Family Medicine; PCP Family Medicine; Referring Provider Nurse Practitioner Family; Visit Provider Nurse Practitioner Family
DX: Z79.01 Long term (current) use of 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s (principal)

== ENCOUNTER 2024-08-17 09:59 | Outpatient (RCR) | payer MEDICARE, SELFPAY ==
[2024-07-21 02:20] VITALS: BMI 21.7
[2024-07-26 15:46] LABS: International Normalized Ratio 2.2; Prothrombin Time (Protime)PT. 25.1 SECONDS (11.7-14.9)
[2024-08-10 12:49] LABS: International Normalized Ratio 1.6; Prothrombin Time (Protime)PT. 19.3 SECONDS (11.7-14.9)
[2024-08-17 12:31] LABS: International Normalized Ratio 2.3
== END 2024-08-17 18:00 | disposition home or self-care (01) ==
LOC: MTLAB 09:59
PROVIDERS: Family Provider Family Medicine; PCP Family Medicine; Referring Provider Nurse Practitioner Family; Visit Provider Nurse Practitioner Family
DX: Z79.01 Long term (current) use of 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s (principal)
CPT/HCPCS: 36415; 85610

== ENCOUNTER 2024-09-07 09:14 | Outpatient (RCR) | payer MEDICARE, SELFPAY ==
[2024-08-18 07:35] VITALS: BMI 21.7
== END 2024-09-07 18:00 | disposition home or self-care (01) ==
LOC: MTLAB 09:14
PROVIDERS: Family Provider Family Medicine; PCP Family Medicine; Referring Provider Nurse Practitioner Family; Visit Provider Nurse Practitioner Family
DX: Z79.01 Long term (current) use of 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s (principal)

== ENCOUNTER → 2024-09-07 | Outpatient (CLI) | payer MEDICARE, SELFPAY ==
[2024-09-07 12:36] LABS: International Normalized Ratio 3.1
== END | disposition home or self-care (01) ==
PROVIDERS: PCP Family Medicine; Visit Provider Podiatrist
DX: Z79.01 Long term (current) use of 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s (principal)
CPT/HCPCS: 36415; 85610

== ENCOUNTER 2024-09-28 09:08 | Outpatient (RCR) | payer MEDICARE, SELFPAY ==
[2024-09-17 23:16] VITALS: BMI 21.7
[2024-09-28 10:36] LABS: International Normalized Ratio 2.5; Prothrombin Time (Protime)PT. 27.5 SECONDS (11.7-14.9)
== END 2024-10-17 18:00 | disposition home or self-care (01) ==
LOC: MTLAB 09:08
PROVIDERS: Family Provider Family Medicine; PCP Family Medicine; Referring Provider Nurse Practitioner Family; Visit Provider Nurse Practitioner Family
DX: Z79.01 Long term (current) use of 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s (principal)
CPT/HCPCS: 36415; 85610

== ENCOUNTER → 2024-10-09 | Outpatient (CLI) | payer MEDICARE, SELFPAY ==
--- NOTE | 2024-10-09 | LES_PTH ---
PATIENT: FREDERICK ROTHMAN LOC: [facility] U#:[id number] AGE/SX: 68/M ROOM: RE10/09/[address]: Dr. Khanh Marks MD : [id number] BED: DIS: 10/09/2024 SPEC #: [id number] RECD: 10/09/24 14:58 STATUS: RUSLAN ASHANTI #: [id number] SILVIO: 10/09/24 00:[address]: Khanh Marks DEPT: SURGICAL PATHOLOGY RECD BY: Charley Jacobsen Tissues: Skin of external ear, NOS Procedures: Surgery Specimen Level IV HEADER OPERATION: Right ear shave biopsy PRE-OP DIAGNOSIS: Rule out squamous cell carcinoma TISSUE SUBMITTED: A- Right ear shave biopsy MICROSCOPIC DIAGNOSIS A. Skin, right ear, shave biopsy: * Superficial portion of an atypical verrucous hyperkeratotic lesion - see note. Note: The findings are consistent with at least a hypertrophic actinic keratosis. However, the base of the lesion is not included, and a squamous cell carcinoma cannot be ruled out. Suggest deeper repeat biopsy/excision, if clinically indicated. MICROSCOPIC DESCRIPTION Slides are reviewed. GROSS DESCRIPTION A. Received in formalin in a container labeled with the patient's name, date of , and R ear is an unoriented and irregular fragment of friable possible skin measuring 1.1 x 0.3 x 0.3 cm. The entire specimen is white-mckinnon, roughened, with no typical skin identified. 1 surface is markedly roughened, possibly consistent with margin and inked green. It is quadrisected to reveal white-mckinnon, friable, and uniform surfaces. Submitted entirely in A1. [facility] 10/09/2024 CPT:91888
== END | disposition home or self-care (01) ==
LOC: LABSPEC 15:04
PROVIDERS: PCP Family Medicine; Referring Provider Family Medicine; Visit Provider Family Medicine
DX: L85.9 Epidermal thickening, unspecified (principal)
CPT/HCPCS: 88305

== ENCOUNTER 2024-10-22 09:37 | Outpatient (RCR) | payer MEDICARE, SELFPAY ==
[2024-10-17 22:30] VITALS: BMI 21.7
[2024-10-22 12:31] LABS: Hematocrit 42.7 % (40-54); Mean Corp Hgb Conc 35.1 g/dL (32-36); Mean Corpuscular Hgb 32.9 pg (27.0-32.0); Mean Corpuscular Volume 93.6 fL (80-94); Mean Platelet Vol. 9.8 fl (6.2-12.0); Platelet Count 168 K/mm3 (150-450); RBC Distribution Width CV 13.4 % (11.6-14.6); RBC Distribution Width SD 45.8 fl (35.1-43.9); Red Blood Count 4.56 M/mm3 (4.6-6.2); White Blood Count 5.7 K/mm3 (4.4-11.0)
[2024-10-22 12:53] LABS: International Normalized Ratio 3.2; Prothrombin Time (Protime)PT. 33.8 SECONDS (11.7-14.9)
[2024-10-22 13:54] LABS: ALB/GLOB Ratio 1.2 RATIO (0.9-2.4); AST(SGOT) 24 U/L (<=37); Alanine Aminotransfer ALT/SGPT 17 U/L (<=46); Albumin, Serum 3.9 g/dL (3.4-4.8); Alkaline Phosphatase 146 U/L (40-129); Anion Gap 8 (5-15); BUN 17 mg/dL (4-19); BUN/Creat Ratio 12.5 RATIO (10-20); Bilirubin, Direct 0.21 mg/dL (0.00-0.30); Calcium,Total 9.2 mg/dL (7.6-11.0); Carbon Dioxide 24.8 mmol/L (21.0-32.0); Chloride 103 mmol/L (98-108); Cholesterol 130 mg/dL (<=200); Creatinine, Serum 1.37 mg/dL (0.70-1.20); EST Glomerular Filtration Rate 56 (>60); Globulin 3.2 g/dL (2.2-4.2); Glucose 96 mg/dL (70-99); High Density Lipoprotein 30 mg/dL; Low Density Lipoprotein Calc. 61 mg/dL; Potassium 4.5 mmol/L (3.3-5.1); Protein, Total 7.1 g/dL (5.9-8.4); Sodium Level 136 mmol/L (133-145); Total Bilirubin 0.51 mg/dL (0.00-1.30); Triglycerides 192 mg/dL; Uric Acid 8.4 mg/dL (3.5-7.2); Very Low Density Lipoprotein 38 mg/dL (5-40)
== END 2024-10-22 18:00 | disposition home or self-care (01) ==
LOC: MTLAB 09:37
PROVIDERS: Family Provider Family Medicine; PCP Family Medicine; Referring Provider Nurse Practitioner Family; Visit Provider Nurse Practitioner Family
DX: Z79.01 Long term (current) use of 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s (principal); E03.9 Hypothyroidism, unspecified; I11.0 Hypertensive heart disease with heart failure; I48.91 Unspecified atrial fibrillation; M10.9 Gout, unspecified
CPT/HCPCS: 36415; 80053; 80061; 82248; 84439; 84443; 84550; 85027; 85610

== ENCOUNTER 2024-11-21 09:19 | Outpatient (RCR) | payer MEDICARE, SELFPAY ==
[2024-11-18 19:15] VITALS: BMI 21.7
[2024-11-21 10:31] LABS: International Normalized Ratio 2.1; Prothrombin Time (Protime)PT. 23.9 SECONDS (11.7-14.9)
== END 2024-11-21 18:00 | disposition home or self-care (01) ==
LOC: MTLAB 09:19
PROVIDERS: Family Provider Family Medicine; PCP Family Medicine; Referring Provider Nurse Practitioner Family; Visit Provider Nurse Practitioner Family
DX: Z79.01 Long term (current) use of 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s (principal)
CPT/HCPCS: 36415; 85610

== ENCOUNTER 2024-12-25 11:28 | Outpatient (RCR) | payer MEDICARE, SELFPAY ==
[2024-12-25 16:07] LABS: Prothrombin Time (Protime)PT. 31.5 SECONDS (11.7-14.9)
== END 2025-01-17 18:00 | disposition home or self-care (01) ==
LOC: MTLAB 11:28
PROVIDERS: Family Provider Family Medicine; PCP Family Medicine; Referring Provider Nurse Practitioner Family; Visit Provider Nurse Practitioner Family
DX: Z79.01 Long term (current) use of 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s (principal)
CPT/HCPCS: 36415; 85610

== ENCOUNTER → 2025-02-13 | Outpatient (CLI) | payer MEDICARE, SELFPAY ==
--- NOTE | 2025-02-13 12:47 | ECHOCS_ITS ---
Reason For Study Reason For Study: Eval EF Procedure This was a 2D Doppler, Color Flow transthoracic echocardiogram. The study was technically difficult. Contrast injection was performed. Exam performed in department. Left Ventricle Moderately dilated left ventricle. The left ventricular ejection fraction is 35 %. Stage 1 diastolic dysfunction. There are regional wall motion abnormalities as specified. Right Ventricle Normal RV size. ICD or pacer leads identified within the right ventricle. Mild global right ventricular systolic dysfunction. Atria Normal left atrium. Normal right atrium. Mitral Valve Normal mitral valve. Mild (1+) eccentric mitral valve insufficiency. Tricuspid Valve Normal tricuspid valve. Mild (1+) tricuspid valve insufficiency. Aortic Valve Trisinus/trileaflet aortic valve. Pulmonic Valve Normal pulmonic valve. Great Vessels Normal aortic root. Pericardium/Pleural No pericardial effusion. Medication 22 gauge I.V. with prn adaptor inserted into right arm. Diluted definity 2.5ml given slow IV push to enhance endocardial definition. MMode/2D Measurements & Calculations LVIDd: 6.1 cm IVSd: 0.74 cm CO(Teich): 2.8 l/min LVIDs: 5.3 cm LVPWd: 0.75 cm RVDd: 3.7 cm FS: 13.1 % Ao root diam: 3.3 cm LAV(MOD-bp): 46.7 ml LVAd ap4: 40.3 cm2 LAV(MOD-bp) Indexed: 23.4 ml/m2 LVLd ap4: 8.3 cm LAV(MOD-sp2): 38.8 ml EDV(MOD-sp4): 155.5 ml LAV(MOD-sp4): 59.3 ml EDV(sp4-el): 165.8 ml LVAs ap4: 31.1 cm2 LVLs ap4: 7.7 cm ESV(MOD-sp4): 99.4 ml ESV(sp4-el): 106.7 ml EF(MOD-sp4): 36.1 % EF(sp4-el): 35.7 % CO(MOD-sp4): 3.1 l/min SV(sp4-el): 59.2 ml LA A4 area: 20.4 cm2 SV(MOD-sp4): 56.1 ml SI(MOD-sp4): 28.2 ml/m2 LA dimension(2D): 4.1 cm RA A4 area: 14.9 cm2 TAPSE: 1.4 cm Time Measurements MV dec time: 0.22 sec Doppler Measurements & Calculations MV E max travis: 52.6 cm/sec Lat Peak E' Travis: 9.7 cm/sec Med Peak E' Travis: 5.6 cm/sec MV A max travis: 76.6 cm/sec E/E' lat: 5.4 E/E' med: 9.4 MV E/A: 0.69 MV V2 max: 82.5 cm/sec MV P1/2t max travis: 64.1 cm/sec Ao V2 max: 95.5 cm/sec MV max P.7 mmHg MV P1/2t: 77.0 msec Ao max P.7 mmHg MV V2 mean: 37.3 cm/sec MV dec slope: 243.8 cm/sec2 Ao V2 mean: 67.8 cm/sec MV mean P.67 mmHg MVA(P1/2t): 2.9 cm2 Ao mean P.1 mmHg MV V2 VTI: 25.9 cm Ao V2 VTI: 18.8 cm AV (velocity ratio): 0.99 LV V1 max: 94.3 cm/sec PA V2 max: 109.9 cm/sec TR max travis: 214.3 cm/sec LV V1 max P.6 mmHg PA V2 mean: 70.4 cm/sec TR max P.5 mmHg LV V1 mean P.1 mmHg LV V1 mean: 69.6 cm/sec LV V1 VTI: 18.5 cm ECHO/Echo Complete W/ Contrast Interpretation Summary The left ventricular ejection fraction is 35 %. Stage 1 diastolic dysfunction. ICD or pacer leads identified within the right ventricle. Moderately dilated left ventricle. Ordering Physician: Angel Chou Referring Physician: Angel Chou Performed By: Sean Lainez RCS
== END | disposition home or self-care (01) ==
LOC: CVS 12:47
PROVIDERS: PCP Family Medicine; Referring Provider Nurse Practitioner Family; Visit Provider Nurse Practitioner Family
DX: I25.5 Ischemic cardiomyopathy (principal)
CPT/HCPCS: 93306; Q9957; A4216; C8929

== ENCOUNTER 2025-03-01 09:11 | Outpatient (RCR) | payer MEDICARE, SELFPAY ==
[2025-03-01 10:52] LABS: Prothrombin Time (Protime)PT. 28.7 SECONDS (11.7-14.9)
== END 2025-03-19 18:00 | disposition home or self-care (01) ==
LOC: MTLAB 09:11
PROVIDERS: Family Provider Family Medicine; PCP Family Medicine; Referring Provider Nurse Practitioner Family; Visit Provider Nurse Practitioner Family
DX: Z79.01 Long term (current) use of 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s (principal)
CPT/HCPCS: 36415; 85610

== ENCOUNTER 2025-03-22 08:57 | Outpatient (RCR) | payer MEDICARE, SELFPAY ==
[2025-03-22 10:49] LABS: Prothrombin Time (Protime)PT. 23.8 SECONDS (11.7-14.9)
== END 2025-03-22 18:00 | disposition home or self-care (01) ==
LOC: MTLAB 08:57
PROVIDERS: Family Provider Family Medicine; PCP Family Medicine; Referring Provider Nurse Practitioner Family; Visit Provider Nurse Practitioner Family
DX: Z79.01 Long term (current) use of 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s (principal)
CPT/HCPCS: 36415; 85610

== ENCOUNTER 2025-04-22 10:04 | Outpatient (RCR) | payer MEDICARE, SELFPAY ==
[2025-04-22 12:53] LABS: Prothrombin Time (Protime)PT. 24.7 SECONDS (11.7-14.9)
[2025-04-22 13:10] LABS: AST(SGOT) 24 U/L (<=37); Alanine Aminotransfer ALT/SGPT 19 U/L (<=46); Albumin, Serum 3.9 g/dL (3.4-4.8); Alkaline Phosphatase 135 U/L (40-129); Anion Gap 7 (5-15); BUN 12 mg/dL (4-19); BUN/Creat Ratio 8.3 RATIO (10-20); Calcium,Total 8.9 mg/dL (7.6-11.0); Carbon Dioxide 25.6 mmol/L (21.0-32.0); Chloride 105 mmol/L (98-108); Globulin 3.0 g/dL (2.2-4.2); Glucose 103 mg/dL (70-99); Potassium 4.5 mmol/L (3.3-5.1)
== END 2025-05-18 18:00 | disposition home or self-care (01) ==
LOC: MTLAB 10:04
PROVIDERS: Family Provider Family Medicine; PCP Family Medicine; Referring Provider Nurse Practitioner Family; Visit Provider Nurse Practitioner Family
DX: I25.10 Atherosclerotic heart disease of native coronary artery without angina pectoris (principal); E03.9 Hypothyroidism, unspecified; Z79.01 Long term (current) use of 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s
CPT/HCPCS: 36415; 80053; 84439; 84443; 85610

== ENCOUNTER → 2025-04-26 | Outpatient (CLI) | payer MEDICARE, SELFPAY ==
[2025-04-26 13:34] LABS: Cholesterol 129 mg/dL (<=200); Low Density Lipoprotein Calc. 70 mg/dL; Triglycerides 161 mg/dL; Very Low Density Lipoprotein 32 mg/dL (5-40); cholesterol:hdl ratio screen 4.20
== END | disposition home or self-care (01) ==
LOC: MTLAB 09:41
PROVIDERS: PCP Family Medicine; Referring Provider Family Medicine; Visit Provider Family Medicine
DX: I25.10 Atherosclerotic heart disease of native coronary artery without angina pectoris (principal)
CPT/HCPCS: 36415; 80061

== ENCOUNTER 2025-05-24 08:58 | Outpatient (RCR) | payer MEDICARE, SELFPAY ==
[2025-05-24 10:29] LABS: Prothrombin Time (Protime)PT. 26.2 SECONDS (11.7-14.9)
== END 2025-05-24 18:00 | disposition home or self-care (01) ==
LOC: MTLAB 08:58
PROVIDERS: Internal Medicine Cardiovascular Disease; Family Provider Family Medicine; PCP Family Medicine; Referring Provider Nurse Practitioner Family; Visit Provider Nurse Practitioner Family
DX: Z79.01 Long term (current) use of 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s (principal)
CPT/HCPCS: 36415; 85610